=== PATIENT | male | born 1965 | race Hispanic/Latino ===

== ENCOUNTER 2020-09-27 09:05 | Inpatient (IN) | payer OTHER, SELFPAY ==
[2020-09-27] MEDS ORDERED: SODIUM CHLORIDE 0.9% 1000 ML 1,000 ML IV ONE (10:01)
[2020-09-27] MEDS ORDERED: dexAMETHasone 4 MG/ML VIAL IV ONE (10:01)
--- NOTE | 2020-09-27 10:30 | Emergency Department Report ---
HPI - General Chief Complaint: Nausea/Vomiting/Diarrhea Time Seen by Provider: 09/27/20 09:47 - HPI HPI: This is a 54-year-old male presents to the emergency department with complaint of feeling sick for the past week. He says that he has been having generalized body aches, sweats without chills, shortness of breath, and the patient says that he feels like he needs to cough but has not been able to do so. The patient states that he lost his sense of taste and smell but it has started to return. He has a past medical history of hypertension. He denies tobacco or illicit drug use. The patient had a room air oxygen saturation of about 80% through his triage. No recent travel or sick contacts at home. The patient is not vaccinated against COVID-19, but no known obvious exposure to anyone positive for COVID-19. He denies any chest pain, lower extremity swelling, nausea, vomiting, diarrhea, abdominal pain. He has not taken anything for his symptoms prior to presentation today. ED Past Medical Hx - Past Medical History Previous Medical History?: Yes Hx Hypertension: Yes - Surgical History Past Surgical History?: Yes Additional Surgical History: left shoulder surgery - Medications Home Medications: Home Medications Medication Instructions Recorded Confirmed Last Taken Type Losartan/Hydrochlorothiazide 1 each PO DAILY 09/27/20 09/27/20 09/26/20 10:00 History [Losartan-Hctz 100-25 mg Tab] ED Review of Systems ROS: Stated complaint: aches, pains, Other details as noted in HPI Comment: All other systems reviewed and negative Constitutional: diaphoresis, fever (Subjective), other (Fatigue). denies: chills Eyes: denies: eye pain, vision change ENT: denies: ear pain, throat pain Respiratory: shortness of breath. denies: wheezing Cardiovascular: denies: chest pain, edema Gastrointestinal: denies: nausea, vomiting, diarrhea Genitourinary: denies: dysuria, discharge Musculoskeletal: myalgia. denies: joint swelling Skin: denies: rash, lesions Neurological: denies: headache, numbness, paresthesias Physical Exam - Physical Exam Vital Signs: Vital Signs 09/27/20 09/27/20 09/27/20 09:13 09:14 09:17 Temperature 99.5 F Pulse Rate 127 H Respiratory 20 Rate Blood Pressure 132/78 O2 Sat by Pulse 80 L 89 Oximetry Physical Exam: GENERAL: The patient is well-developed well-nourished. HENT: Normocephalic. Atraumatic. Patient has moist mucous membranes. EYES: Extraocular motions are intact. NECK: Supple. Trachea is midline. CHEST/LUNGS: Rhonchi heard bilaterally. There is some tachypnea but no accessory muscle use. HEART/CARDIOVASCULAR: Regular. There is no tachycardia. There is no murmur. ABDOMEN: Abdomen is soft, nontender. Patient has normal bowel sounds. There is no abdominal distention. SKIN: Skin is warm and dry. NEURO: The patient is awake, alert, and oriented. The patient is cooperative. The patient has no focal neurologic deficits. Normal speech. MUSCULOSKELETAL: There is no tenderness or deformity. There is no limitation range of motion. ED Course Vital Signs 09/27/20 09/27/20 09/27/20 09:13 09:14 09:17 Temperature 99.5 F Pulse Rate 127 H Respiratory 20 Rate Blood Pressure 132/78 O2 Sat by Pulse 80 L 89 Oximetry ED Medical Decision Making - Lab Data Result diagrams: 09/27/20 10:27 09/27/20 10:27 Lab Results 09/27/20 09/27/20 09/27/20 Range/Units 10:27 10:27 10:27 WBC 9.8 (4.5-11.0) K/mm3 RBC 4.95 (3.65-5.03) M/mm3 Hgb 14.7 (11.8-15.2) gm/dl Hct 43.2 (35.5-45.6) % MCV 87 (84-94) fl MCH 30 (28-32) pg MCHC 34 (32-34) % RDW 14.3 (13.2-15.2) % Plt Count 202 (140-440) K/mm3 Add Manual Diff Complete Total Counted 100 Seg Neutrophils % Cutter Machine Seg Neuts % (Manual) 94.0 H (40.0-70.0) % Lymphocytes % (Manual) 1.0 L (13.4-35.0) % Monocytes % (Manual) 5.0 (0.0-7.3) % Nucleated RBC % Not Reportable Seg Neutrophils # Man 9.2 H (1.8-7.7) K/mm3 Band Neutrophils # 0.0 K/mm3 Lymphocytes # (Manual) 0.1 L (1.2-5.4) K/mm3 Abs React Lymphs (Man) 0.0 K/mm3 Monocytes # (Manual) 0.5 (0.0-0.8) K/mm3 Eosinophils # (Manual) 0.0 (0.0-0.4) K/mm3 Basophils # (Manual) 0.0 (0.0-0.1) K/mm3 Metamyelocytes # 0.0 K/mm3 Myelocytes # 0.0 K/mm3 Promyelocytes # 0.0 K/mm3 Blast Cells # 0.0 K/mm3 WBC Morphology Not Reportable Hypersegmented Neuts Not Reportable Hyposegmented Neuts Not Reportable Hypogranular Neuts Not Reportable Smudge Cells Not Reportable Toxic Granulation Not Reportable Toxic Vacuolation Not Reportable Dohle Bodies Not Reportable Pelger-Huet Anomaly Not Reportable Tuan Rods Not Reportable Platelet Estimate Consistent w auto Clumped Platelets Not Reportable Plt Clumps, EDTA Not Reportable Large Platelets Not Reportable Giant Platelets Not Reportable Platelet Satelliting Not Reportable Plt Morphology Comment Not Reportable RBC Morphology Normal Dimorphic RBCs Not Reportable Polychromasia Not Reportable Hypochromasia Not Reportable Poikilocytosis Not Reportable Anisocytosis Not Reportable Microcytosis Not Reportable Macrocytosis Not Reportable Spherocytes Not Reportable Pappenheimer Bodies Not Reportable Sickle Cells Not Reportable Target Cells Not Reportable Tear Drop Cells Not Reportable Ovalocytes Not Reportable Helmet Cells Not Reportable Calles-[place] Bodies Not Reportable [place] Rings Not Reportable [place] Cells Not Reportable Bite Cells Not Reportable Crenated Cell Not Reportable Elliptocytes Not Reportable Acanthocytes (Spur) Not Reportable Rouleaux Not Reportable Hemoglobin C Crystals Not Reportable Schistocytes Not Reportable Malaria parasites Not Reportable Marito Bodies Not Reportable Hem Pathologist Commnt No PT 14.6 (12.2-14.9) Sec. INR 1.09 (0.87-1.13) APTT 29.8 (24.2-36.6) Sec. D-Dimer 392.32 H (0-234) ng/mlDDU Sodium 125 L (137-145) mmol/L Potassium 3.7 (3.6-5.0) mmol/L Chloride 88.5 L (98-107) mmol/L Carbon Dioxide 23 (22-30) mmol/L Anion Gap 17 mmol/L BUN 18 (9-20) mg/dL Creatinine 1.4 H (0.8-1.3) mg/dL Estimated GFR 53 ml/min BUN/Creatinine Ratio 13 % Glucose 176 H (75-100) mg/dL Lactic Acid (0.7-2.0) mmol/L Calcium 8.8 (8.4-10.2) mg/dL Ferritin (30.0-300.0) ng/mL Total Bilirubin 1.00 (0.1-1.2) mg/dL AST 48 H (5-40) units/L ALT 33 (7-56) units/L Alkaline Phosphatase 109 (35-129) units/L Lactate Dehydrogenase 396 H (91-180) units/L Troponin T 0.013 (0.00-0.029) ng/mL C-Reactive Protein 24.60 H (0.00-1.30) mg/dL NT-Pro-B Natriuret Pep (0-900) pg/mL Total Protein 7.2 (6.3-8.2) g/dL Albumin 3.1 L (3.9-5) g/dL Albumin/Globulin Ratio 0.8 % Procalcitonin (<0.15) ng/mL 09/27/20 09/27/20 09/27/20 Range/Units 10:27 10:27 10:27 WBC (4.5-11.0) K/mm3 RBC (3.65-5.03) M/mm3 Hgb (11.8-15.2) gm/dl Hct (35.5-45.6) % MCV (84-94) fl MCH (28-32) pg MCHC (32-34) % RDW (13.2-15.2) % Plt Count (140-440) K/mm3 Add Manual Diff Total Counted Seg Neutrophils % Seg Neuts % (Manual) (40.0-70.0) % Lymphocytes % (Manual) (13.4-35.0) % Monocytes % (Manual) (0.0-7.3) % Nucleated RBC % Seg Neutrophils # Man (1.8-7.7) K/mm3 Band Neutrophils # K/mm3 Lymphocytes # (Manual) (1.2-5.4) K/mm3 Abs React Lymphs (Man) K/mm3 Monocytes # (Manual) (0.0-0.8) K/mm3 Eosinophils # (Manual) (0.0-0.4) K/mm3 Basophils # (Manual) (0.0-0.1) K/mm3 Metamyelocytes # K/mm3 Myelocytes # K/mm3 Promyelocytes # K/mm3 Blast Cells # K/mm3 WBC Morphology Hypersegmented Neuts Hyposegmented Neuts Hypogranular Neuts Smudge Cells Toxic Granulation Toxic Vacuolation Dohle Bodies Pelger-Huet Anomaly Tuan Rods Platelet Estimate Clumped Platelets Plt Clumps, EDTA Large Platelets Giant Platelets Platelet Satelliting Plt Morphology Comment RBC Morphology Dimorphic RBCs Polychromasia Hypochromasia Poikilocytosis Anisocytosis Microcytosis Macrocytosis Spherocytes Pappenheimer Bodies Sickle Cells Target Cells Tear Drop Cells Ovalocytes Helmet Cells Calles-[place]ilton[place] Bodies [place] Rings Clem Cells Bite Cells Crenated Cell Elliptocytes Acanthocytes (Spur) Rouleaux Hemoglobin C Crystals Schistocytes Malaria parasites Marito Bodies Hem Pathologist Commnt PT (12.2-14.9) Sec. INR (0.87-1.13) APTT (24.2-36.6) Sec. D-Dimer (0-234) ng/mlDDU Sodium (137-145) mmol/L Potassium (3.6-5.0) mmol/L Chloride (98-107) mmol/L Carbon Dioxide (22-30) mmol/L Anion Gap mmol/L BUN (9-20) mg/dL Creatinine (0.8-1.3) mg/dL Estimated GFR ml/min BUN/Creatinine Ratio % Glucose (75-100) mg/dL Lactic Acid 1.30 (0.7-2.0) mmol/L Calcium (8.4-10.2) mg/dL Ferritin 413.7 H (30.0-300.0) ng/mL Total Bilirubin (0.1-1.2) mg/dL AST (5-40) units/L ALT (7-56) units/L Alkaline Phosphatase (35-129) units/L Lactate Dehydrogenase (91-180) units/L Troponin T (0.00-0.029) ng/mL C-Reactive Protein (0.00-1.30) mg/dL NT-Pro-B Natriuret Pep (0-900) pg/mL Total Protein (6.3-8.2) g/dL Albumin (3.9-5) g/dL Albumin/Globulin Ratio % Procalcitonin 0.85 (<0.15) ng/mL 09/27/20 Range/Units 10:27 WBC (4.5-11.0) K/mm3 RBC (3.65-5.03) M/mm3 Hgb (11.8-15.2) gm/dl Hct (35.5-45.6) % MCV (84-94) fl MCH (28-32) pg MCHC (32-34) % RDW (13.2-15.2) % Plt Count (140-440) K/mm3 Add Manual Diff Total Counted Seg Neutrophils % Seg Neuts % (Manual) (40.0-70.0) % Lymphocytes % (Manual) (13.4-35.0) % Monocytes % (Manual) (0.0-7.3) % Nucleated RBC % Seg Neutrophils # Man (1.8-7.7) K/mm3 Band Neutrophils # K/mm3 Lymphocytes # (Manual) (1.2-5.4) K/mm3 Abs React Lymphs (Man) K/mm3 Monocytes # (Manual) (0.0-0.8) K/mm3 Eosinophils # (Manual) (0.0-0.4) K/mm3 Basophils # (Manual) (0.0-0.1) K/mm3 Metamyelocytes # K/mm3 Myelocytes # K/mm3 Promyelocytes # K/mm3 Blast Cells # K/mm3 WBC Morphology Hypersegmented Neuts Hyposegmented Neuts Hypogranular Neuts Smudge Cells Toxic Granulation Toxic Vacuolation Dohle Bodies Pelger-Huet Anomaly Tuan Rods Platelet Estimate Clumped Platelets Plt Clumps, EDTA Large Platelets Giant Platelets Platelet Satelliting Plt Morphology Comment RBC Morphology Dimorphic RBCs Polychromasia Hypochromasia Poikilocytosis Anisocytosis Microcytosis Macrocytosis Spherocytes Pappenheimer Bodies Sickle Cells Target Cells Tear Drop Cells Ovalocytes Helmet Cells Calles-Miltona Bodies [place] Rings Clem Cells Bite Cells Crenated Cell Elliptocytes Acanthocytes (Spur) Rouleaux Hemoglobin C Crystals Schistocytes Malaria parasites Marito Bodies Hem Pathologist Commnt PT (12.2-14.9) Sec. INR (0.87-1.13) APTT (24.2-36.6) Sec. D-Dimer (0-234) ng/mlDDU Sodium (137-145) mmol/L Potassium (3.6-5.0) mmol/L Chloride (98-107) mmol/L Carbon Dioxide (22-30) mmol/L Anion Gap mmol/L BUN (9-20) mg/dL Creatinine (0.8-1.3) mg/dL Estimated GFR ml/min BUN/Creatinine Ratio % Glucose (75-100) mg/dL Lactic Acid (0.7-2.0) mmol/L Calcium (8.4-10.2) mg/dL Ferritin (30.0-300.0) ng/mL Total Bilirubin (0.1-1.2) mg/dL AST (5-40) units/L ALT (7-56) units/L Alkaline Phosphatase (35-129) units/L Lactate Dehydrogenase (91-180) units/L Troponin T (0.00-0.029) ng/mL C-Reactive Protein (0.00-1.30) mg/dL NT-Pro-B Natriuret Pep 505.7 (0-900) pg/mL Total Protein (6.3-8.2) g/dL Albumin (3.9-5) g/dL Albumin/Globulin Ratio % Procalcitonin (<0.15) ng/mL - Radiology Data Radiology results: image reviewed interpreted by me: Chest x-ray shows bilateral patchy infiltrates concerning for pneumonia. No pneumothorax. No widened mediastinum. - Medical Decision Making This patient presents to the emergency department with a complaint of body aches, sweats, subjective fever, loss of taste and smell, shortness of breath. Initially the patient was 80% on room air through triage. He went up into the mid to high 90s with 6 L via nasal cannula. Chest x-ray shows bilateral patchy infiltrates concerning for pneumonia. Given the patient's bilateral pneumonia, hypoxia, and his complaints/symptoms, there is concern for COVID-19. The patient was placed on patient isolation and droplet precautions. He was given IV fluid resuscitation, antibiotics, and a dose of Decadron. Patient's labs shows hyponatremia with a level of 125, mild renal insufficiency with a GFR of about 50, and elevated inflammatory markers such as D-dimer, CRP, LDH, ferritin, that are found with COVID-19 infection. Patient will be admitted to the hospital and has been accepted for admission by the hospitalist, Dr. Khan. Critical Care Time: Yes Critical care time in (mins) excluding proc time.: 35 Critical care attestation.: If time is entered above; I have spent that time in minutes in the direct care of this critically ill patient, excluding procedure time. Critical care time was spent on this patient in doing his initial evaluation, multiple r eevaluations, ordering interpretation of labs and imaging, supplemental oxygen for his hypoxia, IV Decadron and antibiotics, IV fluid resuscitation, multiple discussions with the patient. Critical Care Time: 35 minutes ED Disposition Clinical Impression: Suspected 2019 novel coronavirus infection, Hypoxia, Hyponatremia, Mild renal insufficiency Bilateral pneumonia Qualifiers: Pneumonia type: due to unspecified organism Lung location: unspecified part of lung Qualified Code(s): J18.9 - Pneumonia, unspecified organism Disposition: OP ADMIT IP TO THIS HOSP Is pt being admited?: Yes Condition: Serious Time of Disposition: 11:42
[2020-09-27] MEDS ORDERED: ALUM-MAG HYDROXIDE-SIMETHICONE 200-200-20MG/5ML ORAL LIQD 30 ML PO ONE (10:41)
[2020-09-27 10:49] LABS: Hematocrit 43.2 % (35.5-45.6); Hemoglobin 14.7 gm/dl (11.8-15.2); Mean Corpuscular HGB Conc 34 % (32-34); Mean Corpuscular Volume 87 fl (84-94); Platelet Count 202 K/mm3 (140-440); Red Blood Count 4.95 M/mm3 (3.65-5.03); Red Cell Distribution Width 14.3 % (13.2-15.2)
--- NOTE | 2020-09-27 10:52 | XRay Report ---
CHEST 1 VIEW INDICATION: SOB. COMPARISON: None. FINDINGS: Support devices: None. Heart: Within normal limits. Lungs/Pleura: Lung volumes are diminished. Patchy bilateral infiltrates. No pleural fluid or pneumoth orax. Additional findings: None. IMPRESSION: 1. Patchy bilateral pneumonia. 2. Diminished lung volumes. Signer Name: Dominick Victoria MD Signed: 09/27/2020 10:47 AM Workstation Name: [id number]
[2020-09-27] MEDS ORDERED: cefTRIAXone/NS 1 GM/50 ML 1 GM/50 ML BAG IV ONE (10:56)
[2020-09-27] MEDS ORDERED: AZITHROMYCIN/NS 500 MG/250 ML 500 MG/250 ML BAG IV ONE (10:56)
[2020-09-27 11:17] LABS: INR 1.09 (0.87-1.13); Partial Thromboplastin Time 29.8 Sec. (24.2-36.6)
[2020-09-27 11:24] LABS: Albumin 3.1 g/dL (3.9-5); C-Reactive Protein 24.6 mg/dL (0.00-1.30); Calcium 8.8 mg/dL (8.4-10.2)
[2020-09-27 13:50] LABS: RBC Morphology Normal; Total Cells Counted 100
[2020-09-27 13:51] LABS: Platelet Estimate Consistent w Auto
[2020-09-27] MEDS ORDERED: ACETAMINOPHEN 325 MG TAB PO PRN (15:32)
[2020-09-27] MEDS ORDERED: HYDROmorphone 1 MG/1 ML INJ IV PRN (15:32)
[2020-09-27] MEDS ORDERED: METOCLOPRAMIDE 10 MG/2 ML INJ IV PRN (15:32)
[2020-09-27] MEDS ORDERED: ONDANSETRON 4 MG/2 ML INJ IV PRN (15:32)
--- NOTE | 2020-09-27 15:32 | History and Physical Report ---
History of Present Illness Date of examination: 09/27/20 Date of admission: 09/27/20 11:42 History of present illness: This is a 54-year-old male presents to the emergency department with complaint of feeling sick for the past week. He says that he has been having generalized body aches, sweats without chills, shortness of breath, and the patient says that he feels like he needs to cough but has not been able to do so. The patient states that he lost his sense of taste and smell but it has started to return. He has a past medical history of hypertension. He denies tobacco or illicit drug use. The patient had a room air oxygen saturation of about 80% through his triage. No recent travel or sick contacts at home. The patient is not vaccinated against COVID-19, but no known obvious exposure to anyone positive for COVID-19. He denies any chest pain, lower extremity swelling, nausea, vomiting, diarrhea, abdominal pain. He has not taken anything for his symptoms prior to presentation today. Did jose get Covid vaccination - Past Medical History Previous Medical History?: Yes Hx Hypertension: Yes - Surgical History Past Surgical History?: Yes Additional Surgical History: left shoulder surgery Review of Systems ROS: Stated complaint: aches, pains, Other details as noted in HPI Comment: All other systems reviewed and negative Constitutional: diaphoresis, fever (Subjective), other (Fatigue). denies: chills Eyes: denies: eye pain, vision change ENT: denies: ear pain, throat pain Respiratory: shortness of breath. denies: wheezing Cardiovascular: denies: chest pain, edema Gastrointestinal: denies: nausea, vomiting, diarrhea Genitourinary: denies: dysuria, discharge Musculoskeletal: myalgia. denies: joint swelling Skin: denies: rash, lesions Neurological: denies: headache, numbness, paresthesias Medications and Allergies Allergies Allergy/AdvReac Type Severity Reaction Status Date / Time No Known Allergies Allergy Verified 09/27/20 13:19 Home Medications Medication Instructions Recorded Confirmed Last Taken Type Losartan/Hydrochlorothiazide 1 each PO DAILY 09/27/20 09/27/20 09/26/20 10:00 History [Losartan-Hctz 100-25 mg Tab] Exam - Constitutional Vitals: Temp Pulse Resp BP Pulse Ox 99.9 F H 101 H 22 130/79 93 07/05/21 11:45 09/27/20 13:15 09/27/20 13:15 09/27/20 13:15 09/27/20 13:15 HEART Score - HEART Score Troponin: Troponin T 0.013 ng/mL (0.00-0.029) 09/27/20 10:27 Results - Labs CBC & Chem 7: 09/28/20 06:53 09/28/20 06:53 Labs: Laboratory Last Values WBC 9.8 K/mm3 (4.5-11.0) 09/27/20 10:27 RBC 4.95 M/mm3 (3.65-5.03) 09/27/20 10:27 Hgb 14.7 gm/dl (11.8-15.2) 09/27/20 10:27 Hct 43.2 % (35.5-45.6) 09/27/20 10:27 MCV 87 fl (84-94) 09/27/20 10:27 MCH 30 pg (28-32) 09/27/20 10:27 MCHC 34 % (32-34) 09/27/20 10:27 RDW 14.3 % (13.2-15.2) 09/27/20 10:27 Plt Count 202 K/mm3 (140-440) 09/27/20 10:27 Add Manual Diff Complete 09/27/20 10:27 Total Counted 100 09/27/20 10:27 Seg Neutrophils % Director Of In Service Education 09/27/20 10:27 Seg Neuts % (Manual) 94.0 % (40.0-70.0) H 09/27/20 10:27 Lymphocytes % (Manual) 1.0 % (13.4-35.0) L 09/27/20 10:27 Monocytes % (Manual) 5.0 % (0.0-7.3) 09/27/20 10:27 Nucleated RBC % Not Reportable 09/27/20 10:27 Seg Neutrophils # Man 9.2 K/mm3 (1.8-7.7) H 09/27/20 10:27 Band Neutrophils # 0.0 K/mm3 09/27/20 10:27 Lymphocytes # (Manual) 0.1 K/mm3 (1.2-5.4) L 09/27/20 10:27 Abs React Lymphs (Man) 0.0 K/mm3 09/27/20 10:27 Monocytes # (Manual) 0.5 K/mm3 (0.0-0.8) 09/27/20 10:27 Eosinophils # (Manual) 0.0 K/mm3 (0.0-0.4) 09/27/20 10:27 Basophils # (Manual) 0.0 K/mm3 (0.0-0.1) 09/27/20 10:27 Metamyelocytes # 0.0 K/mm3 09/27/20 10:27 Myelocytes # 0.0 K/mm3 09/27/20 10:27 Promyelocytes # 0.0 K/mm3 09/27/20 10:27 Blast Cells # 0.0 K/mm3 09/27/20 10:27 WBC Morphology Not Reportable 09/27/20 10:27 Hypersegmented Neuts Not Reportable 09/27/20 10:27 Hyposegmented Neuts Not Reportable 09/27/20 10:27 Hypogranular Neuts Not Reportable 09/27/20 10:27 Smudge Cells Not Reportable 09/27/20 10:27 Toxic Granulation Not Reportable 09/27/20 10:27 Toxic Vacuolation Not Reportable 09/27/20 10:27 Dohle Bodies Not Reportable 09/27/20 10:27 Pelger-Huet Anomaly Not Reportable 09/27/20 10:27 Tuan Rods Not Reportable 09/27/20 10:27 Platelet Estimate Consistent w auto 09/27/20 10:27 Clumped Platelets Not Reportable 09/27/20 10:27 Plt Clumps, EDTA Not Reportable 09/27/20 10:27 Large Platelets Not Reportable 09/27/20 10:27 Giant Platelets Not Reportable 09/27/20 10:27 Platelet Satelliting Not Reportable 09/27/20 10:27 Plt Morphology Comment Not Reportable 09/27/20 10:27 RBC Morphology Normal 09/27/20 10:27 Dimorphic RBCs Not Reportable 09/27/20 10:27 Polychromasia Not Reportable 09/27/20 10:27 Hypochromasia Not Reportable 09/27/20 10:27 Poikilocytosis Not Reportable 09/27/20 10:27 Anisocytosis Not Reportable 09/27/20 10:27 Microcytosis Not Reportable 09/27/20 10:27 Macrocytosis Not Reportable 09/27/20 10:27 Spherocytes Not Reportable 09/27/20 10:27 Pappenheimer Bodies Not Reportable 09/27/20 10:27 Sickle Cells Not Reportable 09/27/20 10:27 Target Cells Not Reportable 09/27/20 10:27 Tear Drop Cells Not Reportable 09/27/20 10:27 Ovalocytes Not Reportable 09/27/20 10:27 Helmet Cells Not Reportable 09/27/20 10:27 Calles-[place] Bodies Not Reportable 09/27/20 10:27 [place] Rings Not Reportable 09/27/20 10:27 [place] Cells Not Reportable 09/27/20 10:27 Bite Cells Not Reportable 09/27/20 10:27 Crenated Cell Not Reportable 09/27/20 10:27 Elliptocytes Not Reportable 09/27/20 10:27 Acanthocytes (Spur) Not Reportable 09/27/20 10:27 Rouleaux Not Reportable 09/27/20 10:27 Hemoglobin C Crystals Not Reportable 09/27/20 10:27 Schistocytes Not Reportable 09/27/20 10:27 Malaria parasites Not Reportable 09/27/20 10:27 Marito Bodies Not Reportable 09/27/20 10:27 Hem Pathologist Commnt No 09/27/20 10:27 PT 14.6 Sec. (12.2-14.9) 09/27/20 10:27 INR 1.09 (0.87-1.13) 09/27/20 10:27 APTT 29.8 Sec. (24.2-36.6) 09/27/20 10:27 D-Dimer 392.32 ng/mlDDU (0-234) H 09/27/20 10:27 Sodium 125 mmol/L (137-145) L 09/27/20 10:27 Potassium 3.7 mmol/L (3.6-5.0) 09/27/20 10:27 Chloride 88.5 mmol/L (98-107) L 09/27/20 10:27 Carbon Dioxide 23 mmol/L (22-30) 09/27/20 10:27 Anion Gap 17 mmol/L 09/27/20 10:27 BUN 18 mg/dL (9-20) 09/27/20 10:27 Creatinine 1.4 mg/dL (0.8-1.3) H 09/27/20 10:27 Estimated GFR 53 ml/min 09/27/20 10:27 BUN/Creatinine Ratio 13 % 09/27/20 10:27 Glucose 176 mg/dL (75-100) H 09/27/20 10:27 Lactic Acid 1.30 mmol/L (0.7-2.0) 09/27/20 10:27 Calcium 8.8 mg/dL (8.4-10.2) 09/27/20 10:27 Ferritin 413.7 ng/mL (30.0-300.0) H 09/27/20 10:27 Total Bilirubin 1.00 mg/dL (0.1-1.2) 09/27/20 10:27 AST 48 units/L (5-40) H 09/27/20 10:27 ALT 33 units/L (7-56) 09/27/20 10:27 Alkaline Phosphatase 109 units/L (35-129) 09/27/20 10:27 Lactate Dehydrogenase 396 units/L (91-180) H 09/27/20 10:27 Troponin T 0.013 ng/mL (0.00-0.029) 09/27/20 10:27 C-Reactive Protein 24.60 mg/dL (0.00-1.30) H 09/27/20 10:27 NT-Pro-B Natriuret Pep 505.7 pg/mL (0-900) 09/27/20 10:27 Total Protein 7.2 g/dL (6.3-8.2) 09/27/20 10:27 Albumin 3.1 g/dL (3.9-5) L 09/27/20 10:27 Albumin/Globulin Ratio 0.8 % 09/27/20 10:27 Procalcitonin 0.85 ng/mL (<0.15) 09/27/20 10:27 Short CBC 09/28/20 Range/Units 06:53 WBC 11.2 H (4.5-11.0) K/mm3 Hgb 15.1 (11.8-15.2) gm/dl Hct 44.0 (35.5-45.6) % Plt Count 220 (140-440) K/mm3 BMP 09/28/20 06:53 Sodium 133 L D Potassium 4.3 Chloride 94.3 L Carbon Dioxide 24 BUN 22 H Creatinine 1.2 Glucose 168 H Calcium 9.1 Liver Function 09/28/20 Range/Units 06:53 Total Bilirubin 0.50 (0.1-1.2) mg/dL AST 35 (5-40) units/L ALT 33 (7-56) units/L Alkaline Phosphatase 112 (35-129) units/L Albumin 3.8 L (3.9-5) g/dL Assessment and Plan Advance Directives: Yes (Full code) - Patient Problems (1) Acute respiratory failure with hypoxia Current Visit: Yes Status: Acute Plan to address problem: On 8 liters O2 Covid positive (2) Bilateral pneumonia Current Visit: Yes Status: Acute Qualifiers: Pneumonia type: due to unspecified organism Lung location: unspecified part of lung Qualified Code(s): J18.9 - Pneumonia, unspecified organism Plan to address problem: Treat as CAP (3) Suspected 2019 novel coronavirus infection Current Visit: Yes Status: Acute Plan to address problem: Covid to be ruled out (4) ELY (acute kidney injury) Current Visit: Yes Status: Acute (5) Malnutrition Current Visit: Yes Status: Acute (6) DVT prophylaxis Current Visit: Yes Status: Acute
[2020-09-27] MEDS: dexAMETHasone 4 MG/ML VIAL IV SCH (18:04)
[2020-09-27] MEDS: ENOXAPARIN 40 MG/0.4 ML INJ SUB-Q SCH (21:45)
[2020-09-27] MEDS: FAMOTIDINE 20 MG TAB PO SCH (21:45)
[2020-09-28] MEDS ORDERED: traZODone 50 MG TAB PO ONE (00:05)
[2020-09-28 07:59] LABS: Hemoglobin 15.1 gm/dl (11.8-15.2); Mean Corpuscular HGB Conc 34 % (32-34); Mean Corpuscular Volume 88 fl (84-94); Platelet Count 220 K/mm3 (140-440); Red Blood Count 5.01 M/mm3 (3.65-5.03); Red Cell Distribution Width 14.4 % (13.2-15.2)
[2020-09-28 08:24] LABS: Alanine Aminotransferase 33 units/L (7-56); Albumin 3.8 g/dL (3.9-5); BUN/Creatinine Ratio 18; Blood Urea Nitrogen 22 mg/dL (9-20); Calcium 9.1 mg/dL (8.4-10.2); Hemolysis Index 29
[2020-09-28] MEDS: FAMOTIDINE 20 MG TAB PO SCH ×2 (09:46→22:32)
[2020-09-28] MEDS: oxyCODONE /ACETAMINOPHEN 5-325MG TAB PO PRN ×2 (09:47→22:32)
[2020-09-28 10:43] LABS: Band Neutrophils # (Manual) 0.1 K/mm3; Promyelocytes # (Manual) 37.1 K/mm3; Total Cells Counted 100
[2020-09-28 10:45] LABS: Burr Cells 1+; Large Platelets Few; Ovalocytes Few; Platelet Estimate Consistent w Auto
[2020-09-28] MEDS: cefTRIAXone/NS 2 GM/100 ML 2 GM/100 ML BAG IV SCH (11:05)
[2020-09-28] MEDS ORDERED: AZITHROMYCIN/NS 500 MG/250 ML 500 MG/250 ML BAG IV SCH (12:00)
[2020-09-28] MEDS: dexAMETHasone 4 MG/ML VIAL IV SCH (15:11)
--- NOTE | 2020-09-28 17:51 | Discharge Summary ---
Providers - Providers Date of Admission: 09/27/20 11:42 Date of discharge: 09/28/20 Attending physician: MARQUITA HIGUERA Hospitalization Condition: Serious - Discharge Diagnoses (1) Acute respiratory failure with hypoxia Status: Acute (2) Bilateral pneumonia Status: Acute Qualifiers: Pneumonia type: due to unspecified organism Lung location: unspecified part of lung Qualified Code(s): J18.9 - Pneumonia, unspecified organism (3) Suspected 2019 novel coronavirus infection Status: Acute (4) ELY (acute kidney injury) Status: Acute (5) Malnutrition Status: Acute (6) DVT prophylaxis Status: Acute Exam - Constitutional Vitals: Temp Pulse Resp BP Pulse Ox 97.8 F 92 H 18 137/79 94 09/28/20 04:33 09/28/20 04:33 09/28/20 04:33 09/28/20 04:33 09/28/20 08:09 Plan Follow up with: VAMSHI MURDOCK [Other] - 3-5 Days
[2020-09-28] MEDS: ENOXAPARIN 40 MG/0.4 ML INJ SUB-Q SCH (22:32)
[2020-09-29] MEDS ORDERED: METOPROLOL TARTRATE 5 MG/5 ML INJ IV ONE (05:53)
--- NOTE | 2020-09-29 08:00 | Progress Note ---
Assessment and Plan - Patient Problems (1) Acute respiratory failure with hypoxia Current Visit: Yes Status: Acute Plan to address problem: On 8 liters O2 Covid positive (2) Bilateral pneumonia Current Visit: Yes Status: Acute Qualifiers: Pneumonia type: due to unspecified organism Lung location: unspecified part of lung Qualified Code(s): J18.9 - Pneumonia, unspecified organism (3) Suspected 2019 novel coronavirus infection Current Visit: Yes Status: Acute (4) ELY (acute kidney injury) Current Visit: Yes Status: Acute (5) Malnutrition Current Visit: Yes Status: Acute (6) DVT prophylaxis Current Visit: Yes Status: Acute Subjective Date of service: 09/28/20 Objective - Constitutional Vitals: Vital Signs - 12hr 09/28/20 09/29/20 22:22 04:45 Temperature 97.4 F L 98.0 F Pulse Rate 94 H 90 Respiratory 20 20 Rate Blood Pressure 159/106 160/108 O2 Sat by Pulse 97 97 Oximetry General appearance: Present: no acute distress, well-nourished - EENT Eyes: PERRL, EOM intact ENT: hearing intact, clear oral mucosa Ears: bilateral: normal - Neck Neck: supple, normal ROM - Respiratory Respiratory effort: normal Respiratory: bilateral: CTA - Breasts Breasts: normal - Cardiovascular Rhythm: regular Heart Sounds: Present: S1 & S2. Absent: gallop, rub Extremities: pulses intact, No edema, normal color, Full ROM - Gastrointestinal General gastrointestinal: Present: soft, non-tender, non-distended, normal bowel sounds - Genitourinary Male genitourinary: normal - Integumentary Integumentary: clear, warm, dry - Musculoskeletal Musculoskeletal: 1, strength equal bilaterally - Neurologic Neurologic: moves all extremities - Psychiatric Psychiatric: memory intact, appropriate mood/affect, intact judgment & insight - Labs CBC & Chem 7: 09/28/20 06:53 09/28/20 06:53 Labs: Abnormal lab results 09/27/20 09/28/20 09/28/20 Range/Units 11:59 06:53 06:53 WBC 11.2 H (4.5-11.0) K/mm3 Seg Neuts % (Manual) 98.0 H (40.0-70.0) % Seg Neutrophils # Man 11.0 H (1.8-7.7) K/mm3 Lymphocytes # (Manual) 0.0 L (1.2-5.4) K/mm3 Sodium 133 L D (137-145) mmol/L Chloride 94.3 L (98-107) mmol/L BUN 22 H (9-20) mg/dL Glucose 168 H (75-100) mg/dL Hemoglobin A1c (4-6) % Albumin 3.8 L (3.9-5) g/dL Coronavirus (PCR) Positive A (Negative) 09/28/20 Range/Units 06:53 WBC (4.5-11.0) K/mm3 Seg Neuts % (Manual) (40.0-70.0) % Seg Neutrophils # Man (1.8-7.7) K/mm3 Lymphocytes # (Manual) (1.2-5.4) K/mm3 Sodium (137-145) mmol/L Chloride (98-107) mmol/L BUN (9-20) mg/dL Glucose (75-100) mg/dL Hemoglobin A1c 7.5 H (4-6) % Albumin (3.9-5) g/dL Coronavirus (PCR) (Negative) HEART Score - HEART Score Troponin: Troponin T 0.013 ng/mL (0.00-0.029) 09/27/20 10:27
--- NOTE | 2020-09-29 08:07 | Progress Note ---
Assessment and Plan - Patient Problems (1) Acute respiratory failure with hypoxia Current Visit: Yes Status: Acute Plan to address problem: On 8 liters O2 Covid positive (2) Bilateral pneumonia Current Visit: Yes Status: Acute Qualifiers: Pneumonia type: due to unspecified organism Lung location: unspecified part of lung Qualified Code(s): J18.9 - Pneumonia, unspecified organism Plan to address problem: Treat as CAP (3) Suspected 2019 novel coronavirus infection Current Visit: Yes Status: Acute Plan to address problem: Covid positive ID consult On IV dexamethasone (4) ELY (acute kidney injury) Current Visit: Yes Status: Acute Plan to address problem: Improved (5) Malnutrition Current Visit: Yes Status: Acute Plan to address problem: Dietary supplements (6) DVT prophylaxis Current Visit: Yes Status: Acute Plan to address problem: On Lovenox and GI prophylaxis Subjective Date of service: 09/28/20 Principal diagnosis: Bilateral pneumonia Interval history: This is a 54-year-old male presents to the emergency department with complaint of feeling sick for the past week. He says that he has been having generalized body aches, sweats without chills, shortness of breath, and the patient says that he feels like he needs to cough but has not been able to do so. The patient states that he lost his sense of taste and smell but it has started to return. He has a past medical history of hypertension. He denies tobacco or illicit drug use. The patient had a room air oxygen saturation of about 80% through his triage. No recent travel or sick contacts at home. The patient is not vaccinated against COVID-19, but no known obvious exposure to anyone positive for COVID-19. He denies any chest pain, lower extremity swelling, nausea, vomiting, diarrhea, abdominal pain. He has not taken anything for his symptoms prior to presentation today. Did jose get Covid vaccination 09/28/2020 Covid PCR positive On 8 to 10 L of nasal cannula oxygen Objective - Constitutional Vitals: Vital Signs - 12hr 09/28/20 09/29/20 22:22 04:45 Temperature 97.4 F L 98.0 F Pulse Rate 94 H 90 Respiratory 20 20 Rate Blood Pressure 159/106 160/108 O2 Sat by Pulse 97 97 Oximetry General appearance: Present: mild distress, well-nourished - EENT Eyes: PERRL, EOM intact ENT: hearing intact, clear oral mucosa Ears: bilateral: normal - Neck Neck: supple, normal ROM - Respiratory Respiratory effort: normal Respiratory: bilateral: CTA, negative: rhonchi - Breasts Breasts: normal - Cardiovascular Heart rate: 78 Rhythm: regular Heart Sounds: Present: S1 & S2. Absent: gallop, rub Extremities: pulses intact, No edema, normal color, Full ROM - Gastrointestinal General gastrointestinal: Present: soft, non-tender, non-distended, normal bowel sounds - Genitourinary Male genitourinary: normal - Integumentary Integumentary: clear, warm, dry - Musculoskeletal Musculoskeletal: 1, strength equal bilaterally - Neurologic Neurologic: moves all extremities - Psychiatric Psychiatric: memory intact, appropriate mood/affect, intact judgment & insight - Labs CBC & Chem 7: 09/28/20 06:53 09/28/20 06:53 Labs: Abnormal lab results 09/27/20 09/28/20 09/28/20 Range/Units 11:59 06:53 06:53 WBC 11.2 H (4.5-11.0) K/mm3 Seg Neuts % (Manual) 98.0 H (40.0-70.0) % Seg Neutrophils # Man 11.0 H (1.8-7.7) K/mm3 Lymphocytes # (Manual) 0.0 L (1.2-5.4) K/mm3 Sodium 133 L D (137-145) mmol/L Chloride 94.3 L (98-107) mmol/L BUN 22 H (9-20) mg/dL Glucose 168 H (75-100) mg/dL Hemoglobin A1c (4-6) % Albumin 3.8 L (3.9-5) g/dL Coronavirus (PCR) Positive A (Negative) 09/28/20 Range/Units 06:53 WBC (4.5-11.0) K/mm3 Seg Neuts % (Manual) (40.0-70.0) % Seg Neutrophils # Man (1.8-7.7) K/mm3 Lymphocytes # (Manual) (1.2-5.4) K/mm3 Sodium (137-145) mmol/L Chloride (98-107) mmol/L BUN (9-20) mg/dL Glucose (75-100) mg/dL Hemoglobin A1c 7.5 H (4-6) % Albumin (3.9-5) g/dL Coronavirus (PCR) (Negative) HEART Score - HEART Score Troponin: Troponin T 0.013 ng/mL (0.00-0.029) 09/27/20 10:27
[2020-09-29] MEDS: cefTRIAXone/NS 2 GM/100 ML 2 GM/100 ML BAG IV SCH (08:59)
[2020-09-29] MEDS: AZITHROMYCIN 250 MG TAB PO SCH (09:00)
[2020-09-29] MEDS: FAMOTIDINE 20 MG TAB PO SCH ×2 (09:06→21:24)
[2020-09-29] MEDS: dexAMETHasone 4 MG/ML VIAL IV SCH (16:32)
--- NOTE | 2020-09-29 17:44 | Electrocardiograph Report ---
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
--- NOTE | 2020-09-29 17:44 | Electrocardiograph Report ---
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
[2020-09-29] MEDS ORDERED: REMDESIVIR 200 MG in SODIUM CHLORIDE 0.9% 250ML 250 ML IV ONE (20:00)
[2020-09-29] MEDS: ENOXAPARIN 40 MG/0.4 ML INJ SUB-Q SCH (21:24)
[2020-09-29] MEDS: SODIUM CHLORIDE 0.9% 50 ML IVPB IV SCH (21:25)
[2020-09-30] MEDS ORDERED: METOPROLOL TARTRATE 5 MG/5 ML INJ IV ONE (06:37)
--- NOTE | 2020-09-30 06:48 | Progress Note ---
Assessment and Plan - Patient Problems (1) Acute respiratory failure with hypoxia Current Visit: Yes Status: Acute Plan to address problem: On 8 liters O2 Covid positive (2) Bilateral pneumonia Current Visit: Yes Status: Acute Qualifiers: Pneumonia type: due to unspecified organism Lung location: unspecified part of lung Qualified Code(s): J18.9 - Pneumonia, unspecified organism Plan to address problem: Treat as CAP (3) Suspected 2019 novel coronavirus infection Current Visit: Yes Status: Acute Plan to address problem: Covid positive ID consult On IV dexamethasone IV remdesivir started as per protocol (4) ELY (acute kidney injury) Current Visit: Yes Status: Acute Plan to address problem: Improved (5) Malnutrition Current Visit: Yes Status: Acute Plan to address problem: Dietary supplements (6) DVT prophylaxis Current Visit: Yes Status: Acute Plan to address problem: On Lovenox and GI prophylaxis Subjective Date of service: 09/29/20 Principal diagnosis: Bilateral pneumonia Interval history: This is a 54-year-old male presents to the emergency department with complaint of feeling sick for the past week. He says that he has been having generalized body aches, sweats without chills, shortness of breath, and the patient says that he feels like he needs to cough but has not been able to do so. The patient states that he lost his sense of taste and smell but it has started to return. He has a past medical history of hypertension. He denies tobacco or illicit drug use. The patient had a room air oxygen saturation of about 80% through his triage. No recent travel or sick contacts at home. The patient is not vaccinated against COVID-19, but no known obvious exposure to anyone positive for COVID-19. He denies any chest pain, lower extremity swelling, nausea, vomiting, diarrhea, abdominal pain. He has not taken anything for his symptoms prior to presentation today. Did jose get Covid vaccination 09/28/2020 Covid PCR positive On 8 to 10 L of nasal cannula oxygen 09/29/2020 On 8 L nasal cannula oxygen Mild distress ID consult requested IV remdesivir started IV dexamethasone to continue Objective - Constitutional Vitals: Vital Signs - 12hr 09/29/20 09/29/20 09/30/20 21:45 23:10 05:30 Temperature 97.5 F L 97.4 F L Pulse Rate 83 86 Respiratory 22 22 Rate Blood Pressure 159/106 Blood Pressure 148/100 [Left] O2 Sat by Pulse 93 95 98 Oximetry General appearance: Present: no acute distress, mild distress, well-nourished - EENT Eyes: PERRL, EOM intact ENT: hearing intact, clear oral mucosa Ears: bilateral: normal - Neck Neck: supple, normal ROM - Respiratory Respiratory effort: normal Respiratory: bilateral: CTA, wheezing (Scattered rhonchi) - Breasts Breasts: normal - Cardiovascular Heart rate: 78 Rhythm: regular Heart Sounds: Present: S1 & S2. Absent: gallop, rub Extremities: pulses intact, No edema, normal color, Full ROM - Gastrointestinal General gastrointestinal: Present: soft, non-tender, non-distended, normal bowel sounds - Genitourinary Male genitourinary: normal - Integumentary Integumentary: clear, warm, dry - Musculoskeletal Musculoskeletal: 1, strength equal bilaterally - Neurologic Neurologic: moves all extremities - Psychiatric Psychiatric: memory intact, appropriate mood/affect, intact judgment & insight - Labs CBC & Chem 7: 09/28/20 06:53 09/28/20 06:53 HEART Score - HEART Score Troponin: Troponin T 0.013 ng/mL (0.00-0.029) 09/27/20 10:27
[2020-09-30] MEDS: cefTRIAXone/NS 2 GM/100 ML 2 GM/100 ML BAG IV SCH (11:40)
[2020-09-30] MEDS: AZITHROMYCIN 250 MG TAB PO SCH (11:40)
[2020-09-30] MEDS: FAMOTIDINE 20 MG TAB PO SCH ×2 (11:40→21:32)
--- NOTE | 2020-09-30 12:25 | Progress Note ---
Assessment and Plan Assessment and plan: This is a 54-year-old male presents to the emergency department with complaint of feeling sick for the past week. He says that he has been having generalized body aches, sweats without chills, shortness of breath, and the patient says that he feels like he needs to cough but has not been able to do so. The patient states that he lost his sense of taste and smell but it has started to return. He has a past medical history of hypertension. He denies tobacco or illicit drug use. The patient had a room air oxygen saturation of about 80% through his triage. No recent travel or sick contacts at home. The patient is not vaccinated against COVID-19, but no known obvious exposure to anyone positive for COVID-19. He denies any chest pain, lower extremity swelling, nausea, vomiting, diarrhea, abdominal pain. He has not taken anything for his symptoms prior to presentation today. Did jose get Covid vaccination 09/28/2020 Covid PCR positive On 8 to 10 L of nasal cannula oxygen 09/29/2020 On 8 L nasal cannula oxygen Mild distress ID consult requested IV remdesivir started IV dexamethasone to continue 09/30: Patient continues on high flow oxygen at 14 L. Will obtain pulmonary consultation in addition to current management continue remdesivir and dexamethasone. Encourage prone positioning. We will also obtain a CT of the chest to rule out pulmonary embolism. Plan of care discussed with the patient (1) Acute respiratory failure with hypoxia Current Visit: Yes Status: Acute Plan to address problem: On 8 liters O2 Covid positive (2) Bilateral pneumonia Current Visit: Yes Status: Acute Qualifiers: Pneumonia type: due to unspecified organism Lung location: unspecified part of lung Qualified Code(s): J18.9 - Pneumonia, unspecified organism Plan to address problem: Treat as CAP (3) 2019 novel coronavirus infection Current Visit: Yes Status: Acute Plan to address problem: Covid positive ID consult On IV dexamethasone IV remdesivir started as per protocol (4) ELY (acute kidney injury) with vasomotor nehropathy Current Visit: Yes Status: Acute Plan to address problem: Improved (5) Malnutrition Current Visit: Yes Status: Acute Plan to address problem: Dietary supplements (6) DVT prophylaxis Current Visit: Yes Status: Acute Plan to address problem: On Lovenox and GI prophylaxis History Interval history: Patient seen and examined this morning being treated for COVID-19 and respiratory failure as a result. Epidural lethargic confused at first on waking him up but was able to reorient himself although still tells me that he does not know why he is in the hospital even though he has had about COVID-19. He continues on 14 L of oxygen Hospitalist Physical - Physical exam Narrative exam: VITAL SIGNS: Reviewed. GENERAL: The patient appears normally developed, obese mild respiratory distress vital signs as documented. HEAD: No signs of head trauma. EYES: Pupils are equal. Extraocular motions intact. EARS: Hearing grossly intact. MOUTH: Oropharynx is normal. NECK: No adenopathy, no JVD. CHEST: Chest with scattered rhonchi breath sounds bilaterally. No wheezes. CARDIAC: Regular rate and rhythm. S1 and S2, without murmurs, gallops, or rubs. VASCULAR: No Edema. Peripheral pulses normal and equal in all extremities. ABDOMEN: Soft, non tender and non distended. No rebound or guarding, and no masses palpated. Bowel Sounds normal. MUSCULOSKELETAL: Good range of motion of all major joints. Extremities without clubbing, cyanosis or edema. NEUROLOGIC EXAM: Alert and oriented x 3 although slow at first no focal sensory or strength deficits. Speech normal. Follows commands. PSYCHIATRIC: Mood normal. SKIN: detail exam as documented in skin assessment - Constitutional Vitals: Temp Pulse Resp BP Pulse Ox 97.4 F L 86 22 159/106 91 09/30/20 05:30 09/30/20 05:30 09/30/20 05:30 09/30/20 05:30 09/30/20 09:00 General appearance: Present: no acute distress, mild distress, well-nourished HEART Score - HEART Score Troponin: Troponin T 0.013 ng/mL (0.00-0.029) 09/27/20 10:27 Results - Labs CBC & Chem 7: 09/28/20 06:53 09/28/20 06:53 Labs: Laboratory Last Values WBC 11.2 K/mm3 (4.5-11.0) H 09/28/20 06:53 RBC 5.01 M/mm3 (3.65-5.03) 09/28/20 06:53 Hgb 15.1 gm/dl (11.8-15.2) 09/28/20 06:53 Hct 44.0 % (35.5-45.6) 09/28/20 06:53 MCV 88 fl (84-94) 09/28/20 06:53 MCH 30 pg (28-32) 09/28/20 06:53 MCHC 34 % (32-34) 09/28/20 06:53 RDW 14.4 % (13.2-15.2) 09/28/20 06:53 Plt Count 220 K/mm3 (140-440) 09/28/20 06:53 Add Manual Diff Complete 09/28/20 06:53 Total Counted 100 09/28/20 06:53 Seg Neutrophils % Ground Crew Supervisor 09/28/20 06:53 Seg Neuts % (Manual) 98.0 % (40.0-70.0) H 09/28/20 06:53 Band Neutrophils % 1.0 % 09/28/20 06:53 Lymphocytes % (Manual) 1.0 % (13.4-35.0) L 09/27/20 10:27 Monocytes % (Manual) 1.0 % (0.0-7.3) 09/28/20 06:53 Nucleated RBC % Not Reportable 09/28/20 06:53 Seg Neutrophils # Man 11.0 K/mm3 (1.8-7.7) H 09/28/20 06:53 Band Neutrophils # 0.1 K/mm3 09/28/20 06:53 Lymphocytes # (Manual) 0.0 K/mm3 (1.2-5.4) L 09/28/20 06:53 Abs React Lymphs (Man) 0.0 K/mm3 09/28/20 06:53 Monocytes # (Manual) 0.1 K/mm3 (0.0-0.8) 09/28/20 06:53 Eosinophils # (Manual) 0.0 K/mm3 (0.0-0.4) 09/28/20 06:53 Basophils # (Manual) 0.0 K/mm3 (0.0-0.1) 09/28/20 06:53 Metamyelocytes # 0.0 K/mm3 09/28/20 06:53 Myelocytes # 0.0 K/mm3 09/28/20 06:53 Promyelocytes # 37.1 K/mm3 09/28/20 06:53 Blast Cells # 0.0 K/mm3 09/28/20 06:53 WBC Morphology Not Reportable 09/28/20 06:53 Hypersegmented Neuts Not Reportable 09/28/20 06:53 Hyposegmented Neuts Not Reportable 09/28/20 06:53 Hypogranular Neuts Not Reportable 09/28/20 06:53 Smudge Cells Not Reportable 09/28/20 06:53 Toxic Granulation Not Reportable 09/28/20 06:53 Toxic Vacuolation Not Reportable 09/28/20 06:53 Dohle Bodies Not Reportable 09/28/20 06:53 Pelger-Huet Anomaly Not Reportable 09/28/20 06:53 Tuan Rods Not Reportable 09/28/20 06:53 Platelet Estimate Consistent w auto 09/28/20 06:53 Clumped Platelets Not Reportable 09/28/20 06:53 Plt Clumps, EDTA Not Reportable 09/28/20 06:53 Large Platelets Few 09/28/20 06:53 Giant Platelets Not Reportable 09/28/20 06:53 Platelet Satelliting Not Reportable 09/28/20 06:53 Plt Morphology Comment Not Reportable 09/28/20 06:53 RBC Morphology Not Reportable 09/28/20 06:53 Dimorphic RBCs Not Reportable 09/28/20 06:53 Polychromasia Not Reportable 09/28/20 06:53 Hypochromasia Not Reportable 09/28/20 06:53 Poikilocytosis Not Reportable 09/28/20 06:53 Anisocytosis Not Reportable 09/28/20 06:53 Microcytosis Not Reportable 09/28/20 06:53 Macrocytosis Not Reportable 09/28/20 06:53 Spherocytes Not Reportable 09/28/20 06:53 Pappenheimer Bodies Not Reportable 09/28/20 06:53 Sickle Cells Not Reportable 09/28/20 06:53 Target Cells Not Reportable 09/28/20 06:53 Tear Drop Cells Not Reportable 09/28/20 06:53 Ovalocytes Few 09/28/20 06:53 Helmet Cells Not Reportable 09/28/20 06:53 [place] Bodies Not Reportable 09/28/20 06:53 [place] Rings Not Reportable 09/28/20 06:53 Clem Cells 1+ 09/28/20 06:53 Bite Cells Not Reportable 09/28/20 06:53 Crenated Cell Not Reportable 09/28/20 06:53 Elliptocytes Not Reportable 09/28/20 06:53 Acanthocytes (Spur) Not Reportable 09/28/20 06:53 Rouleaux Not Reportable 09/28/20 06:53 Hemoglobin C Crystals Not Reportable 09/28/20 06:53 Schistocytes Not Reportable 09/28/20 06:53 Malaria parasites Not Reportable 09/28/20 06:53 Marito Bodies Not Reportable 09/28/20 06:53 Hem Pathologist Commnt No 09/28/20 06:53 PT 14.6 Sec. (12.2-14.9) 09/27/20 10:27 INR 1.09 (0.87-1.13) 09/27/20 10:27 APTT 29.8 Sec. (24.2-36.6) 09/27/20 10:27 D-Dimer 392.32 ng/mlDDU (0-234) H 09/27/20 10:27 Sodium 133 mmol/L (137-145) L D 09/28/20 06:53 Potassium 4.3 mmol/L (3.6-5.0) 09/28/20 06:53 Chloride 94.3 mmol/L (98-107) L 09/28/20 06:53 Carbon Dioxide 24 mmol/L (22-30) 09/28/20 06:53 Anion Gap 19 mmol/L 09/28/20 06:53 BUN 22 mg/dL (9-20) H 09/28/20 06:53 Creatinine 1.2 mg/dL (0.8-1.3) 09/28/20 06:53 Estimated GFR > 60 ml/min 09/28/20 06:53 BUN/Creatinine Ratio 18 % 09/28/20 06:53 Glucose 168 mg/dL (75-100) H 09/28/20 06:53 Hemoglobin A1c 7.5 % (4-6) H 09/28/20 06:53 Lactic Acid 1.30 mmol/L (0.7-2.0) 09/27/20 10:27 Calcium 9.1 mg/dL (8.4-10.2) 09/28/20 06:53 Ferritin 413.7 ng/mL (30.0-300.0) H 09/27/20 10:27 Total Bilirubin 0.50 mg/dL (0.1-1.2) 09/28/20 06:53 AST 35 units/L (5-40) 09/28/20 06:53 ALT 33 units/L (7-56) 09/28/20 06:53 Alkaline Phosphatase 112 units/L (35-129) 09/28/20 06:53 Lactate Dehydrogenase 396 units/L (91-180) H 09/27/20 10:27 Troponin T 0.013 ng/mL (0.00-0.029) 09/27/20 10:27 C-Reactive Protein 24.60 mg/dL (0.00-1.30) H 09/27/20 10:27 NT-Pro-B Natriuret Pep 505.7 pg/mL (0-900) 09/27/20 10:27 Total Protein 6.7 g/dL (6.3-8.2) 09/28/20 06:53 Albumin 3.8 g/dL (3.9-5) L 09/28/20 06:53 Albumin/Globulin Ratio 1.3 % 09/28/20 06:53 Procalcitonin 0.85 ng/mL (<0.15) 09/27/20 10:27 Coronavirus (PCR) Positive (Negative) A 09/27/20 11:59 Vazquez/IV: Voiding Method Toilet Active Medications - Current Medications Current Medications: Generic Name Dose Route Start Last Admin Trade Name Freq PRN Reason Stop Dose Admin Acetaminophen 650 mg 09/27/20 15:32 Acetaminophen 325 Mg Tab PO Q4H PRN Pain MILD(1-3)/Fever >100.5/COOPER Azithromycin 500 mg 09/29/20 10:00 09/30/20 11:40 Azithromycin 250 Mg Tab PO 10/02/20 10:01 500 mg QDAY DEQUAN Administration Protocol Dexamethasone 8 mg 09/27/20 16:00 09/29/20 16:32 Dexamethasone 4 Mg/Ml Vial IV 10/06/20 16:01 8 mg Q24H DEQUAN Administration Enoxaparin Sodium 40 mg 09/27/20 22:00 09/29/20 21:24 Enoxaparin 40 Mg/0.4 Ml Inj SUB-Q 40 mg QDAY@2200 DEQUAN Administration Protocol Famotidine 20 mg 09/27/20 22:00 09/30/20 11:40 Famotidine 20 Mg Tab PO 20 mg BID DEQUAN Administration Hydromorphone HCl 0.5 mg 09/27/20 15:32 Hydromorphone 1 Mg/1 Ml Inj IV Q3H PRN Pain , Severe (7-10) Ceftriaxone Sodium 2 gm in 100 mls @ 200 mls/hr 09/28/20 10:00 09/30/20 11:40 Rocephin/Ns 2 Gm/100 Ml IV 10/02/20 10:29 200 mls/hr Q24HR DEQUAN Administration Protocol REMDESIVIR 100 mg/ Sodium 250 mls @ 500 mls/hr 09/30/20 21:00 Chloride IV 10/03/20 21:29 Q24HR@2100 DEQUAN Metoclopramide HCl 10 mg 09/27/20 15:32 Metoclopramide 10 Mg/2 Ml Inj IV Q6H PRN Nausea And Vomiting Ondansetron HCl 4 mg 09/27/20 15:32 Ondansetron 4 Mg/2 Ml Inj IV Q8H PRN Nausea And Vomiting Oxycodone/Acetaminophen 1 tab 09/27/20 15:32 09/28/20 22:32 Oxycodone /Acetaminophen 5-325mg Tab PO 1 tab Q6H PRN Administration Pain, Moderate (4-6) Sodium Chloride 10 ml 09/27/20 22:00 09/30/20 11:41 Sodium Chloride 0.9% 10 Ml Flush Syringe IV Not Given BID DEQUAN Sodium Chloride 10 ml 09/27/20 15:32 Sodium Chloride 0.9% 10 Ml Flush Syringe IV PRN PRN LINE FLUSH Sodium Chloride 50 ml 09/29/20 21:30 09/29/20 21:25 Sodium Chloride 0.9% 50 Ml Ivpb IV 10/03/20 21:01 50 ml Q24HR@2100 [facility] Administration Nutrition/Malnutrition Assess - Dietary Evaluation Nutrition/Malnutrition Findings: Nutrition Notes Start: 09/30/20 11:22 Freq: Status: Active Protocol: Document 09/30/20 11:24 CHANDNI (Rec: 09/30/20 11:26 CHANDNI [email or web address]) Nutrition Notes Need for Assessment generated from: MD Order Initial or Follow up Brief Note Current Diagnosis Acute Kidney Injury, Respiratory Failure Other Pertinent Diagnosis pneu, COVID(+) Current Diet Regular Subjective/Other Information MD order for ONS. Unable to contact pt x2. Nutrition Intervention Follow-Up By: 10/01/20 Additional Comments FU for assessment, intakes and ONS tolernace
--- NOTE | 2020-09-30 14:42 | Consultation ---
History of Present Illness Consult date: 09/30/20 Requesting physician: JUAN C DORAN Reason for consult: other (Acute Hypoxemic Respiratory Failure; COVID-19 infection) History of present illness: PULMONARY/CCM CONSULT NOTE (Full dictation # [id number]) Please see dictated notes for full details Medications and Allergies Allergies Allergy/AdvReac Type Severity Reaction Status Date / Time No Known Allergies Allergy Verified 09/27/20 13:19 Home Medications Medication Instructions Recorded Confirmed Last Taken Type Losartan/Hydrochlorothiazide 1 each PO DAILY 09/27/20 09/27/20 09/26/20 10:00 History [Losartan-Hctz 100-25 mg Tab] Active Meds: Active Medications Acetaminophen (Acetaminophen 325 Mg Tab) 650 mg PO Q4H PRN PRN Reason: Pain MILD(1-3)/Fever >100.5/COOPER Azithromycin (Azithromycin 250 Mg Tab) 500 mg PO QDAY [facility]; Protocol Stop: 10/02/20 10:01 Last Admin: 09/30/20 11:40 Dose: 500 mg Documented by: Dexamethasone (Dexamethasone 4 Mg/Ml Vial) 8 mg IV Q24H [facility] Stop: 10/06/20 16:01 Last Admin: 09/29/20 16:32 Dose: 8 mg Documented by: Enoxaparin Sodium (Enoxaparin 40 Mg/0.4 Ml Inj) 40 mg SUB-Q QDAY@2200 [facility]; Protocol Last Admin: 09/29/20 21:24 Dose: 40 mg Documented by: Famotidine (Famotidine 20 Mg Tab) 20 mg PO BID [facility] Last Admin: 09/30/20 11:40 Dose: 20 mg Documented by: Hydromorphone HCl (Hydromorphone 1 Mg/1 Ml Inj) 0.5 mg IV Q3H PRN PRN Reason: Pain , Severe (7-10) Ceftriaxone Sodium (Rocephin/Ns 2 Gm/100 Ml) 2 gm in 100 mls @ 200 mls/hr IV Q24HR [facility]; Protocol Stop: 10/02/20 10:29 Last Admin: 09/30/20 11:40 Dose: 200 mls/hr Documented by: REMDESIVIR 100 mg/ Sodium (Chloride) 250 mls @ 500 mls/hr IV Q24HR@2100 [facility] Stop: 10/03/20 21:29 Metoclopramide HCl (Metoclopramide 10 Mg/2 Ml Inj) 10 mg IV Q6H PRN PRN Reason: Nausea And Vomiting Ondansetron HCl (Ondansetron 4 Mg/2 Ml Inj) 4 mg IV Q8H PRN PRN Reason: Nausea And Vomiting Oxycodone/Acetaminophen (Oxycodone /Acetaminophen 5-325mg Tab) 1 tab PO Q6H PRN PRN Reason: Pain, Moderate (4-6) Last Admin: 09/28/20 22:32 Dose: 1 tab Documented by: Sodium Chloride (Sodium Chloride 0.9% 10 Ml Flush Syringe) 10 ml IV BID [facility] Last Admin: 09/30/20 11:41 Dose: Not Given Documented by: Sodium Chloride (Sodium Chloride 0.9% 10 Ml Flush Syringe) 10 ml IV PRN PRN PRN Reason: LINE FLUSH Sodium Chloride (Sodium Chloride 0.9% 50 Ml Ivpb) 50 ml IV Q24HR@2100 [facility] Stop: 10/03/20 21:01 Last Admin: 09/29/20 21:25 Dose: 50 ml Documented by: Physical Examination Vital signs: Vital Signs Temp Resp BP 99.5 F 20 132/78 09/27/20 09:13 09/27/20 09:13 09/27/20 09:13 Results - Laboratory Findings CBC and BMP: 09/28/20 06:53 09/30/20 13:33 PT/INR, D-dimer PT 14.6 Sec. (12.2-14.9) 09/27/20 10:27 INR 1.09 (0.87-1.13) 09/27/20 10:27 D-Dimer 392.32 ng/mlDDU (0-234) H 09/27/20 10:27 Abnormal lab findings: Abnormal Labs 09/27/20 09/27/20 09/27/20 10:27 10:27 10:27 WBC Seg Neuts % (Manual) 94.0 H Lymphocytes % (Manual) 1.0 L Seg Neutrophils # Man 9.2 H Lymphocytes # (Manual) 0.1 L D-Dimer 392.32 H Sodium 125 L Chloride 88.5 L BUN Creatinine 1.4 H Glucose 176 H Hemoglobin A1c Ferritin AST 48 H Lactate Dehydrogenase 396 H C-Reactive Protein 24.60 H Albumin 3.1 L Coronavirus (PCR) 09/27/20 09/27/2021 10:27 11:59 06:53 WBC 11.2 H Seg Neuts % (Manual) 98.0 H Lymphocytes % (Manual) Seg Neutrophils # Man 11.0 H Lymphocytes # (Manual) 0.0 L D-Dimer Sodium Chloride BUN Creatinine Glucose Hemoglobin A1c Ferritin 413.7 H AST Lactate Dehydrogenase C-Reactive Protein Albumin Coronavirus (PCR) Positive A 09/28/20 09/28/20 09/30/20 06:53 06:53 13:33 WBC Seg Neuts % (Manual) Lymphocytes % (Manual) Seg Neutrophils # Man Lymphocytes # (Manual) D-Dimer Sodium 133 L D Chloride 94.3 L BUN 22 H Creatinine Glucose 168 H 195 H Hemoglobin A1c 7.5 H Ferritin AST Lactate Dehydrogenase 413 H C-Reactive Protein 8.00 H Albumin 3.8 L Coronavirus (PCR) 09/30/20 13:33 WBC Seg Neuts % (Manual) Lymphocytes % (Manual) Seg Neutrophils # Man Lymphocytes # (Manual) D-Dimer Sodium Chloride BUN Creatinine Glucose Hemoglobin A1c Ferritin 381.2 H AST Lactate Dehydrogenase C-Reactive Protein Albumin Coronavirus (PCR)
--- NOTE | 2020-09-30 15:25 | Consultation ---
History of Present Illness - Reason for Consult Consult date: 09/30/20 - History of Present Illness 54-year-old man past medical history to hospital complaining of generalized malaise. He complained of myalgias, sweats, shortness of breath. He also complains of dysgeusia and anosmia. He is known to be hypoxic on presentation to the ER. He reports not receiving a Covid vaccination. Afebrile since admission with a white count of 11.2 Covid positive. Procalcitonin slightly elevated at 0.85. Normal renal function. Elevated inflammatory markers. Currently on ceftriaxone and azithromycin. Requiring 14 L nasal cannula. Imaging personally reviewed: Chest x-ray: Patchy bilateral pneumonia Review of systems: Deferred to reduce to the risk of transmission of COVID-19 Medications and Allergies Allergies Allergy/AdvReac Type Severity Reaction Status Date / Time No Known Allergies Allergy Verified 09/27/20 13:19 Home Medications Medication Instructions Recorded Confirmed Last Taken Type Losartan/Hydrochlorothiazide 1 each PO DAILY 09/27/20 09/27/20 09/26/20 10:00 History [Losartan-Hctz 100-25 mg Tab] Active Meds: Active Medications Acetaminophen (Acetaminophen 325 Mg Tab) 650 mg PO Q4H PRN PRN Reason: Pain MILD(1-3)/Fever >100.5/COOPER Azithromycin (Azithromycin 250 Mg Tab) 500 mg PO QDAY [facility]; Protocol Stop: 10/02/20 10:01 Last Admin: 09/30/20 11:40 Dose: 500 mg Documented by: Dexamethasone (Dexamethasone 4 Mg/Ml Vial) 8 mg IV Q24H [facility] Stop: 10/06/20 16:01 Last Admin: 09/29/20 16:32 Dose: 8 mg Documented by: Enoxaparin Sodium (Enoxaparin 40 Mg/0.4 Ml Inj) 40 mg SUB-Q QDAY@2200 [facility]; Protocol Last Admin: 09/29/20 21:24 Dose: 40 mg Documented by: Famotidine (Famotidine 20 Mg Tab) 20 mg PO BID [facility] Last Admin: 09/30/20 11:40 Dose: 20 mg Documented by: Hydromorphone HCl (Hydromorphone 1 Mg/1 Ml Inj) 0.5 mg IV Q3H PRN PRN Reason: Pain , Severe (7-10) Ceftriaxone Sodium (Rocephin/Ns 2 Gm/100 Ml) 2 gm in 100 mls @ 200 mls/hr IV Q24HR [facility]; Protocol Stop: 10/02/20 10:29 Last Admin: 09/30/20 11:40 Dose: 200 mls/hr Documented by: REMDESIVIR 100 mg/ Sodium (Chloride) 250 mls @ 500 mls/hr IV Q24HR@2100 [facility] Stop: 10/03/20 21:29 Metoclopramide HCl (Metoclopramide 10 Mg/2 Ml Inj) 10 mg IV Q6H PRN PRN Reason: Nausea And Vomiting Ondansetron HCl (Ondansetron 4 Mg/2 Ml Inj) 4 mg IV Q8H PRN PRN Reason: Nausea And Vomiting Oxycodone/Acetaminophen (Oxycodone /Acetaminophen 5-325mg Tab) 1 tab PO Q6H PRN PRN Reason: Pain, Moderate (4-6) Last Admin: 09/28/20 22:32 Dose: 1 tab Documented by: Sodium Chloride (Sodium Chloride 0.9% 10 Ml Flush Syringe) 10 ml IV BID [facility] Last Admin: 09/30/20 11:41 Dose: Not Given Documented by: Sodium Chloride (Sodium Chloride 0.9% 10 Ml Flush Syringe) 10 ml IV PRN PRN PRN Reason: LINE FLUSH Sodium Chloride (Sodium Chloride 0.9% 50 Ml Ivpb) 50 ml IV Q24HR@2100 [facility] Stop: 10/03/20 21:01 Last Admin: 09/29/20 21:25 Dose: 50 ml Documented by: Physical Examination - Physical Exam Narrative exam: Physical exam deferred to reduce risk of transmission of COVID-19. Please refer to primary team's note. - Constitutional Vitals: Vital Signs Temp Pulse Resp BP Pulse Ox 97.8 F 89 24 143/72 96 09/30/20 11:37 09/30/20 11:37 09/30/20 11:37 09/30/20 11:37 09/30/20 11:37 Temperature -Last 24 Hours Temperature 97.8 F Temperature 97.4 F Temperature 97.5 F Temperature 99.5 F Results - Labs CBC & Chem 7: 09/28/20 06:53 09/30/20 13:33 Labs: Abnormal lab results 09/30/20 09/30/20 09/30/20 Range/Units 13:33 13:33 13:33 D-Dimer > 12693 H (0-234) ng/mlDDU Glucose 195 H (75-100) mg/dL Ferritin 381.2 H (30.0-300.0) ng/mL Lactate Dehydrogenase 413 H (91-180) units/L C-Reactive Protein 8.00 H (0.00-1.30) mg/dL Assessment and Plan Cultures: Covid PCR: Positive A/P: 54-year-old man past medical history hypertension admitted with COVID-19 pneumonia #Severe COVID-19 pneumonia: Patient presented with a week of symptoms, chest x- ray with diffuse bilateral infiltrates, admission O2 sats 80% on room air. Inflammatory markers elevated #Acute hypoxemic respiratory failure: Likely secondary to COVID-19 infection. C urrently on #Obesity Recs: -Dexamethasone 6 mg IV/PO daily for 10 days -Remdesivir 200 mg IV q day x 1 followed by 100 mg IV q day x 4 days -Obtain q48-72h inflammatory markers - ferritin, Ddimer, CRP, LDH -Continue ceftriaxone 2 gm IV qday and azithromycin 500 mg PO qday for 5 days -Consider Actemra if respiratory status worsens -Anticoagulation per hospital protocol -Proning as able Thank you for the consult, we will continue to follow. MD [facility] ([facility]) O: [phone] F: [phone]
[2020-09-30] MEDS: dexAMETHasone 4 MG/ML VIAL IV SCH (15:49)
[2020-09-30] MEDS: ZINC SULFATE 220 MG CAP PO SCH (21:32)
[2020-09-30] MEDS: ASCORBIC ACID 500 MG TAB PO SCH (21:32)
[2020-09-30] MEDS: ALPRAZolam 0.25 MG TAB PO PRN (21:32)
[2020-09-30] MEDS: ENOXAPARIN 40 MG/0.4 ML INJ SUB-Q SCH (21:33)
[2020-09-30] MEDS: SODIUM CHLORIDE 0.9% 50 ML IVPB IV SCH (21:33)
[2020-09-30] MEDS: REMDESIVIR 100 MG in SODIUM CHLORIDE 0.9% 250ML 250 ML IV SCH (21:33)
[2020-09-30] MEDS ORDERED: ENOXAPARIN 40 MG/0.4 ML INJ SUB-Q SCH (22:00)
[2020-10-01] MEDS: ZOLPIDEM 5 MG TAB PO PRN ×2 (02:06→22:45)
--- NOTE | 2020-10-01 06:30 | Consultation ---
DATE OF CONSULTATION: 09/30/2020 PULMONARY CONSULTATION CONSULTING PHYSICIAN: Dr. Jiménez. REASON FOR CONSULTATION: 1. Acute hypoxemic respiratory failure. 2. COVID-19 infection. CHIEF COMPLAINT AND HISTORY OF PRESENT ILLNESS: The patient is a 54-year-old obese male with past medical history significant for a diagnosis of obesity and hypertension, who came into the Emergency Room complaining of feeling sick for about the past week. He complained of generalized body aches, sweating, shortness of breath and dyspnea on exertion. He has had mostly a dry cough, feels like he cannot get the air into his lungs. He mentioned that he lost his sense of taste and smell, but that got better. He came to the Emergency Room because of the above symptoms where he was found to be hypoxemic. He denied any sick contacts. He said he had not been vaccinated about COVID-19, but did not have any observed obvious exposure to anyone that had COVID-19. He also denied any new-onset leg pain or swelling, either unilaterally or bilaterally or any suggestion of a deep venous thrombosis. He was evaluated in the Emergency Room and amongst other things, a COVID-19 test was done and that came back positive. The patient was also found to have bilateral pneumonia and significant hypoxemia. We are asked to assist with management. When I stopped by to see him, he was resting in bed. He looked very anxious, his work of breathing was slightly increased. He states he felt like if he fell asleep he may not wake up. He denied a prior history of anxiety, needed quite a little bit of reassuring. He denied any pleuritic chest pains. Now, with regards to tobacco use or abuse, he denied. This really is as much of the history of presentation as I have. PAST MEDICAL HISTORY: Obesity, hypertension. PAST SURGICAL HISTORY: He has had left shoulder surgery. MEDICATIONS: He was on at the time I stopped by to see him, according to the medication administration record included the following: Tylenol 650 mg p.o. q.4 hours p.r.n. mild pain or fevers, Zithromax 500 mg p.o. daily, Rocephin 2 g IV daily, Decadron 8 mg IV daily, Lovenox 40 mg subQ daily, Pepcid 20 mg p.o. b.i.d., Dilaudid 0.5 mg IV q.3 hours p.r.n. severe pain, Reglan 10 mg IV q.6 hours p.r.n. nausea and vomiting, Zofran 4 mg IV q.8 hours p.r.n. nausea and vomiting, Percocet 5/325 one tablet p.o. q.6 hours p.r.n. moderate pain, remdesivir 100 mg IV daily. ALLERGIES: No known drug allergies. DIET: Obese gentleman. Denies significant weight loss or gain in the preceding few weeks to months. FAMILY AND SOCIAL HISTORY: Lives in the community. He drinks alcohol, but denies any history of withdrawal symptoms. He denies illicit drug use or abuse. FAMILY HISTORY: Otherwise unknown. REVIEW OF SYSTEMS: No loss of consciousness. No new onset seizures. No new onset focal weakness. Denies gross hematochezia or melena. Denies gross hematuria or dysuria. Denies any new rash on his body. He did admit to some feeling of anxiety. Denies polydipsia, polyuria. Denies heat or cold intolerance. Complete 13-system review of system was obtained. Pertinent positives and/or negatives as in the body of history above, otherwise they are noncontributory. PHYSICAL EXAMINATION: VITAL SIGNS: He had a low-grade temperature at presentation, temperature 99.5 degrees Fahrenheit, pulse was 127, respiratory rate was 35 described as short of breath and labored, blood pressure was 132/78, O2 sats at that time were 80% on room air when I stopped by to see him, his O2 sats were 98% that was on 10 liters high flow nasal cannula or about 40-45% FiO2. GENERAL: He is a middle-aged obese male. Normocephalic and atraumatic, talking to me in full sentences, but with mildly increased respiratory effort at rest. HEAD, EYES, EARS, NOSE AND THROAT: Anicteric. No conjunctival erythema. Oropharynx was moist. Mallampati 3 oropharynx. No gross jugular venous distention, no thyromegaly. He does have a large neck circumference. Grossly, there were no palpable lymph nodes in the supraclavicular or submandibular lymph node chains. LUNGS: Auscultation of both lung paez significant for diminished bilateral breath sounds. Faint bibasilar inspiratory rales. No wheezing. HEART: Sounds 1 and 2 are heard, regular rate and rhythm at the time of my evaluation without overt rubs or murmurs. ABDOMEN: Soft, full, protuberant. Bowel sounds are positive, nontender, no palpable hepatosplenomegaly. EXTREMITIES: Without overt digital clubbing or cyanosis, no pedal edema. Pedal pulses were 2+ bilaterally. NEUROLOGIC: Pupils are equal, round, about 4 mm, reactive to light. Extraocular muscle movements are intact. He moves all 4 extremities spontaneously. PSYCHIATRIC: His mood and affect were anxious. He did have intact judgment and insight. SKIN: Normal turgor in the areas examined without overt cellulitis or rash. Please see the wound care nurses' notes for full description of his skin. LABORATORY DATA: From my review are as follows: Admission white cell count 9800, hemoglobin 14.7, hematocrit 43.2, and platelet count was 202. No band forms on the manual differential. INR within normal limits. D-dimer 392. Serum sodium was 125, potassium 3.7, chloride 89, bicarbonate 23, BUN 18, creatinine 1.4, glucose is 176. Hemoglobin A1c 7.5. Lactic acid level within normal limits. Ferritin up at 414, AST up at 48. Otherwise, liver function test within normal limits. LDH was 396. Troponin within normal limits. CRP was up to 24.6. Procalcitonin up at 0.85. Coronavirus PCR test was positive. No microbiology studies for my review. He did have a chest x-ray, I have reviewed the chest x-ray, it is a lordotic, bilateral patchy infiltrates and bilateral multifocal pneumonia. Essentially, it does not appear there is any significant cardiomegaly. Then, he has evidence of hypoventilation with low lung volumes. ASSESSMENT: 1. Acute hypoxemic respiratory failure. 2. Bilateral pneumonia due to COVID-19 infection. 3. COVID-19 infection. 4. Obesity. 5. History of hypertension. 6. Elevated serum inflammatory markers to include LDH, D-dimers and ferritin. 7. Hyponatremia. 8. Acute kidney injury. 9. Anxiety. PLAN: I do agree with current therapies. He will complete his remdesivir dosing per protocol. We will complete empiric community-acquired pneumonia therapy with Rocephin and Zithromax. I will continue the systemic steroids with IV dexamethasone for oxygen dependent COPD. Bilevel positive airway pressure ventilation therapy will be offered on a p.r.n. basis. I will order low dose Xanax 0.25 mg p.o. t.i.d. p.r.n. anxiety, but also is complaining of sleep and insomnia. I will order p.r.n. Ambien at night. I will get bilateral lower extremity Dopplers as part of the venous thromboembolic disorders screen, but I do not see any acute indication for full dose anticoagulation at this point. He is appropriately on GI prophylaxis and DVT prophylaxis. Analgesia will be given different per his pain score. Flu and pneumonia vaccination will be addressed per protocol. I should mention I have also advised that he seek a COVID vaccination once he is over his current illness and follows up in the clinic. Thank you very much for the consult. We will follow along and make further recommendations as picture progresses/becomes clearer. TID: [id number] RECEIPT: [id number] AYLA/LETITIA
[2020-10-01 08:19] LABS: Alanine Aminotransferase 54 units/L (7-56); Albumin 3.5 g/dL (3.9-5); BUN/Creatinine Ratio 20; Blood Urea Nitrogen 20 mg/dL (9-20); Calcium 8.8 mg/dL (8.4-10.2); Hemolysis Index 2
--- NOTE | 2020-10-01 08:37 | Progress Note ---
Assessment and Plan Acute respiratory failure with hypoxia Bilateral pneumonia 2019 novel coronavirus infection Morbid obesity BMI 39.5 ELY (acute kidney injury) with vasomotor nephropathy Sleep apnea - continue to titrate supplemental oxygen to keep SpO2 89-92% - continue bronchodilators -Continue COVID isolation per facility protocol -Complete IV remdesivir and Dexamethasone per protocol -Awake proning as tolerated -Continue to trend serum inflammatory markers per facility protocol -Anticoagulation per facility protocol - avoid nephrotoxins, renally dose all medications - continue to avoid benzodiazepines, reduce the possibility of delirium - complete empiric ABs per ID recommendations - continue accuchecks with glycemic control per SSI (While critically ill target blood glucose of 140-180 mg/dL; avoid hypoglycemia) - Maintenance of sleep-wake cycle, avoid delirium -CPAP/BIPAP qhs - PT/OT/ROM exercises - Monitor hemodynamics closely -Will need outpatient pulmonary follow up fro sleep apnea management - continue other care per attending / other consultants CONDITION: CRITICAL PROGNOSIS: GUARDED CODE STATUS: FULL CODE The high probability of a clinically significant, sudden or life-threatening deterioration of the [respiratory, cardiovascular,] system(s) required my full and direct attention, intervention and personal management. The aggregate critical care time was [33] minutes without overlap. Time includes spent on; [x] Data Review and interpretation [x] Patient assessment and monitoring of vital signs [x] Documentation [x] Medication orders and management Subjective Date of service: 10/01/20 Principal diagnosis: Bilateral pneumonia, COVID pneumonia, acute hypoxic resp failure Interval history: Follow up for: Bilateral pneumonia, COVID pneumonia, acute hypoxic resp failure Seen and examined. Vitals, labs, medications, cahrt and imaging reviewed. Discussed with nursing and respiratory staff. Complains of anxiety and difficulty sleeping at night. Denies any nausea, no vomiting, no diarrhea. On going shortness of breath, no cough Objective - Exam Narrative Exam: Vitals reviewed Vital Signs - 12hr 10/01/20 06:07 Temperature 97.8 F Pulse Rate 82 Respiratory 20 Rate Blood Pressure 113/70 O2 Sat by Pulse 95 Oximetry Constitutional: alert, other (mild resp distress on HFOT ) Eyes: non-icteric ENT: oropharynx moist Neck: supple, no lymphadenopathy Effort: mildly labored Ascultation: Bilateral: diminished breath sounds Cardiovascular: regular rate and rhythm, other (S1,S2) Gastrointestinal: normoactive bowel sounds, soft, non-tender, non-distended Integumentary: normal Extremities: no cyanosis, no edema, pulses normal Neurologic: normal mental status, non-focal exam, pupils equal and round, CN II- XII normal, motor strength normal and Psychiatric: anxious CBC and BMP: 10/02/20 13:24 10/03/20 07:31 ABG, PT/INR, D-dimer: PT/INR, D-dimer PT 14.6 Sec. (12.2-14.9) 09/27/20 10:27 INR 1.09 (0.87-1.13) 09/27/20 10:27 D-Dimer > 88394 ng/mlDDU (0-234) H 09/30/20 13:33 Abnormal lab findings: Abnormal Labs 09/27/20 09/27/20 09/27/20 10:27 10:27 10:27 WBC Seg Neuts % (Manual) 94.0 H Lymphocytes % (Manual) 1.0 L Seg Neutrophils # Man 9.2 H Lymphocytes # (Manual) 0.1 L D-Dimer 392.32 H Sodium 125 L Chloride 88.5 L BUN Creatinine 1.4 H Glucose 176 H Hemoglobin A1c Ferritin AST 48 H Lactate Dehydrogenase 396 H C-Reactive Protein 24.60 H Total Protein Albumin 3.1 L Coronavirus (PCR) 09/27/20 09/27/20 09/28/20 10:27 11:59 06:53 WBC 11.2 H Seg Neuts % (Manual) 98.0 H Lymphocytes % (Manual) Seg Neutrophils # Man 11.0 H Lymphocytes # (Manual) 0.0 L D-Dimer Sodium Chloride BUN Creatinine Glucose Hemoglobin A1c Ferritin 413.7 H AST Lactate Dehydrogenase C-Reactive Protein Total Protein Albumin Coronavirus (PCR) Positive A 09/28/20 09/28/20 09/30/20 06:53 06:53 13:33 WBC Seg Neuts % (Manual) Lymphocytes % (Manual) Seg Neutrophils # Man Lymphocytes # (Manual) D-Dimer > 75487 H Sodium 133 L D Chloride 94.3 L BUN 22 H Creatinine Glucose 168 H Hemoglobin A1c 7.5 H Ferritin AST Lactate Dehydrogenase C-Reactive Protein Total Protein Albumin 3.8 L Coronavirus (PCR) 09/30/20 09/30/20 10/01/20 13:33 13:33 07:11 WBC Seg Neuts % (Manual) Lymphocytes % (Manual) Seg Neutrophils # Man Lymphocytes # (Manual) D-Dimer Sodium Chloride BUN Creatinine Glucose 195 H 126 H Hemoglobin A1c Ferritin 381.2 H AST Lactate Dehydrogenase 413 H C-Reactive Protein 8.00 H Total Protein 6.0 L Albumin 3.5 L Coronavirus (PCR) Chest x-ray: image reviewed Allied health notes reviewed: RT
[2020-10-01] MEDS: AZITHROMYCIN 250 MG TAB PO SCH (09:37)
[2020-10-01] MEDS: FAMOTIDINE 20 MG TAB PO SCH ×2 (09:37→21:27)
[2020-10-01] MEDS: ZINC SULFATE 220 MG CAP PO SCH ×2 (09:37→21:26)
[2020-10-01] MEDS: ASCORBIC ACID 500 MG TAB PO SCH (09:37)
[2020-10-01] MEDS: cefTRIAXone/NS 2 GM/100 ML 2 GM/100 ML BAG IV SCH (09:38)
--- NOTE | 2020-10-01 11:49 | Progress Note ---
Assessment and Plan Assessment and plan: This is a 54-year-old male presents to the emergency department with complaint of feeling sick for the past week. He says that he has been having generalized body aches, sweats without chills, shortness of breath, and the patient says that he feels like he needs to cough but has not been able to do so. The patient states that he lost his sense of taste and smell but it has started to return. He has a past medical history of hypertension. He denies tobacco or illicit drug use. The patient had a room air oxygen saturation of about 80% through his triage. No recent travel or sick contacts at home. The patient is not vaccinated against COVID-19, but no known obvious exposure to anyone positive for COVID-19. He denies any chest pain, lower extremity swelling, nausea, vomiting, diarrhea, abdominal pain. He has not taken anything for his symptoms prior to presentation today. Did jose get Covid vaccination 09/28/2020 Covid PCR positive On 8 to 10 L of nasal cannula oxygen 09/29/2020 On 8 L nasal cannula oxygen Mild distress ID consult requested IV remdesivir started IV dexamethasone to continue 09/30: Patient continues on high flow oxygen at 14 L. Will obtain pulmonary consultation in addition to current management continue remdesivir and dexamethasone. Encourage prone positioning. We will also obtain a CT of the chest to rule out pulmonary embolism. Plan of care discussed with the patient 10/01: Continues on 14 L of oxygen continue to encourage weaning down, pulmonary input is noted. Continue to await CTA. Wean oxygen as tolerated. Continue steroids. Complete remdesivir. Continue to encourage prone positioning. We will give a dose of Lasix today (1) Acute respiratory failure with hypoxia Current Visit: Yes Status: Acute Plan to address problem: Covid positive (2) Bilateral pneumonia Current Visit: Yes Status: Acute Qualifiers: Pneumonia type: due to unspecified organism Lung location: unspecified part of lung Qualified Code(s): J18.9 - Pneumonia, unspecified organism Plan to address problem: Treat as CAP (3) 2019 novel coronavirus infection Current Visit: Yes Status: Acute Plan to address problem: Covid positive ID consult On IV dexamethasone IV remdesivir started as per protocol (4) ELY (acute kidney injury) with vasomotor nehropathy Current Visit: Yes Status: Acute Plan to address problem: Improved (5) Malnutrition Current Visit: Yes Status: Acute Plan to address problem: Dietary supplements (6) DVT prophylaxis Current Visit: Yes Status: Acute Plan to address problem: On Lovenox and GI prophylaxis History Interval history: Patient seen and examined this morning being treated for COVID-19 and respiratory failure as a result. Still lethargic Hospitalist Physical - Physical exam Narrative exam: VITAL SIGNS: Reviewed. GENERAL: The patient appears normally developed, obese mild respiratory distress vital signs as documented. HEAD: No signs of head trauma. EYES: Pupils are equal. Extraocular motions intact. EARS: Hearing grossly intact. MOUTH: Oropharynx is normal. NECK: No adenopathy, no JVD. CHEST: Chest with scattered rhonchi breath sounds bilaterally. No wheezes. CARDIAC: Regular rate and rhythm. S1 and S2, without murmurs, gallops, or rubs. VASCULAR: No Edema. Peripheral pulses normal and equal in all extremities. ABDOMEN: Soft, non tender and non distended. No rebound or guarding, and no masses palpated. Bowel Sounds normal. MUSCULOSKELETAL: Good range of motion of all major joints. Extremities without clubbing, cyanosis or edema. NEUROLOGIC EXAM: Alert and oriented x 3 although slow at first no focal sensory or strength deficits. Speech normal. Follows commands. PSYCHIATRIC: Mood normal. SKIN: detail exam as documented in skin assessment - Constitutional Vitals: Temp Pulse Resp BP Pulse Ox 97.8 F 82 20 113/70 95 10/01/20 06:07 10/01/20 06:07 10/01/20 06:07 10/01/20 06:07 10/01/20 06:07 General appearance: Present: no acute distress, mild distress, well-nourished HEART Score - HEART Score Troponin: Troponin T 0.013 ng/mL (0.00-0.029) 09/27/20 10:27 Results - Labs CBC & Chem 7: 09/28/20 06:53 10/01/20 07:11 Labs: Laboratory Last Values WBC 11.2 K/mm3 (4.5-11.0) H 09/28/20 06:53 RBC 5.01 M/mm3 (3.65-5.03) 09/28/20 06:53 Hgb 15.1 gm/dl (11.8-15.2) 09/28/20 06:53 Hct 44.0 % (35.5-45.6) 09/28/20 06:53 MCV 88 fl (84-94) 09/28/20 06:53 MCH 30 pg (28-32) 09/28/20 06:53 MCHC 34 % (32-34) 09/28/20 06:53 RDW 14.4 % (13.2-15.2) 09/28/20 06:53 Plt Count 220 K/mm3 (140-440) 09/28/20 06:53 Add Manual Diff Complete 09/28/20 06:53 Total Counted 100 09/28/20 06:53 Seg Neutrophils % Transfusion Aide 09/28/20 06:53 Seg Neuts % (Manual) 98.0 % (40.0-70.0) H 09/28/20 06:53 Band Neutrophils % 1.0 % 09/28/20 06:53 Lymphocytes % (Manual) 1.0 % (13.4-35.0) L 09/27/20 10:27 Monocytes % (Manual) 1.0 % (0.0-7.3) 09/28/20 06:53 Nucleated RBC % Not Reportable 09/28/20 06:53 Seg Neutrophils # Man 11.0 K/mm3 (1.8-7.7) H 09/28/20 06:53 Band Neutrophils # 0.1 K/mm3 09/28/20 06:53 Lymphocytes # (Manual) 0.0 K/mm3 (1.2-5.4) L 09/28/20 06:53 Abs React Lymphs (Man) 0.0 K/mm3 09/28/20 06:53 Monocytes # (Manual) 0.1 K/mm3 (0.0-0.8) 09/28/20 06:53 Eosinophils # (Manual) 0.0 K/mm3 (0.0-0.4) 09/28/20 06:53 Basophils # (Manual) 0.0 K/mm3 (0.0-0.1) 09/28/20 06:53 Metamyelocytes # 0.0 K/mm3 09/28/20 06:53 Myelocytes # 0.0 K/mm3 09/28/20 06:53 Promyelocytes # 37.1 K/mm3 09/28/20 06:53 Blast Cells # 0.0 K/mm3 09/28/20 06:53 WBC Morphology Not Reportable 09/28/20 06:53 Hypersegmented Neuts Not Reportable 09/28/20 06:53 Hyposegmented Neuts Not Reportable 09/28/20 06:53 Hypogranular Neuts Not Reportable 09/28/20 06:53 Smudge Cells Not Reportable 09/28/20 06:53 Toxic Granulation Not Reportable 09/28/20 06:53 Toxic Vacuolation Not Reportable 09/28/20 06:53 Dohle Bodies Not Reportable 09/28/20 06:53 Pelger-Huet Anomaly Not Reportable 09/28/20 06:53 Tuan Rods Not Reportable 09/28/20 06:53 Platelet Estimate Consistent w auto 09/28/20 06:53 Clumped Platelets Not Reportable 09/28/20 06:53 Plt Clumps, EDTA Not Reportable 09/28/20 06:53 Large Platelets Few 09/28/20 06:53 Giant Platelets Not Reportable 09/28/20 06:53 Platelet Satelliting Not Reportable 09/28/20 06:53 Plt Morphology Comment Not Reportable 09/28/20 06:53 RBC Morphology Not Reportable 09/28/20 06:53 Dimorphic RBCs Not Reportable 09/28/20 06:53 Polychromasia Not Reportable 09/28/20 06:53 Hypochromasia Not Reportable 09/28/20 06:53 Poikilocytosis Not Reportable 09/28/20 06:53 Anisocytosis Not Reportable 09/28/20 06:53 Microcytosis Not Reportable 09/28/20 06:53 Macrocytosis Not Reportable 09/28/20 06:53 Spherocytes Not Reportable 09/28/20 06:53 Pappenheimer Bodies Not Reportable 09/28/20 06:53 Sickle Cells Not Reportable 09/28/20 06:53 Target Cells Not Reportable 09/28/20 06:53 Tear Drop Cells Not Reportable 09/28/20 06:53 Ovalocytes Few 09/28/20 06:53 Helmet Cells Not Reportable 09/28/20 06:53 [place] Bodies Not Reportable 09/28/20 06:53 [place] Rings Not Reportable 09/28/20 06:53 [place] Cells 1+ 09/28/20 06:53 Bite Cells Not Reportable 09/28/20 06:53 Crenated Cell Not Reportable 09/28/20 06:53 Elliptocytes Not Reportable 09/28/20 06:53 Acanthocytes (Spur) Not Reportable 09/28/20 06:53 Rouleaux Not Reportable 09/28/20 06:53 Hemoglobin C Crystals Not Reportable 09/28/20 06:53 Schistocytes Not Reportable 09/28/20 06:53 Malaria parasites Not Reportable 09/28/20 06:53 Marito Bodies Not Reportable 09/28/20 06:53 Hem Pathologist Commnt No 09/28/20 06:53 PT 14.6 Sec. (12.2-14.9) 09/27/20 10:27 INR 1.09 (0.87-1.13) 09/27/20 10:27 APTT 29.8 Sec. (24.2-36.6) 09/27/20 10:27 D-Dimer > 60817 ng/mlDDU (0-234) H 09/30/20 13:33 Sodium 141 mmol/L (137-145) D 10/01/20 07:11 Potassium 4.1 mmol/L (3.6-5.0) 10/01/20 07:11 Chloride 101.8 mmol/L (98-107) 10/01/20 07:11 Carbon Dioxide 29 mmol/L (22-30) 10/01/20 07:11 Anion Gap 14 mmol/L 10/01/20 07:11 BUN 20 mg/dL (9-20) 10/01/20 07:11 Creatinine 1.0 mg/dL (0.8-1.3) 10/01/20 07:11 Estimated GFR > 60 ml/min 10/01/20 07:11 BUN/Creatinine Ratio 20 % 10/01/20 07:11 Glucose 126 mg/dL (75-100) H 10/01/20 07:11 Hemoglobin A1c 7.5 % (4-6) H 09/28/20 06:53 Lactic Acid 1.30 mmol/L (0.7-2.0) 09/27/20 10:27 Calcium 8.8 mg/dL (8.4-10.2) 10/01/20 07:11 Ferritin 381.2 ng/mL (30.0-300.0) H 09/30/20 13:33 Total Bilirubin 0.30 mg/dL (0.1-1.2) 10/01/20 07:11 AST 22 units/L (5-40) 10/01/20 07:11 ALT 54 units/L (7-56) 10/01/20 07:11 Alkaline Phosphatase 98 units/L (35-129) 10/01/20 07:11 Lactate Dehydrogenase 413 units/L (91-180) H 09/30/20 13:33 Troponin T 0.013 ng/mL (0.00-0.029) 09/27/20 10:27 C-Reactive Protein 8.00 mg/dL (0.00-1.30) H 09/30/20 13:33 NT-Pro-B Natriuret Pep 505.7 pg/mL (0-900) 09/27/20 10:27 Total Protein 6.0 g/dL (6.3-8.2) L 10/01/20 07:11 Albumin 3.5 g/dL (3.9-5) L 10/01/20 07:11 Albumin/Globulin Ratio 1.4 % 10/01/20 07:11 Procalcitonin 0.85 ng/mL (<0.15) 09/27/20 10:27 Coronavirus (PCR) Positive (Negative) A 09/27/20 11:59 Vazquez/IV: Voiding Method Toilet Active Medications - Current Medications Current Medications: Generic Name Dose Route Start Last Admin Trade Name Freq PRN Reason Stop Dose Admin Acetaminophen 650 mg 09/27/20 15:32 Acetaminophen 325 Mg Tab PO Q4H PRN Pain MILD(1-3)/Fever >100.5/COOPER Alprazolam 0.25 mg 09/30/20 20:00 09/30/20 21:32 Alprazolam 0.25 Mg Tab PO 0.25 mg TID PRN Administration Anxiety Ascorbic Acid 500 mg 09/30/20 18:00 10/01/20 09:37 Ascorbic Acid 500 Mg Tab PO 500 mg QDAY DEQUAN Administration Azithromycin 500 mg 09/29/20 10:00 10/01/20 09:37 Azithromycin 250 Mg Tab PO 10/02/20 10:01 500 mg QDAY DEQUAN Administration Protocol Dexamethasone 8 mg 09/27/20 16:00 09/30/20 15:49 Dexamethasone 4 Mg/Ml Vial IV 10/06/20 16:01 8 mg Q24H DEQUAN Administration Enoxaparin Sodium 40 mg 09/27/20 22:00 09/30/20 21:33 Enoxaparin 40 Mg/0.4 Ml Inj SUB-Q 40 mg QDAY@2200 DEQUAN Administration Protocol Famotidine 20 mg 09/27/20 22:00 10/01/20 09:37 Famotidine 20 Mg Tab PO 20 mg BID DEQUAN Administration Hydromorphone HCl 0.5 mg 09/27/20 15:32 Hydromorphone 1 Mg/1 Ml Inj IV Q3H PRN Pain , Severe (7-10) Ceftriaxone Sodium 2 gm in 100 mls @ 200 mls/hr 09/28/20 10:00 10/01/20 09:38 Rocephin/Ns 2 Gm/100 Ml IV 10/02/20 10:29 200 mls/hr Q24HR DEQUAN Administration Protocol REMDESIVIR 100 mg/ Sodium 250 mls @ 500 mls/hr 09/30/20 21:00 09/30/20 21:33 Chloride IV 10/03/20 21:29 500 mls/hr Q24HR@2100 DEQUAN Administration Metoclopramide HCl 10 mg 09/27/20 15:32 Metoclopramide 10 Mg/2 Ml Inj IV Q6H PRN Nausea And Vomiting Ondansetron HCl 4 mg 09/27/20 15:32 Ondansetron 4 Mg/2 Ml Inj IV Q8H PRN Nausea And Vomiting Oxycodone/Acetaminophen 1 tab 09/27/20 15:32 09/28/20 22:32 Oxycodone /Acetaminophen 5-325mg Tab PO 1 tab Q6H PRN Administration Pain, Moderate (4-6) Sodium Chloride 10 ml 09/27/20 22:00 10/01/20 09:38 Sodium Chloride 0.9% 10 Ml Flush Syringe IV 10 ml BID DEQUAN Administration Sodium Chloride 10 ml 09/27/20 15:32 Sodium Chloride 0.9% 10 Ml Flush Syringe IV PRN PRN LINE FLUSH Sodium Chloride 50 ml 09/29/20 21:30 09/30/20 21:33 Sodium Chloride 0.9% 50 Ml Ivpb IV 10/03/20 21:01 50 ml Q24HR@2100 DEQUAN Administration Zinc Sulfate 220 mg 09/30/20 22:00 10/01/20 09:37 Zinc Sulfate 220 Mg Cap PO 220 mg BID DEQUAN Administration Zolpidem Tartrate 5 mg 09/30/20 22:00 10/01/20 02:06 Zolpidem 5 Mg Tab PO 5 mg QHS PRN Administration Sleep Nutrition/Malnutrition Assess - Dietary Evaluation Nutrition/Malnutrition Findings: Nutrition Notes Start: 09/30/20 11:22 Freq: Status: Active Protocol: Document 09/30/20 11:24 (Rec: 09/30/20 11:26 [id number]) Nutrition Notes Need for Assessment generated from: MD Order Initial or Follow up Brief Note Current Diagnosis Acute Kidney Injury, Respiratory Failure Other Pertinent Diagnosis pneu, COVID(+) Current Diet Regular Subjective/Other Information MD order for ONS. Unable to contact pt x2. Nutrition Intervention Follow-Up By: 10/01/20 Additional Comments FU for assessment, intakes and ONS tolernace
[2020-10-01] MEDS ORDERED: FUROSEMIDE 40 MG/4 ML INJ IV ONE (13:00)
--- NOTE | 2020-10-01 14:18 | Progress Note ---
Assessment and Plan Cultures: Covid PCR: Positive A/P: 54-year-old man past medical history hypertension admitted with COVID-19 pneumonia #Severe COVID-19 pneumonia: Patient presented with a week of symptoms, chest x- ray with diffuse bilateral infiltrates, admission O2 sats 80% on room air. Inflammatory markers elevated. Procalcitonin slightly elevated #Acute hypoxemic respiratory failure: Likely secondary to COVID-19 infection. Currently on 12L salter. #Obesity Recs: -Dexamethasone 6 mg IV/PO daily for 10 days -Remdesivir 200 mg IV q day x 1 followed by 100 mg IV q day x 4 days -Obtain q48-72h inflammatory markers - ferritin, Ddimer, CRP, LDH -Continue ceftriaxone 2 gm IV qday and azithromycin 500 mg PO qday for 5 days due to elevated procalcitonin. -Consider Actemra if respiratory status worsens -Anticoagulation per hospital protocol -Proning as able Thank you for the consult, we will continue to follow. Melissa Beverly MD [facility] O: [phone] F: [phone] Subjective Date of service: 10/01/20 Principal diagnosis: Bilateral pneumonia, COVID pneumonia, acute hypoxic resp failure Interval history: Afebrile, Covid positive. On 12 L nasal cannula Objective - Exam Narrative Exam: Physical exam deferred to reduce risk of transmission of COVID-19. Please refer to primary team's note. - Constitutional Vitals: Vital Signs Temp Pulse Resp BP Pulse Ox 97.8 F 82 20 113/70 95 10/01/20 06:07 10/01/20 06:07 10/01/20 06:07 10/01/20 06:07 10/01/20 06:07 Temperature -Last 24 Hours Temperature 97.8 F Temperature 97.9 F Temperature 98.5 F Temperature 98.5 F - Labs CBC & Chem 7: 09/28/20 06:53 10/01/20 07:11 Labs: Abnormal lab results 09/30/20 09/30/20 09/30/20 Range/Units 13:33 13:33 13:33 D-Dimer > 18835 H (0-234) ng/mlDDU Glucose 195 H (75-100) mg/dL Ferritin 381.2 H (30.0-300.0) ng/mL Lactate Dehydrogenase 413 H (91-180) units/L C-Reactive Protein 8.00 H (0.00-1.30) mg/dL Total Protein (6.3-8.2) g/dL Albumin (3.9-5) g/dL 10/01/20 Range/Units 07:11 D-Dimer (0-234) ng/mlDDU Glucose 126 H (75-100) mg/dL Ferritin (30.0-300.0) ng/mL Lactate Dehydrogenase (91-180) units/L C-Reactive Protein (0.00-1.30) mg/dL Total Protein 6.0 L (6.3-8.2) g/dL Albumin 3.5 L (3.9-5) g/dL
[2020-10-01] MEDS: dexAMETHasone 4 MG/ML VIAL IV SCH (16:19)
--- NOTE | 2020-10-01 17:07 | Cat Scan Report ---
CTA CHEST WITH CONTRAST INDICATION / CLINICAL INFORMATION: Shortness of breath. TECHNIQUE: Axial CT images were obtained through the chest after injection of 100 cc Omnipaque 350 IV contrast. 3 plane MIP and/or 3D reconstructions were produced. All CT scans at this location are per formed using CT dose reduction for ALARA by means of automated exposure control. COMPARISON: None available. FINDINGS: PULMONARY ARTERIES: Adequate opacification bilaterally without intraluminal filling defect to suggest acute PTE. THORACIC AORTA: No significant abnormality. HEART: No significant abnormality. CORONARY ARTERY CALCIFICATION: None. MEDIASTINUM / BIGG: No significant abnormality. PLEURA: No pleural effusion. No pneumothorax. LUNGS: Severe patchy, multifocal areas of groundglass parenchymal opacity and consolidation throughou t both lungs. ADDITIONAL FINDINGS: None. UPPER ABDOMEN: No acute findings. SKELETAL STRUCTURES: No significant osseous abnormality. IMPRESSION: 1. No CT evidence for pulmonary embolism. 2. Severe patchy parenchymal opacities throughout both lungs are nonspecific. Atypical causes of pneu monia, including viral pneumonia, should be considered. Signer Name: Dima Paredes MD Signed: 10/01/2020 5:02 PM Workstation Name: [id number]
[2020-10-01] MEDS: SODIUM CHLORIDE 0.9% 50 ML IVPB IV SCH (21:25)
[2020-10-01] MEDS: REMDESIVIR 100 MG in SODIUM CHLORIDE 0.9% 250ML 250 ML IV SCH (21:25)
[2020-10-01] MEDS: ENOXAPARIN 40 MG/0.4 ML INJ SUB-Q SCH (21:26)
[2020-10-02 06:16] LABS: Alanine Aminotransferase 41 units/L (7-56); Albumin 3.2 g/dL (3.9-5); BUN/Creatinine Ratio 18; Blood Urea Nitrogen 20 mg/dL (9-20); Calcium 8.8 mg/dL (8.4-10.2); Hemolysis Index 3
--- NOTE | 2020-10-02 08:42 | Progress Note ---
Assessment and Plan Assessment and plan: This is a 54-year-old male presents to the emergency department with complaint of feeling sick for the past week. He says that he has been having generalized body aches, sweats without chills, shortness of breath, and the patient says that he feels like he needs to cough but has not been able to do so. The patient states that he lost his sense of taste and smell but it has started to return. He has a past medical history of hypertension. He denies tobacco or illicit drug use. The patient had a room air oxygen saturation of about 80% through his triage. No recent travel or sick contacts at home. The patient is not vaccinated against COVID-19, but no known obvious exposure to anyone positive for COVID-19. He denies any chest pain, lower extremity swelling, nausea, vomiting, diarrhea, abdominal pain. He has not taken anything for his symptoms prior to presentation today. Did jose get Covid vaccination 09/28/2020 Covid PCR positive On 8 to 10 L of nasal cannula oxygen 09/29/2020 On 8 L nasal cannula oxygen Mild distress ID consult requested IV remdesivir started IV dexamethasone to continue 09/30: Patient continues on high flow oxygen at 14 L. Will obtain pulmonary consultation in addition to current management continue remdesivir and dexamethasone. Encourage prone positioning. We will also obtain a CT of the chest to rule out pulmonary embolism. Plan of care discussed with the patient 10/01: Continues on 14 L of oxygen continue to encourage weaning down, pulmonary input is noted. Continue to await CTA. Wean oxygen as tolerated. Continue steroids. Complete remdesivir. Continue to encourage prone positioning. We will give a dose of Lasix today 10/02: Remains on high flow 20 L and 50%. Will give additional dose of Lasix today. Will monitor inflammatory markers. Considering AISLINN the thickness of his neck I will recommend a CPAP/BiPAP at nighttime while in house. He verbalized understanding that he needs to work with insurance company to continue use of this outpatient. (1) Acute respiratory failure with hypoxia Current Visit: Yes Status: Acute Plan to address problem: Covid positive (2) Bilateral pneumonia Current Visit: Yes Status: Acute Qualifiers: Pneumonia type: due to unspecified organism Lung location: unspecified part of lung Qualified Code(s): J18.9 - Pneumonia, unspecified organism Plan to address problem: Treat as CAP (3) 2019 novel coronavirus infection Current Visit: Yes Status: Acute Plan to address problem: Covid positive ID consult On IV dexamethasone IV remdesivir started as per protocol (4) ELY (acute kidney injury) with vasomotor nehropathy Current Visit: Yes Status: Acute Plan to address problem: Improved (5) Malnutrition Current Visit: Yes Status: Acute Plan to address problem: Dietary supplements (6) morbid obesity (7) AISLINN (8) DVT prophylaxis Current Visit: Yes Status: Acute Plan to address problem: On Lovenox and GI prophylaxis History Interval history: Patient seen and examined this morning being treated for COVID-19 and respiratory failure as a result. Improving some. On discussion today the patient reports that he has obstructive sleep apnea but does not use a CPAP Hospitalist Physical - Physical exam Narrative exam: VITAL SIGNS: Reviewed. GENERAL: The patient appears normally developed, obese mild respiratory distress vital signs as documented. HEAD: No signs of head trauma. EYES: Pupils are equal. Extraocular motions intact. EARS: Hearing grossly intact. MOUTH: Oropharynx is normal. NECK: No adenopathy, no JVD. CHEST: Chest with scattered rhonchi breath sounds bilaterally. No wheezes. CARDIAC: Regular rate and rhythm. S1 and S2, without murmurs, gallops, or rubs. VASCULAR: No Edema. Peripheral pulses normal and equal in all extremities. ABDOMEN: Soft, non tender and non distended. No rebound or guarding, and no masses palpated. Bowel Sounds normal. MUSCULOSKELETAL: Good range of motion of all major joints. Extremities without clubbing, cyanosis or edema. NEUROLOGIC EXAM: Alert and oriented x 3 although slow at first no focal sensory or strength deficits. Speech normal. Follows commands. PSYCHIATRIC: Mood normal. SKIN: detail exam as documented in skin assessment - Constitutional Vitals: Temp Pulse Resp BP Pulse Ox 97.8 F 64 20 132/73 91 10/02/20 04:25 10/02/20 04:25 10/02/20 04:25 10/02/20 04:25 10/02/20 04:25 General appearance: Present: no acute distress, mild distress, well-nourished HEART Score - HEART Score Troponin: Troponin T 0.013 ng/mL (0.00-0.029) 09/27/20 10:27 Results - Labs CBC & Chem 7: 09/28/20 06:53 10/02/20 05:10 Labs: Laboratory Last Values WBC 11.2 K/mm3 (4.5-11.0) H 09/28/20 06:53 RBC 5.01 M/mm3 (3.65-5.03) 09/28/20 06:53 Hgb 15.1 gm/dl (11.8-15.2) 09/28/20 06:53 Hct 44.0 % (35.5-45.6) 09/28/20 06:53 MCV 88 fl (84-94) 09/28/20 06:53 MCH 30 pg (28-32) 09/28/20 06:53 MCHC 34 % (32-34) 09/28/20 06:53 RDW 14.4 % (13.2-15.2) 09/28/20 06:53 Plt Count 220 K/mm3 (140-440) 09/28/20 06:53 Add Manual Diff Complete 09/28/20 06:53 Total Counted 100 09/28/20 06:53 Seg Neutrophils % Manager Utilization Review 09/28/20 06:53 Seg Neuts % (Manual) 98.0 % (40.0-70.0) H 09/28/20 06:53 Band Neutrophils % 1.0 % 09/28/20 06:53 Lymphocytes % (Manual) 1.0 % (13.4-35.0) L 09/27/20 10:27 Monocytes % (Manual) 1.0 % (0.0-7.3) 09/28/20 06:53 Nucleated RBC % Not Reportable 09/28/20 06:53 Seg Neutrophils # Man 11.0 K/mm3 (1.8-7.7) H 09/28/20 06:53 Band Neutrophils # 0.1 K/mm3 09/28/20 06:53 Lymphocytes # (Manual) 0.0 K/mm3 (1.2-5.4) L 09/28/20 06:53 Abs React Lymphs (Man) 0.0 K/mm3 09/28/20 06:53 Monocytes # (Manual) 0.1 K/mm3 (0.0-0.8) 09/28/20 06:53 Eosinophils # (Manual) 0.0 K/mm3 (0.0-0.4) 09/28/20 06:53 Basophils # (Manual) 0.0 K/mm3 (0.0-0.1) 09/28/20 06:53 Metamyelocytes # 0.0 K/mm3 09/28/20 06:53 Myelocytes # 0.0 K/mm3 09/28/20 06:53 Promyelocytes # 37.1 K/mm3 09/28/20 06:53 Blast Cells # 0.0 K/mm3 09/28/20 06:53 WBC Morphology Not Reportable 09/28/20 06:53 Hypersegmented Neuts Not Reportable 09/28/20 06:53 Hyposegmented Neuts Not Reportable 09/28/20 06:53 Hypogranular Neuts Not Reportable 09/28/20 06:53 Smudge Cells Not Reportable 09/28/20 06:53 Toxic Granulation Not Reportable 09/28/20 06:53 Toxic Vacuolation Not Reportable 09/28/20 06:53 Dohle Bodies Not Reportable 09/28/20 06:53 Pelger-Huet Anomaly Not Reportable 09/28/20 06:53 Tuan Rods Not Reportable 09/28/20 06:53 Platelet Estimate Consistent w auto 09/28/20 06:53 Clumped Platelets Not Reportable 09/28/20 06:53 Plt Clumps, EDTA Not Reportable 09/28/20 06:53 Large Platelets Few 09/28/20 06:53 Giant Platelets Not Reportable 09/28/20 06:53 Platelet Satelliting Not Reportable 09/28/20 06:53 Plt Morphology Comment Not Reportable 09/28/20 06:53 RBC Morphology Not Reportable 09/28/20 06:53 Dimorphic RBCs Not Reportable 09/28/20 06:53 Polychromasia Not Reportable 09/28/20 06:53 Hypochromasia Not Reportable 09/28/20 06:53 Poikilocytosis Not Reportable 09/28/20 06:53 Anisocytosis Not Reportable 09/28/20 06:53 Microcytosis Not Reportable 09/28/20 06:53 Macrocytosis Not Reportable 09/28/20 06:53 Spherocytes Not Reportable 09/28/20 06:53 Pappenheimer Bodies Not Reportable 09/28/20 06:53 Sickle Cells Not Reportable 09/28/20 06:53 Target Cells Not Reportable 09/28/20 06:53 Tear Drop Cells Not Reportable 09/28/20 06:53 Ovalocytes Few 09/28/20 06:53 Helmet Cells Not Reportable 09/28/20 06:53 Calles-Browns Bodies Not Reportable 09/28/20 06:53 Saucier Rings Not Reportable 09/28/20 06:53 [place] Cells 1+ 09/28/20 06:53 Bite Cells Not Reportable 09/28/20 06:53 Crenated Cell Not Reportable 09/28/20 06:53 Elliptocytes Not Reportable 09/28/20 06:53 Acanthocytes (Spur) Not Reportable 09/28/20 06:53 Rouleaux Not Reportable 09/28/20 06:53 Hemoglobin C Crystals Not Reportable 09/28/20 06:53 Schistocytes Not Reportable 09/28/20 06:53 Malaria parasites Not Reportable 09/28/20 06:53 Marito Bodies Not Reportable 09/28/20 06:53 Hem Pathologist Commnt No 09/28/20 06:53 PT 14.6 Sec. (12.2-14.9) 09/27/20 10:27 INR 1.09 (0.87-1.13) 09/27/20 10:27 APTT 29.8 Sec. (24.2-36.6) 09/27/20 10:27 D-Dimer > 15351 ng/mlDDU (0-234) H 09/30/20 13:33 Sodium 143 mmol/L (137-145) 10/02/20 05:10 Potassium 3.9 mmol/L (3.6-5.0) 10/02/20 05:10 Chloride 104.0 mmol/L (98-107) 10/02/20 05:10 Carbon Dioxide 30 mmol/L (22-30) 10/02/20 05:10 Anion Gap 13 mmol/L 10/02/20 05:10 BUN 20 mg/dL (9-20) 10/02/20 05:10 Creatinine 1.1 mg/dL (0.8-1.3) 10/02/20 05:10 Estimated GFR > 60 ml/min 10/02/20 05:10 BUN/Creatinine Ratio 18 % 10/02/20 05:10 Glucose 139 mg/dL (75-100) H 10/02/20 05:10 Hemoglobin A1c 7.5 % (4-6) H 09/28/20 06:53 Lactic Acid 1.30 mmol/L (0.7-2.0) 09/27/20 10:27 Calcium 8.8 mg/dL (8.4-10.2) 10/02/20 05:10 Ferritin 381.2 ng/mL (30.0-300.0) H 09/30/20 13:33 Total Bilirubin 0.30 mg/dL (0.1-1.2) 10/02/20 05:10 AST 14 units/L (5-40) 10/02/20 05:10 ALT 41 units/L (7-56) 10/02/20 05:10 Alkaline Phosphatase 87 units/L (35-129) 10/02/20 05:10 Lactate Dehydrogenase 413 units/L (91-180) H 09/30/20 13:33 Troponin T 0.013 ng/mL (0.00-0.029) 09/27/20 10:27 C-Reactive Protein 8.00 mg/dL (0.00-1.30) H 09/30/20 13:33 NT-Pro-B Natriuret Pep 505.7 pg/mL (0-900) 09/27/20 10:27 Total Protein 6.4 g/dL (6.3-8.2) 10/02/20 05:10 Albumin 3.2 g/dL (3.9-5) L 10/02/20 05:10 Albumin/Globulin Ratio 1.0 % 10/02/20 05:10 Procalcitonin 0.85 ng/mL (<0.15) 09/27/20 10:27 Coronavirus (PCR) Positive (Negative) A 09/27/20 11:59 Vazquez/IV: Voiding Method Toilet Active Medications - Current Medications Current Medications: Generic Name Dose Route Start Last Admin Trade Name Freq PRN Reason Stop Dose Admin Acetaminophen 650 mg 09/27/20 15:32 Acetaminophen 325 Mg Tab PO Q4H PRN Pain MILD(1-3)/Fever >100.5/COOPER Alprazolam 0.25 mg 09/30/20 20:00 09/30/20 21:32 Alprazolam 0.25 Mg Tab PO 0.25 mg TID PRN Administration Anxiety Ascorbic Acid 500 mg 09/30/20 18:00 10/01/20 09:37 Ascorbic Acid 500 Mg Tab PO 500 mg QDAY DEQUAN Administration Azithromycin 500 mg 09/29/20 10:00 10/01/20 09:37 Azithromycin 250 Mg Tab PO 10/02/20 10:01 500 mg QDAY DEQUAN Administration Protocol Dexamethasone 8 mg 09/27/20 16:00 10/01/20 16:19 Dexamethasone 4 Mg/Ml Vial IV 10/06/20 16:01 8 mg Q24H DEQUAN Administration Enoxaparin Sodium 40 mg 09/27/20 22:00 10/01/20 21:26 Enoxaparin 40 Mg/0.4 Ml Inj SUB-Q 40 mg QDAY@2200 DEQUAN Administration Protocol Famotidine 20 mg 09/27/20 22:00 10/01/20 21:27 Famotidine 20 Mg Tab PO 20 mg BID DEQUAN Administration Hydromorphone HCl 0.5 mg 09/27/20 15:32 Hydromorphone 1 Mg/1 Ml Inj IV Q3H PRN Pain , Severe (7-10) Ceftriaxone Sodium 2 gm in 100 mls @ 200 mls/hr 09/28/20 10:00 10/01/20 09:38 Rocephin/Ns 2 Gm/100 Ml IV 10/02/20 10:29 200 mls/hr Q24HR DEQUAN Administration Protocol REMDESIVIR 100 mg/ Sodium 250 mls @ 500 mls/hr 09/30/20 21:00 10/01/20 21:25 Chloride IV 10/03/20 21:29 500 mls/hr Q24HR@2100 DEQUAN Administration Metoclopramide HCl 10 mg 09/27/20 15:32 Metoclopramide 10 Mg/2 Ml Inj IV Q6H PRN Nausea And Vomiting Ondansetron HCl 4 mg 09/27/20 15:32 Ondansetron 4 Mg/2 Ml Inj IV Q8H PRN Nausea And Vomiting Oxycodone/Acetaminophen 1 tab 09/27/20 15:32 09/28/20 22:32 Oxycodone /Acetaminophen 5-325mg Tab PO 1 tab Q6H PRN Administration Pain, Moderate (4-6) Sodium Chloride 10 ml 09/27/20 22:00 10/01/20 21:27 Sodium Chloride 0.9% 10 Ml Flush Syringe IV 10 ml BID DEQUAN Administration Sodium Chloride 10 ml 09/27/20 15:32 Sodium Chloride 0.9% 10 Ml Flush Syringe IV PRN PRN LINE FLUSH Sodium Chloride 50 ml 09/29/20 21:30 10/01/20 21:25 Sodium Chloride 0.9% 50 Ml Ivpb IV 10/03/20 21:01 50 ml Q24HR@2100 DEQUAN Administration Zinc Sulfate 220 mg 09/30/20 22:00 10/01/20 21:26 Zinc Sulfate 220 Mg Cap PO 220 mg BID DEQUAN Administration Zolpidem Tartrate 5 mg 09/30/20 22:00 10/01/20 22:45 Zolpidem 5 Mg Tab PO 5 mg QHS PRN Administration Sleep Nutrition/Malnutrition Assess - Dietary Evaluation Nutrition/Malnutrition Findings: Nutrition Notes Start: 09/30/20 11:22 Freq: Status: Active Protocol: Document 10/01/20 12:15 CHANDNI (Rec: 10/01/20 12:16 CHANDNI [id number]) Nutrition Notes Initial or Follow up Brief Note Current Diagnosis Acute Kidney Injury, Respiratory Failure Other Pertinent Diagnosis pneu, COVID(+) Current Diet Regular Subjective/Other Information FU for intakes. Pt did not answer phone x2. Per chart, pt eating 75% of meals. Nutrition Intervention Follow-Up By: 10/04/20 Additional Comments FU for assessment, intakes and ONS tolernace
[2020-10-02] MEDS: AZITHROMYCIN 250 MG TAB PO SCH (09:47)
[2020-10-02] MEDS: ASCORBIC ACID 500 MG TAB PO SCH (09:47)
[2020-10-02] MEDS: ZINC SULFATE 220 MG CAP PO SCH ×2 (09:47→21:19)
[2020-10-02] MEDS: FAMOTIDINE 20 MG TAB PO SCH ×2 (09:47→21:19)
[2020-10-02] MEDS: cefTRIAXone/NS 2 GM/100 ML 2 GM/100 ML BAG IV SCH (09:48)
--- NOTE | 2020-10-02 12:51 | Progress Note ---
Assessment and Plan Acute respiratory failure with hypoxia Bilateral pneumonia 2019 novel coronavirus infection Morbid obesity BMI 39.5 ELY (acute kidney injury) with vasomotor nephropathy Sleep apnea Follow up CT chest. ABG ordered - continue to titrate supplemental oxygen to keep SpO2 89-92% - continue bronchodilators -Continue COVID isolation per facility protocol -Complete IV remdesivir and Dexamethasone per protocol -Awake proning as tolerated -Continue to trend serum inflammatory markers per facility protocol -Anticoagulation per facility protocol - avoid nephrotoxins, renally dose all medications - continue to avoid benzodiazepines, reduce the possibility of delirium - complete empiric ABs per ID recommendations - continue accuchecks with glycemic control per SSI (While critically ill target blood glucose of 140-180 mg/dL; avoid hypoglycemia) - Maintenance of sleep-wake cycle, avoid delirium -CPAP/BIPAP qhs - PT/OT/ROM exercises - Monitor hemodynamics closely -Will need outpatient pulmonary follow up for sleep apnea management -Evaluation for home oxygen on discharge - continue other care per attending / other consultants Subjective Date of service: 10/02/20 Principal diagnosis: Bilateral pneumonia, COVID pneumonia, acute hypoxic resp failure Interval history: Follow up for: Bilateral pneumonia, COVID pneumonia, acute hypoxic resp failure Seen and examined. Vitals, labs, medications, chart and imaging reviewed. Discussed with nursing and respiratory staff. On HFOT at 25L and 60% Denies any nausea, no vomiting, no diarrhea. On going shortness of breath, no cough Objective - Exam Narrative Exam: VITAL SIGNS: Reviewed. Constitutional: alert, other (mild resp distress on HFOT ) Eyes: non-icteric ENT: oropharynx moist Neck: supple, no lymphadenopathy Effort: mildly labored Ascultation: Bilateral: diminished breath sounds Cardiovascular: regular rate and rhythm, other (S1,S2) Gastrointestinal: normoactive bowel sounds, soft, non-tender, non-distended Integumentary: normal Extremities: no cyanosis, no edema, pulses normal Neurologic: normal mental status, non-focal exam, pupils equal and round, CN II- XII normal, motor strength normal and Psychiatric: mood appropriate, affect normal Vital Signs - 12hr 10/02/20 10/02/20 10/02/20 04:25 08:56 11:02 Temperature 97.8 F Pulse Rate 64 88 Respiratory 20 Rate Blood Pressure 132/73 O2 Sat by Pulse 91 93 91 Oximetry CBC and BMP: 10/04/20 07:09 10/04/20 07:09 ABG, PT/INR, D-dimer: PT/INR, D-dimer PT 14.6 Sec. (12.2-14.9) 09/27/20 10:27 INR 1.09 (0.87-1.13) 09/27/20 10:27 D-Dimer > 60456 ng/mlDDU (0-234) H 09/30/20 13:33 Abnormal lab findings: Abnormal Labs 09/27/20 09/27/20 09/27/20 10:27 10:27 10:27 WBC Seg Neuts % (Manual) 94.0 H Lymphocytes % (Manual) 1.0 L Seg Neutrophils # Man 9.2 H Lymphocytes # (Manual) 0.1 L D-Dimer 392.32 H Sodium 125 L Chloride 88.5 L BUN Creatinine 1.4 H Glucose 176 H Hemoglobin A1c Ferritin AST 48 H Lactate Dehydrogenase 396 H C-Reactive Protein 24.60 H Total Protein Albumin 3.1 L Coronavirus (PCR) 09/27/20 09/27/20 09/28/20 10:27 11:59 06:53 WBC 11.2 H Seg Neuts % (Manual) 98.0 H Lymphocytes % (Manual) Seg Neutrophils # Man 11.0 H Lymphocytes # (Manual) 0.0 L D-Dimer Sodium Chloride BUN Creatinine Glucose Hemoglobin A1c Ferritin 413.7 H AST Lactate Dehydrogenase C-Reactive Protein Total Protein Albumin Coronavirus (PCR) Positive A 09/28/20 09/28/20 09/30/20 06:53 06:53 13:33 WBC Seg Neuts % (Manual) Lymphocytes % (Manual) Seg Neutrophils # Man Lymphocytes # (Manual) D-Dimer > 11163 H Sodium 133 L D Chloride 94.3 L BUN 22 H Creatinine Glucose 168 H Hemoglobin A1c 7.5 H Ferritin AST Lactate Dehydrogenase C-Reactive Protein Total Protein Albumin 3.8 L Coronavirus (PCR) 09/30/20 09/30/20 10/01/20 13:33 13:33 07:11 WBC Seg Neuts % (Manual) Lymphocytes % (Manual) Seg Neutrophils # Man Lymphocytes # (Manual) D-Dimer Sodium Chloride BUN Creatinine Glucose 195 H 126 H Hemoglobin A1c Ferritin 381.2 H AST Lactate Dehydrogenase 413 H C-Reactive Protein 8.00 H Total Protein 6.0 L Albumin 3.5 L Coronavirus (PCR) 10/02/20 05:10 WBC Seg Neuts % (Manual) Lymphocytes % (Manual) Seg Neutrophils # Man Lymphocytes # (Manual) D-Dimer Sodium Chloride BUN Creatinine Glucose 139 H Hemoglobin A1c Ferritin AST Lactate Dehydrogenase C-Reactive Protein Total Protein Albumin 3.2 L Coronavirus (PCR) Chest x-ray: image reviewed CT scan - chest: image reviewed Allied health notes reviewed: RT
--- NOTE | 2020-10-02 13:14 | Progress Note ---
Assessment and Plan Cultures: COVID-19 PCR: Positive A/P: 54-year-old man past medical history hypertension admitted with COVID-19 pneumonia #Severe COVID-19 pneumonia: Patient presented with a week of symptoms, chest x- ray with diffuse bilateral infiltrates, admission O2 sats 80% on room air. Inflammatory markers elevated. Procalcitonin slightly elevated #Acute hypoxemic respiratory failure: Likely secondary to COVID-19 infection. Currently on HFNC #Elevated D-dimer: CTA negative for pulmonary embolism. #Obesity Recs: -Decadron 8 mg daily, agree with higher dose due to morbid obesity -Continue remdesivir, total 5 days -Monitor q48-72h inflammatory markers - ferritin, Ddimer, CRP, LDH -Completed empiric antibiotic -Consider Actemra if respiratory status worsens -Anticoagulation per hospital protocol. D-dimer significantly elevated, CTA negative for PE, eval for DVT and consider increasing anticoagulation dose -Proning as able d/w Dr. Tino De Oliveira MD, FACP [facility] ([facility] O: [phone] F: [phone] Subjective Date of service: 10/02/20 Principal diagnosis: Bilateral pneumonia, COVID pneumonia, acute hypoxic resp failure Interval history: No fever. On high flow nasal cannula. Objective - Exam Narrative Exam: Physical Exam (reviewed in chart to minimize risk of transmission) Constitutional: deferred Head, Ears, Nose: deferred Eyes: deferred Neck: deferred Oral: deferred Cardiovascular: deferred Respiratory: deferred GI: deferred Musculoskeletal: deferred Skin: deferred Hem/Lymphatic: deferred Psych: deferred Neurological: deferred - Constitutional Vitals: Vital Signs Temp Pulse Resp BP Pulse Ox 97.8 F 88 20 132/73 91 10/02/20 04:25 10/02/20 11:02 10/02/20 04:25 10/02/20 04:25 10/02/20 11:02 Temperature -Last 24 Hours Temperature 97.8 F Temperature 97.6 F - Labs CBC & Chem 7: 09/28/20 06:53 10/02/20 05:10 Labs: Abnormal lab results 10/02/20 Range/Units 05:10 Glucose 139 H (75-100) mg/dL Albumin 3.2 L (3.9-5) g/dL
[2020-10-02 13:54] LABS: Hematocrit 40.5 % (35.5-45.6); Hemoglobin 13.8 gm/dl (11.8-15.2); Mean Corpuscular HGB Conc 34 % (32-34); Mean Corpuscular Volume 87 fl (84-94); Platelet Count 481 K/mm3 (140-440); Red Blood Count 4.64 M/mm3 (3.65-5.03); Red Cell Distribution Width 14.9 % (13.2-15.2)
[2020-10-02 14:59] LABS: Total Cells Counted 100
[2020-10-02 15:00] LABS: Platelet Estimate Consistent w Auto; RBC Morphology Normal
[2020-10-02] MEDS: dexAMETHasone 4 MG/ML VIAL IV SCH (16:39)
[2020-10-02] MEDS: ENOXAPARIN 40 MG/0.4 ML INJ SUB-Q SCH (21:19)
[2020-10-02] MEDS: REMDESIVIR 100 MG in SODIUM CHLORIDE 0.9% 250ML 250 ML IV SCH (21:20)
[2020-10-02] MEDS: SODIUM CHLORIDE 0.9% 50 ML IVPB IV SCH (21:20)
[2020-10-02] MEDS: ALPRAZolam 0.25 MG TAB PO PRN (21:24)
[2020-10-02] MEDS: ENOXAPARIN 100 MG/1 ML INJ SUB-Q SCH (23:10)
[2020-10-02] MEDS: ENOXAPARIN 30 MG/0.3 ML INJ SUB-Q SCH (23:11)
[2020-10-03 08:59] LABS: Alanine Aminotransferase 33 units/L (7-56); BUN/Creatinine Ratio 21; Blood Urea Nitrogen 21 mg/dL (9-20); Calcium 8.3 mg/dL (8.4-10.2); Hemolysis Index 2
[2020-10-03] MEDS: ENOXAPARIN 30 MG/0.3 ML INJ SUB-Q SCH ×2 (09:03→21:09)
[2020-10-03] MEDS: ASCORBIC ACID 500 MG TAB PO SCH (09:03)
[2020-10-03] MEDS: FAMOTIDINE 20 MG TAB PO SCH ×2 (09:03→21:08)
[2020-10-03] MEDS: ENOXAPARIN 100 MG/1 ML INJ SUB-Q SCH ×2 (09:03→21:06)
[2020-10-03] MEDS: ZINC SULFATE 220 MG CAP PO SCH ×2 (09:04→21:08)
--- NOTE | 2020-10-03 10:00 | Progress Note ---
Assessment and Plan Assessment and plan: This is a 54-year-old male presents to the emergency department with complaint of feeling sick for the past week. He says that he has been having generalized body aches, sweats without chills, shortness of breath, and the patient says that he feels like he needs to cough but has not been able to do so. The patient states that he lost his sense of taste and smell but it has started to return. He has a past medical history of hypertension. He denies tobacco or illicit drug use. The patient had a room air oxygen saturation of about 80% through his triage. No recent travel or sick contacts at home. The patient is not vaccinated against COVID-19, but no known obvious exposure to anyone positive for COVID-19. He denies any chest pain, lower extremity swelling, nausea, vomiting, diarrhea, abdominal pain. He has not taken anything for his symptoms prior to presentation today. Did jose get Covid vaccination 09/28/2020 Covid PCR positive On 8 to 10 L of nasal cannula oxygen 09/29/2020 On 8 L nasal cannula oxygen Mild distress ID consult requested IV remdesivir started IV dexamethasone to continue 09/30: Patient continues on high flow oxygen at 14 L. Will obtain pulmonary consultation in addition to current management continue remdesivir and dexamethasone. Encourage prone positioning. We will also obtain a CT of the chest to rule out pulmonary embolism. Plan of care discussed with the patient 10/01: Continues on 14 L of oxygen continue to encourage weaning down, pulmonary input is noted. Continue to await CTA. Wean oxygen as tolerated. Continue steroids. Complete remdesivir. Continue to encourage prone positioning. We will give a dose of Lasix today 10/02: Remains on high flow 20 L and 50%. Will give additional dose of Lasix today. Will monitor inflammatory markers. Considering AISLINN the thickness of his neck I will recommend a CPAP/BiPAP at nighttime while in house. He verbalized understanding that he needs to work with insurance company to continue use of this outpatient. 10/03: Patient agreeable to try BiPAP today again reinforced the importance of it considering his history of obstructive sleep apnea. We will continue with additional Lasix monitor BMP. Discussed with infectious disease yesterday started patient on full dose anticoagulation until we will rule out DVT. (1) Acute respiratory failure with hypoxia Current Visit: Yes Status: Acute Plan to address problem: Covid positive (2) Bilateral pneumonia Current Visit: Yes Status: Acute Qualifiers: Pneumonia type: due to unspecified organism Lung location: unspecified part of lung Qualified Code(s): J18.9 - Pneumonia, unspecified organism Plan to address problem: Treat as CAP (3) 2019 novel coronavirus infection Current Visit: Yes Status: Acute Plan to address problem: Covid positive ID consult On IV dexamethasone IV remdesivir started as per protocol (4) ELY (acute kidney injury) with vasomotor nehropathy Current Visit: Yes Status: Acute Plan to address problem: Improved (5) Malnutrition Current Visit: Yes Status: Acute Plan to address problem: Dietary supplements (6) morbid obesity (7) AISLINN (8) DVT prophylaxis Current Visit: Yes Status: Acute Plan to address problem: On Lovenox and GI prophylaxis History Interval history: Patient seen and examined this morning being treated for COVID-19 and respiratory failure as a result. Improving some. Refused BiPAP last night but says he will try to Hospitalist Physical - Physical exam Narrative exam: VITAL SIGNS: Reviewed. GENERAL: The patient appears normally developed, obese mild respiratory distr ess vital signs as documented. HEAD: No signs of head trauma. EYES: Pupils are equal. Extraocular motions intact. EARS: Hearing grossly intact. MOUTH: Oropharynx is normal. NECK: No adenopathy, no JVD. CHEST: Chest with scattered rhonchi breath sounds bilaterally. No wheezes. CARDIAC: Regular rate and rhythm. S1 and S2, without murmurs, gallops, or rubs. VASCULAR: No Edema. Peripheral pulses normal and equal in all extremities. ABDOMEN: Soft, non tender and non distended. No rebound or guarding, and no masses palpated. Bowel Sounds normal. MUSCULOSKELETAL: Good range of motion of all major joints. Extremities without clubbing, cyanosis or edema. NEUROLOGIC EXAM: Alert and oriented x 3 although slow at first no focal sensory or strength deficits. Speech normal. Follows commands. PSYCHIATRIC: Mood normal. SKIN: detail exam as documented in skin assessment - Constitutional Vitals: Temp Pulse Resp BP Pulse Ox 98.2 F 95 H 20 106/75 92 10/03/20 05:41 10/03/20 05:41 10/03/20 05:41 10/03/20 05:41 10/03/20 08:29 General appearance: Present: no acute distress, mild distress, well-nourished HEART Score - HEART Score Troponin: Troponin T 0.013 ng/mL (0.00-0.029) 09/27/20 10:27 Results - Labs CBC & Chem 7: 10/02/20 13:24 10/03/20 07:31 Labs: Laboratory Last Values WBC 12.0 K/mm3 (4.5-11.0) H 10/02/20 13:24 RBC 4.64 M/mm3 (3.65-5.03) 10/02/20 13:24 Hgb 13.8 gm/dl (11.8-15.2) 10/02/20 13:24 Hct 40.5 % (35.5-45.6) 10/02/20 13:24 MCV 87 fl (84-94) 10/02/20 13:24 MCH 30 pg (28-32) 10/02/20 13:24 MCHC 34 % (32-34) 10/02/20 13:24 RDW 14.9 % (13.2-15.2) 10/02/20 13:24 Plt Count 481 K/mm3 (140-440) H 10/02/20 13:24 Add Manual Diff Complete 10/02/20 13:24 Total Counted 100 10/02/20 13:24 Seg Neutrophils % Keyboard Action Assembler 09/28/20 06:53 Seg Neuts % (Manual) 89.0 % (40.0-70.0) H 10/02/20 13:24 Band Neutrophils % 1.0 % 09/28/20 06:53 Lymphocytes % (Manual) 2.0 % (13.4-35.0) L 10/02/20 13:24 Reactive Lymphs % (Man) 2.0 % 10/02/20 13:24 Monocytes % (Manual) 3.0 % (0.0-7.3) 10/02/20 13:24 Eosinophils % (Manual) 2.0 % (0.0-4.3) 10/02/20 13:24 Metamyelocytes % 2.0 % 10/02/20 13:24 Nucleated RBC % Not Reportable 10/02/20 13:24 Seg Neutrophils # Man 10.7 K/mm3 (1.8-7.7) H 10/02/20 13:24 Band Neutrophils # 0.0 K/mm3 10/02/20 13:24 Lymphocytes # (Manual) 0.2 K/mm3 (1.2-5.4) L 10/02/20 13:24 Abs React Lymphs (Man) 0.2 K/mm3 10/02/20 13:24 Monocytes # (Manual) 0.4 K/mm3 (0.0-0.8) 10/02/20 13:24 Eosinophils # (Manual) 0.2 K/mm3 (0.0-0.4) 10/02/20 13:24 Basophils # (Manual) 0.0 K/mm3 (0.0-0.1) 10/02/20 13:24 Metamyelocytes # 0.2 K/mm3 10/02/20 13:24 Myelocytes # 0.0 K/mm3 10/02/20 13:24 Promyelocytes # 0.0 K/mm3 10/02/20 13:24 Blast Cells # 0.0 K/mm3 10/02/20 13:24 WBC Morphology Not Reportable 10/02/20 13:24 WBC Morphology TNR 10/02/20 13:24 Hypersegmented Neuts Not Reportable 10/02/20 13:24 Hyposegmented Neuts Not Reportable 10/02/20 13:24 Hypogranular Neuts Not Reportable 10/02/20 13:24 Smudge Cells Not Reportable 10/02/20 13:24 Toxic Granulation Not Reportable 10/02/20 13:24 Toxic Vacuolation Not Reportable 10/02/20 13:24 Dohle Bodies Not Reportable 10/02/20 13:24 Pelger-Huet Anomaly Not Reportable 10/02/20 13:24 Tuan Rods Not Reportable 10/02/20 13:24 Platelet Estimate Consistent w auto 10/02/20 13:24 Clumped Platelets Not Reportable 10/02/20 13:24 Plt Clumps, EDTA Not Reportable 10/02/20 13:24 Large Platelets Not Reportable 10/02/20 13:24 Giant Platelets Not Reportable 10/02/20 13:24 Platelet Satelliting Not Reportable 10/02/20 13:24 Plt Morphology Comment Not Reportable 10/02/20 13:24 RBC Morphology Normal 10/02/20 13:24 Dimorphic RBCs Not Reportable 10/02/20 13:24 Polychromasia Not Reportable 10/02/20 13:24 Hypochromasia Not Reportable 10/02/20 13:24 Poikilocytosis Not Reportable 10/02/20 13:24 Anisocytosis Not Reportable 10/02/20 13:24 Microcytosis Not Reportable 10/02/20 13:24 Macrocytosis Not Reportable 10/02/20 13:24 Spherocytes Not Reportable 10/02/20 13:24 Pappenheimer Bodies Not Reportable 10/02/20 13:24 Sickle Cells Not Reportable 10/02/20 13:24 Target Cells Not Reportable 10/02/20 13:24 Tear Drop Cells Not Reportable 10/02/20 13:24 Ovalocytes Not Reportable 10/02/20 13:24 Helmet Cells Not Reportable 10/02/20 13:24 Clales-Ruby Bodies Not Reportable 10/02/20 13:24 [place] Rings Not Reportable 10/02/20 13:24 Spring Cells Not Reportable 10/02/20 13:24 Bite Cells Not Reportable 10/02/20 13:24 Crenated Cell Not Reportable 10/02/20 13:24 Elliptocytes Not Reportable 10/02/20 13:24 Acanthocytes (Spur) Not Reportable 10/02/20 13:24 Rouleaux Not Reportable 10/02/20 13:24 Hemoglobin C Crystals Not Reportable 10/02/20 13:24 Schistocytes Not Reportable 10/02/20 13:24 Malaria parasites Not Reportable 10/02/20 13:24 Marito Bodies Not Reportable 10/02/20 13:24 Hem Pathologist Commnt No 10/02/20 13:24 PT 14.6 Sec. (12.2-14.9) 09/27/20 10: INR 1.09 (0.87-1.13) 09/27/20 10:27 APTT 29.8 Sec. (24.2-36.6) 09/27/20 10:27 D-Dimer > 21809 ng/mlDDU (0-234) H 09/30/20 13:33 ABG pH 7.473 (7.320-7.450) H 10/02/20 14:38 POC ABG pCO2 39.4 mmHg (32.0-48.0) 10/02/20 14:38 POC ABG pO2 80.5 mmHg (83-108) L 10/02/20 14:38 POC ABG HCO3 28.2 10/02/20 14:38 ABG O2 Saturation 95.7 (0-100) 10/02/20 14:38 POC ABG Base Excess 4.4 10/02/20 14:38 ABG Hemoglobin 13.8 (12.0-17.5) 10/02/20 14:38 ABG Oxyhemoglobin 94.8 (94-98) 10/02/20 14:38 ABG Methemoglobin 0.3 (0.0-1.5) 10/02/20 14:38 ABG Sodium 136.0 mmol/L (136.0-145.0) 10/02/20 14:38 ABG Potassium 3.5 mmol/L (3.40-4.50) 10/02/20 14:38 ABG Chloride 104.0 mmol/L (98-107) 10/02/20 14:38 ABG Glucose 125 mg/dL (65-95) H 10/02/20 14:38 Carboxyhemoglobin 0.6 (0.5-1.5) 10/02/20 14:38 FiO2 % 55.0 10/02/20 14:38 Sodium 139 mmol/L (137-145) 10/03/20 07:31 Potassium 4.0 mmol/L (3.6-5.0) 10/03/20 07:31 Chloride 101.7 mmol/L (98-107) 10/03/20 07:31 Carbon Dioxide 25 mmol/L (22-30) 10/03/20 07:31 Anion Gap 16 mmol/L 10/03/20 07:31 BUN 21 mg/dL (9-20) H 10/03/20 07:31 Creatinine 1.0 mg/dL (0.8-1.3) 10/03/20 07:31 Estimated GFR > 60 ml/min 10/03/20 07:31 BUN/Creatinine Ratio 21 % 10/03/20 07:31 Glucose 148 mg/dL (75-100) H 10/03/20 07:31 Hemoglobin A1c 7.5 % (4-6) H 09/28/20 06:53 Lactic Acid 1.30 mmol/L (0.7-2.0) 09/27/20 10:27 Calcium 8.3 mg/dL (8.4-10.2) L 10/03/20 07:31 Ferritin 381.2 ng/mL (30.0-300.0) H 09/30/20 13:33 Total Bilirubin 0.30 mg/dL (0.1-1.2) 10/03/20 07:31 AST 12 units/L (5-40) 10/03/20 07:31 ALT 33 units/L (7-56) 10/03/20 07:31 Alkaline Phosphatase 85 units/L (35-129) 10/03/20 07:31 Lactate Dehydrogenase 413 units/L (91-180) H 09/30/20 13:33 Troponin T 0.013 ng/mL (0.00-0.029) 09/27/20 10:27 C-Reactive Protein 8.00 mg/dL (0.00-1.30) H 09/30/20 13:33 NT-Pro-B Natriuret Pep 505.7 pg/mL (0-900) 09/27/20 10:27 Total Protein 6.5 g/dL (6.3-8.2) 10/03/20 07:31 Albumin 3.0 g/dL (3.9-5) L 10/03/20 07:31 Albumin/Globulin Ratio 0.9 % 10/03/20 07:31 Procalcitonin 0.85 ng/mL (<0.15) 09/27/20 10:27 Arterial Blood Glucose 125 mg/dL (65-95) H 10/02/20 14:38 Arterial Blood Ionized Calcium 4.5 mg/dL (4.6-5.3) L 10/02/20 14:38 Coronavirus (PCR) Positive (Negative) A 09/27/20 11:59 Vazquez/IV: Voiding Method Toilet Active Medications - Current Medications Current Medications: Generic Name Dose Route Start Last Admin Trade Name Freq PRN Reason Stop Dose Admin Acetaminophen 650 mg 09/27/20 15:32 Acetaminophen 325 Mg Tab PO Q4H PRN Pain MILD(1-3)/Fever >100.5/COOPER Alprazolam 0.25 mg 09/30/20 20:00 10/02/20 21:24 Alprazolam 0.25 Mg Tab PO 0.25 mg TID PRN Administration Anxiety Ascorbic Acid 500 mg 09/30/20 18:00 10/03/20 09:03 Ascorbic Acid 500 Mg Tab PO 500 mg QDAY DEQUAN Administration Dexamethasone 8 mg 09/27/20 16:00 10/02/20 16:39 Dexamethasone 4 Mg/Ml Vial IV 10/06/20 16:01 8 mg Q24H DEQUAN Administration Enoxaparin Sodium 100 mg 10/02/20 22:00 10/03/20 09:03 Enoxaparin 100 Mg/1 Ml Inj SUB-Q 100 mg Q12HR DEQUAN Administration Protocol Enoxaparin Sodium 30 mg 10/02/20 22:00 10/03/20 09:03 Enoxaparin 30 Mg/0.3 Ml Inj SUB-Q 30 mg Q12HR DEQUAN Administration Famotidine 20 mg 09/27/20 22:00 10/03/20 09:03 Famotidine 20 Mg Tab PO 20 mg BID DEQUAN Administration Hydromorphone HCl 0.5 mg 09/27/20 15:32 Hydromorphone 1 Mg/1 Ml Inj IV Q3H PRN Pain , Severe (7-10) REMDESIVIR 100 mg/ Sodium 250 mls @ 500 mls/hr 09/30/20 21:00 10/02/20 21:20 Chloride IV 10/03/20 21:29 500 mls/hr Q24HR@2100 DEQUAN Administration Metoclopramide HCl 10 mg 09/27/20 15:32 Metoclopramide 10 Mg/2 Ml Inj IV Q6H PRN Nausea And Vomiting Ondansetron HCl 4 mg 09/27/20 15:32 Ondansetron 4 Mg/2 Ml Inj IV Q8H PRN Nausea And Vomiting Oxycodone/Acetaminophen 1 tab 09/27/20 15:32 09/28/20 22:32 Oxycodone /Acetaminophen 5-325mg Tab PO 1 tab Q6H PRN Administration Pain, Moderate (4-6) Sodium Chloride 10 ml 09/27/20 22:00 10/03/20 09:04 Sodium Chloride 0.9% 10 Ml Flush Syringe IV 10 ml BID DEQUAN Administration Sodium Chloride 10 ml 09/27/20 15:32 Sodium Chloride 0.9% 10 Ml Flush Syringe IV PRN PRN LINE FLUSH Sodium Chloride 50 ml 09/29/20 21:30 10/02/20 21:20 Sodium Chloride 0.9% 50 Ml Ivpb IV 10/03/20 21:01 50 ml Q24HR@2100 DEQUAN Administration Zinc Sulfate 220 mg 09/30/20 22:00 10/03/20 09:04 Zinc Sulfate 220 Mg Cap PO 220 mg BID DEQUAN Administration Zolpidem Tartrate 5 mg 09/30/20 22:00 10/01/20 22:45 Zolpidem 5 Mg Tab PO 5 mg QHS PRN Administration Sleep Nutrition/Malnutrition Assess - Dietary Evaluation Nutrition/Malnutrition Findings: Nutrition Notes Start: 09/30/20 11:22 Freq: Status: Active Protocol: Document 10/01/20 12:15 (Rec: 10/01/20 12:16 [email or web address]) Nutrition Notes Initial or Follow up Brief Note Current Diagnosis Acute Kidney Injury, Respiratory Failure Other Pertinent Diagnosis pneu, COVID(+) Current Diet Regular Subjective/Other Information FU for intakes. Pt did not answer phone x2. Per chart, pt eating 75% of meals. Nutrition Intervention Follow-Up By: 10/04/20 Additional Comments FU for assessment, intakes and ONS tolernace
[2020-10-03] MEDS: FUROSEMIDE 40 MG/4 ML INJ IV SCH (10:27)
--- NOTE | 2020-10-03 10:46 | Progress Note ---
Assessment and Plan Acute respiratory failure with hypoxia Bilateral pneumonia 2019 novel coronavirus infection Morbid obesity BMI 39.5 ELY (acute kidney injury) with vasomotor nephropathy Sleep apnea Probable pulmonary HTN based on CT chest. Get transthoracic echocardiogram ABG reviewed. - continue to titrate supplemental oxygen to keep SpO2 89-92% - continue bronchodilators -Continue COVID isolation per facility protocol -Complete IV remdesivir and Dexamethasone per protocol -Awake proning as tolerated -Continue to trend serum inflammatory markers per facility protocol -Anticoagulation per facility protocol - avoid nephrotoxins, renally dose all medications - continue to avoid benzodiazepines, reduce the possibility of delirium - complete empiric ABs per ID recommendations - continue accuchecks with glycemic control per SSI (While critically ill target blood glucose of 140-180 mg/dL; avoid hypoglycemia) - Maintenance of sleep-wake cycle, avoid delirium -CPAP/BIPAP qhs - PT/OT/ROM exercises - Monitor hemodynamics closely -Will need outpatient pulmonary follow up for sleep apnea management -Evaluation for home oxygen on discharge - continue other care per attending / other consultants Subjective Date of service: 10/03/20 Principal diagnosis: Bilateral pneumonia, COVID pneumonia, acute hypoxic resp failure Interval history: Follow up for: Bilateral pneumonia, COVID pneumonia, acute hypoxic resp failure Seen and examined. Vitals, labs, medications, chart and imaging reviewed. Discussed with nursing and respiratory staff. Complains of anxiety and difficulty sleeping at night. Per nursing staff he refused the BIPAP last night Denies any nausea, no vomiting, no diarrhea. On going shortness of breath, no cough Objective Vital Signs - 12hr 10/03/20 10/03/20 10/03/20 00:46 02:00 05:33 Temperature 98.0 F Pulse Rate 84 Pulse Rate [ 63 Right Brachial] Respiratory 22 22 Rate Blood Pressure 123/87 O2 Sat by Pulse 94 95 Oximetry 10/03/20 10/03/20 05:41 08:29 Temperature 98.2 F Pulse Rate 95 H Pulse Rate [ Right Brachial] Respiratory 20 Rate Blood Pressure 106/75 O2 Sat by Pulse 97 92 Oximetry Constitutional: alert, other (mild resp distress on HFOT ) Eyes: non-icteric ENT: oropharynx moist Neck: supple, no lymphadenopathy Effort: mildly labored Ascultation: Bilateral: diminished breath sounds Cardiovascular: regular rate and rhythm, other (S1,S2) Gastrointestinal: normoactive bowel sounds, soft, non-tender, non-distended Integumentary: normal Extremities: no cyanosis, no edema, pulses normal Neurologic: normal mental status, non-focal exam, pupils equal and round, CN II- XII normal, motor strength normal and Psychiatric: mood appropriate, affect normal CBC and BMP: 10/02/20 13:24 10/03/20 07:31 ABG, PT/INR, D-dimer: ABG ABG pH 7.473 (7.320-7.450) H 10/02/20 14:38 POC ABG pCO2 39.4 mmHg (32.0-48.0) 10/02/20 14:38 POC ABG pO2 80.5 mmHg (83-108) L 10/02/20 14:38 POC ABG HCO3 28.2 10/02/20 14:38 ABG O2 Saturation 95.7 (0-100) 10/02/20 14:38 PT/INR, D-dimer PT 14.6 Sec. (12.2-14.9) 09/27/20 10:27 INR 1.09 (0.87-1.13) 09/27/20 10:27 D-Dimer > 53973 ng/mlDDU (0-234) H 09/30/20 13:33 Abnormal lab findings: Abnormal Labs 09/27/20 09/27/20 09/27/20 10:27 10:27 10:27 WBC Plt Count Seg Neuts % (Manual) 94.0 H Lymphocytes % (Manual) 1.0 L Seg Neutrophils # Man 9.2 H Lymphocytes # (Manual) 0.1 L D-Dimer 392.32 H ABG pH POC ABG pO2 ABG Glucose Sodium 125 L Chloride 88.5 L BUN Creatinine 1.4 H Glucose 176 H Hemoglobin A1c Calcium Ferritin AST 48 H Lactate Dehydrogenase 396 H C-Reactive Protein 24.60 H Total Protein Albumin 3.1 L Arterial Blood Glucose Arterial Blood Ionized Calcium Coronavirus (PCR) 09/27/20 09/27/20 09/28/20 10:27 11:59 06:53 WBC 11.2 H Plt Count Seg Neuts % (Manual) 98.0 H Lymphocytes % (Manual) Seg Neutrophils # Man 11.0 H Lymphocytes # (Manual) 0.0 L D-Dimer ABG pH POC ABG pO2 ABG Glucose Sodium Chloride BUN Creatinine Glucose Hemoglobin A1c Calcium Ferritin 413.7 H AST Lactate Dehydrogenase C-Reactive Protein Total Protein Albumin Arterial Blood Glucose Arterial Blood Ionized Calcium Coronavirus (PCR) Positive A 09/28/20 09/28/20 09/30/20 06:53 06:53 13:33 WBC Plt Count Seg Neuts % (Manual) Lymphocytes % (Manual) Seg Neutrophils # Man Lymphocytes # (Manual) D-Dimer > 97510 H ABG pH POC ABG pO2 ABG Glucose Sodium 133 L D Chloride 94.3 L BUN 22 H Creatinine Glucose 168 H Hemoglobin A1c 7.5 H Calcium Ferritin AST Lactate Dehydrogenase C-Reactive Protein Total Protein Albumin 3.8 L Arterial Blood Glucose Arterial Blood Ionized Calcium Coronavirus (PCR) 09/30/20 09/30/20 10/01/20 13:33 13:33 07:11 WBC Plt Count Seg Neuts % (Manual) Lymphocytes % (Manual) Seg Neutrophils # Man Lymphocytes # (Manual) D-Dimer ABG pH POC ABG pO2 ABG Glucose Sodium Chloride BUN Creatinine Glucose 195 H 126 H Hemoglobin A1c Calcium Ferritin 381.2 H AST Lactate Dehydrogenase 413 H C-Reactive Protein 8.00 H Total Protein 6.0 L Albumin 3.5 L Arterial Blood Glucose Arterial Blood Ionized Calcium Coronavirus (PCR) 10/02/20 10/02/20 10/02/20 05:10 13:24 14:38 WBC 12.0 H Plt Count 481 H Seg Neuts % (Manual) 89.0 H Lymphocytes % (Manual) 2.0 L Seg Neutrophils # Man 10.7 H Lymphocytes # (Manual) 0.2 L D-Dimer ABG pH 7.473 H POC ABG pO2 80.5 L ABG Glucose 125 H Sodium Chloride BUN Creatinine Glucose 139 H Hemoglobin A1c Calcium Ferritin AST Lactate Dehydrogenase C-Reactive Protein Total Protein Albumin 3.2 L Arterial Blood Glucose 125 H Arterial Blood Ionized Calcium 4.5 L Coronavirus (PCR) 10/03/20 07:31 WBC Plt Count Seg Neuts % (Manual) Lymphocytes % (Manual) Seg Neutrophils # Man Lymphocytes # (Manual) D-Dimer ABG pH POC ABG pO2 ABG Glucose Sodium Chloride BUN 21 H Creatinine Glucose 148 H Hemoglobin A1c Calcium 8.3 L Ferritin AST Lactate Dehydrogenase C-Reactive Protein Total Protein Albumin 3.0 L Arterial Blood Glucose Arterial Blood Ionized Calcium Coronavirus (PCR) Chest x-ray: image reviewed CT scan - chest: image reviewed (Bilateral alveolar infiltrates. No PE, CT evidence for pulmonary HTN) Allied health notes reviewed: RT
[2020-10-03] MEDS: dexAMETHasone 4 MG/ML VIAL IV SCH (16:57)
[2020-10-03] MEDS: oxyCODONE /ACETAMINOPHEN 5-325MG TAB PO PRN (20:24)
[2020-10-03] MEDS: REMDESIVIR 100 MG in SODIUM CHLORIDE 0.9% 250ML 250 ML IV SCH (20:25)
[2020-10-03] MEDS: SODIUM CHLORIDE 0.9% 50 ML IVPB IV SCH (20:25)
[2020-10-03] MEDS: ALPRAZolam 0.25 MG TAB PO PRN (21:23)
[2020-10-03] MEDS: ZOLPIDEM 5 MG TAB PO PRN (21:23)
[2020-10-04 08:24] LABS: Hematocrit 44.6 % (35.5-45.6); Hemoglobin 14.9 gm/dl (11.8-15.2); Mean Corpuscular HGB Conc 33 % (32-34); Mean Corpuscular Volume 89 fl (84-94); Platelet Count 548 K/mm3 (140-440); Red Cell Distribution Width 15.3 % (13.2-15.2)
[2020-10-04 08:59] LABS: BUN/Creatinine Ratio 23; Blood Urea Nitrogen 25 mg/dL (9-20); Calcium 8.8 mg/dL (8.4-10.2); Hemolysis Index 2
[2020-10-04] MEDS: FUROSEMIDE 40 MG/4 ML INJ IV SCH (10:13)
[2020-10-04] MEDS: FAMOTIDINE 20 MG TAB PO SCH ×2 (10:14→21:46)
[2020-10-04] MEDS: ZINC SULFATE 220 MG CAP PO SCH ×2 (10:14→21:46)
[2020-10-04] MEDS: ENOXAPARIN 100 MG/1 ML INJ SUB-Q SCH ×2 (10:14→21:45)
[2020-10-04] MEDS: ENOXAPARIN 30 MG/0.3 ML INJ SUB-Q SCH ×2 (10:14→21:45)
[2020-10-04] MEDS: ASCORBIC ACID 500 MG TAB PO SCH (10:15)
--- NOTE | 2020-10-04 10:59 | Progress Note ---
Assessment and Plan Assessment and plan: This is a 54-year-old male presents to the emergency department with complaint of feeling sick for the past week. He says that he has been having generalized body aches, sweats without chills, shortness of breath, and the patient says that he feels like he needs to cough but has not been able to do so. The patient states that he lost his sense of taste and smell but it has started to return. He has a past medical history of hypertension. He denies tobacco or illicit drug use. The patient had a room air oxygen saturation of about 80% through his triage. No recent travel or sick contacts at home. The patient is not vaccinated against COVID-19, but no known obvious exposure to anyone positive for COVID-19. He denies any chest pain, lower extremity swelling, nausea, vomiting, diarrhea, abdominal pain. He has not taken anything for his symptoms prior to presentation today. Did jose get Covid vaccination 09/28/2020 Covid PCR positive On 8 to 10 L of nasal cannula oxygen 09/29/2020 On 8 L nasal cannula oxygen Mild distress ID consult requested IV remdesivir started IV dexamethasone to continue 09/30: Patient continues on high flow oxygen at 14 L. Will obtain pulmonary consultation in addition to current management continue remdesivir and dexamethasone. Encourage prone positioning. We will also obtain a CT of the chest to rule out pulmonary embolism. Plan of care discussed with the patient 10/01: Continues on 14 L of oxygen continue to encourage weaning down, pulmonary input is noted. Continue to await CTA. Wean oxygen as tolerated. Continue steroids. Complete remdesivir. Continue to encourage prone positioning. We will give a dose of Lasix today 10/02: Remains on high flow 20 L and 50%. Will give additional dose of Lasix today. Will monitor inflammatory markers. Considering AISLINN the thickness of his neck I will recommend a CPAP/BiPAP at nighttime while in house. He verbalized understanding that he needs to work with insurance company to continue use of this outpatient. 10/03: Patient agreeable to try BiPAP today again reinforced the importance of it considering his history of obstructive sleep apnea. We will continue with additional Lasix monitor BMP. Discussed with infectious disease yesterday started patient on full dose anticoagulation until we will rule out DVT. 10/04: Patient continues to show some improvement continue to use BiPAP. Diuretics for 1 more day. Monitor renal functions. Discussed with nursing staff to ensure appropriate monitor while on BiPAP. (1) Acute respiratory failure with hypoxia Current Visit: Yes Status: Acute Plan to address problem: Covid positive (2) Bilateral pneumonia Current Visit: Yes Status: Acute Qualifiers: Pneumonia type: due to unspecified organism Lung location: unspecified part of lung Qualified Code(s): J18.9 - Pneumonia, unspecified organism Plan to address problem: Treat as CAP (3) 2019 novel coronavirus infection Current Visit: Yes Status: Acute Plan to address problem: Covid positive ID consult On IV dexamethasone IV remdesivir started as per protocol (4) ELY (acute kidney injury) with vasomotor nehropathy Current Visit: Yes Status: Acute Plan to address problem: Improved (5) Malnutrition Current Visit: Yes Status: Acute Plan to address problem: Dietary supplements (6) morbid obesity (7) AISLINN (8) DVT prophylaxis Current Visit: Yes Status: Acute Plan to address problem: On Lovenox and GI prophylaxis History Interval history: Patient seen and examined this morning being treated for COVID-19 and respiratory failure as a result. Improving some. Was able to use the BiPAP last night but says that he wished somebody was checking on him more frequently due to the noise on the alarms coming from the BiPAP Hospitalist Physical - Physical exam Narrative exam: VITAL SIGNS: Reviewed. GENERAL: The patient appears normally developed, obese mild respiratory distress vital signs as documented. HEAD: No signs of head trauma. EYES: Pupils are equal. Extraocular motions intact. EARS: Hearing grossly intact. MOUTH: Oropharynx is normal. NECK: No adenopathy, no JVD. CHEST: Chest with bibasilar rhonchi breath sounds bilaterally. No wheezes. CARDIAC: Regular rate and rhythm. S1 and S2, without murmurs, gallops, or rubs. VASCULAR: No Edema. Peripheral pulses normal and equal in all extremities. ABDOMEN: Soft, non tender and non distended. No rebound or guarding, and no masses palpated. Bowel Sounds normal. MUSCULOSKELETAL: Good range of motion of all major joints. Extremities without clubbing, cyanosis or edema. NEUROLOGIC EXAM: Alert and oriented x 3 although slow at first no focal sensory or strength deficits. Speech normal. Follows commands. PSYCHIATRIC: Mood normal. SKIN: detail exam as documented in skin assessment - Constitutional Vitals: Temp Pulse Resp BP Pulse Ox 97.3 F L 69 16 129/89 94 10/04/20 04:27 10/04/20 04:27 10/04/20 04:27 10/04/20 04:27 10/04/20 07:54 General appearance: Present: no acute distress, mild distress, well-nourished HEART Score - HEART Score Troponin: Troponin T 0.013 ng/mL (0.00-0.029) 09/27/20 10:27 Results - Labs CBC & Chem 7: 10/04/20 07:09 10/04/20 07:09 Labs: Laboratory Last Values WBC 10.4 K/mm3 (4.5-11.0) 10/04/20 07:09 RBC 5.00 M/mm3 (3.65-5.03) 10/04/20 07:09 Hgb 14.9 gm/dl (11.8-15.2) 10/04/20 07:09 Hct 44.6 % (35.5-45.6) 10/04/20 07:09 MCV 89 fl (84-94) 10/04/20 07:09 MCH 30 pg (28-32) 10/04/20 07:09 MCHC 33 % (32-34) 10/04/20 07:09 RDW 15.3 % (13.2-15.2) H 10/04/20 07:09 Plt Count 548 K/mm3 (140-440) H 10/04/20 07:09 Add Manual Diff Complete 10/02/20 13:24 Total Counted 100 10/02/20 13:24 Seg Neutrophils % Psychology Assistant 09/28/20 06:53 Seg Neuts % (Manual) 89.0 % (40.0-70.0) H 10/02/20 13:24 Band Neutrophils % 1.0 % 09/28/20 06:53 Lymphocytes % (Manual) 2.0 % (13.4-35.0) L 10/02/20 13:24 Reactive Lymphs % (Man) 2.0 % 10/02/20 13:24 Monocytes % (Manual) 3.0 % (0.0-7.3) 10/02/20 13:24 Eosinophils % (Manual) 2.0 % (0.0-4.3) 10/02/20 13:24 Metamyelocytes % 2.0 % 10/02/20 13:24 Nucleated RBC % Not Reportable 10/02/20 13:24 Seg Neutrophils # Man 10.7 K/mm3 (1.8-7.7) H 10/02/20 13:24 Band Neutrophils # 0.0 K/mm3 10/02/20 13:24 Lymphocytes # (Manual) 0.2 K/mm3 (1.2-5.4) L 10/02/20 13:24 Abs React Lymphs (Man) 0.2 K/mm3 10/02/20 13:24 Monocytes # (Manual) 0.4 K/mm3 (0.0-0.8) 10/02/20 13:24 Eosinophils # (Manual) 0.2 K/mm3 (0.0-0.4) 10/02/20 13:24 Basophils # (Manual) 0.0 K/mm3 (0.0-0.1) 10/02/20 13:24 Metamyelocytes # 0.2 K/mm3 10/02/20 13:24 Myelocytes # 0.0 K/mm3 10/02/20 13:24 Promyelocytes # 0.0 K/mm3 10/02/20 13:24 Blast Cells # 0.0 K/mm3 10/02/20 13:24 WBC Morphology Not Reportable 10/02/20 13:24 WBC Morphology TNR 10/02/20 13:24 Hypersegmented Neuts Not Reportable 10/02/20 13:24 Hyposegmented Neuts Not Reportable 10/02/20 13:24 Hypogranular Neuts Not Reportable 10/02/20 13:24 Smudge Cells Not Reportable 10/02/20 13:24 Toxic Granulation Not Reportable 10/02/20 13:24 Toxic Vacuolation Not Reportable 10/02/20 13:24 Dohle Bodies Not Reportable 10/02/20 13:24 Pelger-Huet Anomaly Not Reportable 10/02/20 13:24 Tuan Rods Not Reportable 10/02/20 13:24 Platelet Estimate Consistent w auto 10/02/20 13:24 Clumped Platelets Not Reportable 10/02/20 13:24 Plt Clumps, EDTA Not Reportable 10/02/20 13:24 Large Platelets Not Reportable 10/02/20 13:24 Giant Platelets Not Reportable 10/02/20 13:24 Platelet Satelliting Not Reportable 10/02/20 13:24 Plt Morphology Comment Not Reportable 10/02/20 13:24 RBC Morphology Normal 10/02/20 13:24 Dimorphic RBCs Not Reportable 10/02/20 13:24 Polychromasia Not Reportable 10/02/20 13:24 Hypochromasia Not Reportable 10/02/20 13:24 Poikilocytosis Not Reportable 10/02/20 13:24 Anisocytosis Not Reportable 10/02/20 13:24 Microcytosis Not Reportable 10/02/20 13:24 Macrocytosis Not Reportable 10/02/20 13:24 Spherocytes Not Reportable 10/02/20 13:24 Pappenheimer Bodies Not Reportable 10/02/20 13:24 Sickle Cells Not Reportable 10/02/20 13:24 Target Cells Not Reportable 10/02/20 13:24 Tear Drop Cells Not Reportable 10/02/20 13:24 Ovalocytes Not Reportable 10/02/20 13:24 Helmet Cells Not Reportable 10/02/20 13:24 Calles-Mclean Bodies Not Reportable 10/02/20 13:24 Sandia Rings Not Reportable 10/02/20 13:24 Clay Cells Not Reportable 10/02/20 13:24 Bite Cells Not Reportable 10/02/20 13:24 Crenated Cell Not Reportable 10/02/20 13:24 Elliptocytes Not Reportable 10/02/20 13:24 Acanthocytes (Spur) Not Reportable 10/02/20 13:24 Rouleaux Not Reportable 10/02/20 13:24 Hemoglobin C Crystals Not Reportable 10/02/20 13:24 Schistocytes Not Reportable 10/02/20 13:24 Malaria parasites Not Reportable 10/02/20 13:24 Marito Bodies Not Reportable 10/02/20 13:24 Hem Pathologist Commnt No 10/02/20 13:24 PT 14.6 Sec. (12.2-14.9) 09/27/20 10:27 INR 1.09 (0.87-1.13) 09/27/20 10:27 APTT 29.8 Sec. (24.2-36.6) 09/27/20 10:27 D-Dimer 135.00 ng/mlDDU (0-234) 10/04/20 07:09 ABG pH 7.473 (7.320-7.450) H 10/02/20 14:38 POC ABG pCO2 39.4 mmHg (32.0-48.0) 10/02/20 14:38 POC ABG pO2 80.5 mmHg (83-108) L 10/02/20 14:38 POC ABG HCO3 28.2 10/02/20 14:38 ABG O2 Saturation 95.7 (0-100) 10/02/20 14:38 POC ABG Base Excess 4.4 10/02/20 14:38 ABG Hemoglobin 13.8 (12.0-17.5) 10/02/20 14:38 ABG Oxyhemoglobin 94.8 (94-98) 10/02/20 14:38 ABG Methemoglobin 0.3 (0.0-1.5) 10/02/20 14:38 ABG Sodium 136.0 mmol/L (136.0-145.0) 10/02/20 14:38 ABG Potassium 3.5 mmol/L (3.40-4.50) 10/02/20 14:38 ABG Chloride 104.0 mmol/L (98-107) 10/02/20 14:38 ABG Glucose 125 mg/dL (65-95) H 10/02/20 14:38 Carboxyhemoglobin 0.6 (0.5-1.5) 10/02/20 14:38 FiO2 % 55.0 10/02/20 14:38 Sodium 143 mmol/L (137-145) 10/04/20 07:09 Potassium 4.3 mmol/L (3.6-5.0) 10/04/20 07:09 Chloride 105.5 mmol/L (98-107) 10/04/20 07:09 Carbon Dioxide 28 mmol/L (22-30) 10/04/20 07:09 Anion Gap 14 mmol/L 10/04/20 07:09 BUN 25 mg/dL (9-20) H 10/04/20 07:09 Creatinine 1.1 mg/dL (0.8-1.3) 10/04/20 07:09 Estimated GFR > 60 ml/min 10/04/20 07:09 BUN/Creatinine Ratio 23 % 10/04/20 07:09 Glucose 113 mg/dL (75-100) H 10/04/20 07:09 Hemoglobin A1c 7.5 % (4-6) H 09/28/20 06:53 Lactic Acid 1.30 mmol/L (0.7-2.0) 09/27/20 10:27 Calcium 8.8 mg/dL (8.4-10.2) 10/04/20 07:09 Ferritin 381.2 ng/mL (30.0-300.0) H 09/30/20 13:33 Total Bilirubin 0.30 mg/dL (0.1-1.2) 10/03/20 07:31 AST 12 units/L (5-40) 10/03/20 07:31 ALT 33 units/L (7-56) 10/03/20 07:31 Alkaline Phosphatase 85 units/L (35-129) 10/03/20 07:31 Lactate Dehydrogenase 413 units/L (91-180) H 09/30/20 13:33 Troponin T 0.013 ng/mL (0.00-0.029) 09/27/20 10:27 C-Reactive Protein 8.00 mg/dL (0.00-1.30) H 09/30/20 13:33 NT-Pro-B Natriuret Pep 505.7 pg/mL (0-900) 09/27/20 10:27 Total Protein 6.5 g/dL (6.3-8.2) 10/03/20 07:31 Albumin 3.0 g/dL (3.9-5) L 10/03/20 07:31 Albumin/Globulin Ratio 0.9 % 10/03/20 07:31 Procalcitonin 0.85 ng/mL (<0.15) 09/27/20 10:27 Arterial Blood Glucose 125 mg/dL (65-95) H 10/02/20 14:38 Arterial Blood Ionized Calcium 4.5 mg/dL (4.6-5.3) L 10/02/20 14:38 Coronavirus (PCR) Positive (Negative) A 09/27/20 11:59 Vazquez/IV: Voiding Method Urinal Active Medications - Current Medications Current Medications: Generic Name Dose Route Start Last Admin Trade Name Freq PRN Reason Stop Dose Admin Acetaminophen 650 mg 09/27/20 15:32 Acetaminophen 325 Mg Tab PO Q4H PRN Pain MILD(1-3)/Fever >100.5/COOPER Alprazolam 0.25 mg 09/30/20 20:00 10/03/20 21:23 Alprazolam 0.25 Mg Tab PO 0.25 mg TID PRN Administration Anxiety Ascorbic Acid 500 mg 09/30/20 18:00 10/04/20 10:15 Ascorbic Acid 500 Mg Tab PO 500 mg QDAY DEQUAN Administration Dexamethasone 8 mg 09/27/20 16:00 10/03/20 16:57 Dexamethasone 4 Mg/Ml Vial IV 10/06/20 16:01 8 mg Q24H DEQUAN Administration Enoxaparin Sodium 100 mg 10/02/20 22:00 10/04/20 10:14 Enoxaparin 100 Mg/1 Ml Inj SUB-Q 100 mg Q12HR DEQUAN Administration Protocol Enoxaparin Sodium 30 mg 10/02/20 22:00 10/04/20 10:14 Enoxaparin 30 Mg/0.3 Ml Inj SUB-Q 30 mg Q12HR DEQUAN Administration Famotidine 20 mg 09/27/20 22:00 10/04/20 10:14 Famotidine 20 Mg Tab PO 20 mg BID DEQUAN Administration Furosemide 40 mg 10/03/20 10:15 10/04/20 10:13 Furosemide 40 Mg/4 Ml Inj IV 10/05/20 10:01 40 mg QDAY DEQUAN Administration Hydromorphone HCl 0.5 mg 09/27/20 15:32 Hydromorphone 1 Mg/1 Ml Inj IV Q3H PRN Pain , Severe (7-10) Metoclopramide HCl 10 mg 09/27/20 15:32 Metoclopramide 10 Mg/2 Ml Inj IV Q6H PRN Nausea And Vomiting Ondansetron HCl 4 mg 09/27/20 15:32 Ondansetron 4 Mg/2 Ml Inj IV Q8H PRN Nausea And Vomiting Oxycodone/Acetaminophen 1 tab 09/27/20 15:32 10/03/20 20:24 Oxycodone /Acetaminophen 5-325mg Tab PO 1 tab Q6H PRN Administration Pain, Moderate (4-6) Sodium Chloride 10 ml 09/27/20 22:00 10/04/20 10:15 Sodium Chloride 0.9% 10 Ml Flush Syringe IV 10 ml BID DEQUAN Administration Sodium Chloride 10 ml 09/27/20 15:32 Sodium Chloride 0.9% 10 Ml Flush Syringe IV PRN PRN LINE FLUSH Zinc Sulfate 220 mg 09/30/20 22:00 10/04/20 10:14 Zinc Sulfate 220 Mg Cap PO 220 mg BID DEQUAN Administration Zolpidem Tartrate 5 mg 09/30/20 22:00 10/03/20 21:23 Zolpidem 5 Mg Tab PO 5 mg QHS PRN Administration Sleep Nutrition/Malnutrition Assess - Dietary Evaluation Nutrition/Malnutrition Findings: Nutrition Notes Start: 09/30/20 11:22 Freq: Status: Active Protocol: Document 10/01/20 12:15 CHANDNI (Rec: 10/01/20 12:16 CHANDNI [id number]) Nutrition Notes Initial or Follow up Brief Note Current Diagnosis Acute Kidney Injury, Respiratory Failure Other Pertinent Diagnosis pneu, COVID(+) Current Diet Regular Subjective/Other Information FU for intakes. Pt did not answer phone x2. Per chart, pt eating 75% of meals. Nutrition Intervention Follow-Up By: 10/04/20 Additional Comments FU for assessment, intakes and ONS tolernace
--- NOTE | 2020-10-04 13:07 | Progress Note ---
Assessment and Plan Cultures: COVID-19 PCR: Positive A/P: 54-year-old man past medical history hypertension admitted with COVID-19 pneumonia #Severe COVID-19 pneumonia: Patient presented with a week of symptoms, chest x- ray with diffuse bilateral infiltrates, admission O2 sats 80% on room air. Inflammatory markers elevated. Procalcitonin slightly elevated #Acute hypoxemic respiratory failure: Likely secondary to COVID-19 infection. Currently on HFNC #Elevated D-dimer: CTA negative for pulmonary embolism. #Obesity Recs: -Decadron 8 mg daily, agree with higher dose due to morbid obesity -Continue remdesivir, total 5 days -Monitor q48-72h inflammatory markers - ferritin, Ddimer, CRP, LDH -Completed empiric antibiotic -Consider Actemra if respiratory status worsens -Anticoagulation per hospital protocol. D-dimer significantly elevated, CTA negative for PE, eval for DVT and consider increasing anticoagulation dose -Proning as starla Beverly MD [facility] ([facility] O: [phone] F: [phone] Subjective Date of service: 10/04/20 Principal diagnosis: Bilateral pneumonia, COVID pneumonia, acute hypoxic resp failure Interval history: Afebrile, requiring high flow nasal cannula. Objective - Exam Narrative Exam: Physical exam deferred to reduce risk of transmission of COVID-19. Please refer to primary team's note. - Constitutional Vitals: Vital Signs Temp Pulse Resp BP Pulse Ox 98.2 F 77 18 130/80 95 10/04/20 11:52 10/04/20 11:52 10/04/20 11:52 10/04/20 11:52 10/04/20 11:52 Temperature -Last 24 Hours Temperature 98.2 F Temperature 97.3 F Temperature 97.8 F - Labs CBC & Chem 7: 10/04/20 07:09 10/04/20 07:09 Labs: Abnormal lab results 10/04/20 10/04/20 Range/Units 07:09 07:09 RDW 15.3 H (13.2-15.2) % Plt Count 548 H (140-440) K/mm3 BUN 25 H (9-20) mg/dL Glucose 113 H (75-100) mg/dL
--- NOTE | 2020-10-04 13:27 | Progress Note ---
Assessment and Plan This is a 54-year-old male presents to the emergency department with complaint of feeling sick for the past week. He says that he has been having generalized body aches, sweats without chills, shortness of breath, and the patient says that he feels like he needs to cough but has not been able to do so. The patient states that he lost his sense of taste and smell but it has started to return. He has a past medical history of hypertension. He denies tobacco or illicit drug use. 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 The patient had a room air oxygen saturation of about 80% through his triage. No recent travel or sick contacts at home. The patient is not vaccinated against COVID-19, but no known obvious exposure to anyone positive for COVID-19. He denies any chest pain, lower extremity swelling, nausea, vomiting, diarrhea, abdominal pain. He has not taken anything for his symptoms prior to presentation today. Did not get Covid vaccination. No known allergies. Patient's coronavirus PCR is positive. Pt received remdesivir, dexamethasone, subcutaneous lovanox. He is on famotidine. Pt's symptoms have somewhat improved. Pt is alert, awake. Still on vapotherm with FiO2 50% and SaO2 of 95%. Pt is believes he is breathing better, except for a slight cough. Pt is afebrile with no leukocytosis today. Pt's CXR completed on 09/27/20 reported: Patchy bilateral pneumonia and Diminished lung volumes. Pt's CTA completed on 10/01/20 reported: No CT evidence for pulmonary embolism. Severe patchy parenchymal opacities throughout both lungs are nonspecific. Atypical causes of pneumonia, including viral pneumonia, should be considered. Pt's venous doppler study of bilateral LE on 10/02/20 reported: no sonographic evidence of DVT. Pt is currently receiving dexamethasone, subcutaneous lovenox, reglan. - Patient Problems (1) Acute respiratory failure with hypoxia Current Visit: Yes Status: Acute Plan to address problem: Vapotherm FiO2 50%. Subcutaneous lonenox. Continue dexamethasone. Continue famotidine. (2) Bilateral pneumonia Current Visit: Yes Status: Acute Qualifiers: Pneumonia type: due to unspecified organism Lung location: unspecified part of lung Qualified Code(s): J18.9 - Pneumonia, unspecified organism Plan to address problem: Antibiotics as per ID. (3) ELY (acute kidney injury) Current Visit: Yes Status: Acute Plan to address problem: ELY management as per nephrology. (4) Hyponatremia Current Visit: Yes Status: Acute Plan to address problem: Improved. Na today is 143. (5) Coronavirus infection Current Visit: Yes Status: Acute Plan to address problem: Pt on dexamethasone, subcutaneous lovenox. Pt finished course of remdesivir. Management as per ID. Subjective Date of service: 10/04/20 Principal diagnosis: Bilateral pneumonia, COVID pneumonia, acute hypoxic resp failure Interval history: This is a 54-year-old male presents to the emergency department with complaint of feeling sick for the past week. He says that he has been having generalized body aches, sweats without chills, shortness of breath, and the patient says that he feels like he needs to cough but has not been able to do so. The patient states that he lost his sense of taste and smell but it has st arted to return. He has a past medical history of hypertension. He denies tobacco or illicit drug use. 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 The patient had a room air oxygen saturation of about 80% through his triage. No recent travel or sick contacts at home. The patient is not vaccinated against COVID-19, but no known obvious exposure to anyone positive for COVID-19. He denies any chest pain, lower extremity swelling, nausea, vomiting, diarrhea, abdominal pain. He has not taken anything for his symptoms prior to presentation today. Did not get Covid vaccination. No known allergies. Patient's coronavirus PCR is positive. Pt received remdesivir, dexamethasone, subcutaneous lovanox. He is on famotidine. Pt's symptoms have somewhat improved. Pt is alert, awake. Still on vapotherm with FiO2 50% and SaO2 of 95%. Pt is believes he is breathing better, except for a slight cough. Pt is afebrile with no leukocytosis today. Pt's CXR completed on 09/27/20 reported: Patchy bilateral pneumonia and Diminished lung volumes. Pt's CTA completed on 10/01/20 reported: No CT evidence for pulmonary embolism. Severe patchy parenchymal opacities throughout both lungs are nonspecific. Atypical causes of pneumonia, including viral pneumonia, should be considered. Pt's venous doppler study of bilateral LE on 10/02/20 reported: no sonographic evidence of DVT. Pt is currently receiving dexamethasone, subcutaneous lovenox, reglan. Objective Vital Signs - 12hr 10/04/20 10/04/20 10/04/20 02:30 04:27 07:54 Temperature 97.3 F L Pulse Rate 71 69 Respiratory 15 16 Rate Blood Pressure 129/89 O2 Sat by Pulse 97 97 94 Oximetry 10/04/20 11:52 Temperature 98.2 F Pulse Rate 77 Respiratory 18 Rate Blood Pressure 130/80 O2 Sat by Pulse 95 Oximetry Constitutional: no acute distress, alert, other (mild resp distress on HFOT ) Eyes: non-icteric ENT: oropharynx moist Neck: supple, no lymphadenopathy Effort: mildly labored Ascultation: Bilateral: diminished breath sounds, rhonchi Cardiovascular: regular rate and rhythm, other (S1,S2) Gastrointestinal: normoactive bowel sounds, soft, non-tender, non-distended Integumentary: normal Extremities: no cyanosis, no edema, pulses normal Neurologic: normal mental status, non-focal exam, pupils equal and round, CN II- XII normal, motor strength normal and Psychiatric: mood appropriate, affect normal CBC and BMP: 10/04/20 07:09 10/04/20 07:09 ABG, PT/INR, D-dimer: ABG ABG pH 7.473 (7.320-7.450) H 10/02/20 14:38 POC ABG pCO2 39.4 mmHg (32.0-48.0) 10/02/20 14:38 POC ABG pO2 80.5 mmHg (83-108) L 10/02/20 14:38 POC ABG HCO3 28.2 10/02/20 14:38 ABG O2 Saturation 95.7 (0-100) 10/02/20 14:38 PT/INR, D-dimer PT 14.6 Sec. (12.2-14.9) 09/27/20 10:27 INR 1.09 (0.87-1.13) 09/27/20 10:27 D-Dimer 135.00 ng/mlDDU (0-234) 10/04/20 07:09 Abnormal lab findings: Abnormal Labs 09/27/20 09/27/20 09/27/20 10:27 10:27 10:27 WBC RDW Plt Count Seg Neuts % (Manual) 94.0 H Lymphocytes % (Manual) 1.0 L Seg Neutrophils # Man 9.2 H Lymphocytes # (Manual) 0.1 L D-Dimer 392.32 H ABG pH POC ABG pO2 ABG Glucose Sodium 125 L Chloride 88.5 L BUN Creatinine 1.4 H Glucose 176 H Hemoglobin A1c Calcium Ferritin AST 48 H Lactate Dehydrogenase 396 H C-Reactive Protein 24.60 H Total Protein Albumin 3.1 L Arterial Blood Glucose Arterial Blood Ionized Calcium Coronavirus (PCR) 09/27/20 09/27/20 09/28/20 10:27 11:59 06:53 WBC 11.2 H RDW Plt Count Seg Neuts % (Manual) 98.0 H Lymphocytes % (Manual) Seg Neutrophils # Man 11.0 H Lymphocytes # (Manual) 0.0 L D-Dimer ABG pH POC ABG pO2 ABG Glucose Sodium Chloride BUN Creatinine Glucose Hemoglobin A1c Calcium Ferritin 413.7 H AST Lactate Dehydrogenase C-Reactive Protein Total Protein Albumin Arterial Blood Glucose Arterial Blood Ionized Calcium Coronavirus (PCR) Positive A 09/28/20 09/28/20 09/30/20 06:53 06:53 13:33 WBC RDW Plt Count Seg Neuts % (Manual) Lymphocytes % (Manual) Seg Neutrophils # Man Lymphocytes # (Manual) D-Dimer > 88922 H ABG pH POC ABG pO2 ABG Glucose Sodium 133 L D Chloride 94.3 L BUN 22 H Creatinine Glucose 168 H Hemoglobin A1c 7.5 H Calcium Ferritin AST Lactate Dehydrogenase C-Reactive Protein Total Protein Albumin 3.8 L Arterial Blood Glucose Arterial Blood Ionized Calcium Coronavirus (PCR) 09/30/20 09/30/20 10/01/20 13:33 13:33 07:11 WBC RDW Plt Count Seg Neuts % (Manual) Lymphocytes % (Manual) Seg Neutrophils # Man Lymphocytes # (Manual) D-Dimer ABG pH POC ABG pO2 ABG Glucose Sodium Chloride BUN Creatinine Glucose 195 H 126 H Hemoglobin A1c Calcium Ferritin 381.2 H AST Lactate Dehydrogenase 413 H C-Reactive Protein 8.00 H Total Protein 6.0 L Albumin 3.5 L Arterial Blood Glucose Arterial Blood Ionized Calcium Coronavirus (PCR) 10/02/20 10/02/20 10/02/20 05:10 13:24 14:38 WBC 12.0 H RDW Plt Count 481 H Seg Neuts % (Manual) 89.0 H Lymphocytes % (Manual) 2.0 L Seg Neutrophils # Man 10.7 H Lymphocytes # (Manual) 0.2 L D-Dimer ABG pH 7.473 H POC ABG pO2 80.5 L ABG Glucose 125 H Sodium Chloride BUN Creatinine Glucose 139 H Hemoglobin A1c Calcium Ferritin AST Lactate Dehydrogenase C-Reactive Protein Total Protein Albumin 3.2 L Arterial Blood Glucose 125 H Arterial Blood Ionized Calcium 4.5 L Coronavirus (PCR) 10/03/20 10/04/20 10/04/20 07:31 07:09 07:09 WBC RDW 15.3 H Plt Count 548 H Seg Neuts % (Manual) Lymphocytes % (Manual) Seg Neutrophils # Man Lymphocytes # (Manual) D-Dimer ABG pH POC ABG pO2 ABG Glucose Sodium Chloride BUN 21 H 25 H Creatinine Glucose 148 H 113 H Hemoglobin A1c Calcium 8.3 L Ferritin AST Lactate Dehydrogenase C-Reactive Protein Total Protein Albumin 3.0 L Arterial Blood Glucose Arterial Blood Ionized Calcium Coronavirus (PCR) Chest x-ray: report reviewed, image reviewed CT scan - chest: report reviewed, image reviewed Additional Studies: CHEST 1 VIEW 09/27/20 INDICATION: SOB. COMPARISON: None. FINDINGS: Support devices: None. Heart: Within normal limits. Lungs/Pleura: Lung volumes are diminished. Patchy bilateral infiltrates. No pleural fluid or pneumothorax. Additional findings: None. IMPRESSION: 1. Patchy bilateral pneumonia. 2. Diminished lung volumes. CTA CHEST WITH CONTRAST 10/01/20 INDICATION / CLINICAL INFORMATION: Shortness of breath. TECHNIQUE: Axial CT images were obtained through the chest after injection of 100 cc Omnipaque 350 IV contrast. 3 plane MIP and/or 3D reconstructions were produced. All CT scans at this location are performed using CT dose reduction for ALARA by means of automated exposure co ntrol. COMPARISON: None available. FINDINGS: PULMONARY ARTERIES: Adequate opacification bilaterally without intraluminal filling defect to suggest acute PTE. THORACIC AORTA: No significant abnormality. HEART: No significant abnormality. CORONARY ARTERY CALCIFICATION: None. MEDIASTINUM / BIGG: No significant abnormality. PLEURA: No pleural effusion. No pneumothorax. LUNGS: Severe patchy, multifocal areas of groundglass parenchymal opacity and consolidation throughout both lungs. ADDITIONAL FINDINGS: None. UPPER ABDOMEN: No acute findings. SKELETAL STRUCTURES: No significant osseous abnormality. IMPRESSION: 1. No CT evidence for pulmonary embolism. 2. Severe patchy parenchymal opacities throughout both lungs are nonspecific. Atypical causes of pneumonia, including viral pneumonia, should be considered. Allied health notes reviewed: RT
--- NOTE | 2020-10-04 13:57 | Vascular Lab Report ---
DUPLEX DOPPLER LOWER EXTREMITY VEINS, BILATERAL INDICATION / CLINICAL INFORMATION: COVID-19 pneumonia. Elevated d-dimer. TECHNIQUE: Duplex doppler imaging was performed through the veins of both lower extremities using venous gracy amna and other maneuvers. COMPARISON: None available. FINDINGS: RIGHT COMMON FEMORAL VEIN: Negative. RIGHT FEMORAL VEIN: Negative. RIGHT POPLITEAL VEIN: Negative. RIGHT CALF VEINS: Negative. LEFT COMMON FEMORAL VEIN: Negative. LEFT FEMORAL VEIN: Negative. LEFT POPLITEAL VEIN: Negative. LEFT CALF VEINS: Negative. ADDITIONAL FINDINGS: No abnormal mass or fluid collection is seen. IMPRESSION: No sonographic evidence for DVT in either lower extremity. Signer Name: Dima Paredes MD Signed: 10/04/2020 1:52 PM Workstation Name: [id number]
[2020-10-04] MEDS: dexAMETHasone 4 MG/ML VIAL IV SCH (16:27)
[2020-10-04] MEDS: oxyCODONE /ACETAMINOPHEN 5-325MG TAB PO PRN (22:10)
[2020-10-04] MEDS ORDERED: MELATONIN 5 MG TAB PO ONE (23:30)
--- NOTE | 2020-10-05 07:11 | Progress Note ---
Assessment and Plan Assessment and plan: This is a 54-year-old male presents to the emergency department with complaint of feeling sick for the past week. He says that he has been having generalized body aches, sweats without chills, shortness of breath, and the patient says that he feels like he needs to cough but has not been able to do so. The patient states that he lost his sense of taste and smell but it has started to return. He has a past medical history of hypertension. He denies tobacco or illicit drug use. The patient had a room air oxygen saturation of about 80% through his triage. No recent travel or sick contacts at home. The patient is not vaccinated against COVID-19, but no known obvious exposure to anyone positive for COVID-19. He denies any chest pain, lower extremity swelling, nausea, vomiting, diarrhea, abdominal pain. He has not taken anything for his symptoms prior to presentation today. Did jose get Covid vaccination 09/28/2020 Covid PCR positive On 8 to 10 L of nasal cannula oxygen 09/29/2020 On 8 L nasal cannula oxygen Mild distress ID consult requested IV remdesivir started IV dexamethasone to continue 09/30: Patient continues on high flow oxygen at 14 L. Will obtain pulmonary consultation in addition to current management continue remdesivir and dexamethasone. Encourage prone positioning. We will also obtain a CT of the chest to rule out pulmonary embolism. Plan of care discussed with the patient 10/01: Continues on 14 L of oxygen continue to encourage weaning down, pulmonary input is noted. Continue to await CTA. Wean oxygen as tolerated. Continue steroids. Complete remdesivir. Continue to encourage prone positioning. We will give a dose of Lasix today 10/02: Remains on high flow 20 L and 50%. Will give additional dose of Lasix today. Will monitor inflammatory markers. Considering AISLINN the thickness of his neck I will recommend a CPAP/BiPAP at nighttime while in house. He verbalized understanding that he needs to work with insurance company to continue use of this outpatient. 10/03: Patient agreeable to try BiPAP today again reinforced the importance of it considering his history of obstructive sleep apnea. We will continue with additional Lasix monitor BMP. Discussed with infectious disease yesterday started patient on full dose anticoagulation until we will rule out DVT. 10/04: Patient continues to show some improvement continue to use BiPAP. Diuretics for 1 more day. Monitor renal functions. Discussed with nursing staff to ensure appropriate monitor while on BiPAP. 10/05/2020; patient is on high flow oxygen 25 L with FiO2 of 50%. Doppler ultrasound of the lower extremities were negative. I will decrease anticoagulation to prophylactic dose. If no improvement in his oxygen requirement, consider LTAC. Discussed with case management. (1) Acute respiratory failure with hypoxia Current Visit: Yes Status: Acute Plan to address problem: Covid positive (2) Bilateral pneumonia Current Visit: Yes Status: Acute Qualifiers: Pneumonia type: due to unspecified organism Lung location: unspecified part of lung Qualified Code(s): J18.9 - Pneumonia, unspecified organism Plan to address problem: Treat as CAP (3) 2019 novel coronavirus infection Current Visit: Yes Status: Acute Plan to address problem: Covid positive ID consult On IV dexamethasone IV remdesivir started as per protocol (4) ELY (acute kidney injury) with vasomotor nehropathy Current Visit: Yes Status: Acute Plan to address problem: Improved (5) Malnutrition Current Visit: Yes Status: Acute Plan to address problem: Dietary supplements (6) morbid obesity (7) AISLINN (8) DVT prophylaxis Current Visit: Yes Status: Acute Plan to address problem: On Lovenox and GI prophylaxis History Interval history: Patient was seen and evaluated this morning Patient was on high flow oxygen 25 L with FiO2 of 50% Patient said he is breathing better today Hospitalist Physical - Physical exam Narrative exam: Patient was on high flow oxygen. The patient is morbidly obese. Vital signs as documented. Head exam is unremarkable. No scleral icterus . Neck is without jugular venous distension, thyromegaly, or carotid bruits. Lungs are clear to auscultation. Cardiac exam reveals regular rate and Rhythm. Abdominal exam reveals normal bowel sounds, nontender, no organomegaly. Extremities are nonedematous and both femoral and pedal pulses are normal. PAPER FINISHER: Alert and oriented 3. No focal weakness. - Constitutional Vitals: Temp Pulse Resp BP Pulse Ox 98.0 F 65 20 117/71 95 10/05/20 04:46 10/05/20 04:46 10/05/20 04:46 10/05/20 04:46 10/05/20 04:46 General appearance: Present: no acute distress, mild distress, well-nourished HEART Score - HEART Score Troponin: Troponin T 0.013 ng/mL (0.00-0.029) 09/27/20 10:27 Results - Labs CBC & Chem 7: 10/04/20 07:09 10/05/20 07:04 Labs: Laboratory Last Values WBC 10.4 K/mm3 (4.5-11.0) 10/04/20 07:09 RBC 5.00 M/mm3 (3.65-5.03) 10/04/20 07:09 Hgb 14.9 gm/dl (11.8-15.2) 10/04/20 07:09 Hct 44.6 % (35.5-45.6) 10/04/20 07:09 MCV 89 fl (84-94) 10/04/20 07:09 MCH 30 pg (28-32) 10/04/20 07:09 MCHC 33 % (32-34) 10/04/20 07:09 RDW 15.3 % (13.2-15.2) H 10/04/20 07:09 Plt Count 548 K/mm3 (140-440) H 10/04/20 07:09 Add Manual Diff Complete 10/02/20 13:24 Total Counted 100 10/02/20 13:24 Seg Neutrophils % Political Aide 09/28/20 06:53 Seg Neuts % (Manual) 89.0 % (40.0-70.0) H 10/02/20 13:24 Band Neutrophils % 1.0 % 09/28/20 06:53 Lymphocytes % (Manual) 2.0 % (13.4-35.0) L 10/02/20 13:24 Reactive Lymphs % (Man) 2.0 % 10/02/20 13:24 Monocytes % (Manual) 3.0 % (0.0-7.3) 10/02/20 13:24 Eosinophils % (Manual) 2.0 % (0.0-4.3) 10/02/20 13:24 Metamyelocytes % 2.0 % 10/02/20 13:24 Nucleated RBC % Not Reportable 10/02/20 13:24 Seg Neutrophils # Man 10.7 K/mm3 (1.8-7.7) H 10/02/20 13:24 Band Neutrophils # 0.0 K/mm3 10/02/20 13:24 Lymphocytes # (Manual) 0.2 K/mm3 (1.2-5.4) L 10/02/20 13:24 Abs React Lymphs (Man) 0.2 K/mm3 10/02/20 13:24 Monocytes # (Manual) 0.4 K/mm3 (0.0-0.8) 10/02/20 13:24 Eosinophils # (Manual) 0.2 K/mm3 (0.0-0.4) 10/02/20 13:24 Basophils # (Manual) 0.0 K/mm3 (0.0-0.1) 10/02/20 13:24 Metamyelocytes # 0.2 K/mm3 10/02/20 13:24 Myelocytes # 0.0 K/mm3 10/02/20 13:24 Promyelocytes # 0.0 K/mm3 10/02/20 13:24 Blast Cells # 0.0 K/mm3 10/02/20 13:24 WBC Morphology Not Reportable 10/02/20 13:24 WBC Morphology TNR 10/02/20 13:24 Hypersegmented Neuts Not Reportable 10/02/20 13:24 Hyposegmented Neuts Not Reportable 10/02/20 13:24 Hypogranular Neuts Not Reportable 10/02/20 13:24 Smudge Cells Not Reportable 10/02/20 13:24 Toxic Granulation Not Reportable 10/02/20 13:24 Toxic Vacuolation Not Reportable 10/02/20 13:24 Dohle Bodies Not Reportable 10/02/20 13:24 Pelger-Huet Anomaly Not Reportable 10/02/20 13:24 Tuan Rods Not Reportable 10/02/20 13:24 Platelet Estimate Consistent w auto 10/02/20 13:24 Clumped Platelets Not Reportable 10/02/20 13:24 Plt Clumps, EDTA Not Reportable 10/02/20 13:24 Large Platelets Not Reportable 10/02/20 13:24 Giant Platelets Not Reportable 10/02/20 13:24 Platelet Satelliting Not Reportable 10/02/20 13:24 Plt Morphology Comment Not Reportable 10/02/20 13:24 RBC Morphology Normal 10/02/20 13:24 Dimorphic RBCs Not Reportable 10/02/20 13:24 Polychromasia Not Reportable 10/02/20 13:24 Hypochromasia Not Reportable 10/02/20 13:24 Poikilocytosis Not Reportable 10/02/20 13:24 Anisocytosis Not Reportable 10/02/20 13:24 Microcytosis Not Reportable 10/02/20 13:24 Macrocytosis Not Reportable 10/02/20 13:24 Spherocytes Not Reportable 10/02/20 13:24 Pappenheimer Bodies Not Reportable 10/02/20 13:24 Sickle Cells Not Reportable 10/02/20 13:24 Target Cells Not Reportable 10/02/20 13:24 Tear Drop Cells Not Reportable 10/02/20 13:24 Ovalocytes Not Reportable 10/02/20 13:24 Helmet Cells Not Reportable 10/02/20 13:24 Calles-Portis Bodies Not Reportable 10/02/20 13:24 Valatie Rings Not Reportable 10/02/20 13:24 Clem Cells Not Reportable 10/02/20 13:24 Bite Cells Not Reportable 10/02/20 13:24 Crenated Cell Not Reportable 10/02/20 13:24 Elliptocytes Not Reportable 10/02/20 13:24 Acanthocytes (Spur) Not Reportable 10/02/20 13:24 Rouleaux Not Reportable 10/02/20 13:24 Hemoglobin C Crystals Not Reportable 10/02/20 13:24 Schistocytes Not Reportable 10/02/20 13:24 Malaria parasites Not Reportable 10/02/20 13:24 Marito Bodies Not Reportable 10/02/20 13:24 Hem Pathologist Commnt No 10/02/20 13:24 PT 14.6 Sec. (12.2-14.9) 09/27/20 10:27 INR 1.09 (0.87-1.13) 09/27/20 10:27 APTT 29.8 Sec. (24.2-36.6) 09/27/20 10:27 D-Dimer 135.00 ng/mlDDU (0-234) 10/04/20 07:09 ABG pH 7.473 (7.320-7.450) H 10/02/20 14:38 POC ABG pCO2 39.4 mmHg (32.0-48.0) 10/02/20 14:38 POC ABG pO2 80.5 mmHg (83-108) L 10/02/20 14:38 POC ABG HCO3 28.2 10/02/20 14:38 ABG O2 Saturation 95.7 (0-100) 10/02/20 14:38 POC ABG Base Excess 4.4 10/02/20 14:38 ABG Hemoglobin 13.8 (12.0-17.5) 10/02/20 14:38 ABG Oxyhemoglobin 94.8 (94-98) 10/02/20 14:38 ABG Methemoglobin 0.3 (0.0-1.5) 10/02/20 14:38 ABG Sodium 136.0 mmol/L (136.0-145.0) 10/02/20 14:38 ABG Potassium 3.5 mmol/L (3.40-4.50) 10/02/20 14:38 ABG Chloride 104.0 mmol/L (98-107) 10/02/20 14:38 ABG Glucose 125 mg/dL (65-95) H 10/02/20 14:38 Carboxyhemoglobin 0.6 (0.5-1.5) 10/02/20 14:38 FiO2 % 55.0 10/02/20 14:38 Sodium 143 mmol/L (137-145) 10/04/20 07:09 Potassium 4.3 mmol/L (3.6-5.0) 10/04/20 07:09 Chloride 105.5 mmol/L (98-107) 10/04/20 07:09 Carbon Dioxide 28 mmol/L (22-30) 10/04/20 07:09 Anion Gap 14 mmol/L 10/04/20 07:09 BUN 25 mg/dL (9-20) H 10/04/20 07:09 Creatinine 1.1 mg/dL (0.8-1.3) 10/04/20 07:09 Estimated GFR > 60 ml/min 10/04/20 07:09 BUN/Creatinine Ratio 23 % 10/04/20 07:09 Glucose 113 mg/dL (75-100) H 10/04/20 07:09 Hemoglobin A1c 7.5 % (4-6) H 09/28/20 06:53 Lactic Acid 1.30 mmol/L (0.7-2.0) 09/27/20 10:27 Calcium 8.8 mg/dL (8.4-10.2) 10/04/20 07:09 Ferritin 229.4 ng/mL (30.0-300.0) 10/04/20 07:09 Total Bilirubin 0.30 mg/dL (0.1-1.2) 10/03/20 07:31 AST 12 units/L (5-40) 10/03/20 07:31 ALT 33 units/L (7-56) 10/03/20 07:31 Alkaline Phosphatase 85 units/L (35-129) 10/03/20 07:31 Lactate Dehydrogenase 271 units/L (91-180) H 10/04/20 07:09 Troponin T 0.013 ng/mL (0.00-0.029) 09/27/20 10:27 C-Reactive Protein 1.50 mg/dL (0.00-1.30) H 10/04/20 07:09 NT-Pro-B Natriuret Pep 505.7 pg/mL (0-900) 09/27/20 10:27 Total Protein 6.5 g/dL (6.3-8.2) 10/03/20 07:31 Albumin 3.0 g/dL (3.9-5) L 10/03/20 07:31 Albumin/Globulin Ratio 0.9 % 10/03/20 07:31 Procalcitonin 0.85 ng/mL (<0.15) 09/27/20 10:27 Arterial Blood Glucose 125 mg/dL (65-95) H 10/02/20 14:38 Arterial Blood Ionized Calcium 4.5 mg/dL (4.6-5.3) L 10/02/20 14:38 Coronavirus (PCR) Positive (Negative) A 09/27/20 11:59 Vazquez/IV: Voiding Method Toilet Active Medications - Current Medications Current Medications: Generic Name Dose Route Start Last Admin Trade Name Freq PRN Reason Stop Dose Admin Acetaminophen 650 mg 09/27/20 15:32 Acetaminophen 325 Mg Tab PO Q4H PRN Pain MILD(1-3)/Fever >100.5/COOPER Alprazolam 0.25 mg 09/30/20 20:00 10/03/20 21:23 Alprazolam 0.25 Mg Tab PO 0.25 mg TID PRN Administration Anxiety Ascorbic Acid 500 mg 09/30/20 18:00 10/04/20 10:15 Ascorbic Acid 500 Mg Tab PO 500 mg QDAY DEQUAN Administration Dexamethasone 8 mg 09/27/20 16:00 10/04/20 16:27 Dexamethasone 4 Mg/Ml Vial IV 10/06/20 16:01 8 mg Q24H DEQUAN Administration Enoxaparin Sodium 100 mg 10/02/20 22:00 10/04/20 21:45 Enoxaparin 100 Mg/1 Ml Inj SUB-Q 100 mg Q12HR DEQUAN Administration Protocol Enoxaparin Sodium 30 mg 10/02/20 22:00 10/04/20 21:45 Enoxaparin 30 Mg/0.3 Ml Inj SUB-Q 30 mg Q12HR DEQUAN Administration Famotidine 20 mg 09/27/20 22:00 10/04/20 21:46 Famotidine 20 Mg Tab PO 20 mg BID DEQUAN Administration Furosemide 40 mg 10/03/20 10:15 10/04/20 10:13 Furosemide 40 Mg/4 Ml Inj IV 10/05/20 10:01 40 mg QDAY DEQUAN Administration Hydromorphone HCl 0.5 mg 09/27/20 15:32 Hydromorphone 1 Mg/1 Ml Inj IV Q3H PRN Pain , Severe (7-10) Metoclopramide HCl 10 mg 09/27/20 15:32 Metoclopramide 10 Mg/2 Ml Inj IV Q6H PRN Nausea And Vomiting Ondansetron HCl 4 mg 09/27/20 15:32 Ondansetron 4 Mg/2 Ml Inj IV Q8H PRN Nausea And Vomiting Oxycodone/Acetaminophen 1 tab 09/27/20 15:32 10/04/20 22:10 Oxycodone /Acetaminophen 5-325mg Tab PO 1 tab Q6H PRN Administration Pain, Moderate (4-6) Sodium Chloride 10 ml 09/27/20 22:00 10/04/20 21:46 Sodium Chloride 0.9% 10 Ml Flush Syringe IV 10 ml BID DEQUAN Administration Sodium Chloride 10 ml 09/27/20 15:32 Sodium Chloride 0.9% 10 Ml Flush Syringe IV PRN PRN LINE FLUSH Zinc Sulfate 220 mg 09/30/20 22:00 10/04/20 21:46 Zinc Sulfate 220 Mg Cap PO 220 mg BID DEQUAN Administration Zolpidem Tartrate 5 mg 09/30/20 22:00 10/03/20 21:23 Zolpidem 5 Mg Tab PO 5 mg QHS PRN Administration Sleep Nutrition/Malnutrition Assess - Dietary Evaluation Nutrition/Malnutrition Findings: Nutrition Notes Start: 09/30/20 11:22 Freq: Status: Active Protocol: Document 10/04/20 13:47 MK (Rec: 10/04/20 13:48 [id number]) Nutrition Notes Initial or Follow up Brief Note Current Diagnosis Acute Kidney Injury, Respiratory Failure Other Pertinent Diagnosis pneu, COVID(+) Current Diet Regular Subjective/Other Information FU for intakes. RN did not answer phone x2. Per RN, pt eating 100% of meals. Nutrition Intervention Follow-Up By: 10/06/20 Additional Comments FU for assessment, intakes and ONS tolernace
[2020-10-05] MEDS ORDERED: ENOXAPARIN 100 MG/1 ML INJ SUB-Q SCH (10:00)
[2020-10-05] MEDS: FAMOTIDINE 20 MG TAB PO SCH ×2 (10:32→21:31)
[2020-10-05] MEDS: ZINC SULFATE 220 MG CAP PO SCH ×2 (10:32→21:31)
[2020-10-05] MEDS: ENOXAPARIN 40 MG/0.4 ML INJ SUB-Q SCH ×2 (10:32→21:31)
[2020-10-05] MEDS: FUROSEMIDE 40 MG/4 ML INJ IV SCH (10:33)
[2020-10-05] MEDS: ASCORBIC ACID 500 MG TAB PO SCH (10:33)
--- NOTE | 2020-10-05 10:39 | Progress Note ---
Assessment and Plan This is a 54-year-old male presents to the emergency department with complaint of feeling sick for the past week. He says that he has been having generalized body aches, sweats without chills, shortness of breath, and the patient says that he feels like he needs to cough but has not been able to do so. The patient states that he lost his sense of taste and smell but it has started to return. He has a past medical history of hypertension. He denies tobacco or illicit drug use. 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 The patient had a room air oxygen saturation of about 80% through his triage. No recent travel or sick contacts at home. The patient is not vaccinated against COVID-19, but no known obvious exposure to anyone positive for COVID-19. He denies any chest pain, lower extremity swelling, nausea, vomiting, diarrhea, abdominal pain. He has not taken anything for his symptoms prior to presentation today. Did not get Covid vaccination. No known allergies. Patient's coronavirus PCR is positive. Pt received remdesivir, dexamethasone, subcutaneous lovanox. He is on famotidine. Pt's symptoms have improving. Pt is alert, awake. Still on vapotherm with FiO2 50% and SaO2 of 93%. BIPAP stand by in the room. Pt says he is breathing better, except for a slight cough. Pt is afebrile with no leukocytosis . Pt's CXR completed on 09/27/20 reported: Patchy bilateral pneumonia and Diminished lung volumes. Pt's CTA completed on 10/01/20 reported: No CT evidence for pulmonary embolism. Severe patchy parenchymal opacities throughout both lungs are nonspecific. Atypical causes of pneumonia, including viral pneumonia, should be considered. Pt's venous doppler study of bilateral LE on 10/02/20 reported: no sonographic evidence of DVT. Pt is currently receiving dexamethasone, subcutaneous lovenox, reglan. - Patient Problems (1) Acute respiratory failure with hypoxia Current Visit: Yes Status: Acute Plan to address problem: Vapotherm FiO2 50%. Subcutaneous lonenox. Continue dexamethasone. Continue famotidine. (2) Bilateral pneumonia Current Visit: Yes Status: Acute Qualifiers: Pneumonia type: due to unspecified organism Lung location: unspecified part of lung Qualified Code(s): J18.9 - Pneumonia, unspecified organism Plan to address problem: Antibiotics as per ID. (3) ELY (acute kidney injury) Current Visit: Yes Status: Acute Plan to address problem: ELY management as per nephrology. (4) Hyponatremia Current Visit: Yes Status: Acute Plan to address problem: Improved. Recent Na+ 143. (5) Coronavirus infection Current Visit: Yes Status: Acute Plan to address problem: Pt on dexamethasone, subcutaneous lovenox. Pt finished course of remdesivir. Management as per ID. Subjective Date of service: 10/05/20 Principal diagnosis: Bilateral pneumonia, COVID pneumonia, acute hypoxic resp failure Interval history: This is a 54-year-old male presents to the emergency department with complaint of feeling sick for the past week. He says that he has been having generalized body aches, sweats without chills, shortness of breath, and the patient says that he feels like he needs to cough but has not been able to do so. The patient states that he lost his sense of taste and smell but it has started to return. He has a past medical history of hypertension. He denies tobacco or illicit drug use. 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 The patient had a room air oxygen saturation of about 80% through his triage. No recent travel or sick contacts at home. The patient is not vaccinated against COVID-19, but no known obvious exposure to anyone positive for COVID-19. He denies any chest pain, lower extremity swelling, nausea, vomiting, diarrhea, abdominal pain. He has not taken anything for his symptoms prior to presentation today. Did not get Covid vaccination. No known allergies. Patient's coronavirus PCR is positive. Pt received remdesivir, dexamethasone, subcutaneous lovanox. He is on famotidine. Pt's symptoms have improving. Pt is alert, awake. Still on vapotherm with FiO2 50% and SaO2 of 93%. BIPAP stand by in the room. Pt says he is breathing better, except for a slight cough. Pt is afebrile with no leukocytosis . Pt's CXR completed on 09/27/20 reported: Patchy bilateral pneumonia and Diminished lung volumes. Pt's CTA completed on 10/01/20 reported: No CT evidence for pulmonary embolism. Severe patchy parenchymal opacities throughout both lungs are nonspecific. Atypical causes of pneumonia, including viral pneumonia, should be considered. Pt's venous doppler study of bilateral LE on 10/02/20 reported: no sonographic evidence of DVT. Pt is currently receiving dexamethasone, subcutaneous lovenox, reglan. Objective Vital Signs - 12hr 10/04/20 10/05/20 10/05/20 23:10 00:43 04:46 Temperature 98.0 F Pulse Rate 65 Respiratory 19 20 Rate Blood Pressure 117/71 O2 Sat by Pulse 96 95 Oximetry 10/05/20 08:00 Temperature Pulse Rate Respiratory Rate Blood Pressure O2 Sat by Pulse 93 Oximetry Constitutional: no acute distress, alert, other (mild resp distress on HFOT ) Eyes: non-icteric ENT: oropharynx moist Neck: supple, no lymphadenopathy Effort: mildly labored Ascultation: Bilateral: diminished breath sounds, rhonchi Cardiovascular: regular rate and rhythm, other (S1,S2) Gastrointestinal: normoactive bowel sounds, soft, non-tender, non-distended Integumentary: normal Extremities: no cyanosis, no edema, pulses normal Neurologic: normal mental status, non-focal exam, pupils equal and round, CN II- XII normal, motor strength normal and Psychiatric: mood appropriate, affect normal CBC and BMP: 10/04/20 07:09 10/05/20 07:04 ABG, PT/INR, D-dimer: ABG ABG pH 7.473 (7.320-7.450) H 10/02/20 14:38 POC ABG pCO2 39.4 mmHg (32.0-48.0) 10/02/20 14:38 POC ABG pO2 80.5 mmHg (83-108) L 10/02/20 14:38 POC ABG HCO3 28.2 10/02/20 14:38 ABG O2 Saturation 95.7 (0-100) 10/02/20 14:38 PT/INR, D-dimer PT 14.6 Sec. (12.2-14.9) 09/27/20 10:27 INR 1.09 (0.87-1.13) 09/27/20 10:27 D-Dimer 215.79 ng/mlDDU (0-234) 10/05/20 07:04 Abnormal lab findings: Abnormal Labs 07/05/21 07/05/21 07/05/21 10:27 10:27 10:27 WBC RDW Plt Count Seg Neuts % (Manual) 94.0 H Lymphocytes % (Manual) 1.0 L Seg Neutrophils # Man 9.2 H Lymphocytes # (Manual) 0.1 L D-Dimer 392.32 H ABG pH POC ABG pO2 ABG Glucose Sodium 125 L Chloride 88.5 L BUN Creatinine 1.4 H Glucose 176 H Hemoglobin A1c Calcium Ferritin AST 48 H Lactate Dehydrogenase 396 H C-Reactive Protein 24.60 H Total Protein Albumin 3.1 L Arterial Blood Glucose Arterial Blood Ionized Calcium Coronavirus (PCR) 09/27/20 09/27/20 09/28/20 10:27 11:59 06:53 WBC 11.2 H RDW Plt Count Seg Neuts % (Manual) 98.0 H Lymphocytes % (Manual) Seg Neutrophils # Man 11.0 H Lymphocytes # (Manual) 0.0 L D-Dimer ABG pH POC ABG pO2 ABG Glucose Sodium Chloride BUN Creatinine Glucose Hemoglobin A1c Calcium Ferritin 413.7 H AST Lactate Dehydrogenase C-Reactive Protein Total Protein Albumin Arterial Blood Glucose Arterial Blood Ionized Calcium Coronavirus (PCR) Positive A 09/28/20 09/28/20 09/30/20 06:53 06:53 13:33 WBC RDW Plt Count Seg Neuts % (Manual) Lymphocytes % (Manual) Seg Neutrophils # Man Lymphocytes # (Manual) D-Dimer > 04345 H ABG pH POC ABG pO2 ABG Glucose Sodium 133 L D Chloride 94.3 L BUN 22 H Creatinine Glucose 168 H Hemoglobin A1c 7.5 H Calcium Ferritin AST Lactate Dehydrogenase C-Reactive Protein Total Protein Albumin 3.8 L Arterial Blood Glucose Arterial Blood Ionized Calcium Coronavirus (PCR) 09/30/20 09/30/20 10/01/20 13:33 13:33 07:11 WBC RDW Plt Count Seg Neuts % (Manual) Lymphocytes % (Manual) Seg Neutrophils # Man Lymphocytes # (Manual) D-Dimer ABG pH POC ABG pO2 ABG Glucose Sodium Chloride BUN Creatinine Glucose 195 H 126 H Hemoglobin A1c Calcium Ferritin 381.2 H AST Lactate Dehydrogenase 413 H C-Reactive Protein 8.00 H Total Protein 6.0 L Albumin 3.5 L Arterial Blood Glucose Arterial Blood Ionized Calcium Coronavirus (PCR) 10/02/20 10/02/20 10/02/20 05:10 13:24 14:38 WBC 12.0 H RDW Plt Count 481 H Seg Neuts % (Manual) 89.0 H Lymphocytes % (Manual) 2.0 L Seg Neutrophils # Man 10.7 H Lymphocytes # (Manual) 0.2 L D-Dimer ABG pH 7.473 H POC ABG pO2 80.5 L ABG Glucose 125 H Sodium Chloride BUN Creatinine Glucose 139 H Hemoglobin A1c Calcium Ferritin AST Lactate Dehydrogenase C-Reactive Protein Total Protein Albumin 3.2 L Arterial Blood Glucose 125 H Arterial Blood Ionized Calcium 4.5 L Coronavirus (PCR) 10/03/20 10/04/20 10/04/20 07:31 07:09 07:09 WBC RDW 15.3 H Plt Count 548 H Seg Neuts % (Manual) Lymphocytes % (Manual) Seg Neutrophils # Man Lymphocytes # (Manual) D-Dimer ABG pH POC ABG pO2 ABG Glucose Sodium Chloride BUN 21 H 25 H Creatinine Glucose 148 H 113 H Hemoglobin A1c Calcium 8.3 L Ferritin AST Lactate Dehydrogenase 271 H C-Reactive Protein 1.50 H Total Protein Albumin 3.0 L Arterial Blood Glucose Arterial Blood Ionized Calcium Coronavirus (PCR) 10/05/20 07:04 WBC RDW Plt Count Seg Neuts % (Manual) Lymphocytes % (Manual) Seg Neutrophils # Man Lymphocytes # (Manual) D-Dimer ABG pH POC ABG pO2 ABG Glucose Sodium Chloride BUN Creatinine Glucose 108 H Hemoglobin A1c Calcium Ferritin AST Lactate Dehydrogenase 296 H C-Reactive Protein Total Protein Albumin Arterial Blood Glucose Arterial Blood Ionized Calcium Coronavirus (PCR) Allied health notes reviewed: RT
--- NOTE | 2020-10-05 15:26 | Progress Note ---
Assessment and Plan Cultures: COVID-19 PCR: Positive A/P: 54-year-old man past medical history hypertension admitted with COVID-19 pneumonia #Severe COVID-19 pneumonia: Patient presented with a week of symptoms, chest x- ray with diffuse bilateral infiltrates, admission O2 sats 80% on room air. Inflammatory markers elevated. Procalcitonin slightly elevated #Acute hypoxemic respiratory failure: Likely secondary to COVID-19 infection. Currently on HFNC #Elevated D-dimer: CTA negative for pulmonary embolism. #Obesity Recs: -Decadron 8 mg daily, agree with higher dose due to morbid obesity -Continue remdesivir, total 5 days -Monitor q48-72h inflammatory markers - ferritin, Ddimer, CRP, LDH -Completed empiric antibiotic -Consider Actemra if respiratory status worsens -Anticoagulation per hospital protocol. D-dimer significantly elevated, CTA negative for PE, eval for DVT and consider increasing anticoagulation dose -Proning as starla Beverly MD [facility] ([facility]) O: [phone] F: [phone] Subjective Date of service: 10/05/20 Principal diagnosis: Bilateral pneumonia, COVID pneumonia, acute hypoxic resp failure Interval history: Afebrile, normal white count. Objective - Exam Narrative Exam: Physical exam deferred to reduce risk of transmission of COVID-19. Please refer to primary team's note. - Constitutional Vitals: Vital Signs Temp Pulse Resp BP Pulse Ox 98.0 F 78 20 135/77 94 10/05/20 11:13 10/05/20 11:13 10/05/20 11:13 10/05/20 11:13 10/05/20 11:13 Temperature -Last 24 Hours Temperature 98.0 F Temperature 98.0 F Temperature 98.3 F Temperature 98.2 F - Labs CBC & Chem 7: 10/04/20 07:09 10/05/20 07:04 Labs: Abnormal lab results 10/04/20 10/05/20 Range/Units 07:09 07:04 Glucose 108 H (75-100) mg/dL Lactate Dehydrogenase 271 H 296 H (91-180) units/L C-Reactive Protein 1.50 H (0.00-1.30) mg/dL
[2020-10-05] MEDS: dexAMETHasone 4 MG/ML VIAL IV SCH (16:51)
[2020-10-05] MEDS: MELATONIN 5 MG TAB PO PRN (21:35)
[2020-10-06] MEDS: ENOXAPARIN 40 MG/0.4 ML INJ SUB-Q SCH ×2 (10:07→22:25)
[2020-10-06] MEDS: ZINC SULFATE 220 MG CAP PO SCH ×2 (10:07→22:26)
[2020-10-06] MEDS: FAMOTIDINE 20 MG TAB PO SCH ×2 (10:07→22:26)
[2020-10-06] MEDS: ASCORBIC ACID 500 MG TAB PO SCH (10:07)
--- NOTE | 2020-10-06 14:41 | Progress Note ---
Assessment and Plan Cultures: COVID-19 PCR: Positive A/P: 54-year-old man past medical history hypertension admitted with COVID-19 pneumonia #Severe COVID-19 pneumonia: Patient presented with a week of symptoms, chest x- ray with diffuse bilateral infiltrates, admission O2 sats 80% on room air. Inflammatory markers elevated. Procalcitonin slightly elevated #Acute hypoxemic respiratory failure: Likely secondary to COVID-19 infection. Currently on HFNC #Elevated D-dimer: CTA negative for pulmonary embolism. #Obesity Recs: -Decadron 8 mg daily, agree with higher dose due to morbid obesity -Completed remdesivir -Monitor q48-72h inflammatory markers - ferritin, Ddimer, CRP, LDH -Completed empiric antibiotic -Consider Actemra if respiratory status worsens -Anticoagulation per hospital protocol. D-dimer significantly elevated, CTA negative for PE, eval for DVT and consider increasing anticoagulation dose -Proning as starla Beverly MD [facility] ([facility]) O: [phone] F: [phone] Subjective Date of service: 10/06/20 Principal diagnosis: Bilateral pneumonia, COVID pneumonia, acute hypoxic resp failure Interval history: Afebrile, normal white count. On high flow nasal cannula. Objective - Exam Narrative Exam: Physical exam deferred to reduce risk of transmission of COVID-19. Please refer to primary team's note. - Constitutional Vitals: Vital Signs Temp Pulse Resp BP Pulse Ox 98.0 F 88 20 129/84 95 10/06/20 04:08 10/06/20 12:35 10/06/20 12:35 10/06/20 12:35 10/06/20 12:35 Temperature -Last 24 Hours Temperature 98.0 F Temperature 98.1 F Temperature 97.7 F - Labs CBC & Chem 7: 10/04/20 07:09 10/06/20 06:03 Labs: Abnormal lab results 10/06/20 Range/Units 06:03 Glucose 141 H (75-100) mg/dL
--- NOTE | 2020-10-06 16:27 | Progress Note ---
Assessment and Plan Assessment and plan: This is a 54-year-old male presents to the emergency department with complaint of feeling sick for the past week. He says that he has been having generalized body aches, sweats without chills, shortness of breath, and the patient says that he feels like he needs to cough but has not been able to do so. The patient states that he lost his sense of taste and smell but it has started to return. He has a past medical history of hypertension. He denies tobacco or illicit drug use. The patient had a room air oxygen saturation of about 80% through his triage. No recent travel or sick contacts at home. The patient is not vaccinated against COVID-19, but no known obvious exposure to anyone positive for COVID-19. He denies any chest pain, lower extremity swelling, nausea, vomiting, diarrhea, abdominal pain. He has not taken anything for his symptoms prior to presentation today. Did jose get Covid vaccination 09/28/2020 Covid PCR positive On 8 to 10 L of nasal cannula oxygen 09/29/2020 On 8 L nasal cannula oxygen Mild distress ID consult requested IV remdesivir started IV dexamethasone to continue 09/30: Patient continues on high flow oxygen at 14 L. Will obtain pulmonary consultation in addition to current management continue remdesivir and dexamethasone. Encourage prone positioning. We will also obtain a CT of the chest to rule out pulmonary embolism. Plan of care discussed with the patient 10/01: Continues on 14 L of oxygen continue to encourage weaning down, pulmonary input is noted. Continue to await CTA. Wean oxygen as tolerated. Continue steroids. Complete remdesivir. Continue to encourage prone positioning. We will give a dose of Lasix today 10/02: Remains on high flow 20 L and 50%. Will give additional dose of Lasix today. Will monitor inflammatory markers. Considering AISLINN the thickness of his neck I will recommend a CPAP/BiPAP at nighttime while in house. He verbalized understanding that he needs to work with insurance company to continue use of this outpatient. 10/03: Patient agreeable to try BiPAP today again reinforced the importance of it considering his history of obstructive sleep apnea. We will continue with additional Lasix monitor BMP. Discussed with infectious disease yesterday started patient on full dose anticoagulation until we will rule out DVT. 10/04: Patient continues to show some improvement continue to use BiPAP. Diuretics for 1 more day. Monitor renal functions. Discussed with nursing staff to ensure appropriate monitor while on BiPAP. 10/05/2020; patient is on high flow oxygen 25 L with FiO2 of 50%. Doppler ultrasound of the lower extremities were negative. I will decrease anticoagulation to prophylactic dose. If no improvement in his oxygen requirement, consider LTAC. Discussed with case management. 10/06/2020: Patient remains on 24 L high flow and FiO2 50%. D-dimer elevated but CT negative for PE and us negative for DVT. Echo unremarkable. Is able to walk to bathroom with mild to moderate dyspnea. Mild dyspnea at rest but able to converse fairly well. Mentating very well. CM is working on LTAC placement. (1) Acute respiratory failure with hypoxia Current Visit: Yes Status: Acute Plan to address problem: Covid positive (2) Bilateral pneumonia Current Visit: Yes Status: Acute Qualifiers: Pneumonia type: due to unspecified organism Lung location: unspecified part of lung Qualified Code(s): J18.9 - Pneumonia, unspecified organism Plan to address problem: Treat as CAP (3) 2019 novel coronavirus infection Current Visit: Yes Status: Acute Plan to address problem: Covid positive ID consult On IV dexamethasone IV remdesivir started as per protocol (4) ELY (acute kidney injury) with vasomotor nehropathy Current Visit: Yes Status: Acute Plan to address problem: Improved (5) Malnutrition Current Visit: Yes Status: Acute Plan to address problem: Dietary supplements (6) morbid obesity (7) AISLINN (8) DVT prophylaxis Current Visit: Yes Status: Acute Plan to address problem: On Lovenox and GI prophylaxis History Interval history: Patient remains on 15 L high flow O2, FiO2 50%. Patient still has that he cannot tolerate CPAP. He is able to walk to bathroom with some dyspnea on exertion. Tolerating diet. Otherwise he has no other complaints. Hospitalist Physical - Constitutional Vitals: Temp Pulse Resp BP Pulse Ox 98.0 F 88 20 129/84 95 10/06/20 04:08 10/06/20 12:35 10/06/20 12:35 10/06/20 12:35 10/06/20 12:35 General appearance: Present: mild distress, well-nourished, other (Mildly obese) - EENT Eyes: Present: PERRL - Neck Neck: Absent: masses or JVD - Respiratory Respiratory: bilateral: diminished - Cardiovascular Rhythm: regular - Extremities Extremities: No edema HEART Score - HEART Score Troponin: Troponin T 0.013 ng/mL (0.00-0.029) 09/27/20 10:27 Results - Labs CBC & Chem 7: 10/04/20 07:09 10/06/20 06:03 Labs: Laboratory Last Values WBC 10.4 K/mm3 (4.5-11.0) 10/04/20 07:09 RBC 5.00 M/mm3 (3.65-5.03) 10/04/20 07:09 Hgb 14.9 gm/dl (11.8-15.2) 10/04/20 07:09 Hct 44.6 % (35.5-45.6) 10/04/20 07:09 MCV 89 fl (84-94) 10/04/20 07:09 MCH 30 pg (28-32) 10/04/20 07:09 MCHC 33 % (32-34) 10/04/20 07:09 RDW 15.3 % (13.2-15.2) H 10/04/20 07:09 Plt Count 548 K/mm3 (140-440) H 10/04/20 07:09 Add Manual Diff Complete 10/02/20 13:24 Total Counted 100 10/02/20 13:24 Seg Neutrophils % Patient Biller 09/28/20 06:53 Seg Neuts % (Manual) 89.0 % (40.0-70.0) H 10/02/20 13:24 Band Neutrophils % 1.0 % 09/28/20 06:53 Lymphocytes % (Manual) 2.0 % (13.4-35.0) L 10/02/20 13:24 Reactive Lymphs % (Man) 2.0 % 10/02/20 13:24 Monocytes % (Manual) 3.0 % (0.0-7.3) 10/02/20 13:24 Eosinophils % (Manual) 2.0 % (0.0-4.3) 10/02/20 13:24 Metamyelocytes % 2.0 % 10/02/20 13:24 Nucleated RBC % Not Reportable 10/02/20 13:24 Seg Neutrophils # Man 10.7 K/mm3 (1.8-7.7) H 10/02/20 13:24 Band Neutrophils # 0.0 K/mm3 10/02/20 13:24 Lymphocytes # (Manual) 0.2 K/mm3 (1.2-5.4) L 10/02/20 13:24 Abs React Lymphs (Man) 0.2 K/mm3 10/02/20 13:24 Monocytes # (Manual) 0.4 K/mm3 (0.0-0.8) 10/02/20 13:24 Eosinophils # (Manual) 0.2 K/mm3 (0.0-0.4) 10/02/20 13:24 Basophils # (Manual) 0.0 K/mm3 (0.0-0.1) 10/02/20 13:24 Metamyelocytes # 0.2 K/mm3 10/02/20 13:24 Myelocytes # 0.0 K/mm3 10/02/20 13:24 Promyelocytes # 0.0 K/mm3 10/02/20 13:24 Blast Cells # 0.0 K/mm3 10/02/20 13:24 WBC Morphology Not Reportable 10/02/20 13:24 WBC Morphology TNR 10/02/20 13:24 Hypersegmented Neuts Not Reportable 10/02/20 13:24 Hyposegmented Neuts Not Reportable 10/02/20 13:24 Hypogranular Neuts Not Reportable 10/02/20 13:24 Smudge Cells Not Reportable 10/02/20 13:24 Toxic Granulation Not Reportable 10/02/20 13:24 Toxic Vacuolation Not Reportable 10/02/20 13:24 Dohle Bodies Not Reportable 10/02/20 13:24 Pelger-Huet Anomaly Not Reportable 10/02/20 13:24 Tuan Rods Not Reportable 10/02/20 13:24 Platelet Estimate Consistent w auto 10/02/20 13:24 Clumped Platelets Not Reportable 10/02/20 13:24 Plt Clumps, EDTA Not Reportable 10/02/20 13:24 Large Platelets Not Reportable 10/02/20 13:24 Giant Platelets Not Reportable 10/02/20 13:24 Platelet Satelliting Not Reportable 10/02/20 13:24 Plt Morphology Comment Not Reportable 10/02/20 13:24 RBC Morphology Normal 10/02/20 13:24 Dimorphic RBCs Not Reportable 10/02/20 13:24 Polychromasia Not Reportable 10/02/20 13:24 Hypochromasia Not Reportable 10/02/20 13:24 Poikilocytosis Not Reportable 10/02/20 13:24 Anisocytosis Not Reportable 10/02/20 13:24 Microcytosis Not Reportable 10/02/20 13:24 Macrocytosis Not Reportable 10/02/20 13:24 Spherocytes Not Reportable 10/02/20 13:24 Pappenheimer Bodies Not Reportable 10/02/20 13:24 Sickle Cells Not Reportable 10/02/20 13:24 Target Cells Not Reportable 10/02/20 13:24 Tear Drop Cells Not Reportable 10/02/20 13:24 Ovalocytes Not Reportable 10/02/20 13:24 Helmet Cells Not Reportable 10/02/20 13:24 [place] Bodies Not Reportable 10/02/20 13:24 [place] Rings Not Reportable 10/02/20 13:24 Steele Cells Not Reportable 10/02/20 13:24 Bite Cells Not Reportable 10/02/20 13:24 Crenated Cell Not Reportable 10/02/20 13:24 Elliptocytes Not Reportable 10/02/20 13:24 Acanthocytes (Spur) Not Reportable 10/02/20 13:24 Rouleaux Not Reportable 10/02/20 13:24 Hemoglobin C Crystals Not Reportable 10/02/20 13:24 Schistocytes Not Reportable 10/02/20 13:24 Malaria parasites Not Reportable 10/02/20 13:24 Marito Bodies Not Reportable 10/02/20 13:24 Hem Pathologist Commnt No 10/02/20 13:24 PT 14.6 Sec. (12.2-14.9) 09/27/20 10:27 INR 1.09 (0.87-1.13) 09/27/20 10:27 APTT 29.8 Sec. (24.2-36.6) 09/27/20 10:27 D-Dimer 143.22 ng/mlDDU (0-234) 10/06/20 06:03 ABG pH 7.473 (7.320-7.450) H 10/02/20 14:38 POC ABG pCO2 39.4 mmHg (32.0-48.0) 10/02/20 14:38 POC ABG pO2 80.5 mmHg (83-108) L 10/02/20 14:38 POC ABG HCO3 28.2 10/02/20 14:38 ABG O2 Saturation 95.7 (0-100) 10/02/20 14:38 POC ABG Base Excess 4.4 10/02/20 14:38 ABG Hemoglobin 13.8 (12.0-17.5) 10/02/20 14:38 ABG Oxyhemoglobin 94.8 (94-98) 10/02/20 14:38 ABG Methemoglobin 0.3 (0.0-1.5) 10/02/20 14:38 ABG Sodium 136.0 mmol/L (136.0-145.0) 10/02/20 14:38 ABG Potassium 3.5 mmol/L (3.40-4.50) 10/02/20 14:38 ABG Chloride 104.0 mmol/L (98-107) 10/02/20 14:38 ABG Glucose 125 mg/dL (65-95) H 10/02/20 14:38 Carboxyhemoglobin 0.6 (0.5-1.5) 10/02/20 14:38 FiO2 % 55.0 10/02/20 14:38 Sodium 143 mmol/L (137-145) 10/04/20 07:09 Potassium 4.3 mmol/L (3.6-5.0) 10/04/20 07:09 Chloride 105.5 mmol/L (98-107) 10/04/20 07:09 Carbon Dioxide 28 mmol/L (22-30) 10/04/20 07:09 Anion Gap 14 mmol/L 10/04/20 07:09 BUN 25 mg/dL (9-20) H 10/04/20 07:09 Creatinine 1.1 mg/dL (0.8-1.3) 10/04/20 07:09 Estimated GFR > 60 ml/min 10/04/20 07:09 BUN/Creatinine Ratio 23 % 10/04/20 07:09 Glucose 141 mg/dL (75-100) H 10/06/20 06:03 Hemoglobin A1c 7.5 % (4-6) H 09/28/20 06:53 Lactic Acid 1.30 mmol/L (0.7-2.0) 09/27/20 10:27 Calcium 8.8 mg/dL (8.4-10.2) 10/04/20 07:09 Ferritin 203.8 ng/mL (30.0-300.0) 10/05/20 07:04 Total Bilirubin 0.30 mg/dL (0.1-1.2) 10/03/20 07:31 AST 12 units/L (5-40) 10/03/20 07:31 ALT 33 units/L (7-56) 10/03/20 07:31 Alkaline Phosphatase 85 units/L (35-129) 10/03/20 07:31 Lactate Dehydrogenase 296 units/L (91-180) H 10/05/20 07:04 Troponin T 0.013 ng/mL (0.00-0.029) 09/27/20 10:27 C-Reactive Protein 1.50 mg/dL (0.00-1.30) H 10/04/20 07:09 NT-Pro-B Natriuret Pep 505.7 pg/mL (0-900) 09/27/20 10:27 Total Protein 6.5 g/dL (6.3-8.2) 10/03/20 07:31 Albumin 3.0 g/dL (3.9-5) L 10/03/20 07:31 Albumin/Globulin Ratio 0.9 % 10/03/20 07:31 Procalcitonin 0.85 ng/mL (<0.15) 09/27/20 10:27 Arterial Blood Glucose 125 mg/dL (65-95) H 10/02/20 14:38 Arterial Blood Ionized Calcium 4.5 mg/dL (4.6-5.3) L 10/02/20 14:38 Coronavirus (PCR) Positive (Negative) A 09/27/20 11:59 Vazquez/IV: Voiding Method Toilet Active Medications - Current Medications Current Medications: Generic Name Dose Route Start Last Admin Trade Name Freq PRN Reason Stop Dose Admin Acetaminophen 650 mg 09/27/20 15:32 Acetaminophen 325 Mg Tab PO Q4H PRN Pain MILD(1-3)/Fever >100.5/COOPER Alprazolam 0.25 mg 09/30/20 20:00 10/03/20 21:23 Alprazolam 0.25 Mg Tab PO 0.25 mg TID PRN Administration Anxiety Ascorbic Acid 500 mg 09/30/20 18:00 10/06/20 10:07 Ascorbic Acid 500 Mg Tab PO 500 mg QDAY DEQUAN Administration Enoxaparin Sodium 40 mg 10/05/20 10:00 10/06/20 10:07 Enoxaparin 40 Mg/0.4 Ml Inj SUB-Q 40 mg Q12HR DEQUAN Administration Famotidine 20 mg 09/27/20 22:00 10/06/20 10:07 Famotidine 20 Mg Tab PO 20 mg BID DEQUAN Administration Hydromorphone HCl 0.5 mg 09/27/20 15:32 Hydromorphone 1 Mg/1 Ml Inj IV Q3H PRN Pain , Severe (7-10) Melatonin 5 mg 10/05/20 21:00 10/05/20 21:35 Melatonin 5 Mg Tab PO 5 mg QHS PRN Administration Sleep Metoclopramide HCl 10 mg 09/27/20 15:32 Metoclopramide 10 Mg/2 Ml Inj IV Q6H PRN Nausea And Vomiting Ondansetron HCl 4 mg 09/27/20 15:32 Ondansetron 4 Mg/2 Ml Inj IV Q8H PRN Nausea And Vomiting Oxycodone/Acetaminophen 1 tab 09/27/20 15:32 10/04/20 22:10 Oxycodone /Acetaminophen 5-325mg Tab PO 1 tab Q6H PRN Administration Pain, Moderate (4-6) Sodium Chloride 10 ml 09/27/20 22:00 10/06/20 10:07 Sodium Chloride 0.9% 10 Ml Flush Syringe IV 10 ml BID DEQUAN Administration Sodium Chloride 10 ml 09/27/20 15:32 Sodium Chloride 0.9% 10 Ml Flush Syringe IV PRN PRN LINE FLUSH Zinc Sulfate 220 mg 09/30/20 22:00 10/06/20 10:07 Zinc Sulfate 220 Mg Cap PO 220 mg BID DEQUAN Administration Zolpidem Tartrate 5 mg 09/30/20 22:00 10/03/20 21:23 Zolpidem 5 Mg Tab PO 5 mg QHS PRN Administration Sleep Nutrition/Malnutrition Assess - Dietary Evaluation Nutrition/Malnutrition Findings: Nutrition Notes Start: 09/30/20 11:22 Freq: Status: Active Protocol: Document 10/04/20 13:47 (Rec: 10/04/20 13:48 [email or web address]) Nutrition Notes Initial or Follow up Brief Note Current Diagnosis Acute Kidney Injury, Respiratory Failure Other Pertinent Diagnosis pneu, COVID(+) Current Diet Regular Subjective/Other Information FU for intakes. RN did not answer phone x2. Per RN, pt eating 100% of meals. Nutrition Intervention Follow-Up By: 10/07/20 Additional Comments FU for assessment, intakes and ONS tolernace
--- NOTE | 2020-10-06 16:41 | Progress Note ---
Assessment and Plan This is a 54-year-old male presents to the emergency department with complaint of feeling sick for the past week. He says that he has been having generalized body aches, sweats without chills, shortness of breath, and the patient says that he feels like he needs to cough but has not been able to do so. The patient states that he lost his sense of taste and smell but it has started to return. He has a past medical history of hypertension. He denies tobacco or illicit drug use. 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 The patient had a room air oxygen saturation of about 80% through his triage. No recent travel or sick contacts at home. The patient is not vaccinated against COVID-19, but no known obvious exposure to anyone positive for COVID-19. He denies any chest pain, lower extremity swelling, nausea, vomiting, diarrhea, abdominal pain. He has not taken anything for his symptoms prior to presentation today. Did not get Covid vaccination. No known allergies. Patient's coronavirus PCR is positive. Pt received remdesivir, dexamethasone, subcutaneous lovanox. He is on famotidine. Pt's symptoms have improving. Pt is alert, awake. Still on vapotherm with FiO2 50% and SaO2 of 95%. BIPAP stand by in the room. Pt says he is breathing better, except for a slight cough. Pt is sitting up in chair. Pt is afebrile with no leukocytosis . Pt's CXR completed on 09/27/20 reported: Patchy bilateral pneumonia and Diminished lung volumes. Pt's CTA completed on 10/01/20 reported: No CT evidence for pulmonary embolism. Severe patchy parenchymal opacities throughout both lungs are nonspecific. Atypical causes of pneumonia, including viral pneumonia, should be considered. Pt's venous doppler study of bilateral LE on 10/02/20 reported: no sonographic evidence of DVT. Pt is currently receiving dexamethasone, subcutaneous lovenox, reglan. - Patient Problems (1) Acute respiratory failure with hypoxia Current Visit: Yes Status: Acute Plan to address problem: Vapotherm FiO2 50%. Subcutaneous lonenox. Continue famotidine. (2) Bilateral pneumonia Current Visit: Yes Status: Acute Qualifiers: Pneumonia type: due to unspecified organism Lung location: unspecified part of lung Qualified Code(s): J18.9 - Pneumonia, unspecified organism Plan to address problem: Antibiotics as per ID. (3) ELY (acute kidney injury) Current Visit: Yes Status: Acute Plan to address problem: ELY management as per nephrology. (4) Hyponatremia Current Visit: Yes Status: Acute Plan to address problem: Improved. Recent Na+ 143. (5) Coronavirus infection Current Visit: Yes Status: Acute Plan to address problem: Pt finished the course of dexamethasone and remdesivir. Pt is on subcutaneous lovenox. Management as per ID. Subjective Date of service: 10/06/20 Principal diagnosis: Bilateral pneumonia, COVID pneumonia, acute hypoxic resp failure Interval history: This is a 54-year-old male presents to the emergency department with complaint of feeling sick for the past week. He says that he has been having generalized body aches, sweats without chills, shortness of breath, and the patient says that he feels like he needs to cough but has not been able to do so. The patient states that he lost his sense of taste and smell but it has started to return. He has a past medical history of hypertension. He denies tobacco or illicit drug use. 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 The patient had a room air oxygen saturation of about 80% through his triage. No recent travel or sick contacts at home. The patient is not vaccinated against COVID-19, but no known obvious exposure to anyone positive for COVID-19. He denies any chest pain, lower extremity swelling, nausea, vomiting, diarrhea, abdominal pain. He has not taken anything for his symptoms prior to presentation today. Did not get Covid vaccination. No known allergies. Patient's coronavirus PCR is positive. Pt received remdesivir, dexamethasone, subcutaneous lovanox. He is on famotidine. Pt's symptoms have improving. Pt is alert, awake. Still on vapotherm with FiO2 50% and SaO2 of 95%. BIPAP stand by in the room. Pt says he is breathing better, except for a slight cough. Pt is sitting up in chair. Pt is afebrile with no leukocytosis . Pt's CXR completed on 09/27/20 reported: Patchy bilateral pneumonia and Diminished lung volumes. Pt's CTA completed on 10/01/20 reported: No CT evidence for pulmonary embolism. S evere patchy parenchymal opacities throughout both lungs are nonspecific. Atypical causes of pneumonia, including viral pneumonia, should be considered. Pt's venous doppler study of bilateral LE on 10/02/20 reported: no sonographic evidence of DVT. Pt is currently receiving dexamethasone, subcutaneous lovenox, reglan. Objective Vital Signs - 12hr 10/06/20 10/06/20 09:33 12:35 Pulse Rate 88 Respiratory 20 Rate Blood Pressure 129/84 O2 Sat by Pulse 95 95 Oximetry Constitutional: no acute distress, alert, other (mild resp distress on HFOT ) Eyes: non-icteric ENT: oropharynx moist Neck: supple, no lymphadenopathy Effort: mildly labored Ascultation: Bilateral: diminished breath sounds, rhonchi Cardiovascular: regular rate and rhythm, other (S1,S2) Gastrointestinal: normoactive bowel sounds, soft, non-tender, non-distended Integumentary: normal Extremities: no cyanosis, no edema, pulses normal Neurologic: normal mental status, non-focal exam, pupils equal and round, CN II- XII normal, motor strength normal and Psychiatric: mood appropriate, affect normal CBC and BMP: 10/04/20 07:09 10/06/20 06:03 ABG, PT/INR, D-dimer: ABG ABG pH 7.473 (7.320-7.450) H 10/02/20 14:38 POC ABG pCO2 39.4 mmHg (32.0-48.0) 10/02/20 14:38 POC ABG pO2 80.5 mmHg (83-108) L 10/02/20 14:38 POC ABG HCO3 28.2 10/02/20 14:38 ABG O2 Saturation 95.7 (0-100) 10/02/20 14:38 PT/INR, D-dimer PT 14.6 Sec. (12.2-14.9) 09/27/20 10:27 INR 1.09 (0.87-1.13) 09/27/20 10:27 D-Dimer 143.22 ng/mlDDU (0-234) 10/06/20 06:03 Abnormal lab findings: Abnormal Labs 09/27/20 09/27/20 09/27/20 10:27 10:27 10:27 WBC RDW Plt Count Seg Neuts % (Manual) 94.0 H Lymphocytes % (Manual) 1.0 L Seg Neutrophils # Man 9.2 H Lymphocytes # (Manual) 0.1 L D-Dimer 392.32 H ABG pH POC ABG pO2 ABG Glucose Sodium 125 L Chloride 88.5 L BUN Creatinine 1.4 H Glucose 176 H Hemoglobin A1c Calcium Ferritin AST 48 H Lactate Dehydrogenase 396 H C-Reactive Protein 24.60 H Total Protein Albumin 3.1 L Arterial Blood Glucose Arterial Blood Ionized Calcium Coronavirus (PCR) 09/27/20 09/27/20 09/28/20 10:27 11:59 06:53 WBC 11.2 H RDW Plt Count Seg Neuts % (Manual) 98.0 H Lymphocytes % (Manual) Seg Neutrophils # Man 11.0 H Lymphocytes # (Manual) 0.0 L D-Dimer ABG pH POC ABG pO2 ABG Glucose Sodium Chloride BUN Creatinine Glucose Hemoglobin A1c Calcium Ferritin 413.7 H AST Lactate Dehydrogenase C-Reactive Protein Total Protein Albumin Arterial Blood Glucose Arterial Blood Ionized Calcium Coronavirus (PCR) Positive A 09/28/20 09/28/20 09/30/20 06:53 06:53 13:33 WBC RDW Plt Count Seg Neuts % (Manual) Lymphocytes % (Manual) Seg Neutrophils # Man Lymphocytes # (Manual) D-Dimer > 83471 H ABG pH POC ABG pO2 ABG Glucose Sodium 133 L D Chloride 94.3 L BUN 22 H Creatinine Glucose 168 H Hemoglobin A1c 7.5 H Calcium Ferritin AST Lactate Dehydrogenase C-Reactive Protein Total Protein Albumin 3.8 L Arterial Blood Glucose Arterial Blood Ionized Calcium Coronavirus (PCR) 09/30/20 09/30/20 10/01/20 13:33 13:33 07:11 WBC RDW Plt Count Seg Neuts % (Manual) Lymphocytes % (Manual) Seg Neutrophils # Man Lymphocytes # (Manual) D-Dimer ABG pH POC ABG pO2 ABG Glucose Sodium Chloride BUN Creatinine Glucose 195 H 126 H Hemoglobin A1c Calcium Ferritin 381.2 H AST Lactate Dehydrogenase 413 H C-Reactive Protein 8.00 H Total Protein 6.0 L Albumin 3.5 L Arterial Blood Glucose Arterial Blood Ionized Calcium Coronavirus (PCR) 10/02/20 10/02/20 10/02/20 05:10 13:24 14:38 WBC 12.0 H RDW Plt Count 481 H Seg Neuts % (Manual) 89.0 H Lymphocytes % (Manual) 2.0 L Seg Neutrophils # Man 10.7 H Lymphocytes # (Manual) 0.2 L D-Dimer ABG pH 7.473 H POC ABG pO2 80.5 L ABG Glucose 125 H Sodium Chloride BUN Creatinine Glucose 139 H Hemoglobin A1c Calcium Ferritin AST Lactate Dehydrogenase C-Reactive Protein Total Protein Albumin 3.2 L Arterial Blood Glucose 125 H Arterial Blood Ionized Calcium 4.5 L Coronavirus (PCR) 10/03/20 10/04/20 10/04/20 07:31 07:09 07:09 WBC RDW 15.3 H Plt Count 548 H Seg Neuts % (Manual) Lymphocytes % (Manual) Seg Neutrophils # Man Lymphocytes # (Manual) D-Dimer ABG pH POC ABG pO2 ABG Glucose Sodium Chloride BUN 21 H 25 H Creatinine Glucose 148 H 113 H Hemoglobin A1c Calcium 8.3 L Ferritin AST Lactate Dehydrogenase 271 H C-Reactive Protein 1.50 H Total Protein Albumin 3.0 L Arterial Blood Glucose Arterial Blood Ionized Calcium Coronavirus (PCR) 10/05/20 10/06/20 07:04 06:03 WBC RDW Plt Count Seg Neuts % (Manual) Lymphocytes % (Manual) Seg Neutrophils # Man Lymphocytes # (Manual) D-Dimer ABG pH POC ABG pO2 ABG Glucose Sodium Chloride BUN Creatinine Glucose 108 H 141 H Hemoglobin A1c Calcium Ferritin AST Lactate Dehydrogenase 296 H C-Reactive Protein Total Protein Albumin Arterial Blood Glucose Arterial Blood Ionized Calcium Coronavirus (PCR) Allied health notes reviewed: RT
[2020-10-06] MEDS: dexAMETHasone 4 MG/ML VIAL IV SCH (17:08)
[2020-10-06] MEDS: MELATONIN 5 MG TAB PO PRN (22:26)
--- NOTE | 2020-10-07 10:37 | Progress Note ---
Assessment and Plan Cultures: COVID-19 PCR: Positive A/P: 54-year-old man past medical history hypertension admitted with COVID-19 pneumonia #Severe COVID-19 pneumonia: Patient presented with a week of symptoms, chest x- ray with diffuse bilateral infiltrates, admission O2 sats 80% on room air. Inflammatory markers elevated. Procalcitonin slightly elevated #Acute hypoxemic respiratory failure: Likely secondary to COVID-19 infection. Currently on HFNC #Elevated D-dimer: CTA negative for pulmonary embolism. #Obesity Recs: -Decadron 8 mg daily, agree with higher dose due to morbid obesity -Completed remdesivir -Monitor q48-72h inflammatory markers - ferritin, Ddimer, CRP, LDH -Completed empiric antibiotic -Consider Actemra if respiratory status worsens -Anticoagulation per hospital protocol. D-dimer significantly elevated, CTA negative for PE, eval for DVT and consider increasing anticoagulation dose -Proning as able Recommend 6MWT prior to discharge. Melissa Beverly MD [facility] ([facility] O: [phone] F: [phone] Subjective Date of service: 10/07/20 Principal diagnosis: Bilateral pneumonia, COVID pneumonia, acute hypoxic resp failure Interval history: Afebrile, normal white count. On HFNC Objective - Exam Narrative Exam: Physical exam deferred to reduce risk of transmission of COVID-19. Please refer to primary team's note. - Constitutional Vitals: Vital Signs Temp Pulse Resp BP Pulse Ox 98.0 F 67 16 115/78 95 10/07/20 04:47 10/07/20 04:47 10/07/20 04:47 10/07/20 04:47 10/07/20 04:47 Temperature -Last 24 Hours Temperature 98.0 F Temperature 98.4 F Temperature 98.1 F - Labs CBC & Chem 7: 10/04/20 07:09 10/06/20 06:03 Labs: Abnormal lab results 10/06/20 Range/Units 06:03 Lactate Dehydrogenase 202 H (91-180) units/L
[2020-10-07] MEDS: ENOXAPARIN 40 MG/0.4 ML INJ SUB-Q SCH ×2 (11:32→22:51)
[2020-10-07] MEDS: FAMOTIDINE 20 MG TAB PO SCH ×2 (11:32→22:51)
[2020-10-07] MEDS: ZINC SULFATE 220 MG CAP PO SCH ×2 (11:32→22:51)
[2020-10-07] MEDS: ASCORBIC ACID 500 MG TAB PO SCH (11:32)
--- NOTE | 2020-10-07 11:43 | Progress Note ---
Assessment and Plan Acute hypoxemic respiratory failure Bilateral pneumonia COVID-19 infection Obesity Hypertension Elevated serum inflammatory markers to include LDH, D-dimers and ferritin Hyponatremia Acute kidney injury Anxiety - S/P Remdesivir course - continue systemic steroids for severe COVID-19 infection empirically - follow repeat COVID tests results - continue zinc and vitamin C supplementation - Monitor inflammatory markers per facility protocol - ferritin, Ddimer, CRP - therapeutic anticoagulation per system Protocol based on d-dimer and clinical considerations (VTE prophylaxis) - Continue contact and airborne isolation - continue to wean supplemental oxygen to keep O2 sats > 92% - complete empiric CAP AB's with Rocephin and Zithromax - continue Bronchodilators (KAREN) with pulm hygiene per RT - continue to avoid nephrotoxins, renally dose all medications - mobility protocols to prevent pressure ulcers - PT/OT as tolerated - prn analgesia per pain score - Wound care per RN/WCT - continue accuchecks with glycemic control per SSI for target blood glucose < 180 mg/dL - tobacco abstinence strongly counseled at the bedside - home oxygen evaluation at discharge - GI & VTE prophylaxis - Flu & pneumovax per protocol - Pulmonary out patient follow up for PFTs and optimization of respiratory status - continue other care per attending / other consultants ... re-evaluate in am & prn I have spent ( >35 ) minutes with the patient w/ >50% of the time spent counseling and/or coordinating care for this patient. Counseling topics and/or how time was spent coordinating patient's care is outlined in the impression and plan above. Subjective Date of service: 10/07/20 Principal diagnosis: Bilateral pneumonia, COVID pneumonia, acute hypoxic resp failure Interval history: Patient is seen today for: Acute hypoxemic respiratory failure; Bilateral pneumonia; COVID-19 infection; Obesity; Acute kidney injury Seen and examined at bedside; 24hour events reviewed; nursing and respiratory care staff consulted; no adverse overnight events reported to me; resting in bed; feels a little better; FiO2 improving; denies acute chest pains or palpitations Objective Vital Signs - 12hr 10/07/20 10/07/20 02:30 04:47 Temperature 98.0 F Pulse Rate 67 Respiratory 16 Rate Blood Pressure 115/78 O2 Sat by Pulse 97 95 Oximetry Constitutional: no acute distress, alert, other (middle aged obese male with mild resp distress at rest) Eyes: non-icteric ENT: oropharynx moist Neck: supple, no lymphadenopathy Effort: mildly labored Ascultation: Bilateral: diminished breath sounds, rhonchi Percussion: Bilateral: not dull Cardiovascular: regular rate and rhythm, other (S1,S2) Gastrointestinal: normoactive bowel sounds, soft, non-tender, non-distended (protuberant) Integumentary: normal Extremities: no cyanosis, no edema, pulses normal Neurologic: normal mental status, non-focal exam, pupils equal and round, CN II- XII normal, motor strength normal and Psychiatric: mood appropriate, affect normal CBC and BMP: 10/04/20 07:09 10/06/20 06:03 ABG, PT/INR, D-dimer: ABG ABG pH 7.473 (7.320-7.450) H 10/02/20 14:38 POC ABG pCO2 39.4 mmHg (32.0-48.0) 10/02/20 14:38 POC ABG pO2 80.5 mmHg (83-108) L 10/02/20 14:38 POC ABG HCO3 28.2 10/02/20 14:38 ABG O2 Saturation 95.7 (0-100) 10/02/20 14:38 PT/INR, D-dimer PT 14.6 Sec. (12.2-14.9) 09/27/20 10:27 INR 1.09 (0.87-1.13) 09/27/20 10:27 D-Dimer 143.22 ng/mlDDU (0-234) 10/06/20 06:03 Abnormal lab findings: Abnormal Labs 09/27/20 09/27/20 09/27/20 10:27 10:27 10:27 WBC RDW Plt Count Seg Neuts % (Manual) 94.0 H Lymphocytes % (Manual) 1.0 L Seg Neutrophils # Man 9.2 H Lymphocytes # (Manual) 0.1 L D-Dimer 392.32 H ABG pH POC ABG pO2 ABG Glucose Sodium 125 L Chloride 88.5 L BUN Creatinine 1.4 H Glucose 176 H Hemoglobin A1c Calcium Ferritin AST 48 H Lactate Dehydrogenase 396 H C-Reactive Protein 24.60 H Total Protein Albumin 3.1 L Arterial Blood Glucose Arterial Blood Ionized Calcium Coronavirus (PCR) 09/27/20 09/27/20 09/28/20 10:27 11:59 06:53 WBC 11.2 H RDW Plt Count Seg Neuts % (Manual) 98.0 H Lymphocytes % (Manual) Seg Neutrophils # Man 11.0 H Lymphocytes # (Manual) 0.0 L D-Dimer ABG pH POC ABG pO2 ABG Glucose Sodium Chloride BUN Creatinine Glucose Hemoglobin A1c Calcium Ferritin 413.7 H AST Lactate Dehydrogenase C-Reactive Protein Total Protein Albumin Arterial Blood Glucose Arterial Blood Ionized Calcium Coronavirus (PCR) Positive A 09/28/20 09/28/20 09/30/20 06:53 06:53 13:33 WBC RDW Plt Count Seg Neuts % (Manual) Lymphocytes % (Manual) Seg Neutrophils # Man Lymphocytes # (Manual) D-Dimer > 12391 H ABG pH POC ABG pO2 ABG Glucose Sodium 133 L D Chloride 94.3 L BUN 22 H Creatinine Glucose 168 H Hemoglobin A1c 7.5 H Calcium Ferritin AST Lactate Dehydrogenase C-Reactive Protein Total Protein Albumin 3.8 L Arterial Blood Glucose Arterial Blood Ionized Calcium Coronavirus (PCR) 09/30/20 09/30/20 10/01/20 13:33 13:33 07:11 WBC RDW Plt Count Seg Neuts % (Manual) Lymphocytes % (Manual) Seg Neutrophils # Man Lymphocytes # (Manual) D-Dimer ABG pH POC ABG pO2 ABG Glucose Sodium Chloride BUN Creatinine Glucose 195 H 126 H Hemoglobin A1c Calcium Ferritin 381.2 H AST Lactate Dehydrogenase 413 H C-Reactive Protein 8.00 H Total Protein 6.0 L Albumin 3.5 L Arterial Blood Glucose Arterial Blood Ionized Calcium Coronavirus (PCR) 10/02/20 10/02/20 10/02/20 05:10 13:24 14:38 WBC 12.0 H RDW Plt Count 481 H Seg Neuts % (Manual) 89.0 H Lymphocytes % (Manual) 2.0 L Seg Neutrophils # Man 10.7 H Lymphocytes # (Manual) 0.2 L D-Dimer ABG pH 7.473 H POC ABG pO2 80.5 L ABG Glucose 125 H Sodium Chloride BUN Creatinine Glucose 139 H Hemoglobin A1c Calcium Ferritin AST Lactate Dehydrogenase C-Reactive Protein Total Protein Albumin 3.2 L Arterial Blood Glucose 125 H Arterial Blood Ionized Calcium 4.5 L Coronavirus (PCR) 10/03/20 10/04/20 10/04/20 07:31 07:09 07:09 WBC RDW 15.3 H Plt Count 548 H Seg Neuts % (Manual) Lymphocytes % (Manual) Seg Neutrophils # Man Lymphocytes # (Manual) D-Dimer ABG pH POC ABG pO2 ABG Glucose Sodium Chloride BUN 21 H 25 H Creatinine Glucose 148 H 113 H Hemoglobin A1c Calcium 8.3 L Ferritin AST Lactate Dehydrogenase 271 H C-Reactive Protein 1.50 H Total Protein Albumin 3.0 L Arterial Blood Glucose Arterial Blood Ionized Calcium Coronavirus (PCR) 10/05/20 10/06/20 07:04 06:03 WBC RDW Plt Count Seg Neuts % (Manual) Lymphocytes % (Manual) Seg Neutrophils # Man Lymphocytes # (Manual) D-Dimer ABG pH POC ABG pO2 ABG Glucose Sodium Chloride BUN Creatinine Glucose 108 H 141 H Hemoglobin A1c Calcium Ferritin AST Lactate Dehydrogenase 296 H 202 H C-Reactive Protein Total Protein Albumin Arterial Blood Glucose Arterial Blood Ionized Calcium Coronavirus (PCR) Chest x-ray: pending Allied health notes reviewed: nursing
--- NOTE | 2020-10-07 17:27 | Progress Note ---
Assessment and Plan Assessment and plan: This is a 54-year-old male presents to the emergency department with complaint of feeling sick for the past week. He says that he has been having generalized body aches, sweats without chills, shortness of breath, and the patient says that he feels like he needs to cough but has not been able to do so. The patient states that he lost his sense of taste and smell but it has started to return. He has a past medical history of hypertension. He denies tobacco or illicit drug use. The patient had a room air oxygen saturation of about 80% through his triage. No recent travel or sick contacts at home. The patient is not vaccinated against COVID-19, but no known obvious exposure to anyone positive for COVID-19. He denies any chest pain, lower extremity swelling, nausea, vomiting, diarrhea, abdominal pain. He has not taken anything for his symptoms prior to presentation today. Did jose get Covid vaccination 09/28/2020 Covid PCR positive On 8 to 10 L of nasal cannula oxygen 09/29/2020 On 8 L nasal cannula oxygen Mild distress ID consult requested IV remdesivir started IV dexamethasone to continue 09/30: Patient continues on high flow oxygen at 14 L. Will obtain pulmonary consultation in addition to current management continue remdesivir and dexamethasone. Encourage prone positioning. We will also obtain a CT of the chest to rule out pulmonary embolism. Plan of care discussed with the patient 10/01: Continues on 14 L of oxygen continue to encourage weaning down, pulmonary input is noted. Continue to await CTA. Wean oxygen as tolerated. Continue steroids. Complete remdesivir. Continue to encourage prone positioning. We will give a dose of Lasix today 10/02: Remains on high flow 20 L and 50%. Will give additional dose of Lasix today. Will monitor inflammatory markers. Considering AISLINN the thickness of his neck I will recommend a CPAP/BiPAP at nighttime while in house. He verbalized understanding that he needs to work with insurance company to continue use of this outpatient. 10/03: Patient agreeable to try BiPAP today again reinforced the importance of it considering his history of obstructive sleep apnea. We will continue with additional Lasix monitor BMP. Discussed with infectious disease yesterday started patient on full dose anticoagulation until we will rule out DVT. 10/04: Patient continues to show some improvement continue to use BiPAP. Diuretics for 1 more day. Monitor renal functions. Discussed with nursing staff to ensure appropriate monitor while on BiPAP. 10/05/2020; patient is on high flow oxygen 25 L with FiO2 of 50%. Doppler ultrasound of the lower extremities were negative. I will decrease anticoagulation to prophylactic dose. If no improvement in his oxygen requirement, consider LTAC. Discussed with case management. 10/06/2020: Patient remains on 24 L high flow and FiO2 50%. D-dimer elevated but CT negative for PE and us negative for DVT. Echo unremarkable. Is able to walk to bathroom with mild to moderate dyspnea. Mild dyspnea at rest but able to converse fairly well. Mentating very well. CM is working on LTAC placement. 10/07/2020: Patient remains on 20 L of O2 high flow, FiO2 50%. He is mentating well. He is able to get around and is room and walk to bathroom without difficulty. Is able to converse long without significant respite distress. A febrile. Tolerating diet. Is accepted by [facility] but awaiting insurance approval. We will continue current therapy and wean O2 as tolerated. Pulmonary is following. (1) Acute respiratory failure with hypoxia Current Visit: Yes Status: Acute Plan to address problem: Covid positive (2) Bilateral pneumonia Current Visit: Yes Status: Acute Qualifiers: Pneumonia type: due to unspecified organism Lung location: unspecified part of lung Qualified Code(s): J18.9 - Pneumonia, unspecified organism Plan to address problem: Treat as CAP (3) 2019 novel coronavirus infection Current Visit: Yes Status: Acute Plan to address problem: Covid positive ID consult On IV dexamethasone IV remdesivir started as per protocol (4) ELY (acute kidney injury) with vasomotor nehropathy Current Visit: Yes Status: Acute Plan to address problem: Improved (5) Malnutrition Current Visit: Yes Status: Acute Plan to address problem: Dietary supplements (6) morbid obesity (7) AISLINN (8) DVT prophylaxis Current Visit: Yes Status: Acute Plan to address problem: On Lovenox and GI prophylaxis History Interval history: Patient remains on 20 L of O2 high flow, FiO2 50%. He is mentating well. He is able to get around and is room and walk to bathroom without difficulty. Is able to converse long without significant respite distress. Afebrile. Tolerating diet. Is accepted by [facility] but awaiting insurance approval. Hospitalist Physical - Constitutional Vitals: Temp Pulse Resp BP Pulse Ox 98.5 F 82 24 130/81 93 10/07/20 12:15 10/07/20 12:15 10/07/20 12:15 10/07/20 12:15 10/07/20 17:06 General appearance: Present: mild distress, well-nourished, other (Mildly obese) - EENT Eyes: Present: PERRL, EOM intact ENT: clear oral mucosa - Neck Neck: Present: supple, other (No JVD) - Respiratory Respiratory effort: other (Mild dyspnea, no significant increased work of breathing) Respiratory: bilateral: diminished - Cardiovascular Rhythm: regular - Extremities Extremities: No edema Peripheral Pulses: within normal limits - Abdominal General gastrointestinal: soft, non-tender - Integumentary Integumentary: Absent: rash - Psychiatric Psychiatric: appropriate mood/affect - Neurologic Neurologic: moves all extremities HEART Score - HEART Score Troponin: Troponin T 0.013 ng/mL (0.00-0.029) 09/27/20 10:27 Results - Labs CBC & Chem 7: 10/04/20 07:09 10/06/20 06:03 Labs: Laboratory Last Values WBC 10.4 K/mm3 (4.5-11.0) 10/04/20 07:09 RBC 5.00 M/mm3 (3.65-5.03) 10/04/20 07:09 Hgb 14.9 gm/dl (11.8-15.2) 10/04/20 07:09 Hct 44.6 % (35.5-45.6) 10/04/20 07:09 MCV 89 fl (84-94) 10/04/20 07:09 MCH 30 pg (28-32) 10/04/20 07:09 MCHC 33 % (32-34) 10/04/20 07:09 RDW 15.3 % (13.2-15.2) H 10/04/20 07:09 Plt Count 548 K/mm3 (140-440) H 10/04/20 07:09 Add Manual Diff Complete 10/02/20 13:24 Total Counted 100 10/02/20 13:24 Seg Neutrophils % [place] Operator 09/28/20 06:53 Seg Neuts % (Manual) 89.0 % (40.0-70.0) H 10/02/20 13:24 Band Neutrophils % 1.0 % 09/28/20 06:53 Lymphocytes % (Manual) 2.0 % (13.4-35.0) L 10/02/20 13:24 Reactive Lymphs % (Man) 2.0 % 10/02/20 13:24 Monocytes % (Manual) 3.0 % (0.0-7.3) 10/02/20 13:24 Eosinophils % (Manual) 2.0 % (0.0-4.3) 10/02/20 13:24 Metamyelocytes % 2.0 % 10/02/20 13:24 Nucleated RBC % Not Reportable 10/02/20 13:24 Seg Neutrophils # Man 10.7 K/mm3 (1.8-7.7) H 10/02/20 13:24 Band Neutrophils # 0.0 K/mm3 10/02/20 13:24 Lymphocytes # (Manual) 0.2 K/mm3 (1.2-5.4) L 10/02/20 13:24 Abs React Lymphs (Man) 0.2 K/mm3 10/02/20 13:24 Monocytes # (Manual) 0.4 K/mm3 (0.0-0.8) 10/02/20 13:24 Eosinophils # (Manual) 0.2 K/mm3 (0.0-0.4) 10/02/20 13:24 Basophils # (Manual) 0.0 K/mm3 (0.0-0.1) 10/02/20 13:24 Metamyelocytes # 0.2 K/mm3 10/02/20 13:24 Myelocytes # 0.0 K/mm3 10/02/20 13:24 Promyelocytes # 0.0 K/mm3 10/02/20 13:24 Blast Cells # 0.0 K/mm3 10/02/20 13:24 WBC Morphology Not Reportable 10/02/20 13:24 WBC Morphology TNR 10/02/20 13:24 Hypersegmented Neuts Not Reportable 10/02/20 13:24 Hyposegmented Neuts Not Reportable 10/02/20 13:24 Hypogranular Neuts Not Reportable 10/02/20 13:24 Smudge Cells Not Reportable 10/02/20 13:24 Toxic Granulation Not Reportable 10/02/20 13:24 Toxic Vacuolation Not Reportable 10/02/20 13:24 Dohle Bodies Not Reportable 10/02/20 13:24 Pelger-Huet Anomaly Not Reportable 10/02/20 13:24 Tuan Rods Not Reportable 10/02/20 13:24 Platelet Estimate Consistent w auto 10/02/20 13:24 Clumped Platelets Not Reportable 10/02/20 13:24 Plt Clumps, EDTA Not Reportable 10/02/20 13:24 Large Platelets Not Reportable 10/02/20 13:24 Giant Platelets Not Reportable 10/02/20 13:24 Platelet Satelliting Not Reportable 10/02/20 13:24 Plt Morphology Comment Not Reportable 10/02/20 13:24 RBC Morphology Normal 10/02/20 13:24 Dimorphic RBCs Not Reportable 10/02/20 13:24 Polychromasia Not Reportable 10/02/20 13:24 Hypochromasia Not Reportable 10/02/20 13:24 Poikilocytosis Not Reportable 10/02/20 13:24 Anisocytosis Not Reportable 10/02/20 13:24 Microcytosis Not Reportable 10/02/20 13:24 Macrocytosis Not Reportable 10/02/20 13:24 Spherocytes Not Reportable 10/02/20 13:24 Pappenheimer Bodies Not Reportable 10/02/20 13:24 Sickle Cells Not Reportable 10/02/20 13:24 Target Cells Not Reportable 10/02/20 13:24 Tear Drop Cells Not Reportable 10/02/20 13:24 Ovalocytes Not Reportable 10/02/20 13:24 Helmet Cells Not Reportable 10/02/20 13:24 Calles-[place]forth Bodies Not Reportable 10/02/20 13:24 Cutler Rings Not Reportable 10/02/20 13:24 [place] Cells Not Reportable 10/02/20 13:24 Bite Cells Not Reportable 10/02/20 13:24 Crenated Cell Not Reportable 10/02/20 13:24 Elliptocytes Not Reportable 10/02/20 13:24 Acanthocytes (Spur) Not Reportable 10/02/20 13:24 Rouleaux Not Reportable 10/02/20 13:24 Hemoglobin C Crystals Not Reportable 10/02/20 13:24 Schistocytes Not Reportable 10/02/20 13:24 Malaria parasites Not Reportable 10/02/20 13:24 Marito Bodies Not Reportable 10/02/20 13:24 Hem Pathologist Commnt No 10/02/20 13:24 PT 14.6 Sec. (12.2-14.9) 09/27/20 10:27 INR 1.09 (0.87-1.13) 09/27/20 10:27 APTT 29.8 Sec. (24.2-36.6) 09/27/20 10:27 D-Dimer 143.22 ng/mlDDU (0-234) 10/06/20 06:03 ABG pH 7.473 (7.320-7.450) H 10/02/20 14:38 POC ABG pCO2 39.4 mmHg (32.0-48.0) 10/02/20 14:38 POC ABG pO2 80.5 mmHg (83-108) L 10/02/20 14:38 POC ABG HCO3 28.2 10/02/20 14:38 ABG O2 Saturation 95.7 (0-100) 10/02/20 14:38 POC ABG Base Excess 4.4 10/02/20 14:38 ABG Hemoglobin 13.8 (12.0-17.5) 10/02/20 14:38 ABG Oxyhemoglobin 94.8 (94-98) 10/02/20 14:38 ABG Methemoglobin 0.3 (0.0-1.5) 10/02/20 14:38 ABG Sodium 136.0 mmol/L (136.0-145.0) 10/02/20 14:38 ABG Potassium 3.5 mmol/L (3.40-4.50) 10/02/20 14:38 ABG Chloride 104.0 mmol/L (98-107) 10/02/20 14:38 ABG Glucose 125 mg/dL (65-95) H 10/02/20 14:38 Carboxyhemoglobin 0.6 (0.5-1.5) 10/02/20 14:38 FiO2 % 55.0 10/02/20 14:38 Sodium 143 mmol/L (137-145) 10/04/20 07:09 Potassium 4.3 mmol/L (3.6-5.0) 10/04/20 07:09 Chloride 105.5 mmol/L (98-107) 10/04/20 07:09 Carbon Dioxide 28 mmol/L (22-30) 10/04/20 07:09 Anion Gap 14 mmol/L 10/04/20 07:09 BUN 25 mg/dL (9-20) H 10/04/20 07:09 Creatinine 1.1 mg/dL (0.8-1.3) 10/04/20 07:09 Estimated GFR > 60 ml/min 10/04/20 07:09 BUN/Creatinine Ratio 23 % 10/04/20 07:09 Glucose 141 mg/dL (75-100) H 10/06/20 06:03 Hemoglobin A1c 7.5 % (4-6) H 09/28/20 06:53 Lactic Acid 1.30 mmol/L (0.7-2.0) 09/27/20 10:27 Calcium 8.8 mg/dL (8.4-10.2) 10/04/20 07:09 Ferritin 213.2 ng/mL (30.0-300.0) 10/06/20 06:03 Total Bilirubin 0.30 mg/dL (0.1-1.2) 10/03/20 07:31 AST 12 units/L (5-40) 10/03/20 07:31 ALT 33 units/L (7-56) 10/03/20 07:31 Alkaline Phosphatase 85 units/L (35-129) 10/03/20 07:31 Lactate Dehydrogenase 202 units/L (91-180) H 10/06/20 06:03 Troponin T 0.013 ng/mL (0.00-0.029) 09/27/20 10:27 C-Reactive Protein 0.30 mg/dL (0.00-1.30) 10/07/20 10:02 NT-Pro-B Natriuret Pep 505.7 pg/mL (0-900) 09/27/20 10:27 Total Protein 6.5 g/dL (6.3-8.2) 10/03/20 07:31 Albumin 3.0 g/dL (3.9-5) L 10/03/20 07:31 Albumin/Globulin Ratio 0.9 % 10/03/20 07:31 Procalcitonin 0.85 ng/mL (<0.15) 09/27/20 10:27 Arterial Blood Glucose 125 mg/dL (65-95) H 10/02/20 14:38 Arterial Blood Ionized Calcium 4.5 mg/dL (4.6-5.3) L 10/02/20 14:38 Coronavirus (PCR) Positive (Negative) A 09/27/20 11:59 Vazquez/IV: Voiding Method Toilet Active Medications - Current Medications Current Medications: Generic Name Dose Route Start Last Admin Trade Name Freq PRN Reason Stop Dose Admin Acetaminophen 650 mg 09/27/20 15:32 Acetaminophen 325 Mg Tab PO Q4H PRN Pain MILD(1-3)/Fever >100.5/COOPER Alprazolam 0.25 mg 09/30/20 20:00 10/03/20 21:23 Alprazolam 0.25 Mg Tab PO 0.25 mg TID PRN Administration Anxiety Ascorbic Acid 500 mg 09/30/20 18:00 10/07/20 11:32 Ascorbic Acid 500 Mg Tab PO 500 mg QDAY DEQUAN Administration Enoxaparin Sodium 40 mg 10/05/20 10:00 10/07/20 11:32 Enoxaparin 40 Mg/0.4 Ml Inj SUB-Q 40 mg Q12HR DEQUAN Administration Famotidine 20 mg 09/27/20 22:00 10/07/20 11:32 Famotidine 20 Mg Tab PO 20 mg BID DEQUAN Administration Hydromorphone HCl 0.5 mg 09/27/20 15:32 Hydromorphone 1 Mg/1 Ml Inj IV Q3H PRN Pain , Severe (7-10) Melatonin 5 mg 10/05/20 21:00 10/06/20 22:26 Melatonin 5 Mg Tab PO 5 mg QHS PRN Administration Sleep Metoclopramide HCl 10 mg 09/27/20 15:32 Metoclopramide 10 Mg/2 Ml Inj IV Q6H PRN Nausea And Vomiting Ondansetron HCl 4 mg 09/27/20 15:32 Ondansetron 4 Mg/2 Ml Inj IV Q8H PRN Nausea And Vomiting Oxycodone/Acetaminophen 1 tab 09/27/20 15:32 10/04/20 22:10 Oxycodone /Acetaminophen 5-325mg Tab PO 1 tab Q6H PRN Administration Pain, Moderate (4-6) Sodium Chloride 10 ml 09/27/20 22:00 10/07/20 11:32 Sodium Chloride 0.9% 10 Ml Flush Syringe IV 10 ml BID DEQUAN Administration Sodium Chloride 10 ml 09/27/20 15:32 Sodium Chloride 0.9% 10 Ml Flush Syringe IV PRN PRN LINE FLUSH Zinc Sulfate 220 mg 09/30/20 22:00 10/07/20 11:32 Zinc Sulfate 220 Mg Cap PO 220 mg BID DEQUAN Administration Zolpidem Tartrate 5 mg 09/30/20 22:00 10/03/20 21:23 Zolpidem 5 Mg Tab PO 5 mg QHS PRN Administration Sleep Nutrition/Malnutrition Assess - Dietary Evaluation Nutrition/Malnutrition Findings: Nutrition Notes Start: 09/30/20 11:22 Freq: Status: Active Protocol: Document 10/07/20 11:46 (Rec: 10/07/20 11:47 [id number]) Nutrition Notes Initial or Follow up Brief Note Current Diagnosis Acute Kidney Injury, Respiratory Failure Other Pertinent Diagnosis pneu, COVID(+) Current Diet Regular Subjective/Other Information FU for intakes. Pt did not answer phone x4. Per RN, pt always on phone with family/ friends. Pt continues to eat 100% of meals. Nutrition Intervention Revisit per MD consult or patient Sign Off request:
[2020-10-07] MEDS: MELATONIN 5 MG TAB PO PRN (22:51)
[2020-10-08] MEDS: ASCORBIC ACID 500 MG TAB PO SCH (09:31)
[2020-10-08] MEDS: ZINC SULFATE 220 MG CAP PO SCH ×2 (09:31→23:12)
[2020-10-08] MEDS: ENOXAPARIN 40 MG/0.4 ML INJ SUB-Q SCH ×2 (09:31→23:12)
[2020-10-08] MEDS: FAMOTIDINE 20 MG TAB PO SCH ×2 (09:31→23:12)
--- NOTE | 2020-10-08 14:51 | Progress Note ---
Assessment and Plan Acute hypoxemic respiratory failure Bilateral pneumonia COVID-19 infection Obesity Hypertension Elevated serum inflammatory markers to include LDH, D-dimers and ferritin Hyponatremia Acute kidney injury Anxiety - discharge planning ongoing concurrently - no new issues today continue care as below - continue systemic steroids for severe COVID-19 infection empirically - follow repeat COVID tests results - continue zinc and vitamin C supplementation - Monitor inflammatory markers per facility protocol - ferritin, Ddimer, CRP - therapeutic anticoagulation per system Protocol based on d-dimer and clinical considerations (VTE prophylaxis) - Continue contact and airborne isolation - continue to wean supplemental oxygen to keep O2 sats > 92% - complete empiric CAP AB's with Rocephin and Zithromax - continue Bronchodilators (KAREN) with pulm hygiene per RT - continue to avoid nephrotoxins, renally dose all medications - mobility protocols to prevent pressure ulcers - PT/OT as tolerated - prn analgesia per pain score - Wound care per RN/WCT - continue accuchecks with glycemic control per SSI for target blood glucose < 180 mg/dL - tobacco abstinence strongly counseled at the bedside - home oxygen evaluation at discharge - GI & VTE prophylaxis - Flu & pneumovax per protocol - Pulmonary out patient follow up for PFTs and optimization of respiratory status - continue other care per attending / other consultants ... re-evaluate in am & prn Subjective Date of service: 10/08/20 Principal diagnosis: Bilateral pneumonia, COVID pneumonia, acute hypoxic resp failure Interval history: Patient is seen today for: Acute hypoxemic respiratory failure; Bilateral pneumonia; COVID-19 infection; Obesity; Acute kidney injury Seen and examined at bedside; 24hour events reviewed; nursing and respiratory care staff consulted; no adverse overnight events reported to me; sitting up in chair; feels a little better; FiO2 improved and down to 4L flow; No N/V/F/C Objective Vital Signs - 12hr 10/08/20 10/08/20 04:52 10:00 Temperature 98.0 F Pulse Rate 67 Respiratory 18 Rate Blood Pressure 125/76 O2 Sat by Pulse 88 94 Oximetry Constitutional: no acute distress, alert, other (middle aged obese male with mild resp distress at rest) Eyes: non-icteric ENT: oropharynx moist Neck: supple, no lymphadenopathy Effort: mildly labored Ascultation: Bilateral: diminished breath sounds, rhonchi Percussion: Bilateral: not dull Cardiovascular: regular rate and rhythm, other (S1,S2) Gastrointestinal: normoactive bowel sounds, soft, non-tender, non-distended (protuberant) Integumentary: normal Extremities: no cyanosis, no edema, pulses normal Neurologic: normal mental status, non-focal exam, pupils equal and round, CN II- XII normal, motor strength normal and Psychiatric: mood appropriate, affect normal CBC and BMP: 10/09/20 07:45 10/09/20 07:45 ABG, PT/INR, D-dimer: ABG ABG pH 7.473 (7.320-7.450) H 10/02/20 14:38 POC ABG pCO2 39.4 mmHg (32.0-48.0) 10/02/20 14:38 POC ABG pO2 80.5 mmHg (83-108) L 10/02/20 14:38 POC ABG HCO3 28.2 10/02/20 14:38 ABG O2 Saturation 95.7 (0-100) 10/02/20 14:38 PT/INR, D-dimer PT 14.6 Sec. (12.2-14.9) 09/27/20 10:27 INR 1.09 (0.87-1.13) 09/27/20 10:27 D-Dimer 143.22 ng/mlDDU (0-234) 10/06/20 06:03 Abnormal lab findings: Abnormal Labs 09/27/20 09/27/20 09/27/20 10:27 10:27 10:27 WBC RDW Plt Count Seg Neuts % (Manual) 94.0 H Lymphocytes % (Manual) 1.0 L Seg Neutrophils # Man 9.2 H Lymphocytes # (Manual) 0.1 L D-Dimer 392.32 H ABG pH POC ABG pO2 ABG Glucose Sodium 125 L Chloride 88.5 L BUN Creatinine 1.4 H Glucose 176 H Hemoglobin A1c Calcium Ferritin AST 48 H Lactate Dehydrogenase 396 H C-Reactive Protein 24.60 H Total Protein Albumin 3.1 L Arterial Blood Glucose Arterial Blood Ionized Calcium Coronavirus (PCR) 09/27/20 09/27/20 09/28/20 10:27 11:59 06:53 WBC 11.2 H RDW Plt Count Seg Neuts % (Manual) 98.0 H Lymphocytes % (Manual) Seg Neutrophils # Man 11.0 H Lymphocytes # (Manual) 0.0 L D-Dimer ABG pH POC ABG pO2 ABG Glucose Sodium Chloride BUN Creatinine Glucose Hemoglobin A1c Calcium Ferritin 413.7 H AST Lactate Dehydrogenase C-Reactive Protein Total Protein Albumin Arterial Blood Glucose Arterial Blood Ionized Calcium Coronavirus (PCR) Positive A 09/28/20 09/28/20 09/30/20 06:53 06:53 13:33 WBC RDW Plt Count Seg Neuts % (Manual) Lymphocytes % (Manual) Seg Neutrophils # Man Lymphocytes # (Manual) D-Dimer > 25622 H ABG pH POC ABG pO2 ABG Glucose Sodium 133 L D Chloride 94.3 L BUN 22 H Creatinine Glucose 168 H Hemoglobin A1c 7.5 H Calcium Ferritin AST Lactate Dehydrogenase C-Reactive Protein Total Protein Albumin 3.8 L Arterial Blood Glucose Arterial Blood Ionized Calcium Coronavirus (PCR) 09/30/20 09/30/20 10/01/20 13:33 13:33 07:11 WBC RDW Plt Count Seg Neuts % (Manual) Lymphocytes % (Manual) Seg Neutrophils # Man Lymphocytes # (Manual) D-Dimer ABG pH POC ABG pO2 ABG Glucose Sodium Chloride BUN Creatinine Glucose 195 H 126 H Hemoglobin A1c Calcium Ferritin 381.2 H AST Lactate Dehydrogenase 413 H C-Reactive Protein 8.00 H Total Protein 6.0 L Albumin 3.5 L Arterial Blood Glucose Arterial Blood Ionized Calcium Coronavirus (PCR) 10/02/20 10/02/20 10/02/20 05:10 13:24 14:38 WBC 12.0 H RDW Plt Count 481 H Seg Neuts % (Manual) 89.0 H Lymphocytes % (Manual) 2.0 L Seg Neutrophils # Man 10.7 H Lymphocytes # (Manual) 0.2 L D-Dimer ABG pH 7.473 H POC ABG pO2 80.5 L ABG Glucose 125 H Sodium Chloride BUN Creatinine Glucose 139 H Hemoglobin A1c Calcium Ferritin AST Lactate Dehydrogenase C-Reactive Protein Total Protein Albumin 3.2 L Arterial Blood Glucose 125 H Arterial Blood Ionized Calcium 4.5 L Coronavirus (PCR) 10/03/20 10/04/20 10/04/20 07:31 07:09 07:09 WBC RDW 15.3 H Plt Count 548 H Seg Neuts % (Manual) Lymphocytes % (Manual) Seg Neutrophils # Man Lymphocytes # (Manual) D-Dimer ABG pH POC ABG pO2 ABG Glucose Sodium Chloride BUN 21 H 25 H Creatinine Glucose 148 H 113 H Hemoglobin A1c Calcium 8.3 L Ferritin AST Lactate Dehydrogenase 271 H C-Reactive Protein 1.50 H Total Protein Albumin 3.0 L Arterial Blood Glucose Arterial Blood Ionized Calcium Coronavirus (PCR) 10/05/20 10/06/20 07:04 06:03 WBC RDW Plt Count Seg Neuts % (Manual) Lymphocytes % (Manual) Seg Neutrophils # Man Lymphocytes # (Manual) D-Dimer ABG pH POC ABG pO2 ABG Glucose Sodium Chloride BUN Creatinine Glucose 108 H 141 H Hemoglobin A1c Calcium Ferritin AST Lactate Dehydrogenase 296 H 202 H C-Reactive Protein Total Protein Albumin Arterial Blood Glucose Arterial Blood Ionized Calcium Coronavirus (PCR) Chest x-ray: pending Allied health notes reviewed: nursing
--- NOTE | 2020-10-08 14:54 | Progress Note ---
Assessment and Plan Cultures: COVID-19 PCR: Positive A/P: 54-year-old man past medical history hypertension admitted with COVID-19 pneumonia #Severe COVID-19 pneumonia: Patient presented with a week of symptoms, chest x- ray with diffuse bilateral infiltrates, admission O2 sats 80% on room air. Inflammatory markers elevated. Procalcitonin slightly elevated #Acute hypoxemic respiratory failure: Likely secondary to COVID-19 infection. Currently on 4L NC #Elevated D-dimer: CTA negative for pulmonary embolism. #Obesity Recs: -Decadron 8 mg daily, agree with higher dose due to morbid obesity -Completed remdesivir -Monitor q48-72h inflammatory markers - ferritin, Ddimer, CRP, LDH -Completed empiric antibiotic -Anticoagulation per hospital protocol. D-dimer significantly elevated, CTA negative for PE, eval for DVT and consider increasing anticoagulation dose -Proning as able Recommend 6MWT prior to discharge. ID will sign off. please call with questions Melissa Beverly MD [facility] ([facility] O: [phone] F: [phone] Subjective Date of service: 10/08/20 Principal diagnosis: Bilateral pneumonia, COVID pneumonia, acute hypoxic resp failure Interval history: Afebrile, normal white count. Objective - Exam Narrative Exam: Physical exam deferred to reduce risk of transmission of COVID-19. Please refer to primary team's note. - Constitutional Vitals: Vital Signs Temp Pulse Resp BP Pulse Ox 98.0 F 67 18 125/76 94 10/08/20 04:52 10/08/20 04:52 10/08/20 04:52 10/08/20 04:52 10/08/20 10:00 Temperature -Last 24 Hours Temperature 98.0 F Temperature 98.0 F Temperature 98.4 F - Labs CBC & Chem 7: 10/04/20 07:09 10/06/20 06:03
--- NOTE | 2020-10-08 17:04 | Progress Note ---
Assessment and Plan Assessment and plan: This is a 54-year-old male presents to the emergency department with complaint of feeling sick for the past week. He says that he has been having generalized body aches, sweats without chills, shortness of breath, and the patient says that he feels like he needs to cough but has not been able to do so. The patient states that he lost his sense of taste and smell but it has started to return. He has a past medical history of hypertension. He denies tobacco or illicit drug use. The patient had a room air oxygen saturation of about 80% through his triage. No recent travel or sick contacts at home. The patient is not vaccinated against COVID-19, but no known obvious exposure to anyone positive for COVID-19. He denies any chest pain, lower extremity swelling, nausea, vomiting, diarrhea, abdominal pain. He has not taken anything for his symptoms prior to presentation today. Did jose get Covid vaccination 09/28/2020 Covid PCR positive On 8 to 10 L of nasal cannula oxygen 09/29/2020 On 8 L nasal cannula oxygen Mild distress ID consult requested IV remdesivir started IV dexamethasone to continue 09/30: Patient continues on high flow oxygen at 14 L. Will obtain pulmonary consultation in addition to current management continue remdesivir and dexamethasone. Encourage prone positioning. We will also obtain a CT of the chest to rule out pulmonary embolism. Plan of care discussed with the patient 10/01: Continues on 14 L of oxygen continue to encourage weaning down, pulmonary input is noted. Continue to await CTA. Wean oxygen as tolerated. Continue steroids. Complete remdesivir. Continue to encourage prone positioning. We will give a dose of Lasix today 10/02: Remains on high flow 20 L and 50%. Will give additional dose of Lasix today. Will monitor inflammatory markers. Considering AISLINN the thickness of his neck I will recommend a CPAP/BiPAP at nighttime while in house. He verbalized understanding that he needs to work with insurance company to continue use of this outpatient. 10/03: Patient agreeable to try BiPAP today again reinforced the importance of it considering his history of obstructive sleep apnea. We will continue with additional Lasix monitor BMP. Discussed with infectious disease yesterday started patient on full dose anticoagulation until we will rule out DVT. 10/04: Patient continues to show some improvement continue to use BiPAP. Diuretics for 1 more day. Monitor renal functions. Discussed with nursing staff to ensure appropriate monitor while on BiPAP. 10/05/2020; patient is on high flow oxygen 25 L with FiO2 of 50%. Doppler ultrasound of the lower extremities were negative. I will decrease anticoagulation to prophylactic dose. If no improvement in his oxygen requirement, consider LTAC. Discussed with case management. 10/06/2020: Patient remains on 24 L high flow and FiO2 50%. D-dimer elevated but CT negative for PE and us negative for DVT. Echo unremarkable. Is able to walk to bathroom with mild to moderate dyspnea. Mild dyspnea at rest but able to converse fairly well. Mentating very well. CM is working on LTAC placement. 10/07/2020: Patient remains on 25 L of O2 high flow, FiO2 50%. He is mentating well. He is able to get around and is room and walk to bathroom without difficulty. Is able to converse long without significant respite distress. A febrile. Tolerating diet. Is accepted by [facility] but awaiting insurance approval. We will continue current therapy and wean O2 as tolerated. Pulmonary is following. 10/08/2020: Clinically improving. High flow oxygen could be weaned to 4 L this afternoon. Continue oral Decadron. Encouraged to use incentive spirometer aggressively. Patient is well-appearing. If he continues to improve, could be discharged to home in couple of days. (1) Acute respiratory failure with hypoxia Current Visit: Yes Status: Acute Plan to address problem: Covid positive (2) Bilateral pneumonia Current Visit: Yes Status: Acute Qualifiers: Pneumonia type: due to unspecified organism Lung location: unspecified part of lung Qualified Code(s): J18.9 - Pneumonia, unspecified organism Plan to address problem: Treat as CAP (3) 2019 novel coronavirus infection Current Visit: Yes Status: Acute Plan to address problem: Covid positive ID consult On IV dexamethasone IV remdesivir started as per protocol (4) ELY (acute kidney injury) with vasomotor nehropathy Current Visit: Yes Status: Acute Plan to address problem: Improved (5) Malnutrition Current Visit: Yes Status: Acute Plan to address problem: Dietary supplements (6) morbid obesity (7) AISLINN (8) DVT prophylaxis Current Visit: Yes Status: Acute Plan to address problem: On Lovenox and GI prophylaxis Discussed with the patient in detail at bedside. History Interval history: Oxygen could be weaned to 4 L this afternoon. He is mentating well. He is able to get around and is room and walk to bathroom without difficulty. Is able to converse long without significant respite distress. He has some cough but not significant. Afebrile. Tolerating diet. Is accepted by [facility] but awaiting insurance approval. Hospitalist Physical - Constitutional Vitals: Temp Pulse Resp BP Pulse Ox 98.0 F 67 18 125/76 94 10/08/20 04:52 10/08/20 04:52 10/08/20 04:52 10/08/20 04:52 10/08/20 10:00 General appearance: Present: mild distress, well-nourished, other (Mildly obese) - EENT Eyes: Present: PERRL, EOM intact ENT: clear oral mucosa - Neck Neck: Present: other (No JVD) - Respiratory Respiratory effort: normal Respiratory: bilateral: diminished - Cardiovascular Rhythm: regular - Extremities Extremities: No edema - Abdominal General gastrointestinal: soft, non-tender - Integumentary Integumentary: Absent: rash - Psychiatric Psychiatric: appropriate mood/affect - Neurologic Neurologic: focal deficits HEART Score - HEART Score Troponin: Troponin T 0.013 ng/mL (0.00-0.029) 09/27/20 10:27 Results - Labs CBC & Chem 7: 10/09/20 07:45 10/09/20 07:45 Labs: Laboratory Last Values WBC 10.4 K/mm3 (4.5-11.0) 10/04/20 07:09 RBC 5.00 M/mm3 (3.65-5.03) 10/04/20 07:09 Hgb 14.9 gm/dl (11.8-15.2) 10/04/20 07:09 Hct 44.6 % (35.5-45.6) 10/04/20 07:09 MCV 89 fl (84-94) 10/04/20 07:09 MCH 30 pg (28-32) 10/04/20 07:09 MCHC 33 % (32-34) 10/04/20 07:09 RDW 15.3 % (13.2-15.2) H 10/04/20 07:09 Plt Count 548 K/mm3 (140-440) H 10/04/20 07:09 Add Manual Diff Complete 10/02/20 13:24 Total Counted 100 10/02/20 13:24 Seg Neutrophils % Sole Cutter 09/28/20 06:53 Seg Neuts % (Manual) 89.0 % (40.0-70.0) H 10/02/20 13:24 Band Neutrophils % 1.0 % 09/28/20 06:53 Lymphocytes % (Manual) 2.0 % (13.4-35.0) L 10/02/20 13:24 Reactive Lymphs % (Man) 2.0 % 10/02/20 13:24 Monocytes % (Manual) 3.0 % (0.0-7.3) 10/02/20 13:24 Eosinophils % (Manual) 2.0 % (0.0-4.3) 10/02/20 13:24 Metamyelocytes % 2.0 % 10/02/20 13:24 Nucleated RBC % Not Reportable 10/02/20 13:24 Seg Neutrophils # Man 10.7 K/mm3 (1.8-7.7) H 10/02/20 13:24 Band Neutrophils # 0.0 K/mm3 10/02/20 13:24 Lymphocytes # (Manual) 0.2 K/mm3 (1.2-5.4) L 10/02/20 13:24 Abs React Lymphs (Man) 0.2 K/mm3 10/02/20 13:24 Monocytes # (Manual) 0.4 K/mm3 (0.0-0.8) 10/02/20 13:24 Eosinophils # (Manual) 0.2 K/mm3 (0.0-0.4) 10/02/20 13:24 Basophils # (Manual) 0.0 K/mm3 (0.0-0.1) 10/02/20 13:24 Metamyelocytes # 0.2 K/mm3 10/02/20 13:24 Myelocytes # 0.0 K/mm3 10/02/20 13:24 Promyelocytes # 0.0 K/mm3 10/02/20 13:24 Blast Cells # 0.0 K/mm3 10/02/20 13:24 WBC Morphology Not Reportable 10/02/20 13:24 WBC Morphology TNR 10/02/20 13:24 Hypersegmented Neuts Not Reportable 10/02/20 13:24 Hyposegmented Neuts Not Reportable 10/02/20 13:24 Hypogranular Neuts Not Reportable 10/02/20 13:24 Smudge Cells Not Reportable 10/02/20 13:24 Toxic Granulation Not Reportable 10/02/20 13:24 Toxic Vacuolation Not Reportable 10/02/20 13:24 Dohle Bodies Not Reportable 10/02/20 13:24 Pelger-Huet Anomaly Not Reportable 10/02/20 13:24 Tuan Rods Not Reportable 10/02/20 13:24 Platelet Estimate Consistent w auto 10/02/20 13:24 Clumped Platelets Not Reportable 10/02/20 13:24 Plt Clumps, EDTA Not Reportable 10/02/20 13:24 Large Platelets Not Reportable 10/02/20 13:24 Giant Platelets Not Reportable 10/02/20 13:24 Platelet Satelliting Not Reportable 10/02/20 13:24 Plt Morphology Comment Not Reportable 10/02/20 13:24 RBC Morphology Normal 10/02/20 13:24 Dimorphic RBCs Not Reportable 10/02/20 13:24 Polychromasia Not Reportable 10/02/20 13:24 Hypochromasia Not Reportable 10/02/20 13:24 Poikilocytosis Not Reportable 10/02/20 13:24 Anisocytosis Not Reportable 10/02/20 13:24 Microcytosis Not Reportable 10/02/20 13:24 Macrocytosis Not Reportable 10/02/20 13:24 Spherocytes Not Reportable 10/02/20 13:24 Pappenheimer Bodies Not Reportable 10/02/20 13:24 Sickle Cells Not Reportable 10/02/20 13:24 Target Cells Not Reportable 10/02/20 13:24 Tear Drop Cells Not Reportable 10/02/20 13:24 Ovalocytes Not Reportable 10/02/20 13:24 Helmet Cells Not Reportable 10/02/20 13:24 Calles-Grandy Bodies Not Reportable 10/02/20 13:24 Zion Rings Not Reportable 10/02/20 13:24 Hewitt Cells Not Reportable 10/02/20 13:24 Bite Cells Not Reportable 10/02/20 13:24 Crenated Cell Not Reportable 10/02/20 13:24 Elliptocytes Not Reportable 10/02/20 13:24 Acanthocytes (Spur) Not Reportable 10/02/20 13:24 Rouleaux Not Reportable 10/02/20 13:24 Hemoglobin C Crystals Not Reportable 10/02/20 13:24 Schistocytes Not Reportable 10/02/20 13:24 Malaria parasites Not Reportable 10/02/20 13:24 Marito Bodies Not Reportable 10/02/20 13:24 Hem Pathologist Commnt No 10/02/20 13:24 PT 14.6 Sec. (12.2-14.9) 09/27/20 10: INR 1.09 (0.87-1.13) 09/27/20 10: APTT 29.8 Sec. (24.2-36.6) 09/27/20 10:27 D-Dimer 143.22 ng/mlDDU (0-234) 10/06/20 06:03 ABG pH 7.473 (7.320-7.450) H 10/02/20 14:38 POC ABG pCO2 39.4 mmHg (32.0-48.0) 10/02/20 14:38 POC ABG pO2 80.5 mmHg (83-108) L 10/02/20 14:38 POC ABG HCO3 28.2 10/02/20 14:38 ABG O2 Saturation 95.7 (0-100) 10/02/20 14:38 POC ABG Base Excess 4.4 10/02/20 14:38 ABG Hemoglobin 13.8 (12.0-17.5) 10/02/20 14:38 ABG Oxyhemoglobin 94.8 (94-98) 10/02/20 14:38 ABG Methemoglobin 0.3 (0.0-1.5) 10/02/20 14:38 ABG Sodium 136.0 mmol/L (136.0-145.0) 10/02/20 14:38 ABG Potassium 3.5 mmol/L (3.40-4.50) 10/02/20 14:38 ABG Chloride 104.0 mmol/L (98-107) 10/02/20 14:38 ABG Glucose 125 mg/dL (65-95) H 10/02/20 14:38 Carboxyhemoglobin 0.6 (0.5-1.5) 10/02/20 14:38 FiO2 % 55.0 10/02/20 14:38 Sodium 143 mmol/L (137-145) 10/04/20 07:09 Potassium 4.3 mmol/L (3.6-5.0) 10/04/20 07:09 Chloride 105.5 mmol/L (98-107) 10/04/20 07:09 Carbon Dioxide 28 mmol/L (22-30) 10/04/20 07:09 Anion Gap 14 mmol/L 10/04/20 07:09 BUN 25 mg/dL (9-20) H 10/04/20 07:09 Creatinine 1.1 mg/dL (0.8-1.3) 10/04/20 07:09 Estimated GFR > 60 ml/min 10/04/20 07:09 BUN/Creatinine Ratio 23 % 10/04/20 07:09 Glucose 141 mg/dL (75-100) H 10/06/20 06:03 Hemoglobin A1c 7.5 % (4-6) H 09/28/20 06:53 Lactic Acid 1.30 mmol/L (0.7-2.0) 09/27/20 10:27 Calcium 8.8 mg/dL (8.4-10.2) 10/04/20 07:09 Ferritin 213.2 ng/mL (30.0-300.0) 10/06/20 06:03 Total Bilirubin 0.30 mg/dL (0.1-1.2) 10/03/20 07:31 AST 12 units/L (5-40) 10/03/20 07:31 ALT 33 units/L (7-56) 10/03/20 07:31 Alkaline Phosphatase 85 units/L (35-129) 10/03/20 07:31 Lactate Dehydrogenase 202 units/L (91-180) H 10/06/20 06:03 Troponin T 0.013 ng/mL (0.00-0.029) 09/27/20 10:27 C-Reactive Protein 0.30 mg/dL (0.00-1.30) 10/07/20 10:02 NT-Pro-B Natriuret Pep 505.7 pg/mL (0-900) 09/27/20 10:27 Total Protein 6.5 g/dL (6.3-8.2) 10/03/20 07:31 Albumin 3.0 g/dL (3.9-5) L 10/03/20 07:31 Albumin/Globulin Ratio 0.9 % 10/03/20 07:31 Procalcitonin 0.85 ng/mL (<0.15) 09/27/20 10:27 Arterial Blood Glucose 125 mg/dL (65-95) H 10/02/20 14:38 Arterial Blood Ionized Calcium 4.5 mg/dL (4.6-5.3) L 10/02/20 14:38 Coronavirus (PCR) Positive (Negative) A 09/27/20 11:59 Vazquez/IV: Voiding Method Toilet Active Medications - Current Medications Current Medications: Generic Name Dose Route Start Last Admin Trade Name Freq PRN Reason Stop Dose Admin Acetaminophen 650 mg 09/27/20 15:32 Acetaminophen 325 Mg Tab PO Q4H PRN Pain MILD(1-3)/Fever >100.5/COOPRE Alprazolam 0.25 mg 09/30/20 20:00 10/03/20 21:23 Alprazolam 0.25 Mg Tab PO 0.25 mg TID PRN Administration Anxiety Ascorbic Acid 500 mg 09/30/20 18:00 10/08/20 09:31 Ascorbic Acid 500 Mg Tab PO 500 mg QDAY DEQUAN Administration Enoxaparin Sodium 40 mg 10/05/20 10:00 10/08/20 09:31 Enoxaparin 40 Mg/0.4 Ml Inj SUB-Q 40 mg Q12HR DEQUAN Administration Famotidine 20 mg 09/27/20 22:00 10/08/20 09:31 Famotidine 20 Mg Tab PO 20 mg BID DEQUAN Administration Hydromorphone HCl 0.5 mg 09/27/20 15:32 Hydromorphone 1 Mg/1 Ml Inj IV Q3H PRN Pain , Severe (7-10) Melatonin 5 mg 10/05/20 21:00 10/07/20 22:51 Melatonin 5 Mg Tab PO 5 mg QHS PRN Administration Sleep Metoclopramide HCl 10 mg 09/27/20 15:32 Metoclopramide 10 Mg/2 Ml Inj IV Q6H PRN Nausea And Vomiting Ondansetron HCl 4 mg 09/27/20 15:32 Ondansetron 4 Mg/2 Ml Inj IV Q8H PRN Nausea And Vomiting Oxycodone/Acetaminophen 1 tab 09/27/20 15:32 10/04/20 22:10 Oxycodone /Acetaminophen 5-325mg Tab PO 1 tab Q6H PRN Administration Pain, Moderate (4-6) Sodium Chloride 10 ml 09/27/20 22:00 10/08/20 09:33 Sodium Chloride 0.9% 10 Ml Flush Syringe IV 10 ml BID DEQUAN Administration Sodium Chloride 10 ml 09/27/20 15:32 Sodium Chloride 0.9% 10 Ml Flush Syringe IV PRN PRN LINE FLUSH Zinc Sulfate 220 mg 09/30/20 22:00 10/08/20 09:31 Zinc Sulfate 220 Mg Cap PO 220 mg BID DEQUAN Administration Zolpidem Tartrate 5 mg 09/30/20 22:00 10/03/20 21:23 Zolpidem 5 Mg Tab PO 5 mg QHS PRN Administration Sleep Nutrition/Malnutrition Assess - Dietary Evaluation Nutrition/Malnutrition Findings: Nutrition Notes Start: 09/30/20 11:22 Freq: Status: Active Protocol: Document 10/07/20 11:46 (Rec: 10/07/20 11:47 [id number]) Nutrition Notes Initial or Follow up Brief Note Current Diagnosis Acute Kidney Injury, Respiratory Failure Other Pertinent Diagnosis pneu, COVID(+) Current Diet Regular Subjective/Other Information FU for intakes. Pt did not answer phone x4. Per RN, pt always on phone with family/ friends. Pt continues to eat 100% of meals. Nutrition Intervention Revisit per MD consult or patient Sign Off request:
[2020-10-08] MEDS: MELATONIN 5 MG TAB PO PRN (23:12)
[2020-10-09 08:54] LABS: Alanine Aminotransferase 21 units/L (7-56); Albumin 3.1 g/dL (3.9-5); BUN/Creatinine Ratio 17; Blood Urea Nitrogen 15 mg/dL (9-20); Calcium 8.4 mg/dL (8.4-10.2); Hemolysis Index 4
[2020-10-09 09:21] LABS: Basophils # (Auto) 0.1 K/mm3 (0.0-0.1); Basophils % (Auto) 0.9 % (0.0-1.8); Eosinophils # (Auto) 0.1 K/mm3 (0.0-0.4); Eosinophils % (Auto) 1.5 % (0.0-4.3); Hematocrit 39.7 % (35.5-45.6); Hemoglobin 13.4 gm/dl (11.8-15.2); Lymphocytes # (Auto) 0.8 K/mm3 (1.2-5.4); Lymphocytes % (Auto) 9.9 % (13.4-35.0); Mean Corpuscular HGB Conc 34 % (32-34); Mean Corpuscular Volume 89 fl (84-94); Monocytes # (Auto) 0.6 K/mm3 (0.0-0.8); Monocytes % (Auto) 6.5 % (0.0-7.3); Platelet Count 312 K/mm3 (140-440); Red Blood Count 4.48 M/mm3 (3.65-5.03)
[2020-10-09] MEDS: ASCORBIC ACID 500 MG TAB PO SCH (09:26)
[2020-10-09] MEDS: ZINC SULFATE 220 MG CAP PO SCH ×2 (09:26→22:04)
[2020-10-09] MEDS: FAMOTIDINE 20 MG TAB PO SCH ×2 (09:26→22:03)
[2020-10-09] MEDS: ENOXAPARIN 40 MG/0.4 ML INJ SUB-Q SCH ×2 (09:26→22:04)
[2020-10-09] MEDS: DEXAMETHASONE 4 MG TAB PO SCH (09:26)
--- NOTE | 2020-10-09 10:05 | Progress Note ---
Assessment and Plan Acute hypoxemic respiratory failure Bilateral pneumonia COVID-19 infection Obesity Hypertension Elevated serum inflammatory markers to include LDH, D-dimers and ferritin Hyponatremia Acute kidney injury Anxiety - continue to wean supplemental oxygen to keep O2 sats > 92% - home oxygen evaluation & discharge planning ok pulmonary-farrell - no new issues otherwise, continue care as below; - continue systemic steroids for severe COVID-19 infection empirically - follow repeat COVID tests results - continue zinc and vitamin C supplementation - Monitor inflammatory markers per facility protocol - ferritin, Ddimer, CRP - therapeutic anticoagulation per system Protocol based on d-dimer and clinical considerations (VTE prophylaxis) - Continue contact and airborne isolation - complete empiric CAP AB's with Rocephin and Zithromax - continue Bronchodilators (KAREN) with pulm hygiene per RT - continue to avoid nephrotoxins, renally dose all medications - mobility protocols to prevent pressure ulcers - PT/OT as tolerated - prn analgesia per pain score - Wound care per RN/WCT - continue accuchecks with glycemic control per SSI for target blood glucose < 180 mg/dL - tobacco abstinence strongly counseled at the bedside - GI & VTE prophylaxis - Flu & pneumovax per protocol - Pulmonary out patient follow up for PFTs and optimization of respiratory status - continue other care per attending / other consultants ... re-evaluate in am & prn Subjective Date of service: 10/09/20 Principal diagnosis: Bilateral pneumonia, COVID pneumonia, acute hypoxic resp failure Interval history: Patient is seen today for: Acute hypoxemic respiratory failure; Bilateral pneumonia; COVID-19 infection; Obesity; Acute kidney injury Seen and examined at bedside; 24hour events reviewed; nursing and respiratory care staff consulted; no adverse overnight events reported to me; resting peacefully in bed; remains on 4L NC; No N/V/F/C Objective Vital Signs - 12hr 10/08/20 10/08/20 23:45 23:48 Temperature 98.8 F Pulse Rate 80 Respiratory 14 Rate Blood Pressure 127/71 [Left] O2 Sat by Pulse 95 95 Oximetry Constitutional: no acute distress, alert, other (middle aged obese male with mild resp distress at rest) Eyes: non-icteric ENT: oropharynx moist Neck: supple, no lymphadenopathy Effort: mildly labored Ascultation: Bilateral: diminished breath sounds, rhonchi Percussion: Bilateral: not dull Cardiovascular: regular rate and rhythm, other (S1,S2) Gastrointestinal: normoactive bowel sounds, soft, non-tender, non-distended (protuberant) Integumentary: normal Extremities: no cyanosis, no edema, pulses normal Neurologic: normal mental status, non-focal exam, pupils equal and round, CN II- XII normal, motor strength normal and Psychiatric: mood appropriate, affect normal CBC and BMP: 10/09/20 07:45 10/09/20 07:45 ABG, PT/INR, D-dimer: ABG ABG pH 7.473 (7.320-7.450) H 10/02/20 14:38 POC ABG pCO2 39.4 mmHg (32.0-48.0) 10/02/20 14:38 POC ABG pO2 80.5 mmHg (83-108) L 10/02/20 14:38 POC ABG HCO3 28.2 10/02/20 14:38 ABG O2 Saturation 95.7 (0-100) 10/02/20 14:38 PT/INR, D-dimer PT 14.6 Sec. (12.2-14.9) 09/27/20 10:27 INR 1.09 (0.87-1.13) 09/27/20 10:27 D-Dimer 171.18 ng/mlDDU (0-234) 10/09/20 07:45 Abnormal lab findings: Abnormal Labs 09/27/20 09/27/20 09/27/20 10:27 10:27 10:27 WBC RDW Plt Count Lymph % (Auto) Lymph # (Auto) Seg Neutrophils % Seg Neuts % (Manual) 94.0 H Lymphocytes % (Manual) 1.0 L Seg Neutrophils # Man 9.2 H Lymphocytes # (Manual) 0.1 L D-Dimer 392.32 H ABG pH POC ABG pO2 ABG Glucose Sodium 125 L Chloride 88.5 L BUN Creatinine 1.4 H Glucose 176 H Hemoglobin A1c Calcium Ferritin AST 48 H Lactate Dehydrogenase 396 H C-Reactive Protein 24.60 H Total Protein Albumin 3.1 L Arterial Blood Glucose Arterial Blood Ionized Calcium Coronavirus (PCR) 09/27/20 09/27/20 09/28/20 10:27 11:59 06:53 WBC 11.2 H RDW Plt Count Lymph % (Auto) Lymph # (Auto) Seg Neutrophils % Seg Neuts % (Manual) 98.0 H Lymphocytes % (Manual) Seg Neutrophils # Man 11.0 H Lymphocytes # (Manual) 0.0 L D-Dimer ABG pH POC ABG pO2 ABG Glucose Sodium Chloride BUN Creatinine Glucose Hemoglobin A1c Calcium Ferritin 413.7 H AST Lactate Dehydrogenase C-Reactive Protein Total Protein Albumin Arterial Blood Glucose Arterial Blood Ionized Calcium Coronavirus (PCR) Positive A 09/28/20 09/28/20 09/30/20 06:53 06:53 13:33 WBC RDW Plt Count Lymph % (Auto) Lymph # (Auto) Seg Neutrophils % Seg Neuts % (Manual) Lymphocytes % (Manual) Seg Neutrophils # Man Lymphocytes # (Manual) D-Dimer > 77628 H ABG pH POC ABG pO2 ABG Glucose Sodium 133 L D Chloride 94.3 L BUN 22 H Creatinine Glucose 168 H Hemoglobin A1c 7.5 H Calcium Ferritin AST Lactate Dehydrogenase C-Reactive Protein Total Protein Albumin 3.8 L Arterial Blood Glucose Arterial Blood Ionized Calcium Coronavirus (PCR) 09/30/20 09/30/20 10/01/20 13:33 13:33 07:11 WBC RDW Plt Count Lymph % (Auto) Lymph # (Auto) Seg Neutrophils % Seg Neuts % (Manual) Lymphocytes % (Manual) Seg Neutrophils # Man Lymphocytes # (Manual) D-Dimer ABG pH POC ABG pO2 ABG Glucose Sodium Chloride BUN Creatinine Glucose 195 H 126 H Hemoglobin A1c Calcium Ferritin 381.2 H AST Lactate Dehydrogenase 413 H C-Reactive Protein 8.00 H Total Protein 6.0 L Albumin 3.5 L Arterial Blood Glucose Arterial Blood Ionized Calcium Coronavirus (PCR) 10/02/20 10/02/20 10/02/20 05:10 13:24 14:38 WBC 12.0 H RDW Plt Count 481 H Lymph % (Auto) Lymph # (Auto) Seg Neutrophils % Seg Neuts % (Manual) 89.0 H Lymphocytes % (Manual) 2.0 L Seg Neutrophils # Man 10.7 H Lymphocytes # (Manual) 0.2 L D-Dimer ABG pH 7.473 H POC ABG pO2 80.5 L ABG Glucose 125 H Sodium Chloride BUN Creatinine Glucose 139 H Hemoglobin A1c Calcium Ferritin AST Lactate Dehydrogenase C-Reactive Protein Total Protein Albumin 3.2 L Arterial Blood Glucose 125 H Arterial Blood Ionized Calcium 4.5 L Coronavirus (PCR) 10/03/20 10/04/2010/04/21 07:31 07:09 07:09 WBC RDW 15.3 H Plt Count 548 H Lymph % (Auto) Lymph # (Auto) Seg Neutrophils % Seg Neuts % (Manual) Lymphocytes % (Manual) Seg Neutrophils # Man Lymphocytes # (Manual) D-Dimer ABG pH POC ABG pO2 ABG Glucose Sodium Chloride BUN 21 H 25 H Creatinine Glucose 148 H 113 H Hemoglobin A1c Calcium 8.3 L Ferritin AST Lactate Dehydrogenase 271 H C-Reactive Protein 1.50 H Total Protein Albumin 3.0 L Arterial Blood Glucose Arterial Blood Ionized Calcium Coronavirus (PCR) 10/05/20 10/06/20 10/09/20 07:04 06:03 07:45 WBC RDW Plt Count Lymph % (Auto) 9.9 L Lymph # (Auto) 0.8 L Seg Neutrophils % 81.2 H Seg Neuts % (Manual) Lymphocytes % (Manual) Seg Neutrophils # Man Lymphocytes # (Manual) D-Dimer ABG pH POC ABG pO2 ABG Glucose Sodium Chloride BUN Creatinine Glucose 108 H 141 H Hemoglobin A1c Calcium Ferritin AST Lactate Dehydrogenase 296 H 202 H C-Reactive Protein Total Protein Albumin Arterial Blood Glucose Arterial Blood Ionized Calcium Coronavirus (PCR) 10/09/20 07:45 WBC RDW Plt Count Lymph % (Auto) Lymph # (Auto) Seg Neutrophils % Seg Neuts % (Manual) Lymphocytes % (Manual) Seg Neutrophils # Man Lymphocytes # (Manual) D-Dimer ABG pH POC ABG pO2 ABG Glucose Sodium Chloride BUN Creatinine Glucose 108 H Hemoglobin A1c Calcium Ferritin AST Lactate Dehydrogenase C-Reactive Protein Total Protein 5.6 L Albumin 3.1 L Arterial Blood Glucose Arterial Blood Ionized Calcium Coronavirus (PCR) Chest x-ray: pending Allied health notes reviewed: nursing
--- NOTE | 2020-10-09 17:38 | Progress Note ---
Assessment and Plan Assessment and plan: This is a 54-year-old male presents to the emergency department with complaint of feeling sick for the past week. He says that he has been having generalized body aches, sweats without chills, shortness of breath, and the patient says that he feels like he needs to cough but has not been able to do so. The patient states that he lost his sense of taste and smell but it has started to return. He has a past medical history of hypertension. He denies tobacco or illicit drug use. The patient had a room air oxygen saturation of about 80% through his triage. No recent travel or sick contacts at home. The patient is not vaccinated against COVID-19, but no known obvious exposure to anyone positive for COVID-19. He denies any chest pain, lower extremity swelling, nausea, vomiting, diarrhea, abdominal pain. He has not taken anything for his symptoms prior to presentation today. Did jose get Covid vaccination 09/28/2020 Covid PCR positive On 8 to 10 L of nasal cannula oxygen 09/29/2020 On 8 L nasal cannula oxygen Mild distress ID consult requested IV remdesivir started IV dexamethasone to continue 09/30: Patient continues on high flow oxygen at 14 L. Will obtain pulmonary consultation in addition to current management continue remdesivir and dexamethasone. Encourage prone positioning. We will also obtain a CT of the chest to rule out pulmonary embolism. Plan of care discussed with the patient 10/01: Continues on 14 L of oxygen continue to encourage weaning down, pulmonary input is noted. Continue to await CTA. Wean oxygen as tolerated. Continue steroids. Complete remdesivir. Continue to encourage prone positioning. We will give a dose of Lasix today 10/02: Remains on high flow 20 L and 50%. Will give additional dose of Lasix today. Will monitor inflammatory markers. Considering AISLINN the thickness of his neck I will recommend a CPAP/BiPAP at nighttime while in house. He verbalized understanding that he needs to work with insurance company to continue use of this outpatient. 10/03: Patient agreeable to try BiPAP today again reinforced the importance of it considering his history of obstructive sleep apnea. We will continue with additional Lasix monitor BMP. Discussed with infectious disease yesterday started patient on full dose anticoagulation until we will rule out DVT. 10/04: Patient continues to show some improvement continue to use BiPAP. Diuretics for 1 more day. Monitor renal functions. Discussed with nursing staff to ensure appropriate monitor while on BiPAP. 10/05/2020; patient is on high flow oxygen 25 L with FiO2 of 50%. Doppler ultrasound of the lower extremities were negative. I will decrease anticoagulation to prophylactic dose. If no improvement in his oxygen requirement, consider LTAC. Discussed with case management. 10/06/2020: Patient remains on 24 L high flow and FiO2 50%. D-dimer elevated but CT negative for PE and us negative for DVT. Echo unremarkable. Is able to walk to bathroom with mild to moderate dyspnea. Mild dyspnea at rest but able to converse fairly well. Mentating very well. CM is working on LTAC placement. 10/07/2020: Patient remains on 25 L of O2 high flow, FiO2 50%. He is mentating well. He is able to get around and is room and walk to bathroom without difficulty. Is able to converse long without significant respite distress. A febrile. Tolerating diet. Is accepted by [facility] but awaiting insurance approval. We will continue current therapy and wean O2 as tolerated. Pulmonary is following. 10/08/2020: Clinically improving. High flow oxygen could be weaned to 4 L this afternoon. Continue oral Decadron. Encouraged to use incentive spirometer aggressively. Patient is well-appearing. If he continues to improve, could be discharged to home in couple of days. 10/09/2020: Patient remains on 4 L of O2 since yesterday. There is no acute respite distress. Is able to walk around in the room without significant dys pnea on exertion. Markers of inflammation close to normal, CRP 0.3 and a normal D-dimer. Continue Decadron orally. Encouraged to use incentive spirometer aggressively. The patient continues to improve, could be discharged in couple of days home. (1) Acute respiratory failure with hypoxia Current Visit: Yes Status: Acute Plan to address problem: Covid positive (2) Bilateral pneumonia Current Visit: Yes Status: Acute Qualifiers: Pneumonia type: due to unspecified organism Lung location: unspecified part of lung Qualified Code(s): J18.9 - Pneumonia, unspecified organism Plan to address problem: Treat as CAP (3) 2019 novel coronavirus infection Current Visit: Yes Status: Acute Plan to address problem: Covid positive ID consult On IV dexamethasone IV remdesivir started as per protocol (4) ELY (acute kidney injury) with vasomotor nehropathy Current Visit: Yes Status: Acute Plan to address problem: Improved (5) Malnutrition Current Visit: Yes Status: Acute Plan to address problem: Dietary supplements (6) morbid obesity (7) AISLINN (8) DVT prophylaxis Current Visit: Yes Status: Acute Plan to address problem: On Lovenox and GI prophylaxis Discussed with the patient in detail at bedside. History Interval history: Oxygen could be weaned to 4 L yesterday and remains on 4 L since. He is mentating well. He is able to get around and is room and walk to bathroom without difficulty. Is able to converse long without significant respite distress. He has some cough but not significant. Afebrile. Tolerating diet. Hospitalist Physical - Constitutional Vitals: Temp Pulse Resp BP Pulse Ox 98.0 F 78 24 137/84 92 10/09/20 11:33 10/09/20 11:33 10/09/20 11:33 10/09/20 11:33 10/09/20 11:33 General appearance: Present: mild distress, well-nourished, other (Mildly obese) - EENT Eyes: Present: PERRL, EOM intact ENT: clear oral mucosa - Neck Neck: Present: supple, masses or JVD - Respiratory Respiratory effort: normal Respiratory: bilateral: diminished - Cardiovascular Rhythm: regular - Extremities Extremities: No edema Peripheral Pulses: within normal limits - Abdominal General gastrointestinal: soft, non-tender, normal bowel sounds - Integumentary Integumentary: Absent: rash - Psychiatric Psychiatric: appropriate mood/affect - Neurologic Neurologic: no focal deficits HEART Score - HEART Score Troponin: Troponin T 0.013 ng/mL (0.00-0.029) 09/27/20 10:27 Results - Labs CBC & Chem 7: 10/09/20 07:45 10/09/20 07:45 Labs: Laboratory Last Values WBC 8.4 K/mm3 (4.5-11.0) 10/09/20 07:45 RBC 4.48 M/mm3 (3.65-5.03) 10/09/20 07:45 Hgb 13.4 gm/dl (11.8-15.2) 10/09/20 07:45 Hct 39.7 % (35.5-45.6) 10/09/20 07:45 MCV 89 fl (84-94) 10/09/20 07:45 MCH 30 pg (28-32) 10/09/20 07:45 MCHC 34 % (32-34) 10/09/20 07:45 RDW 15.0 % (13.2-15.2) 10/09/20 07:45 Plt Count 312 K/mm3 (140-440) 10/09/20 07:45 Lymph % (Auto) 9.9 % (13.4-35.0) L 10/09/20 07:45 Calloway % (Auto) 6.5 % (0.0-7.3) 10/09/20 07:45 Eos % (Auto) 1.5 % (0.0-4.3) 10/09/20 07:45 Baso % (Auto) 0.9 % (0.0-1.8) 10/09/20 07:45 Lymph # (Auto) 0.8 K/mm3 (1.2-5.4) L 10/09/20 07:45 Calloway # (Auto) 0.6 K/mm3 (0.0-0.8) 10/09/20 07:45 Eos # (Auto) 0.1 K/mm3 (0.0-0.4) 10/09/20 07:45 Baso # (Auto) 0.1 K/mm3 (0.0-0.1) 10/09/20 07:45 Add Manual Diff Complete 10/02/20 13:24 Total Counted 100 10/02/20 13:24 Seg Neutrophils % 81.2 % (40.0-70.0) H 10/09/20 07:45 Seg Neuts % (Manual) 89.0 % (40.0-70.0) H 10/02/20 13:24 Band Neutrophils % 1.0 % 09/28/20 06:53 Lymphocytes % (Manual) 2.0 % (13.4-35.0) L 10/02/20 13:24 Reactive Lymphs % (Man) 2.0 % 10/02/20 13:24 Monocytes % (Manual) 3.0 % (0.0-7.3) 10/02/20 13:24 Eosinophils % (Manual) 2.0 % (0.0-4.3) 10/02/20 13:24 Metamyelocytes % 2.0 % 10/02/20 13:24 Nucleated RBC % Not Reportable 10/02/20 13:24 Seg Neutrophils # 6.8 K/mm3 (1.8-7.7) 10/09/20 07:45 Seg Neutrophils # Man 10.7 K/mm3 (1.8-7.7) H 10/02/20 13:24 Band Neutrophils # 0.0 K/mm3 10/02/20 13:24 Lymphocytes # (Manual) 0.2 K/mm3 (1.2-5.4) L 10/02/20 13:24 Abs React Lymphs (Man) 0.2 K/mm3 10/02/20 13:24 Monocytes # (Manual) 0.4 K/mm3 (0.0-0.8) 10/02/20 13:24 Eosinophils # (Manual) 0.2 K/mm3 (0.0-0.4) 10/02/20 13:24 Basophils # (Manual) 0.0 K/mm3 (0.0-0.1) 10/02/20 13:24 Metamyelocytes # 0.2 K/mm3 10/02/20 13:24 Myelocytes # 0.0 K/mm3 10/02/20 13:24 Promyelocytes # 0.0 K/mm3 10/02/20 13:24 Blast Cells # 0.0 K/mm3 10/02/20 13:24 WBC Morphology Not Reportable 10/02/20 13:24 WBC Morphology TNR 10/02/20 13:24 Hypersegmented Neuts Not Reportable 10/02/20 13:24 Hyposegmented Neuts Not Reportable 10/02/20 13:24 Hypogranular Neuts Not Reportable 10/02/20 13:24 Smudge Cells Not Reportable 10/02/20 13:24 Toxic Granulation Not Reportable 10/02/20 13:24 Toxic Vacuolation Not Reportable 10/02/20 13:24 Dohle Bodies Not Reportable 10/02/20 13:24 Pelger-Huet Anomaly Not Reportable 10/02/20 13:24 Tuan Rods Not Reportable 10/02/20 13:24 Platelet Estimate Consistent w auto 10/02/20 13:24 Clumped Platelets Not Reportable 10/02/20 13:24 Plt Clumps, EDTA Not Reportable 10/02/20 13:24 Large Platelets Not Reportable 10/02/20 13:24 Giant Platelets Not Reportable 10/02/20 13:24 Platelet Satelliting Not Reportable 10/02/20 13:24 Plt Morphology Comment Not Reportable 10/02/20 13:24 RBC Morphology Normal 10/02/20 13:24 Dimorphic RBCs Not Reportable 10/02/20 13:24 Polychromasia Not Reportable 10/02/20 13:24 Hypochromasia Not Reportable 10/02/20 13:24 Poikilocytosis Not Reportable 10/02/20 13:24 Anisocytosis Not Reportable 10/02/20 13:24 Microcytosis Not Reportable 10/02/20 13:24 Macrocytosis Not Reportable 10/02/20 13:24 Spherocytes Not Reportable 10/02/20 13:24 Pappenheimer Bodies Not Reportable 10/02/20 13:24 Sickle Cells Not Reportable 10/02/20 13:24 Target Cells Not Reportable 10/02/20 13:24 Tear Drop Cells Not Reportable 10/02/20 13:24 Ovalocytes Not Reportable 10/02/20 13:24 Helmet Cells Not Reportable 10/02/20 13:24 [place] Bodies Not Reportable 10/02/20 13:24 [place] Rings Not Reportable 10/02/20 13:24 Clem Cells Not Reportable 10/02/20 13:24 Bite Cells Not Reportable 10/02/20 13:24 Crenated Cell Not Reportable 10/02/20 13:24 Elliptocytes Not Reportable 10/02/20 13:24 Acanthocytes (Spur) Not Reportable 10/02/20 13:24 Rouleaux Not Reportable 10/02/20 13:24 Hemoglobin C Crystals Not Reportable 10/02/20 13:24 Schistocytes Not Reportable 10/02/20 13:24 Malaria parasites Not Reportable 10/02/20 13:24 Marito Bodies Not Reportable 10/02/20 13:24 Hem Pathologist Commnt No 10/02/20 13:24 PT 14.6 Sec. (12.2-14.9) 09/27/20 10:27 INR 1.09 (0.87-1.13) 09/27/20 10:27 APTT 29.8 Sec. (24.2-36.6) 09/27/20 10:27 D-Dimer 171.18 ng/mlDDU (0-234) 10/09/20 07:45 ABG pH 7.473 (7.320-7.450) H 10/02/20 14:38 POC ABG pCO2 39.4 mmHg (32.0-48.0) 10/02/20 14:38 POC ABG pO2 80.5 mmHg (83-108) L 10/02/20 14:38 POC ABG HCO3 28.2 10/02/20 14:38 ABG O2 Saturation 95.7 (0-100) 10/02/20 14:38 POC ABG Base Excess 4.4 10/02/20 14:38 ABG Hemoglobin 13.8 (12.0-17.5) 10/02/20 14:38 ABG Oxyhemoglobin 94.8 (94-98) 10/02/20 14:38 ABG Methemoglobin 0.3 (0.0-1.5) 10/02/20 14:38 ABG Sodium 136.0 mmol/L (136.0-145.0) 10/02/20 14:38 ABG Potassium 3.5 mmol/L (3.40-4.50) 10/02/20 14:38 ABG Chloride 104.0 mmol/L (98-107) 10/02/20 14:38 ABG Glucose 125 mg/dL (65-95) H 10/02/20 14:38 Carboxyhemoglobin 0.6 (0.5-1.5) 10/02/20 14:38 FiO2 % 55.0 10/02/20 14:38 Sodium 139 mmol/L (137-145) 10/09/20 07:45 Potassium 4.0 mmol/L (3.6-5.0) 10/09/20 07:45 Chloride 103.4 mmol/L (98-107) 10/09/20 07:45 Carbon Dioxide 29 mmol/L (22-30) 10/09/20 07:45 Anion Gap 11 mmol/L 10/09/20 07:45 BUN 15 mg/dL (9-20) 10/09/20 07:45 Creatinine 0.9 mg/dL (0.8-1.3) 10/09/20 07:45 Estimated GFR > 60 ml/min 10/09/20 07:45 BUN/Creatinine Ratio 17 % 10/09/20 07:45 Glucose 108 mg/dL (75-100) H 10/09/20 07:45 Hemoglobin A1c 7.5 % (4-6) H 09/28/20 06:53 Lactic Acid 1.30 mmol/L (0.7-2.0) 09/27/20 10:27 Calcium 8.4 mg/dL (8.4-10.2) 10/09/20 07:45 Ferritin 209.7 ng/mL (30.0-300.0) 10/09/20 07:45 Total Bilirubin 0.40 mg/dL (0.1-1.2) 10/09/20 07:45 AST 11 units/L (5-40) 10/09/20 07:45 ALT 21 units/L (7-56) 10/09/20 07:45 Alkaline Phosphatase 66 units/L (35-129) 10/09/20 07:45 Lactate Dehydrogenase 202 units/L (91-180) H 10/06/20 06:03 Troponin T 0.013 ng/mL (0.00-0.029) 09/27/20 10:27 C-Reactive Protein 0.30 mg/dL (0.00-1.30) 10/07/20 10:02 NT-Pro-B Natriuret Pep 106.9 pg/mL (0-900) 10/09/20 07:45 Total Protein 5.6 g/dL (6.3-8.2) L 10/09/20 07:45 Albumin 3.1 g/dL (3.9-5) L 10/09/20 07:45 Albumin/Globulin Ratio 1.2 % 10/09/20 07:45 Procalcitonin 0.85 ng/mL (<0.15) 09/27/20 10:27 Arterial Blood Glucose 125 mg/dL (65-95) H 10/02/20 14:38 Arterial Blood Ionized Calcium 4.5 mg/dL (4.6-5.3) L 10/02/20 14:38 Coronavirus (PCR) Positive (Negative) A 09/27/20 11:59 Vazquez/IV: Voiding Method Toilet Active Medications - Current Medications Current Medications: Generic Name Dose Route Start Last Admin Trade Name Freq PRN Reason Stop Dose Admin Acetaminophen 650 mg 09/27/20 15:32 Acetaminophen 325 Mg Tab PO Q4H PRN Pain MILD(1-3)/Fever >100.5/COOPER Alprazolam 0.25 mg 09/30/20 20:00 10/03/20 21:23 Alprazolam 0.25 Mg Tab PO 0.25 mg TID PRN Administration Anxiety Ascorbic Acid 500 mg 09/30/20 18:00 10/09/20 09:26 Ascorbic Acid 500 Mg Tab PO 500 mg QDAY DEQUAN Administration Dexamethasone 8 mg 10/09/20 10:00 10/09/20 09:26 Dexamethasone 4 Mg Tab PO 8 mg DAILY DEQUAN Administration Enoxaparin Sodium 40 mg 10/05/20 10:00 10/09/20 09:26 Enoxaparin 40 Mg/0.4 Ml Inj SUB-Q 40 mg Q12HR DEQUAN Administration Famotidine 20 mg 09/27/20 22:00 10/09/20 09:26 Famotidine 20 Mg Tab PO 20 mg BID DEQUAN Administration Melatonin 5 mg 10/05/20 21:00 10/08/20 23:12 Melatonin 5 Mg Tab PO 5 mg QHS PRN Administration Sleep Metoclopramide HCl 10 mg 09/27/20 15:32 Metoclopramide 10 Mg/2 Ml Inj IV Q6H PRN Nausea And Vomiting Ondansetron HCl 4 mg 09/27/20 15:32 Ondansetron 4 Mg/2 Ml Inj IV Q8H PRN Nausea And Vomiting Oxycodone/Acetaminophen 1 tab 09/27/20 15:32 10/04/20 22:10 Oxycodone /Acetaminophen 5-325mg Tab PO 1 tab Q6H PRN Administration Pain, Moderate (4-6) Sodium Chloride 10 ml 09/27/20 22:00 10/08/20 23:13 Sodium Chloride 0.9% 10 Ml Flush Syringe IV 10 ml BID DEQUAN Administration Sodium Chloride 10 ml 09/27/20 15:32 Sodium Chloride 0.9% 10 Ml Flush Syringe IV PRN PRN LINE FLUSH Zinc Sulfate 220 mg 09/30/20 22:00 10/09/20 09:26 Zinc Sulfate 220 Mg Cap PO 220 mg BID DEQUAN Administration Zolpidem Tartrate 5 mg 09/30/20 22:00 10/03/20 21:23 Zolpidem 5 Mg Tab PO 5 mg QHS PRN Administration Sleep Nutrition/Malnutrition Assess - Dietary Evaluation Nutrition/Malnutrition Findings: Nutrition Notes Start: 09/30/20 11:22 Freq: Status: Active Protocol: Document 10/07/20 11:46 (Rec: 10/07/20 11:47 [email or web address]) Nutrition Notes Initial or Follow up Brief Note Current Diagnosis Acute Kidney Injury, Respiratory Failure Other Pertinent Diagnosis pneu, COVID(+) Current Diet Regular Subjective/Other Information FU for intakes. Pt did not answer phone x4. Per RN, pt always on phone with family/ friends. Pt continues to eat 100% of meals. Nutrition Intervention Revisit per MD consult or patient Sign Off request:
[2020-10-09] MEDS: MELATONIN 5 MG TAB PO PRN (22:04)
[2020-10-10] MEDS: DEXAMETHASONE 4 MG TAB PO SCH (10:33)
[2020-10-10] MEDS: FAMOTIDINE 20 MG TAB PO SCH ×2 (10:33→22:05)
[2020-10-10] MEDS: ZINC SULFATE 220 MG CAP PO SCH ×2 (10:33→22:06)
[2020-10-10] MEDS: ASCORBIC ACID 500 MG TAB PO SCH (10:33)
[2020-10-10] MEDS: ENOXAPARIN 40 MG/0.4 ML INJ SUB-Q SCH ×2 (10:33→22:06)
--- NOTE | 2020-10-10 11:32 | Progress Note ---
Assessment and Plan Acute hypoxemic respiratory failure Bilateral pneumonia COVID-19 infection Obesity Hypertension Elevated serum inflammatory markers to include LDH, D-dimers and ferritin Hyponatremia Acute kidney injury Anxiety - repeat CXR in am - continue to wean supplemental oxygen to keep O2 sats > 92% - home oxygen evaluation & discharge planning ok pulmonary-farrell - no new issues otherwise, continue care as below; - continue systemic steroids for severe COVID-19 infection empirically - follow repeat COVID tests results - continue zinc and vitamin C supplementation - Monitor inflammatory markers per facility protocol - ferritin, Ddimer, CRP - therapeutic anticoagulation per system Protocol based on d-dimer and clinical considerations (VTE prophylaxis) - Continue contact and airborne isolation - complete empiric CAP AB's with Rocephin and Zithromax - continue Bronchodilators (KAREN) with pulm hygiene per RT - continue to avoid nephrotoxins, renally dose all medications - mobility protocols to prevent pressure ulcers - PT/OT as tolerated - prn analgesia per pain score - Wound care per RN/WCT - continue accuchecks with glycemic control per SSI for target blood glucose < 180 mg/dL - tobacco abstinence strongly counseled at the bedside - GI & VTE prophylaxis - Flu & pneumovax per protocol - Pulmonary out patient follow up for PFTs and optimization of respiratory status - continue other care per attending / other consultants ... re-evaluate in am & prn Subjective Date of service: 10/10/20 Principal diagnosis: Bilateral pneumonia, COVID pneumonia, acute hypoxic resp failure Interval history: Patient is seen today for: Acute hypoxemic respiratory failure; Bilateral pneumonia; COVID-19 infection; Obesity; Acute kidney injury Seen and examined at bedside; 24hour events reviewed; nursing and respiratory care staff consulted; no adverse overnight events reported to me; resting peacefully in bed; Objective Vital Signs - 12hr 10/10/20 10/10/20 10:00 10:41 Temperature 97.8 F Pulse Rate 93 H Respiratory 18 Rate Blood Pressure 99/64 O2 Sat by Pulse 95 96 Oximetry Constitutional: no acute distress, alert, other (middle aged obese male with mild resp distress at rest) Eyes: non-icteric ENT: oropharynx moist Neck: supple, no lymphadenopathy Effort: mildly labored Ascultation: Bilateral: diminished breath sounds, rhonchi Percussion: Bilateral: not dull Cardiovascular: regular rate and rhythm, other (S1,S2) Gastrointestinal: normoactive bowel sounds, soft, non-tender, non-distended (protuberant) Integumentary: normal Extremities: no cyanosis, no edema, pulses normal Neurologic: normal mental status, non-focal exam, pupils equal and round, CN II-XII normal, motor strength normal and Psychiatric: mood appropriate, affect normal CBC and BMP: 10/09/20 07:45 10/09/20 07:45 ABG, PT/INR, D-dimer: ABG ABG pH 7.473 (7.320-7.450) H 10/02/20 14:38 POC ABG pCO2 39.4 mmHg (32.0-48.0) 10/02/20 14:38 POC ABG pO2 80.5 mmHg (83-108) L 10/02/20 14:38 POC ABG HCO3 28.2 10/02/20 14:38 ABG O2 Saturation 95.7 (0-100) 10/02/20 14:38 PT/INR, D-dimer PT 14.6 Sec. (12.2-14.9) 09/27/20 10:27 INR 1.09 (0.87-1.13) 09/27/20 10:27 D-Dimer 171.18 ng/mlDDU (0-234) 10/09/20 07:45 Abnormal lab findings: Abnormal Labs 09/27/20 09/27/20 09/27/20 10:27 10:27 10:27 WBC RDW Plt Count Lymph % (Auto) Lymph # (Auto) Seg Neutrophils % Seg Neuts % (Manual) 94.0 H Lymphocytes % (Manual) 1.0 L Seg Neutrophils # Man 9.2 H Lymphocytes # (Manual) 0.1 L D-Dimer 392.32 H ABG pH POC ABG pO2 ABG Glucose Sodium 125 L Chloride 88.5 L BUN Creatinine 1.4 H Glucose 176 H Hemoglobin A1c Calcium Ferritin AST 48 H Lactate Dehydrogenase 396 H C-Reactive Protein 24.60 H Total Protein Albumin 3.1 L Arterial Blood Glucose Arterial Blood Ionized Calcium Coronavirus (PCR) 09/27/20 09/27/20 09/28/20 10:27 11:59 06:53 WBC 11.2 H RDW Plt Count Lymph % (Auto) Lymph # (Auto) Seg Neutrophils % Seg Neuts % (Manual) 98.0 H Lymphocytes % (Manual) Seg Neutrophils # Man 11.0 H Lymphocytes # (Manual) 0.0 L D-Dimer ABG pH POC ABG pO2 ABG Glucose Sodium Chloride BUN Creatinine Glucose Hemoglobin A1c Calcium Ferritin 413.7 H AST Lactate Dehydrogenase C-Reactive Protein Total Protein Albumin Arterial Blood Glucose Arterial Blood Ionized Calcium Coronavirus (PCR) Positive A 09/28/20 09/28/20 09/30/20 06:53 06:53 13:33 WBC RDW Plt Count Lymph % (Auto) Lymph # (Auto) Seg Neutrophils % Seg Neuts % (Manual) Lymphocytes % (Manual) Seg Neutrophils # Man Lymphocytes # (Manual) D-Dimer > 96907 H ABG pH POC ABG pO2 ABG Glucose Sodium 133 L D Chloride 94.3 L BUN 22 H Creatinine Glucose 168 H Hemoglobin A1c 7.5 H Calcium Ferritin AST Lactate Dehydrogenase C-Reactive Protein Total Protein Albumin 3.8 L Arterial Blood Glucose Arterial Blood Ionized Calcium Coronavirus (PCR) 09/30/20 09/30/20 10/01/20 13:33 13:33 07:11 WBC RDW Plt Count Lymph % (Auto) Lymph # (Auto) Seg Neutrophils % Seg Neuts % (Manual) Lymphocytes % (Manual) Seg Neutrophils # Man Lymphocytes # (Manual) D-Dimer ABG pH POC ABG pO2 ABG Glucose Sodium Chloride BUN Creatinine Glucose 195 H 126 H Hemoglobin A1c Calcium Ferritin 381.2 H AST Lactate Dehydrogenase 413 H C-Reactive Protein 8.00 H Total Protein 6.0 L Albumin 3.5 L Arterial Blood Glucose Arterial Blood Ionized Calcium Coronavirus (PCR) 10/02/20 10/02/20 10/02/20 05:10 13:24 14:38 WBC 12.0 H RDW Plt Count 481 H Lymph % (Auto) Lymph # (Auto) Seg Neutrophils % Seg Neuts % (Manual) 89.0 H Lymphocytes % (Manual) 2.0 L Seg Neutrophils # Man 10.7 H Lymphocytes # (Manual) 0.2 L D-Dimer ABG pH 7.473 H POC ABG pO2 80.5 L ABG Glucose 125 H Sodium Chloride BUN Creatinine Glucose 139 H Hemoglobin A1c Calcium Ferritin AST Lactate Dehydrogenase C-Reactive Protein Total Protein Albumin 3.2 L Arterial Blood Glucose 125 H Arterial Blood Ionized Calcium 4.5 L Coronavirus (PCR) 10/03/20 10/04/20 10/04/20 07:31 07:09 07:09 WBC RDW 15.3 H Plt Count 548 H Lymph % (Auto) Lymph # (Auto) Seg Neutrophils % Seg Neuts % (Manual) Lymphocytes % (Manual) Seg Neutrophils # Man Lymphocytes # (Manual) D-Dimer ABG pH POC ABG pO2 ABG Glucose Sodium Chloride BUN 21 H 25 H Creatinine Glucose 148 H 113 H Hemoglobin A1c Calcium 8.3 L Ferritin AST Lactate Dehydrogenase 271 H C-Reactive Protein 1.50 H Total Protein Albumin 3.0 L Arterial Blood Glucose Arterial Blood Ionized Calcium Coronavirus (PCR) 10/05/20 10/06/20 10/09/20 07:04 06:03 07:45 WBC RDW Plt Count Lymph % (Auto) 9.9 L Lymph # (Auto) 0.8 L Seg Neutrophils % 81.2 H Seg Neuts % (Manual) Lymphocytes % (Manual) Seg Neutrophils # Man Lymphocytes # (Manual) D-Dimer ABG pH POC ABG pO2 ABG Glucose Sodium Chloride BUN Creatinine Glucose 108 H 141 H Hemoglobin A1c Calcium Ferritin AST Lactate Dehydrogenase 296 H 202 H C-Reactive Protein Total Protein Albumin Arterial Blood Glucose Arterial Blood Ionized Calcium Coronavirus (PCR) 10/09/20 07:45 WBC RDW Plt Count Lymph % (Auto) Lymph # (Auto) Seg Neutrophils % Seg Neuts % (Manual) Lymphocytes % (Manual) Seg Neutrophils # Man Lymphocytes # (Manual) D-Dimer ABG pH POC ABG pO2 ABG Glucose Sodium Chloride BUN Creatinine Glucose 108 H Hemoglobin A1c Calcium Ferritin AST Lactate Dehydrogenase C-Reactive Protein Total Protein 5.6 L Albumin 3.1 L Arterial Blood Glucose Arterial Blood Ionized Calcium Coronavirus (PCR) Allied health notes reviewed: nursing
--- NOTE | 2020-10-10 13:44 | Progress Note ---
Assessment and Plan Assessment and plan: This is a 54-year-old male presents to the emergency department with complaint of feeling sick for the past week. He says that he has been having generalized body aches, sweats without chills, shortness of breath, and the patient says that he feels like he needs to cough but has not been able to do so. The patient states that he lost his sense of taste and smell but it has started to return. He has a past medical history of hypertension. He denies tobacco or illicit drug use. The patient had a room air oxygen saturation of about 80% through his triage. No recent travel or sick contacts at home. The patient is not vaccinated against COVID-19, but no known obvious exposure to anyone positive for COVID-19. He denies any chest pain, lower extremity swelling, nausea, vomiting, diarrhea, abdominal pain. He has not taken anything for his symptoms prior to presentation today. Did jose get Covid vaccination 09/28/2020 Covid PCR positive On 8 to 10 L of nasal cannula oxygen 09/29/2020 On 8 L nasal cannula oxygen Mild distress ID consult requested IV remdesivir started IV dexamethasone to continue 09/30: Patient continues on high flow oxygen at 14 L. Will obtain pulmonary consultation in addition to current management continue remdesivir and dexamethasone. Encourage prone positioning. We will also obtain a CT of the chest to rule out pulmonary embolism. Plan of care discussed with the patient 10/01: Continues on 14 L of oxygen continue to encourage weaning down, pulmonary input is noted. Continue to await CTA. Wean oxygen as tolerated. Continue steroids. Complete remdesivir. Continue to encourage prone positioning. We will give a dose of Lasix today 10/02: Remains on high flow 20 L and 50%. Will give additional dose of Lasix today. Will monitor inflammatory markers. Considering AISLINN the thickness of his neck I will recommend a CPAP/BiPAP at nighttime while in house. He verbalized understanding that he needs to work with insurance company to continue use of this outpatient. 10/03: Patient agreeable to try BiPAP today again reinforced the importance of it considering his history of obstructive sleep apnea. We will continue with additional Lasix monitor BMP. Discussed with infectious disease yesterday started patient on full dose anticoagulation until we will rule out DVT. 10/04: Patient continues to show some improvement continue to use BiPAP. Diuretics for 1 more day. Monitor renal functions. Discussed with nursing staff to ensure appropriate monitor while on BiPAP. 10/05/2020; patient is on high flow oxygen 25 L with FiO2 of 50%. Doppler ultrasound of the lower extremities were negative. I will decrease anticoagulation to prophylactic dose. If no improvement in his oxygen requirement, consider LTAC. Discussed with case management. 10/06/2020: Patient remains on 24 L high flow and FiO2 50%. D-dimer elevated but CT negative for PE and us negative for DVT. Echo unremarkable. Is able to walk to bathroom with mild to moderate dyspnea. Mild dyspnea at rest but able to converse fairly well. Mentating very well. CM is working on LTAC placement. 10/07/2020: Patient remains on 25 L of O2 high flow, FiO2 50%. He is mentating well. He is able to get around and is room and walk to bathroom without difficulty. Is able to converse long without significant respite distress. A febrile. Tolerating diet. Is accepted by [facility] but awaiting insurance approval. We will continue current therapy and wean O2 as tolerated. Pulmonary is following. 10/08/2020: Clinically improving. High flow oxygen could be weaned to 4 L this afternoon. Continue oral Decadron. Encouraged to use incentive spirometer aggressively. Patient is well-appearing. If he continues to improve, could be discharged to home in couple of days. 10/09/2020: Patient remains on 4 L of O2 since yesterday. There is no acute respite distress. Is able to walk around in the room without significant dys pnea on exertion. Markers of inflammation close to normal, CRP 0.3 and a normal D-dimer. Continue Decadron orally. Encouraged to use incentive spirometer aggressively. The patient continues to improve, could be discharged in couple of days home. 10/10/2020: Patient remains on 4 L O2 since 10/08. RN reports that sats dropped to 80s with ambulation, however without respiratory distress. Stable vital signs. CRP 0.3, BNP 106 and a normal D-dimer. We will continue to attempt to wean O2 aggressively and will discharge him soon. (1) Acute respiratory failure with hypoxia Current Visit: Yes Status: Acute Plan to address problem: Covid positive (2) Bilateral pneumonia Current Visit: Yes Status: Acute Qualifiers: Pneumonia type: due to unspecified organism Lung location: unspecified part of lung Qualified Code(s): J18.9 - Pneumonia, unspecified organism Plan to address problem: Treat as CAP (3) 2019 novel coronavirus infection Current Visit: Yes Status: Acute Plan to address problem: Covid positive ID consult On IV dexamethasone IV remdesivir started as per protocol (4) ELY (acute kidney injury) with vasomotor nehropathy Current Visit: Yes Status: Acute Plan to address problem: Improved (5) Malnutrition Current Visit: Yes Status: Acute Plan to address problem: Dietary supplements (6) morbid obesity (7) AISLINN (8) DVT prophylaxis Current Visit: Yes Status: Acute Plan to address problem: On Lovenox and GI prophylaxis Discussed with the patient in detail at bedside. History Interval history: Patient remains on 4 L since. RN reports that his sats dropped to 80s with ambulation. He is mentating well. He is able to get around and is room and walk to bathroom without difficulty. Is able to converse long without significant distress. He has some cough but not significant. Afebrile. Tolerating diet. He is eager to go home. Hospitalist Physical - Constitutional Vitals: Temp Pulse Resp BP Pulse Ox 97.8 F 93 H 18 99/64 96 10/10/20 10:41 10/10/20 10:41 10/10/20 10:41 10/10/20 10:41 10/10/20 10:41 General appearance: Present: no acute distress, well-nourished, other (Mildly obese) - EENT Eyes: Present: PERRL, EOM intact. Absent: scleral icterus ENT: hearing intact, clear oral mucosa - Neck Neck: Present: supple, other (No JVD) - Respiratory Respiratory effort: normal Respiratory: bilateral: diminished - Cardiovascular Rhythm: regular - Extremities Extremities: No edema - Abdominal General gastrointestinal: soft, non-tender, non-distended - Integumentary Integumentary: Absent: rash - Psychiatric Psychiatric: appropriate mood/affect - Neurologic Neurologic: no focal deficits HEART Score - HEART Score Troponin: Troponin T 0.013 ng/mL (0.00-0.029) 09/27/20 10:27 Results - Labs CBC & Chem 7: 10/09/20 07:45 10/09/20 07:45 Labs: Laboratory Last Values WBC 8.4 K/mm3 (4.5-11.0) 10/09/20 07:45 RBC 4.48 M/mm3 (3.65-5.03) 10/09/20 07:45 Hgb 13.4 gm/dl (11.8-15.2) 10/09/20 07:45 Hct 39.7 % (35.5-45.6) 10/09/20 07:45 MCV 89 fl (84-94) 10/09/20 07:45 MCH 30 pg (28-32) 10/09/20 07:45 MCHC 34 % (32-34) 10/09/20 07:45 RDW 15.0 % (13.2-15.2) 10/09/20 07:45 Plt Count 312 K/mm3 (140-440) 10/09/20 07:45 Lymph % (Auto) 9.9 % (13.4-35.0) L 10/09/20 07:45 [place] % (Auto) 6.5 % (0.0-7.3) 10/09/20 07:45 Eos % (Auto) 1.5 % (0.0-4.3) 10/09/20 07:45 Baso % (Auto) 0.9 % (0.0-1.8) 10/09/20 07:45 Lymph # (Auto) 0.8 K/mm3 (1.2-5.4) L 10/09/20 07:45 [place] # (Auto) 0.6 K/mm3 (0.0-0.8) 10/09/20 07:45 Eos # (Auto) 0.1 K/mm3 (0.0-0.4) 10/09/20 07:45 Baso # (Auto) 0.1 K/mm3 (0.0-0.1) 10/09/20 07:45 Add Manual Diff Complete 10/02/20 13:24 Total Counted 100 10/02/20 13:24 Seg Neutrophils % 81.2 % (40.0-70.0) H 10/09/20 07:45 Seg Neuts % (Manual) 89.0 % (40.0-70.0) H 10/02/20 13:24 Band Neutrophils % 1.0 % 09/28/20 06:53 Lymphocytes % (Manual) 2.0 % (13.4-35.0) L 10/02/20 13:24 Reactive Lymphs % (Man) 2.0 % 10/02/20 13:24 Monocytes % (Manual) 3.0 % (0.0-7.3) 10/02/20 13:24 Eosinophils % (Manual) 2.0 % (0.0-4.3) 10/02/20 13:24 Metamyelocytes % 2.0 % 10/02/20 13:24 Nucleated RBC % Not Reportable 10/02/20 13:24 Seg Neutrophils # 6.8 K/mm3 (1.8-7.7) 10/09/20 07:45 Seg Neutrophils # Man 10.7 K/mm3 (1.8-7.7) H 10/02/20 13:24 Band Neutrophils # 0.0 K/mm3 10/02/20 13:24 Lymphocytes # (Manual) 0.2 K/mm3 (1.2-5.4) L 10/02/20 13:24 Abs React Lymphs (Man) 0.2 K/mm3 10/02/20 13:24 Monocytes # (Manual) 0.4 K/mm3 (0.0-0.8) 10/02/20 13:24 Eosinophils # (Manual) 0.2 K/mm3 (0.0-0.4) 10/02/20 13:24 Basophils # (Manual) 0.0 K/mm3 (0.0-0.1) 10/02/20 13:24 Metamyelocytes # 0.2 K/mm3 10/02/20 13:24 Myelocytes # 0.0 K/mm3 10/02/20 13:24 Promyelocytes # 0.0 K/mm3 10/02/20 13:24 Blast Cells # 0.0 K/mm3 10/02/20 13:24 WBC Morphology Not Reportable 10/02/20 13:24 WBC Morphology TNR 10/02/20 13:24 Hypersegmented Neuts Not Reportable 10/02/20 13:24 Hyposegmented Neuts Not Reportable 10/02/20 13:24 Hypogranular Neuts Not Reportable 10/02/20 13:24 Smudge Cells Not Reportable 10/02/20 13:24 Toxic Granulation Not Reportable 10/02/20 13:24 Toxic Vacuolation Not Reportable 10/02/20 13:24 Dohle Bodies Not Reportable 10/02/20 13:24 Pelger-Huet Anomaly Not Reportable 10/02/20 13:24 Tuan Rods Not Reportable 10/02/20 13:24 Platelet Estimate Consistent w auto 10/02/20 13:24 Clumped Platelets Not Reportable 10/02/20 13:24 Plt Clumps, EDTA Not Reportable 10/02/20 13:24 Large Platelets Not Reportable 10/02/20 13:24 Giant Platelets Not Reportable 10/02/20 13:24 Platelet Satelliting Not Reportable 10/02/20 13:24 Plt Morphology Comment Not Reportable 10/02/20 13:24 RBC Morphology Normal 10/02/20 13:24 Dimorphic RBCs Not Reportable 10/02/20 13:24 Polychromasia Not Reportable 10/02/20 13:24 Hypochromasia Not Reportable 10/02/20 13:24 Poikilocytosis Not Reportable 10/02/20 13:24 Anisocytosis Not Reportable 10/02/20 13:24 Microcytosis Not Reportable 10/02/20 13:24 Macrocytosis Not Reportable 10/02/20 13:24 Spherocytes Not Reportable 10/02/20 13:24 Pappenheimer Bodies Not Reportable 10/02/20 13:24 Sickle Cells Not Reportable 10/02/20 13:24 Target Cells Not Reportable 10/02/20 13:24 Tear Drop Cells Not Reportable 10/02/20 13:24 Ovalocytes Not Reportable 10/02/20 13:24 Helmet Cells Not Reportable 10/02/20 13:24 Calles-Barclay Bodies Not Reportable 10/02/20 13:24 [place] Rings Not Reportable 10/02/20 13:24 [place] Cells Not Reportable 10/02/20 13:24 Bite Cells Not Reportable 10/02/20 13:24 Crenated Cell Not Reportable 10/02/20 13:24 Elliptocytes Not Reportable 10/02/20 13:24 Acanthocytes (Spur) Not Reportable 10/02/20 13:24 Rouleaux Not Reportable 10/02/20 13:24 Hemoglobin C Crystals Not Reportable 10/02/20 13:24 Schistocytes Not Reportable 10/02/20 13:24 Malaria parasites Not Reportable 10/02/20 13:24 Marito Bodies Not Reportable 10/02/20 13:24 Hem Pathologist Commnt No 10/02/20 13:24 PT 14.6 Sec. (12.2-14.9) 09/27/20 10:27 INR 1.09 (0.87-1.13) 09/27/20 10:27 APTT 29.8 Sec. (24.2-36.6) 09/27/20 10:27 D-Dimer 171.18 ng/mlDDU (0-234) 10/09/20 07:45 ABG pH 7.473 (7.320-7.450) H 10/02/20 14:38 POC ABG pCO2 39.4 mmHg (32.0-48.0) 10/02/20 14:38 POC ABG pO2 80.5 mmHg (83-108) L 10/02/20 14:38 POC ABG HCO3 28.2 10/02/20 14:38 ABG O2 Saturation 95.7 (0-100) 10/02/20 14:38 POC ABG Base Excess 4.4 10/02/20 14:38 ABG Hemoglobin 13.8 (12.0-17.5) 10/02/20 14:38 ABG Oxyhemoglobin 94.8 (94-98) 10/02/20 14:38 ABG Methemoglobin 0.3 (0.0-1.5) 10/02/20 14:38 ABG Sodium 136.0 mmol/L (136.0-145.0) 10/02/20 14:38 ABG Potassium 3.5 mmol/L (3.40-4.50) 10/02/20 14:38 ABG Chloride 104.0 mmol/L (98-107) 10/02/20 14:38 ABG Glucose 125 mg/dL (65-95) H 10/02/20 14:38 Carboxyhemoglobin 0.6 (0.5-1.5) 10/02/20 14:38 FiO2 % 55.0 10/02/20 14:38 Sodium 139 mmol/L (137-145) 10/09/20 07:45 Potassium 4.0 mmol/L (3.6-5.0) 10/09/20 07:45 Chloride 103.4 mmol/L (98-107) 10/09/20 07:45 Carbon Dioxide 29 mmol/L (22-30) 10/09/20 07:45 Anion Gap 11 mmol/L 10/09/20 07:45 BUN 15 mg/dL (9-20) 10/09/20 07:45 Creatinine 0.9 mg/dL (0.8-1.3) 10/09/20 07:45 Estimated GFR > 60 ml/min 10/09/20 07:45 BUN/Creatinine Ratio 17 % 10/09/20 07:45 Glucose 108 mg/dL (75-100) H 10/09/20 07:45 Hemoglobin A1c 7.5 % (4-6) H 09/28/20 06:53 Lactic Acid 1.30 mmol/L (0.7-2.0) 09/27/20 10:27 Calcium 8.4 mg/dL (8.4-10.2) 10/09/20 07:45 Ferritin 209.7 ng/mL (30.0-300.0) 10/09/20 07:45 Total Bilirubin 0.40 mg/dL (0.1-1.2) 10/09/20 07:45 AST 11 units/L (5-40) 10/09/20 07:45 ALT 21 units/L (7-56) 10/09/20 07:45 Alkaline Phosphatase 66 units/L (35-129) 10/09/20 07:45 Lactate Dehydrogenase 202 units/L (91-180) H 10/06/20 06:03 Troponin T 0.013 ng/mL (0.00-0.029) 09/27/20 10:27 C-Reactive Protein 1.00 mg/dL (0.00-1.30) 10/10/20 07:37 NT-Pro-B Natriuret Pep 106.9 pg/mL (0-900) 10/09/20 07:45 Total Protein 5.6 g/dL (6.3-8.2) L 10/09/20 07:45 Albumin 3.1 g/dL (3.9-5) L 10/09/20 07:45 Albumin/Globulin Ratio 1.2 % 10/09/20 07:45 Procalcitonin 0.85 ng/mL (<0.15) 09/27/20 10:27 Arterial Blood Glucose 125 mg/dL (65-95) H 10/02/20 14:38 Arterial Blood Ionized Calcium 4.5 mg/dL (4.6-5.3) L 10/02/20 14:38 Coronavirus (PCR) Positive (Negative) A 09/27/20 11:59 Vazquez/IV: Voiding Method Toilet Active Medications - Current Medications Current Medications: Generic Name Dose Route Start Last Admin Trade Name Freq PRN Reason Stop Dose Admin Acetaminophen 650 mg 09/27/20 15:32 Acetaminophen 325 Mg Tab PO Q4H PRN Pain MILD(1-3)/Fever >100.5/COOPER Alprazolam 0.25 mg 09/30/20 20:00 10/03/20 21:23 Alprazolam 0.25 Mg Tab PO 0.25 mg TID PRN Administration Anxiety Ascorbic Acid 500 mg 09/30/20 18:00 10/10/20 10:33 Ascorbic Acid 500 Mg Tab PO 500 mg QDAY DEQUAN Administration Dexamethasone 8 mg 10/09/20 10:00 10/10/20 10:33 Dexamethasone 4 Mg Tab PO 8 mg DAILY DEQUAN Administration Enoxaparin Sodium 40 mg 10/05/20 10:00 10/10/20 10:33 Enoxaparin 40 Mg/0.4 Ml Inj SUB-Q 40 mg Q12HR DEQUAN Administration Famotidine 20 mg 09/27/20 22:00 10/10/20 10:33 Famotidine 20 Mg Tab PO 20 mg BID DEQUAN Administration Melatonin 5 mg 10/05/20 21:00 10/09/20 22:04 Melatonin 5 Mg Tab PO 5 mg QHS PRN Administration Sleep Metoclopramide HCl 10 mg 09/27/20 15:32 Metoclopramide 10 Mg/2 Ml Inj IV Q6H PRN Nausea And Vomiting Ondansetron HCl 4 mg 09/27/20 15:32 Ondansetron 4 Mg/2 Ml Inj IV Q8H PRN Nausea And Vomiting Oxycodone/Acetaminophen 1 tab 09/27/20 15:32 10/04/20 22:10 Oxycodone /Acetaminophen 5-325mg Tab PO 1 tab Q6H PRN Administration Pain, Moderate (4-6) Sodium Chloride 10 ml 09/27/20 22:00 10/10/20 10:34 Sodium Chloride 0.9% 10 Ml Flush Syringe IV 10 ml BID DEQUAN Administration Sodium Chloride 10 ml 09/27/20 15:32 Sodium Chloride 0.9% 10 Ml Flush Syringe IV PRN PRN LINE FLUSH Zinc Sulfate 220 mg 09/30/20 22:00 10/10/20 10:33 Zinc Sulfate 220 Mg Cap PO 220 mg BID DEQUAN Administration Zolpidem Tartrate 5 mg 09/30/20 22:00 10/03/20 21:23 Zolpidem 5 Mg Tab PO 5 mg QHS PRN Administration Sleep Nutrition/Malnutrition Assess - Dietary Evaluation Nutrition/Malnutrition Findings: Nutrition Notes Start: 09/30/20 11:22 Freq: Status: Active Protocol: Document 10/07/20 11:46 (Rec: 10/07/20 11:47 [id number]) Nutrition Notes Initial or Follow up Brief Note Current Diagnosis Acute Kidney Injury, Respiratory Failure Other Pertinent Diagnosis pneu, COVID(+) Current Diet Regular Subjective/Other Information FU for intakes. Pt did not answer phone x4. Per RN, pt always on phone with family/ friends. Pt continues to eat 100% of meals. Nutrition Intervention Revisit per MD consult or patient Sign Off request:
[2020-10-10] MEDS: MELATONIN 5 MG TAB PO PRN (22:05)
--- NOTE | 2020-10-11 08:20 | XRay Report ---
CHEST - 1 VIEW INDICATION: COVID-19 pneumonia COMPARISON: 09/27/2020 FINDINGS: Support devices: None Heart: Within normal limits. Lungs/pleura: There is poor inspiration. Scattered ill-defined bilateral airspace opacities are agai n seen and demonstrate only minimal improvement. No consolidation, pleural effusion or pneumothorax. Additional findings: None. IMPRESSION: No overwhelming change is appreciated since 09/27/2020. Perhaps minimal improvement in the bilateral fransisco ng opacities is demonstrated. Signer Name: Jacky Steele Jr, MD Signed: 10/11/2020 8:16 AM Workstation Name: [id number]
[2020-10-11] MEDS: ENOXAPARIN 40 MG/0.4 ML INJ SUB-Q SCH ×2 (09:32→22:07)
[2020-10-11] MEDS: DEXAMETHASONE 4 MG TAB PO SCH (09:32)
[2020-10-11] MEDS: ZINC SULFATE 220 MG CAP PO SCH ×2 (09:32→22:08)
[2020-10-11] MEDS: ASCORBIC ACID 500 MG TAB PO SCH (09:32)
[2020-10-11] MEDS: FAMOTIDINE 20 MG TAB PO SCH ×2 (13:34→22:08)
--- NOTE | 2020-10-11 14:08 | Progress Note ---
Assessment and Plan This is a 54-year-old male presents to the emergency department with complaint of feeling sick for the past week. He says that he has been having generalized body aches, sweats without chills, shortness of breath, and the patient says that he feels like he needs to cough but has not been able to do so. The patient states that he lost his sense of taste and smell but it has started to return. He has a past medical history of hypertension. He denies tobacco or illicit drug use. 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 The patient had a room air oxygen saturation of about 80% through his triage. No recent travel or sick contacts at home. The patient is not vaccinated against COVID-19, but no known obvious exposure to anyone positive for COVID-19. He denies any chest pain, lower extremity swelling, nausea, vomiting, diarrhea, abdominal pain. He has not taken anything for his symptoms prior to presentation today. Did not get Covid vaccination. No known allergies. Patient's coronavirus PCR is positive. Pt received remdesivir, dexamethasone, subcutaneous lovanox. He is on famotidine. Pt's symptoms have improving. Pt is alert, awake, sitting up in the chair. Pt is on 3L NC and SaO2 of 94%. BIPAP stand by in the room. Pt says he is breathing better, except for a slight cough. Pt is afebrile with no leukocytosis . Pt's CXR completed on 09/27/20 reported: Patchy bilateral pneumonia and Diminished lung volumes. Pt's CTA completed on 10/01/20 reported: No CT evidence for pulmonary embolism. Severe patchy parenchymal opacities throughout both lungs are nonspecific. Atypical causes of pneumonia, including viral pneumonia, should be considered. Pt's venous doppler study of bilateral LE on 10/02/20 reported: no sonographic evidence of DVT. CXR on 10/11/20 reported: No overwhelming change is appreciated since 09/27/2020. Perhaps minimal improvement in the bilateral lung opacities is demonstrated. Pt is currently receiving dexamethasone, subcutaneous lovenox, reglan, and famotidine. - Patient Problems (1) Acute respiratory failure with hypoxia Current Visit: Yes Status: Acute Plan to address problem: On 3L NC, SaO2 94%. Subcutaneous lonenox. Continue dexamethasone. Continue famotidine. (2) Bilateral pneumonia Current Visit: Yes Status: Acute Qualifiers: Pneumonia type: due to unspecified organism Lung location: unspecified part of lung Qualified Code(s): J18.9 - Pneumonia, unspecified organism Plan to address problem: Antibiotics as per ID. (3) ELY (acute kidney injury) Current Visit: Yes Status: Acute Plan to address problem: ELY management as per nephrology. (4) Hyponatremia Current Visit: Yes Status: Acute Plan to address problem: Improved. Recent Na+ 143. (5) Coronavirus infection Current Visit: Yes Status: Acute Plan to address problem: Pt finished the course of dexamethasone and remdesivir. Pt is on subcutaneous lovenox. Management as per ID. Subjective Date of service: 10/11/20 Principal diagnosis: Bilateral pneumonia, COVID pneumonia, acute hypoxic resp failure Interval history: This is a 54-year-old male presents to the emergency department with complaint of feeling sick for the past week. He says that he has been having generalized body aches, sweats without chills, shortness of breath, and the patient says that he feels like he needs to cough but has not been able to do so. The patient states that he lost his sense of taste and smell but it has sta rted to return. He has a past medical history of hypertension. He denies tobacco or illicit drug use. 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 The patient had a room air oxygen saturation of about 80% through his triage. No recent travel or sick contacts at home. The patient is not vaccinated against COVID-19, but no known obvious exposure to anyone positive for COVID-19. He denies any chest pain, lower extremity swelling, nausea, vomiting, diarrhea, abdominal pain. He has not taken anything for his symptoms prior to presentation today. Did not get Covid vaccination. No known allergies. Patient's coronavirus PCR is positive. Pt received remdesivir, dexamethasone, subcutaneous lovanox. He is on famotidine. Pt's symptoms have improving. Pt is alert, awake, sitting up in the chair. Pt is on 3L NC and SaO2 of 94%. BIPAP stand by in the room. Pt says he is breathing better, except for a slight cough. Pt is afebrile with no leukocytosis . Pt's CXR completed on 09/27/20 reported: Patchy bilateral pneumonia and Diminished lung volumes. Pt's CTA completed on 10/01/20 reported: No CT evidence for pulmonary embolism. Severe patchy parenchymal opacities throughout both lungs are nonspecific. Atypical causes of pneumonia, including viral pneumonia, should be considered. Pt's venous doppler study of bilateral LE on 10/02/20 reported: no sonographic evidence of DVT. CXR on 10/11/20 reported: No overwhelming change is appreciated since 09/27/2020. Perhaps minimal improvement in the bilateral lung opacities is demonstrated. Pt is currently receiving dexamethasone, subcutaneous lovenox, reglan, and famotidine. Objective Vital Signs - 12hr 10/11/20 10/11/20 10/11/20 04:38 08:41 10:50 Temperature 98.0 F Pulse Rate 73 Respiratory 16 Rate Blood Pressure 109/55 O2 Sat by Pulse 95 94 Oximetry Constitutional: no acute distress, alert, other (middle aged obese male with mild resp distress at rest) Eyes: non-icteric ENT: oropharynx moist Neck: supple, no lymphadenopathy Effort: mildly labored Ascultation: Bilateral: diminished breath sounds, rhonchi Percussion: Bilateral: not dull Cardiovascular: regular rate and rhythm, other (S1,S2) Gastrointestinal: normoactive bowel sounds, soft, non-tender, non-distended (protuberant) Integumentary: normal Extremities: no cyanosis, no edema, pulses normal Neurologic: normal mental status, non-focal exam, pupils equal and round, CN II- XII normal, motor strength normal and Psychiatric: mood appropriate, affect normal CBC and BMP: 10/09/20 07:45 10/09/20 07:45 ABG, PT/INR, D-dimer: ABG ABG pH 7.416 (7.320-7.450) 10/11/20 11:13 POC ABG pCO2 42.0 mmHg (32.0-48.0) 10/11/20 11:13 POC ABG pO2 78.2 mmHg (83-108) L 10/11/20 11:13 POC ABG HCO3 26.4 10/11/20 11:13 ABG O2 Saturation 96.0 (0-100) 10/11/20 11:13 PT/INR, D-dimer PT 14.6 Sec. (12.2-14.9) 09/27/20 10:27 INR 1.09 (0.87-1.13) 09/27/20 10:27 D-Dimer 171.18 ng/mlDDU (0-234) 10/09/20 07:45 Abnormal lab findings: Abnormal Labs 09/27/20 09/27/20 09/27/20 10:27 10:27 10:27 WBC RDW Plt Count Lymph % (Auto) Lymph # (Auto) Seg Neutrophils % Seg Neuts % (Manual) 94.0 H Lymphocytes % (Manual) 1.0 L Seg Neutrophils # Man 9.2 H Lymphocytes # (Manual) 0.1 L D-Dimer 392.32 H ABG pH POC ABG pO2 ABG Glucose Sodium 125 L Chloride 88.5 L BUN Creatinine 1.4 H Glucose 176 H Hemoglobin A1c Calcium Ferritin AST 48 H Lactate Dehydrogenase 396 H C-Reactive Protein 24.60 H Total Protein Albumin 3.1 L Arterial Blood Glucose Arterial Blood Ionized Calcium Coronavirus (PCR) 09/27/20 09/27/20 09/28/20 10:27 11:59 06:53 WBC 11.2 H RDW Plt Count Lymph % (Auto) Lymph # (Auto) Seg Neutrophils % Seg Neuts % (Manual) 98.0 H Lymphocytes % (Manual) Seg Neutrophils # Man 11.0 H Lymphocytes # (Manual) 0.0 L D-Dimer ABG pH POC ABG pO2 ABG Glucose Sodium Chloride BUN Creatinine Glucose Hemoglobin A1c Calcium Ferritin 413.7 H AST Lactate Dehydrogenase C-Reactive Protein Total Protein Albumin Arterial Blood Glucose Arterial Blood Ionized Calcium Coronavirus (PCR) Positive A 09/28/20 09/28/20 09/30/20 06:53 06:53 13:33 WBC RDW Plt Count Lymph % (Auto) Lymph # (Auto) Seg Neutrophils % Seg Neuts % (Manual) Lymphocytes % (Manual) Seg Neutrophils # Man Lymphocytes # (Manual) D-Dimer > 09687 H ABG pH POC ABG pO2 ABG Glucose Sodium 133 L D Chloride 94.3 L BUN 22 H Creatinine Glucose 168 H Hemoglobin A1c 7.5 H Calcium Ferritin AST Lactate Dehydrogenase C-Reactive Protein Total Protein Albumin 3.8 L Arterial Blood Glucose Arterial Blood Ionized Calcium Coronavirus (PCR) 09/30/20 09/30/20 10/01/20 13:33 13:33 07:11 WBC RDW Plt Count Lymph % (Auto) Lymph # (Auto) Seg Neutrophils % Seg Neuts % (Manual) Lymphocytes % (Manual) Seg Neutrophils # Man Lymphocytes # (Manual) D-Dimer ABG pH POC ABG pO2 ABG Glucose Sodium Chloride BUN Creatinine Glucose 195 H 126 H Hemoglobin A1c Calcium Ferritin 381.2 H AST Lactate Dehydrogenase 413 H C-Reactive Protein 8.00 H Total Protein 6.0 L Albumin 3.5 L Arterial Blood Glucose Arterial Blood Ionized Calcium Coronavirus (PCR) 10/02/20 10/02/20 10/02/20 05:10 13:24 14:38 WBC 12.0 H RDW Plt Count 481 H Lymph % (Auto) Lymph # (Auto) Seg Neutrophils % Seg Neuts % (Manual) 89.0 H Lymphocytes % (Manual) 2.0 L Seg Neutrophils # Man 10.7 H Lymphocytes # (Manual) 0.2 L D-Dimer ABG pH 7.473 H POC ABG pO2 80.5 L ABG Glucose 125 H Sodium Chloride BUN Creatinine Glucose 139 H Hemoglobin A1c Calcium Ferritin AST Lactate Dehydrogenase C-Reactive Protein Total Protein Albumin 3.2 L Arterial Blood Glucose 125 H Arterial Blood Ionized Calcium 4.5 L Coronavirus (PCR) 10/03/20 10/04/20 10/04/20 07:31 07:09 07:09 WBC RDW 15.3 H Plt Count 548 H Lymph % (Auto) Lymph # (Auto) Seg Neutrophils % Seg Neuts % (Manual) Lymphocytes % (Manual) Seg Neutrophils # Man Lymphocytes # (Manual) D-Dimer ABG pH POC ABG pO2 ABG Glucose Sodium Chloride BUN 21 H 25 H Creatinine Glucose 148 H 113 H Hemoglobin A1c Calcium 8.3 L Ferritin AST Lactate Dehydrogenase 271 H C-Reactive Protein 1.50 H Total Protein Albumin 3.0 L Arterial Blood Glucose Arterial Blood Ionized Calcium Coronavirus (PCR) 10/05/20 10/06/20 10/09/20 07:04 06:03 07:45 WBC RDW Plt Count Lymph % (Auto) 9.9 L Lymph # (Auto) 0.8 L Seg Neutrophils % 81.2 H Seg Neuts % (Manual) Lymphocytes % (Manual) Seg Neutrophils # Man Lymphocytes # (Manual) D-Dimer ABG pH POC ABG pO2 ABG Glucose Sodium Chloride BUN Creatinine Glucose 108 H 141 H Hemoglobin A1c Calcium Ferritin AST Lactate Dehydrogenase 296 H 202 H C-Reactive Protein Total Protein Albumin Arterial Blood Glucose Arterial Blood Ionized Calcium Coronavirus (PCR) 10/09/20 10/11/20 07:45 11:13 WBC RDW Plt Count Lymph % (Auto) Lymph # (Auto) Seg Neutrophils % Seg Neuts % (Manual) Lymphocytes % (Manual) Seg Neutrophils # Man Lymphocytes # (Manual) D-Dimer ABG pH POC ABG pO2 78.2 L ABG Glucose 169 H Sodium Chloride BUN Creatinine Glucose 108 H Hemoglobin A1c Calcium Ferritin AST Lactate Dehydrogenase C-Reactive Protein Total Protein 5.6 L Albumin 3.1 L Arterial Blood Glucose 169 H Arterial Blood Ionized Calcium Coronavirus (PCR) Chest x-ray: report reviewed, image reviewed Additional Studies: CHEST - 1 VIEW 10/11/20 INDICATION: COVID-19 pneumonia COMPARISON: 09/27/2020 FINDINGS: Support devices: None Heart: Within normal limits. Lungs/pleura: There is poor inspiration. Scattered ill-defined bilateral airsp mela opacities are again seen and demonstrate only minimal improvement. No consolidation, pleural effusion or pneumothorax. Additional findings: None. IMPRESSION: No overwhelming change is appreciated since 09/27/2020. Perhaps minimal improvement in the bilateral lung opacities is demonstrated. Allied health notes reviewed: nursing
--- NOTE | 2020-10-11 17:45 | Progress Note ---
Assessment and Plan Assessment and plan: This is a 54-year-old male presents to the emergency department with complaint of feeling sick for the past week. He says that he has been having generalized body aches, sweats without chills, shortness of breath, and the patient says that he feels like he needs to cough but has not been able to do so. The patient states that he lost his sense of taste and smell but it has started to return. He has a past medical history of hypertension. He denies tobacco or illicit drug use. The patient had a room air oxygen saturation of about 80% through his triage. No recent travel or sick contacts at home. The patient is not vaccinated against COVID-19, but no known obvious exposure to anyone positive for COVID-19. He denies any chest pain, lower extremity swelling, nausea, vomiting, diarrhea, abdominal pain. He has not taken anything for his symptoms prior to presentation today. Did jose get Covid vaccination 09/28/2020 Covid PCR positive On 8 to 10 L of nasal cannula oxygen 09/29/2020 On 8 L nasal cannula oxygen Mild distress ID consult requested IV remdesivir started IV dexamethasone to continue 09/30: Patient continues on high flow oxygen at 14 L. Will obtain pulmonary consultation in addition to current management continue remdesivir and dexamethasone. Encourage prone positioning. We will also obtain a CT of the chest to rule out pulmonary embolism. Plan of care discussed with the patient 10/01: Continues on 14 L of oxygen continue to encourage weaning down, pulmonary input is noted. Continue to await CTA. Wean oxygen as tolerated. Continue steroids. Complete remdesivir. Continue to encourage prone positioning. We will give a dose of Lasix today 10/02: Remains on high flow 20 L and 50%. Will give additional dose of Lasix today. Will monitor inflammatory markers. Considering AISLINN the thickness of his neck I will recommend a CPAP/BiPAP at nighttime while in house. He verbalized understanding that he needs to work with insurance company to continue use of this outpatient. 10/03: Patient agreeable to try BiPAP today again reinforced the importance of it considering his history of obstructive sleep apnea. We will continue with additional Lasix monitor BMP. Discussed with infectious disease yesterday started patient on full dose anticoagulation until we will rule out DVT. 10/04: Patient continues to show some improvement continue to use BiPAP. Diuretics for 1 more day. Monitor renal functions. Discussed with nursing staff to ensure appropriate monitor while on BiPAP. 10/05/2020; patient is on high flow oxygen 25 L with FiO2 of 50%. Doppler ultrasound of the lower extremities were negative. I will decrease anticoagulation to prophylactic dose. If no improvement in his oxygen requirement, consider LTAC. Discussed with case management. 10/06/2020: Patient remains on 24 L high flow and FiO2 50%. D-dimer elevated but CT negative for PE and us negative for DVT. Echo unremarkable. Is able to walk to bathroom with mild to moderate dyspnea. Mild dyspnea at rest but able to converse fairly well. Mentating very well. CM is working on LTAC placement. 10/07/2020: Patient remains on 25 L of O2 high flow, FiO2 50%. He is mentating well. He is able to get around and is room and walk to bathroom without difficulty. Is able to converse long without significant respite distress. A febrile. Tolerating diet. Is accepted by [facility] but awaiting insurance approval. We will continue current therapy and wean O2 as tolerated. Pulmonary is following. 10/08/2020: Clinically improving. High flow oxygen could be weaned to 4 L this afternoon. Continue oral Decadron. Encouraged to use incentive spirometer aggressively. Patient is well-appearing. If he continues to improve, could be discharged to home in couple of days. 10/09/2020: Patient remains on 4 L of O2 since yesterday. There is no acute respite distress. Is able to walk around in the room without significant dys pnea on exertion. Markers of inflammation close to normal, CRP 0.3 and a normal D-dimer. Continue Decadron orally. Encouraged to use incentive spirometer aggressively. The patient continues to improve, could be discharged in couple of days home. 10/10/2020: Patient remains on 4 L O2 since 10/08. RN reports that sats dropped to 80s with ambulation, however without respiratory distress. Stable vital signs. CRP 0.3, BNP 106 and a normal D-dimer. We will continue to attempt to wean O2 aggressively and will discharge him soon. (1) Acute respiratory failure with hypoxia, progress improving Current Visit: Yes Status: Acute Plan to address problem: Weaned to 4 L, 2 days ago, will further wean aggre ssively today, and possible discharge tomorrow on home O2. (2) Bilateral Covid 19 pneumonia Current Visit: Yes Status: Acute Qualifiers: (3) 2019 novel coronavirus infection Current Visit: Yes Status: Acute Plan to address problem: Covid positive ID consult On IV dexamethasone IV remdesivir completed as per protocol Markers of inflammation normalized. (4) ELY (acute kidney injury) Current Visit: Yes Status: Acute Plan to address problem: Improved (5) Malnutrition Current Visit: Yes Status: Acute Plan to address problem: Dietary supplements (6) morbid obesity (7) AISLINN (8) DVT prophylaxis Current Visit: Yes Status: Acute Plan to address problem: On Lovenox and GI prophylaxis Disposition: Patient admitted with severe hypoxia respiratory failure needing 25 L O2 on high flow, progressively improved, currently on 4 L, plan is to further wean O2 and discharge tomorrow on home O2. Discussed with telephonic nurse case manager. Discussed with the patient in detail at bedside. History Interval history: Patient remains on 4 L since. RN reports that his sats dropped to 80s with ambulation. He is mentating well. He is able to get around and is room and walk to bathroom without difficulty. Is able to converse long without significant distress. He has some cough but not significant. Afebrile. Tolerating diet. He is eager to go home. Hospitalist Physical - Constitutional Vitals: Temp Pulse Resp BP Pulse Ox 98.0 F 73 16 109/55 94 10/11/20 04:38 10/11/20 10:50 10/11/20 04:38 10/11/20 04:38 10/11/20 10:50 General appearance: Present: no acute distress, well-nourished, other (Mildly obese) - EENT Eyes: Present: PERRL, EOM intact ENT: clear oral mucosa - Neck Neck: Present: supple - Respiratory Respiratory effort: normal Respiratory: bilateral: diminished - Cardiovascular Rhythm: regular - Extremities Extremities: No edema - Abdominal General gastrointestinal: soft, non-tender, non-distended, normal bowel sounds - Integumentary Integumentary: Absent: rash - Psychiatric Psychiatric: appropriate mood/affect - Neurologic Neurologic: no focal deficits HEART Score - HEART Score Troponin: Troponin T 0.013 ng/mL (0.00-0.029) 09/27/20 10:27 Results - Labs CBC & Chem 7: 10/09/20 07:45 10/09/20 07:45 Labs: Laboratory Last Values WBC 8.4 K/mm3 (4.5-11.0) 10/09/20 07:45 RBC 4.48 M/mm3 (3.65-5.03) 10/09/20 07:45 Hgb 13.4 gm/dl (11.8-15.2) 10/09/20 07:45 Hct 39.7 % (35.5-45.6) 10/09/20 07:45 MCV 89 fl (84-94) 10/09/20 07:45 MCH 30 pg (28-32) 10/09/20 07:45 MCHC 34 % (32-34) 10/09/20 07:45 RDW 15.0 % (13.2-15.2) 10/09/20 07:45 Plt Count 312 K/mm3 (140-440) 10/09/20 07:45 Lymph % (Auto) 9.9 % (13.4-35.0) L 10/09/20 07:45 [place] % (Auto) 6.5 % (0.0-7.3) 10/09/20 07:45 Eos % (Auto) 1.5 % (0.0-4.3) 10/09/20 07:45 Baso % (Auto) 0.9 % (0.0-1.8) 10/09/20 07:45 Lymph # (Auto) 0.8 K/mm3 (1.2-5.4) L 10/09/20 07:45 [place] # (Auto) 0.6 K/mm3 (0.0-0.8) 10/09/20 07:45 Eos # (Auto) 0.1 K/mm3 (0.0-0.4) 10/09/20 07:45 Baso # (Auto) 0.1 K/mm3 (0.0-0.1) 10/09/20 07:45 Add Manual Diff Complete 10/02/20 13:24 Total Counted 100 10/02/20 13:24 Seg Neutrophils % 81.2 % (40.0-70.0) H 10/09/20 07:45 Seg Neuts % (Manual) 89.0 % (40.0-70.0) H 10/02/20 13:24 Band Neutrophils % 1.0 % 09/28/20 06:53 Lymphocytes % (Manual) 2.0 % (13.4-35.0) L 10/02/20 13:24 Reactive Lymphs % (Man) 2.0 % 10/02/20 13:24 Monocytes % (Manual) 3.0 % (0.0-7.3) 10/02/20 13:24 Eosinophils % (Manual) 2.0 % (0.0-4.3) 10/02/20 13:24 Metamyelocytes % 2.0 % 10/02/20 13:24 Nucleated RBC % Not Reportable 10/02/20 13:24 Seg Neutrophils # 6.8 K/mm3 (1.8-7.7) 10/09/20 07:45 Seg Neutrophils # Man 10.7 K/mm3 (1.8-7.7) H 10/02/20 13:24 Band Neutrophils # 0.0 K/mm3 10/02/20 13:24 Lymphocytes # (Manual) 0.2 K/mm3 (1.2-5.4) L 10/02/20 13:24 Abs React Lymphs (Man) 0.2 K/mm3 10/02/20 13:24 Monocytes # (Manual) 0.4 K/mm3 (0.0-0.8) 10/02/20 13:24 Eosinophils # (Manual) 0.2 K/mm3 (0.0-0.4) 10/02/20 13:24 Basophils # (Manual) 0.0 K/mm3 (0.0-0.1) 10/02/20 13:24 Metamyelocytes # 0.2 K/mm3 10/02/20 13:24 Myelocytes # 0.0 K/mm3 10/02/20 13:24 Promyelocytes # 0.0 K/mm3 10/02/20 13:24 Blast Cells # 0.0 K/mm3 10/02/20 13:24 WBC Morphology Not Reportable 10/02/20 13:24 WBC Morphology TNR 10/02/20 13:24 Hypersegmented Neuts Not Reportable 10/02/20 13:24 Hyposegmented Neuts Not Reportable 10/02/20 13:24 Hypogranular Neuts Not Reportable 10/02/20 13:24 Smudge Cells Not Reportable 10/02/20 13:24 Toxic Granulation Not Reportable 10/02/20 13:24 Toxic Vacuolation Not Reportable 10/02/20 13:24 Dohle Bodies Not Reportable 10/02/20 13:24 Pelger-Huet Anomaly Not Reportable 10/02/20 13:24 Tuan Rods Not Reportable 10/02/20 13:24 Platelet Estimate Consistent w auto 10/02/20 13:24 Clumped Platelets Not Reportable 10/02/20 13:24 Plt Clumps, EDTA Not Reportable 10/02/20 13:24 Large Platelets Not Reportable 10/02/20 13:24 Giant Platelets Not Reportable 10/02/20 13:24 Platelet Satelliting Not Reportable 10/02/20 13:24 Plt Morphology Comment Not Reportable 10/02/20 13:24 RBC Morphology Normal 10/02/20 13:24 Dimorphic RBCs Not Reportable 10/02/20 13:24 Polychromasia Not Reportable 10/02/20 13:24 Hypochromasia Not Reportable 10/02/20 13:24 Poikilocytosis Not Reportable 10/02/20 13:24 Anisocytosis Not Reportable 10/02/20 13:24 Microcytosis Not Reportable 10/02/20 13:24 Macrocytosis Not Reportable 10/02/20 13:24 Spherocytes Not Reportable 10/02/20 13:24 Pappenheimer Bodies Not Reportable 10/02/20 13:24 Sickle Cells Not Reportable 10/02/20 13:24 Target Cells Not Reportable 10/02/20 13:24 Tear Drop Cells Not Reportable 10/02/20 13:24 Ovalocytes Not Reportable 10/02/20 13:24 Helmet Cells Not Reportable 10/02/20 13:24 [place] Bodies Not Reportable 10/02/20 13:24 [place] Rings Not Reportable 10/02/20 13:24 [place] Cells Not Reportable 10/02/20 13:24 Bite Cells Not Reportable 10/02/20 13:24 Crenated Cell Not Reportable 10/02/20 13:24 Elliptocytes Not Reportable 10/02/20 13:24 Acanthocytes (Spur) Not Reportable 10/02/20 13:24 Rouleaux Not Reportable 10/02/20 13:24 Hemoglobin C Crystals Not Reportable 10/02/20 13:24 Schistocytes Not Reportable 10/02/20 13:24 Malaria parasites Not Reportable 10/02/20 13:24 Marito Bodies Not Reportable 10/02/20 13:24 Hem Pathologist Commnt No 10/02/20 13:24 PT 14.6 Sec. (12.2-14.9) 09/27/20 10:27 INR 1.09 (0.87-1.13) 09/27/20 10:27 APTT 29.8 Sec. (24.2-36.6) 09/27/20 10:27 D-Dimer 171.18 ng/mlDDU (0-234) 10/09/20 07:45 ABG pH 7.416 (7.320-7.450) 10/11/20 11:13 POC ABG pCO2 42.0 mmHg (32.0-48.0) 10/11/20 11:13 POC ABG pO2 78.2 mmHg (83-108) L 10/11/20 11:13 POC ABG HCO3 26.4 10/11/20 11:13 ABG O2 Saturation 96.0 (0-100) 10/11/20 11:13 POC ABG Base Excess 1.6 10/11/20 11:13 ABG Hemoglobin 13.6 (12.0-17.5) 10/11/20 11:13 ABG Oxyhemoglobin 94.9 (94-98) 10/11/20 11:13 ABG Methemoglobin 0.3 (0.0-1.5) 10/11/20 11:13 ABG Sodium 136.4 mmol/L (136.0-145.0) 10/11/20 11:13 ABG Potassium 3.9 mmol/L (3.40-4.50) 10/11/20 11:13 ABG Chloride 106.0 mmol/L (98-107) 10/11/20 11:13 ABG Glucose 169 mg/dL (65-95) H 10/11/20 11:13 Carboxyhemoglobin 0.8 (0.5-1.5) 10/11/20 11:13 FiO2 % 36.0 10/11/20 11:13 Sodium 139 mmol/L (137-145) 10/09/20 07:45 Potassium 4.0 mmol/L (3.6-5.0) 10/09/20 07:45 Chloride 103.4 mmol/L (98-107) 10/09/20 07:45 Carbon Dioxide 29 mmol/L (22-30) 10/09/20 07:45 Anion Gap 11 mmol/L 10/09/20 07:45 BUN 15 mg/dL (9-20) 10/09/20 07:45 Creatinine 0.9 mg/dL (0.8-1.3) 10/09/20 07:45 Estimated GFR > 60 ml/min 10/09/20 07:45 BUN/Creatinine Ratio 17 % 10/09/20 07:45 Glucose 108 mg/dL (75-100) H 10/09/20 07:45 Hemoglobin A1c 7.5 % (4-6) H 09/28/20 06:53 Lactic Acid 1.30 mmol/L (0.7-2.0) 09/27/20 10:27 Calcium 8.4 mg/dL (8.4-10.2) 10/09/20 07:45 Ferritin 209.7 ng/mL (30.0-300.0) 10/09/20 07:45 Total Bilirubin 0.40 mg/dL (0.1-1.2) 10/09/20 07:45 AST 11 units/L (5-40) 10/09/20 07:45 ALT 21 units/L (7-56) 10/09/20 07:45 Alkaline Phosphatase 66 units/L (35-129) 10/09/20 07:45 Lactate Dehydrogenase 202 units/L (91-180) H 10/06/20 06:03 Troponin T 0.013 ng/mL (0.00-0.029) 09/27/20 10:27 C-Reactive Protein 1.00 mg/dL (0.00-1.30) 10/10/20 07:37 NT-Pro-B Natriuret Pep 106.9 pg/mL (0-900) 10/09/20 07:45 Total Protein 5.6 g/dL (6.3-8.2) L 10/09/20 07:45 Albumin 3.1 g/dL (3.9-5) L 10/09/20 07:45 Albumin/Globulin Ratio 1.2 % 10/09/20 07:45 Procalcitonin 0.85 ng/mL (<0.15) 09/27/20 10:27 Arterial Blood Glucose 169 mg/dL (65-95) H 10/11/20 11:13 Arterial Blood Ionized Calcium 4.7 mg/dL (4.6-5.3) 10/11/20 11:13 Coronavirus (PCR) Positive (Negative) A 09/27/20 11:59 Vazquez/IV: Voiding Method Toilet Active Medications - Current Medications Current Medications: Generic Name Dose Route Start Last Admin Trade Name Freq PRN Reason Stop Dose Admin Acetaminophen 650 mg 09/27/20 15:32 Acetaminophen 325 Mg Tab PO Q4H PRN Pain MILD(1-3)/Fever >100.5/COOPER Alprazolam 0.25 mg 09/30/20 20:00 10/03/20 21:23 Alprazolam 0.25 Mg Tab PO 0.25 mg TID PRN Administration Anxiety Ascorbic Acid 500 mg 09/30/20 18:00 10/11/20 09:32 Ascorbic Acid 500 Mg Tab PO 500 mg QDAY DEQUAN Administration Dexamethasone 8 mg 10/09/20 10:00 10/11/20 09:32 Dexamethasone 4 Mg Tab PO 8 mg DAILY DEQUAN Administration Enoxaparin Sodium 40 mg 10/05/20 10:00 10/11/20 09:32 Enoxaparin 40 Mg/0.4 Ml Inj SUB-Q 40 mg Q12HR DEQUAN Administration Famotidine 20 mg 09/27/20 22:00 10/11/20 13:34 Famotidine 20 Mg Tab PO 20 mg BID DEQUAN Administration Melatonin 5 mg 10/05/20 21:00 10/10/20 22:05 Melatonin 5 Mg Tab PO 5 mg QHS PRN Administration Sleep Metoclopramide HCl 10 mg 09/27/20 15:32 Metoclopramide 10 Mg/2 Ml Inj IV Q6H PRN Nausea And Vomiting Ondansetron HCl 4 mg 09/27/20 15:32 Ondansetron 4 Mg/2 Ml Inj IV Q8H PRN Nausea And Vomiting Sodium Chloride 10 ml 09/27/20 22:00 10/11/20 09:32 Sodium Chloride 0.9% 10 Ml Flush Syringe IV 10 ml BID DEQUAN Administration Sodium Chloride 10 ml 09/27/20 15:32 Sodium Chloride 0.9% 10 Ml Flush Syringe IV PRN PRN LINE FLUSH Zinc Sulfate 220 mg 09/30/20 22:00 10/11/20 09:32 Zinc Sulfate 220 Mg Cap PO 220 mg BID DEQUAN Administration Zolpidem Tartrate 5 mg 09/30/20 22:00 10/03/20 21:23 Zolpidem 5 Mg Tab PO 5 mg QHS PRN Administration Sleep Nutrition/Malnutrition Assess - Dietary Evaluation Nutrition/Malnutrition Findings: Nutrition Notes Start: 09/30/20 11:22 Freq: Status: Active Protocol: Document 10/07/20 11:46 (Rec: 10/07/20 11:47 [id number]) Nutrition Notes Initial or Follow up Brief Note Current Diagnosis Acute Kidney Injury, Respiratory Failure Other Pertinent Diagnosis pneu, COVID(+) Current Diet Regular Subjective/Other Information FU for intakes. Pt did not answer phone x4. Per RN, pt always on phone with family/ friends. Pt continues to eat 100% of meals. Nutrition Intervention Revisit per MD consult or patient Sign Off request:
[2020-10-11] MEDS: MELATONIN 5 MG TAB PO PRN (22:08)
[2020-10-12] MEDS: ENOXAPARIN 40 MG/0.4 ML INJ SUB-Q SCH (09:31)
[2020-10-12] MEDS: ASCORBIC ACID 500 MG TAB PO SCH (09:31)
[2020-10-12] MEDS: DEXAMETHASONE 4 MG TAB PO SCH (09:31)
[2020-10-12] MEDS: ZINC SULFATE 220 MG CAP PO SCH (09:31)
[2020-10-12] MEDS: FAMOTIDINE 20 MG TAB PO SCH (09:32)
--- NOTE | 2020-10-12 10:52 | Progress Note ---
Assessment and Plan This is a 54-year-old male presents to the emergency department with complaint of feeling sick for the past week. He says that he has been having generalized body aches, sweats without chills, shortness of breath, and the patient says that he feels like he needs to cough but has not been able to do so. The patient states that he lost his sense of taste and smell but it has started to return. He has a past medical history of hypertension. He denies tobacco or illicit drug use. 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 The patient had a room air oxygen saturation of about 80% through his triage. No recent travel or sick contacts at home. The patient is not vaccinated against COVID-19, but no known obvious exposure to anyone positive for COVID-19. He denies any chest pain, lower extremity swelling, nausea, vomiting, diarrhea, abdominal pain. He has not taken anything for his symptoms prior to presentation today. Did not get Covid vaccination. No known allergies. Patient's coronavirus PCR is positive. Pt received remdesivir, dexamethasone, subcutaneous lovanox. He is on famotidine. Patients showing improvement in his clinical status. Pt is alert, awake, sitting up in the chair. Pt is on 2 1/2 litres O2 via NC and SaO2 of 95%. BIPAP stand by in the room. Pt says he is breathing better, Feeling better. Cough is improved. No chest pain. Pt is afebrile with no leukocytosis . Blood pressure 99/52, Pulse 78 Pt's CXR completed on 09/27/20 reported: Patchy bilateral pneumonia and Diminished lung volumes. Pt's CTA completed on 10/01/20 reported: No CT evidence for pulmonary embolism. Severe patchy parenchymal opacities throughout both lungs are nonspecific. Atypical causes of pneumonia, including viral pneumonia, should be considered. Pt's venous doppler study of bilateral LE on 10/02/20 reported: no sonographic evidence of DVT. CXR on 10/11/20 reported: No overwhelming change is appreciated since 09/27/2020. Perhaps minimal improvement in the bilateral lung opacities is demonstrated. Pt is currently receiving dexamethasone, subcutaneous lovenox, reglan, and famotidine. Patient is candidate for home O2. Recommend o2 3 litres via nasal canula. If patient going home can follow up with me for pulmonary problems in couple of weeks. Stressed the importance of follow up - Patient Problems (1) Acute respiratory failure with hypoxia Current Visit: Yes Status: Acute Plan to address problem: On 2 1/2 litres O2 via NC, SaO2 95%. Subcutaneous lonenox. Continue dexamethasone. Continue famotidine. (2) Bilateral pneumonia Current Visit: Yes Status: Acute Qualifiers: Pneumonia type: due to unspecified organism Lung location: unspecified part of lung Qualified Code(s): J18.9 - Pneumonia, unspecified organism Plan to address problem: Antibiotics as per ID. (3) ELY (acute kidney injury) Current Visit: Yes Status: Acute Plan to address problem: ELY management as per nephrology. (4) Hyponatremia Current Visit: Yes Status: Acute Plan to address problem: Improved. Recent Na+ 139. (5) Coronavirus infection Current Visit: Yes Status: Acute Plan to address problem: Pt finished the course of dexamethasone and remdesivir. Pt is on subcutaneous lovenox. Management as per ID. Subjective Date of service: 10/12/20 Principal diagnosis: Bilateral pneumonia, COVID pneumonia, acute hypoxic resp failure Interval history: This is a 54-year-old male presents to the emergency department with complaint of feeling sick for the past week. He says that he has been having generalized body aches, sweats without chills, shortness of breath, and the patient says that he feels like he needs to cough but has not been able to do so. The patient states that he lost his sense of taste and smell but it has started to return. He has a past medical history of hypertension. He denies tobacco or illicit drug use. 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 The patient had a room air oxygen saturation of about 80% through his triage. No recent travel or sick contacts at home. The patient is not vaccinated against COVID-19, but no known obvious exposure to anyone positive for COVID-19. He denies any chest pain, lower extremity swelling, nausea, vomiting, diarrhea, abdominal pain. He has not taken anything for his symptoms prior to presentation today. Did not get Covid vaccination. No known allergies. Patient's coronavirus PCR is positive. Pt received remdesivir, dexamethasone, subcutaneous lovanox. He is on famotidine. Patients showing improvement in his clinical status. Pt is alert, awake, sitting up in the chair. Pt is on 2 1/2 litres O2 via NC and SaO2 of 95%. BIPAP stand by in the room. Pt says he is breathing better, Feeling better. Cough is improved. No chest pain. Pt is afebrile with no leukocytosis . Blood pressure 99/52, Pulse 78 Pt's CXR completed on 09/27/20 reported: Patchy bilateral pneumonia and Diminished lung volumes. Pt's CTA completed on 10/01/20 reported: No CT evidence for pulmonary embolism. Severe patchy parenchymal opacities throughout both lungs are nonspecific. Atypical causes of pneumonia, including viral pneumonia, should be considered. Pt's venous doppler study of bilateral LE on 10/02/20 reported: no sonographic evidence of DVT. CXR on 10/11/20 reported: No overwhelming change is appreciated since 09/27/2020. Perhaps minimal improvement in the bilateral lung opacities is demonstrated. Pt is currently receiving dexamethasone, subcutaneous lovenox, reglan, and famotidine. Patient is candidate for home O2. Recommend o2 3 litres via nasal canula. If patient going home can follow up with me for pulmonary problems in couple of weeks. Stressed the importance of follow up. Objective Vital Signs - 12hr 10/12/20 10/12/20 10/12/20 04:35 05:36 05:38 Temperature 98.4 F Pulse Rate 78 Respiratory 16 Rate Blood Pressure 82/51 86/60 111/70 O2 Sat by Pulse 95 Oximetry 10/12/20 05:40 Temperature Pulse Rate Respiratory Rate Blood Pressure 99/52 O2 Sat by Pulse Oximetry Constitutional: no acute distress, alert, other (middle aged obese male with mild resp distress at rest) Eyes: non-icteric ENT: oropharynx moist Neck: supple, no lymphadenopathy Effort: mildly labored Ascultation: Bilateral: diminished breath sounds, rhonchi Percussion: Bilateral: not dull Cardiovascular: regular rate and rhythm, other (S1,S2) Gastrointestinal: normoactive bowel sounds, soft, non-tender, non-distended (protuberant) Integumentary: normal Extremities: no cyanosis, no edema, pulses normal Neurologic: normal mental status, non-focal exam, pupils equal and round, CN II- XII normal, motor strength normal and Psychiatric: mood appropriate, affect normal CBC and BMP: 10/09/20 07:45 10/09/20 07:45 ABG, PT/INR, D-dimer: ABG ABG pH 7.416 (7.320-7.450) 10/11/20 11:13 POC ABG pCO2 42.0 mmHg (32.0-48.0) 10/11/20 11:13 POC ABG pO2 78.2 mmHg (83-108) L 10/11/20 11:13 POC ABG HCO3 26.4 10/11/20 11:13 ABG O2 Saturation 96.0 (0-100) 10/11/20 11:13 PT/INR, D-dimer PT 14.6 Sec. (12.2-14.9) 09/27/20 10:27 INR 1.09 (0.87-1.13) 09/27/20 10:27 D-Dimer 171.18 ng/mlDDU (0-234) 10/09/20 07:45 Abnormal lab findings: Abnormal Labs 09/27/20 09/27/20 09/27/20 10:27 10:27 10:27 WBC RDW Plt Count Lymph % (Auto) Lymph # (Auto) Seg Neutrophils % Seg Neuts % (Manual) 94.0 H Lymphocytes % (Manual) 1.0 L Seg Neutrophils # Man 9.2 H Lymphocytes # (Manual) 0.1 L D-Dimer 392.32 H ABG pH POC ABG pO2 ABG Glucose Sodium 125 L Chloride 88.5 L BUN Creatinine 1.4 H Glucose 176 H Hemoglobin A1c Calcium Ferritin AST 48 H Lactate Dehydrogenase 396 H C-Reactive Protein 24.60 H Total Protein Albumin 3.1 L Arterial Blood Glucose Arterial Blood Ionized Calcium Coronavirus (PCR) 09/27/20 09/27/20 09/28/20 10:27 11:59 06:53 WBC 11.2 H RDW Plt Count Lymph % (Auto) Lymph # (Auto) Seg Neutrophils % Seg Neuts % (Manual) 98.0 H Lymphocytes % (Manual) Seg Neutrophils # Man 11.0 H Lymphocytes # (Manual) 0.0 L D-Dimer ABG pH POC ABG pO2 ABG Glucose Sodium Chloride BUN Creatinine Glucose Hemoglobin A1c Calcium Ferritin 413.7 H AST Lactate Dehydrogenase C-Reactive Protein Total Protein Albumin Arterial Blood Glucose Arterial Blood Ionized Calcium Coronavirus (PCR) Positive A 09/28/20 09/28/20 09/30/20 06:53 06:53 13:33 WBC RDW Plt Count Lymph % (Auto) Lymph # (Auto) Seg Neutrophils % Seg Neuts % (Manual) Lymphocytes % (Manual) Seg Neutrophils # Man Lymphocytes # (Manual) D-Dimer > 26462 H ABG pH POC ABG pO2 ABG Glucose Sodium 133 L D Chloride 94.3 L BUN 22 H Creatinine Glucose 168 H Hemoglobin A1c 7.5 H Calcium Ferritin AST Lactate Dehydrogenase C-Reactive Protein Total Protein Albumin 3.8 L Arterial Blood Glucose Arterial Blood Ionized Calcium Coronavirus (PCR) 09/30/20 09/30/20 10/01/20 13:33 13:33 07:11 WBC RDW Plt Count Lymph % (Auto) Lymph # (Auto) Seg Neutrophils % Seg Neuts % (Manual) Lymphocytes % (Manual) Seg Neutrophils # Man Lymphocytes # (Manual) D-Dimer ABG pH POC ABG pO2 ABG Glucose Sodium Chloride BUN Creatinine Glucose 195 H 126 H Hemoglobin A1c Calcium Ferritin 381.2 H AST Lactate Dehydrogenase 413 H C-Reactive Protein 8.00 H Total Protein 6.0 L Albumin 3.5 L Arterial Blood Glucose Arterial Blood Ionized Calcium Coronavirus (PCR) 10/02/20 10/02/20 10/02/20 05:10 13:24 14:38 WBC 12.0 H RDW Plt Count 481 H Lymph % (Auto) Lymph # (Auto) Seg Neutrophils % Seg Neuts % (Manual) 89.0 H Lymphocytes % (Manual) 2.0 L Seg Neutrophils # Man 10.7 H Lymphocytes # (Manual) 0.2 L D-Dimer ABG pH 7.473 H POC ABG pO2 80.5 L ABG Glucose 125 H Sodium Chloride BUN Creatinine Glucose 139 H Hemoglobin A1c Calcium Ferritin AST Lactate Dehydrogenase C-Reactive Protein Total Protein Albumin 3.2 L Arterial Blood Glucose 125 H Arterial Blood Ionized Calcium 4.5 L Coronavirus (PCR) 10/03/20 10/04/20 10/04/20 07:31 07:09 07:09 WBC RDW 15.3 H Plt Count 548 H Lymph % (Auto) Lymph # (Auto) Seg Neutrophils % Seg Neuts % (Manual) Lymphocytes % (Manual) Seg Neutrophils # Man Lymphocytes # (Manual) D-Dimer ABG pH POC ABG pO2 ABG Glucose Sodium Chloride BUN 21 H 25 H Creatinine Glucose 148 H 113 H Hemoglobin A1c Calcium 8.3 L Ferritin AST Lactate Dehydrogenase 271 H C-Reactive Protein 1.50 H Total Protein Albumin 3.0 L Arterial Blood Glucose Arterial Blood Ionized Calcium Coronavirus (PCR) 10/05/20 10/06/20 10/09/20 07:04 06:03 07:45 WBC RDW Plt Count Lymph % (Auto) 9.9 L Lymph # (Auto) 0.8 L Seg Neutrophils % 81.2 H Seg Neuts % (Manual) Lymphocytes % (Manual) Seg Neutrophils # Man Lymphocytes # (Manual) D-Dimer ABG pH POC ABG pO2 ABG Glucose Sodium Chloride BUN Creatinine Glucose 108 H 141 H Hemoglobin A1c Calcium Ferritin AST Lactate Dehydrogenase 296 H 202 H C-Reactive Protein Total Protein Albumin Arterial Blood Glucose Arterial Blood Ionized Calcium Coronavirus (PCR) 10/09/20 10/11/20 07:45 11:13 WBC RDW Plt Count Lymph % (Auto) Lymph # (Auto) Seg Neutrophils % Seg Neuts % (Manual) Lymphocytes % (Manual) Seg Neutrophils # Man Lymphocytes # (Manual) D-Dimer ABG pH POC ABG pO2 78.2 L ABG Glucose 169 H Sodium Chloride BUN Creatinine Glucose 108 H Hemoglobin A1c Calcium Ferritin AST Lactate Dehydrogenase C-Reactive Protein Total Protein 5.6 L Albumin 3.1 L Arterial Blood Glucose 169 H Arterial Blood Ionized Calcium Coronavirus (PCR) Allied health notes reviewed: nursing
--- NOTE | 2020-10-12 10:52 | Discharge Summary ---
Providers - Providers Date of Admission: 09/27/20 11:42 Attending physician: JUAN C DORAN MD 09/29/20 19:06 Consult to Physician [CONS] Routine Comment: Consulting Provider: MARTA ESPINOZA Physician Instructions: Reason For Exam: Covid pneumonia 09/30/20 12:18 Consult to Physician [CONS] Routine Comment: Consulting Provider: MARITZA GARCIA Physician Instructions: Reason For Exam: hypoxic respiratory failure 10/08/20 14:41 Physical Therapy Evaluation and Treat [CONS] Stat Comment: Reason For Exam: eval and treat Hospitalization Reason for admission: shortness of breath Condition: Serious Hospital course: This is a 54-year-old male presents to the emergency department with complaint of feeling sick for the past week. He says that he has been having generalized body aches, sweats without chills, shortness of breath, and the patient says that he feels like he needs to cough but has not been able to do so. The patient states that he lost his sense of taste and smell but it has started to return. He has a past medical history of hypertension. He denies tobacco or illicit drug use. The patient had a room air oxygen saturation of about 80% through his triage. No recent travel or sick contacts at home. The patient is not vaccinated against COVID-19, but no known obvious exposure to anyone positive for COVID-19. He denies any chest pain, lower extremity swelling, nausea, vomiting, diarrhea, abdominal pain. He has not taken anything for his symptoms prior to presentation today. Did jose get Covid vaccination 09/28/2020 Covid PCR positive On 8 to 10 L of nasal cannula oxygen 09/29/2020 On 8 L nasal cannula oxygen Mild distress ID consult requested IV remdesivir started IV dexamethasone to continue 09/30: Patient continues on high flow oxygen at 14 L. Will obtain pulmonary consultation in addition to current management continue remdesivir and dexamethasone. Encourage prone positioning. We will also obtain a CT of the chest to rule out pulmonary embolism. Plan of care discussed with the patient 10/01: Continues on 14 L of oxygen continue to encourage weaning down, pulmonary input is noted. Continue to await CTA. Wean oxygen as tolerated. Continue steroids. Complete remdesivir. Continue to encourage prone positioning. We will give a dose of Lasix today 7/10: Remains on high flow 20 L and 50%. Will give additional dose of Lasix today. Will monitor inflammatory markers. Considering AISLINN the thickness of his neck I will recommend a CPAP/BiPAP at nighttime while in house. He verbalized understanding that he needs to work with insurance company to continue use of this outpatient. 10/03: Patient agreeable to try BiPAP today again reinforced the importance of it considering his history of obstructive sleep apnea. We will continue with additional Lasix monitor BMP. Discussed with infectious disease yesterday started patient on full dose anticoagulation until we will rule out DVT. 10/04: Patient continues to show some improvement continue to use BiPAP. Diuretics for 1 more day. Monitor renal functions. Discussed with nursing staff to ensure appropriate monitor while on BiPAP. 10/05/2020; patient is on high flow oxygen 25 L with FiO2 of 50%. Doppler ultrasound of the lower extremities were negative. I will decrease anticoagula tion to prophylactic dose. If no improvement in his oxygen requirement, consider LTAC. Discussed with case management. 10/06/2020: Patient remains on 24 L high flow and FiO2 50%. D-dimer elevated but CT negative for PE and us negative for DVT. Echo unremarkable. Is able to walk to bathroom with mild to moderate dyspnea. Mild dyspnea at rest but able to converse fairly well. Mentating very well. CM is working on LTAC placement. 10/07/2020: Patient remains on 25 L of O2 high flow, FiO2 50%. He is mentating well. He is able to get around and is room and walk to bathroom without difficulty. Is able to converse long without significant respite distress. Afebrile. Tolerating diet. Is accepted by [facility] but awaiting insurance approval. We will continue current therapy and wean O2 as tolerated. Pulmonary is following. 10/08/2020: Clinically improving. High flow oxygen could be weaned to 4 L this afternoon. Continue oral Decadron. Encouraged to use incentive spirometer ag gressively. Patient is well-appearing. If he continues to improve, could be discharged to home in couple of days. 10/09/2020: Patient remains on 4 L of O2 since yesterday. There is no acute respite distress. Is able to walk around in the room without significant dyspnea on exertion. Markers of inflammation close to normal, CRP 0.3 and a normal D-dimer. Continue Decadron orally. Encouraged to use incentive spirometer aggressively. The patient continues to improve, could be discharged in couple of days home. 10/10/2020: Patient remains on 4 L O2 since 10/08. RN reports that sats dropped to 80s with ambulation, however without respiratory distress. Stable vital signs. CRP 0.3, BNP 106 and a normal D-dimer. We will continue to attempt to wean O2 aggressively and will discharge him soon. (1) Acute respiratory failure with hypoxia, progress improving Current Visit: Yes Status: Acute Plan to address problem: Weaned to 4 L, 2 days ago, will further wean aggressively today, and possible discharge tomorrow on home O2. (2) Bilateral Covid 19 pneumonia Current Visit: Yes Status: Acute Qualifiers: (3) 2019 novel coronavirus infection Current Visit: Yes Status: Acute Plan to address problem: Covid positive ID consult On IV dexamethasone IV remdesivir completed as per protocol Markers of inflammation normalized. (4) ELY (acute kidney injury) secondary Vasomotor nephropthy Current Visit: Yes Status: Acute Plan to address problem: Improved (5) Malnutrition Current Visit: Yes Status: Acute Plan to address problem: Dietary supplements (6) morbid obesity (7) AISLINN 10/12: Patient seen and examined today resting comfortable, sating 95% on 3 LITERS, Qualifies for home oxygen and tank has been delivered. Discussed extensively with the patient management outpatient and protection of the family members, also home oxygen. started on metformin due to DM, aic 7.5 Weight loss recommended. Disposition: [id number] [facility] Final Discharge Diagnosis (Prints w/discharge instructions): acute hypoxic respiratory failure secondary to COVID19 Time spent for discharge: 35 mins Core Measure Documentation - Palliative Care Palliative Care/ Comfort Measures: Not Applicable - Core Measures Any of the following diagnoses?: none Exam - Physical Exam Narrative exam: VITAL SIGNS: Reviewed. GENERAL: The patient appears normally developed, obese, no distress, vital signs as documented. HEAD: No signs of head trauma. EYES: Pupils are equal. Extraocular motions intact. EARS: Hearing grossly intact. MOUTH: Oropharynx is normal. NECK: No adenopathy, no JVD. CHEST: Chest with bibasilar rhonchi breath sounds bilaterally. No wheezes. CARDIAC: Regular rate and rhythm. S1 and S2, without murmurs, gallops, or rubs. VASCULAR: No Edema. Peripheral pulses normal and equal in all extremities. ABDOMEN: Soft, non tender and non distended. No rebound or guarding, and no masses palpated. Bowel Sounds normal. MUSCULOSKELETAL: Good range of motion of all major joints. Extremities without clubbing, cyanosis or edema. NEUROLOGIC EXAM: Alert and oriented x 3 although slow at first no focal sensory or strength deficits. Speech normal. Follows commands. PSYCHIATRIC: Mood normal. SKIN: detail exam as documented in skin assessment - Constitutional Vitals: Temp Pulse Resp BP Pulse Ox 98.4 F 78 16 99/52 95 10/12/20 04:35 10/12/20 04:35 10/12/20 04:35 10/12/20 05:40 10/12/20 04:35 Plan Activity: advance as tolerated, fall precautions Diet: diabetic Special Instructions: record daily weights, record daily BP diary, record blood sugar diary, home oxygen via (nasal cannula @ 3 liters per minute) Follow up with: VAMSHI MURDOCK [Other] - 3-5 Days MARITZA GARCIA MD [Staff Physician] - 7 Days REINIER RAMAN MD [Staff Physician] - 7 Days Prescriptions: dexAMETHasone [Decadron] 8 mg PO DAILY #14 tablet metFORMIN [Glucophage] 500 mg PO BID #60 tablet Hydrocodone Bit/Homatrop Me-Br [Hycodan 5 mg-1.5 mg/5 ml Soln] 5 ml PO Q6HR PRN 5 Days syrup PRN Reason: Cough Ascorbic Acid [Vitamin C] 500 mg PO QDAY #30 tablet Zinc Sulfate 220 mg PO BID #60 capsule Other Discharge Orders: Glucometer (Amb) Location: None Selected Glucometer supplies[Amb] Location: None Selected
[2020-10-12 11:59] VITALS: BP 130/84
== END 2020-10-12 14:00 | disposition home health service (06) | DRG 177 ==
LOC: ED 09:05 → 3A 11:42
PROVIDERS: ADMIT Internal Medicine; ATTEND Internal Medicine
PROC: XW033E5 Introduction of Remdesivir Anti-infective into Peripheral Vein, Percutaneous Approach, New Technology Group 5 (ICD-10-PCS; principal; 2020-09-29)
PROC: 5A09357 Assistance with Respiratory Ventilation, Less than 24 Consecutive Hours, Continuous Positive Airway Pressure (ICD-10-PCS; 2020-10-03)
PROC: 5A09357 Assistance with Respiratory Ventilation, Less than 24 Consecutive Hours, Continuous Positive Airway Pressure (ICD-10-PCS; 2020-10-04)
PROC: 4A033R1 Measurement of Arterial Saturation, Peripheral, Percutaneous Approach (ICD-10-PCS; 2020-10-11)
DX: U07.1 COVID-19 (principal); J12.82 Pneumonia due to coronavirus disease 2019; J96.01 Acute respiratory failure with hypoxia; N17.0 Acute kidney failure with tubular necrosis; E87.1 Hypo-osmolality and hyponatremia; E46 Unspecified protein-calorie malnutrition; I10 Essential (primary) hypertension; N28.9 Disorder of kidney and ureter, unspecified; E66.01 Morbid (severe) obesity due to excess calories; G47.33 Obstructive sleep apnea (adult) (pediatric); F41.9 Anxiety disorder, unspecified; Z68.39 Body mass index [BMI] 39.0-39.9, adult
CPT/HCPCS: 36415; 36600; 71045; 71275; 80048; 80053; 82140; 82728; 82805; 82947; 83036; 83615; 83880; 84145; 84484; 85007; 85025; 85027; 85379; 85610; 85730; 86140; 93005; 93306; 93970; 94660; 96374; G0378; J0456; J0696; J1100; J1650; J1940; J7030; J7050; J8540; Q9967; U0003